=== PATIENT | female | born 1955 | race Caucasian/White ===

== ENCOUNTER 2022-08-21 14:33 | Outpatient (CLI) | payer MEDICARE, MEDICAID, SELFPAY ==
--- NOTE | 2022-08-21 | ECHO_ITS ---
Patient Info Name: Roya Mandujano Age: 67 years : 1955 Gender: Female Ht: 69 in Wt: 206 lbs BSA: 2.16 m2 HR: 78 bpm BP: 128 / 72 mmHg Technical Quality: Fair Exam Date: 08/21/2022 3:13 PM Exam Location: [facility] Pulmonary Patient Status: Outpatient Admit Date: 08/21/2022 Staff Ordering Physician: TannerTasneem MD Staff Home Therapy Rn: Nakita Dean RDCS Attending Provider: Tasneem Simeon MD Referring Physician: Lemuel GARAY; Exam Type: CA echo doppler color flow Study Info Indications - PERIPHERAL EDEMA Complete two-dimensional, color flow and Doppler transthoracic echocardiogram is performed. Summary 1. Complete two-dimensional, color flow and Doppler transthoracic echocardiogram is performed. 2. Left ventricular chamber dimension is normal. 3. Left ventricular systolic function is normal, estimated at 65-70%. 4. The left ventricular diastolic function is grade I diastolic dysfunction. 5. E/e' 6 is not elevated. 6. There is mild aortic valve sclerosis. 7. Mild pulmonary hypertension, estimated pulmonary arterial systolic pressure is 45 mmHg. Left Ventricle E/e' 6 is not elevated. Left ventricular chamber dimension is normal. Left ventricular systolic function is normal, estimated at 65-70%. The left ventricular diastolic function is grade I diastolic dysfunction. Right Ventricle Right ventricular chamber dimension is normal. Right ventricular systolic function is normal. Left Atria Left atrial chamber dimension is normal. Right Atria Right atrial chamber dimension is normal. Aortic Valve The aortic valve is trileaflet. There is mild aortic valve sclerosis. There is no aortic valve stenosis. There is no aortic valve regurgitation. Pulmonic Valve There is no pulmonic regurgitation. Mitral Valve There is no mitral valve stenosis. There is no mitral valve regurgitation. Tricuspid Valve There is no tricuspid valve regurgitation. Mild pulmonary hypertension, estimated pulmonary arterial systolic pressure is 45 mmHg. Pericardium/Pleural There is no pericardial effusion. Inferior Vena Cava Normal inferior vena cava with >50% collapse upon inspiration consistent with normal right atrial pressure, 5 mmHg. Aorta The aortic root size at the sinus of Valsalva is normal. Left Ventricular Outflow Tract Name Value Normal LVOT 2D LVOT Diameter 2.0 cm LVOT Doppler LVOT Peak Gradient 5 mmHg LVOT Mean Gradient 3 mmHg LVOT VTI 21 cm LVOT VTI/AV VTI Ratio 0.7 LVOT Stroke Volume 66 ml LVOT CO 15.9 l/min LVOT CI 7.4 l/min/m2 Pulmonic Valve Name Value Normal PV Doppler PV Peak Gradient
== END 2022-08-21 14:34 | disposition home or self-care (01) ==
LOC: ANHCARD 14:35
PROVIDERS: Visit Provider Family Medicine
DX: R60.9 Edema, unspecified (principal); R01.1 Cardiac murmur, unspecified; I27.20 Pulmonary hypertension, unspecified
CPT/HCPCS: 93306

== ENCOUNTER 2022-10-20 13:00 | Outpatient (CLI) | payer MEDICARE, MEDICAID, SELFPAY ==
[2022-10-20 13:59] LABS: Anion Gap 7 mmol/L (8-16); Blood Urea Nitrogen 26 mg/dL (7-17); Calcium 8.8 mg/dL (8.4-10.2); Carbon Dioxide 28 mmol/L (22-30); Chloride 101 mmol/L (98-107); Estimated Glomerular Filt Rate > 60; Glucose 98 mg/dL (65-110); Potassium 3.5 mmol/L (3.4-5.0); Sodium 136 mmol/L (137-145)
== END 2022-10-20 13:01 | disposition home or self-care (01) ==
PROVIDERS: Anesthesiology; PCP Family Medicine; Visit Provider Urology
DX: Z51.81 Encounter for therapeutic drug level monitoring (principal); Z01.818 Encounter for other preprocedural examination
CPT/HCPCS: 36415; 80048

== ENCOUNTER 2022-10-23 00:28 | Day surgery (SDC) | payer MEDICARE, MEDICAID, SELFPAY ==
--- NOTE | 2022-10-19 12:56 | PC.NURSE ---
Report to the Outpatient Waiting Room, entrance under the green pavilion located off [facility], at time __10:00am on date __10/23/22 . Planned Procedure Time: __12:00pm . Time changes happen often and if your time is changed the preop area will call you the afternoon before. - You and your visitor will be asked to self-screen and do not enter if you have any COVID symptoms. - Only one visitor is requested with a max of two and NO children visitors are allowed at this time. - The patient visitor may be requested to leave or wait in car when not with patient due to distancing restrictions. - A mask is optional within the hospital. Patients may have clear liquids (water, carbonated beverages, clear teas, apple juice) until 3 hours prior to surgery with a maximum of 20 ounces. - No food from midnight until time of surgery Take the following medications with a SIP of water the morning of surgery: ___AMLODIPINE, NASAL SPRAYS, BUPROPION, DULOXETINE, LEVOTHYROXINE Medications to discontinue per physician ___HOLD DICLOFENAC AND ALL VITAMINS/SUPPLEMENTS 7 DAYS PRE-OP PER DR SOARES( PER PATIENT) _ Date to take last dose 10/15/22 (PATIENT ALREADY HOLDING) Please no make-up, nail latvian, hairspray, perfume, deodorant, or body powder the day of surgery. No jewelry (including any body piercings) or valuables the day of surgery, leave them at home. Please take a shower or bath the night before, or the morning of, surgery with an antibacterial soap. Wear comfortable, loose fitting clothing. Children are encouraged to wear pajamas. - Jewelry must be removed prior to entering the operating room. Rings and piercings that are not removed may be cut off. - The hospital will not accept responsibility for valuables. - Please leave all valuables, including medications, at home the day of surgery. If you are going home after surgery, a licensed home delivery driver must drive you home. - NO public transportation without another adult if you receive anesthesia. - We recommend that an adult stay with you for 24 hours following discharge. - We also recommend that you do not drive, make important decision, drink alcoholic beverages, or take any drugs that were not prescribed by your health care provider for at least 24 hours after your discharge time. Follow any additional instructions given to you from your surgeon. If you or anyone in your household have experienced Covid symptoms in the past week, please notify your surgeon or the nurse liaison at the phone number below for possible testing. Telephone instructions given to __PATIENT and asked if any additional questions and then verbalized understanding. Patient advised to call surgeon office or pre surgery nurse liaison [phone] if any additional questions.
[2022-10-19 13:00] VITALS: BMI 32.4
--- NOTE | 2022-10-20 09:19 | PM.IMHP ---
H&P: HPI History of Present Illness Date/Time: 10/20/22 09:19 Chief Complaint: Urge incontinence Narrative: A woman with refractory urge incontinence. She has undergone a trial of sacral nerve stimulation with greater than 50% improvement in symptoms. She will proceed towards full device implantation Review of Systems Review of Systems: All systems reviewed & are unremarkable except as noted in HPI and below PMFSH Social History Social History Smoking packs per day: 0.2 Smoking cigarettes per day: 4.0 Years smoked: 1.5 Smoking pack-years: 0.30 Smoking status: Former smoker Tobacco type: cigarettes Smoking end date: 04/07/90 Substance use: never Additional living arrangements comments: WITH MOTHER Spiritual care concerns: No Meds Home Medications and Allergies Home Medications Medication Instructions Recorded Confirmed Type acetaminophen 650 mg 1,300 mg PO Q8H PRN Pain 10/19/22 10/19/22 History tablet,extended release amlodipine 10 mg tablet 10 mg PO QAM 10/19/22 10/19/22 History apple cider vinegar 500 mg tablet 500 mg PO BID 10/19/22 10/19/22 History aripiprazole 30 mg tablet 30 mg PO HS 10/19/22 10/19/22 History ascorbate calcium (vitamin C) 500 500 mg PO DAILY 10/19/22 10/19/22 History mg capsule atorvastatin 20 mg tablet 20 mg PO HS 10/19/22 10/19/22 History azelastine 137 mcg (0.1 %) nasal 2 spray intranasal BID 10/19/22 10/19/22 History spray aerosol biotin 10,000 mcg capsule 10,000 mcg PO DAILY 10/19/22 10/19/22 History bupropion HCl 150 mg tablet,12 hr 150 mg PO BID 10/19/22 10/19/22 History sustained-release calcium carbonate 600 mg-vitamin 1 tablet PO BID 10/19/22 10/19/22 History D3 5 mcg (200 unit) tablet coenzyme Q10 100 mg capsule 100 mg PO DAILY 10/19/22 10/19/22 History (CoQ-10) diclofenac sodium 75 mg 75 mg PO BID 10/19/22 10/19/22 History tablet,delayed release duloxetine 60 mg capsule,delayed 60 mg PO HS 10/19/22 10/19/22 History release fish, borage, flaxseed oils-omega 1 cap PO TID 10/19/22 10/19/22 History 3,6,9 comb no.1 1,200 mg capsule ([place] 3-6-9) fluticasone propionate 50 2 spray intranasal QAM 10/19/22 10/19/22 History mcg/actuation nasal spray,suspension furosemide 20 mg tablet 20 mg PO DAILY PRN Edema 10/19/22 10/19/22 History glucosamine-chondroitin 250 mg-200 1 tablet PO BID 10/19/22 10/19/22 History mg tablet (Osteo Bi-Flex) ipratropium bromide 21 mcg (0.03 2 spray intranasal TID 10/19/22 10/19/22 History %) nasal spray levothyroxine 50 mcg tablet See Rx Instructions .Route .COMPLEX 10/19/22 10/19/22 History magnesium 500 mg tablet 15 mg PO DAILY 10/19/22 10/19/22 History mirabegron 50 mg tablet,extended 50 mg PO DAILY 10/19/22 10/19/22 History release 24 hr (Myrbetriq) multivitamin 1 tablet PO DAILY 10/19/22 10/19/22 History pantoprazole 40 mg tablet,delayed 40 mg PO QAM 10/19/22 10/19/22 History release telmisartan 80 mg tablet 80 mg PO HS 10/19/22 10/19/22 History topiramate 50 mg tablet See Rx Instructions .Route .COMPLEX 10/19/22 10/19/22 History valacyclovir 500 mg tablet 500 mg PO DAILY 10/19/22 10/19/22 History vitamin E 600 unit capsule 600 unit PO DAILY 10/19/22 10/19/22 History zolpidem 6.25 mg tablet,extended 6.25 mg PO HS 10/19/22 10/19/22 History release,multiphase Allergies Allergy/AdvReac Type Severity Reaction Status Date / Time tetracycline AdvReac Severe YEAST Unverified 10/19/22 12:34 INFECTION Exam Narrative: No acute distress Normal breathing Alert oriented x3 Assessment and Plan Assessment and plan (1) Urge incontinence: Code(s): N39.41 - Urge incontinence Status: Acute Assessment and Plan: Placement of sacral neurostimulator. Understands risks of bleeding, infection, lack of efficacy, need for revision and battery changes, agrees to proceed
--- NOTE | ~2022-10-23 | XR_ITS ---
EXAMINATION: XR fluoroscopy no charge DATE: 10/23/2022 11:00 [employer]PERVISOR OVENS INDICATION: NEUROSTIMULATOR INSERT PHASE 2 . TECHNIQUE: 3 fluoroscopic images of the sacrum were obtained during neurostimulator insertion perform ed by the surgeon. I was not present in the operating room. Fluoroscopy exposure time was 44 seconds. Air Kerma 25.91 mGy. DAP 0.03536 mGym2. COMPARISON: None FINDINGS: Neurostimulator pad overlying the right sacrum at the level of S3. IMPRESSION: Fluoroscopic documentation of neurostimulator insertion. Please refer to the operative note for compl ete procedural details . Reviewed, dictated and finalized at location K. [facility]ISOR OVENS IMPRESSION: Fluoroscopic documentation of neurostimulator insertion. Please refer to the op erative note for complete procedural details .
--- NOTE | 2022-10-23 07:38 | WPDHPUPDATE1 ---
History and Physical Update Update Date/Time: 10/23/22 07:38 History and Physical has been reviewed, including an updated exam of the patient. There are NO changes in the patient's condition. Risks, benefits, and alternatives have been discussed and questions answered. Patient agrees to proceed with procedure.
--- NOTE | 2022-10-23 08:34 | WPDANESEPPF ---
Anes - Initial Pre Proc Eval Procedure: Operation Date: 10/23/22 10:30 Proposed Procedures p Neurostimulator Insertion Phase 2 - Ian Dsouza MD Date/Time: 10/23/22 08:34 Surgeon: Ian Dsouza MD Pre Op Diagnosis: urgency incontinence Patient Data Age: 67 Gender: F Height: 1.7 m Weight: 94 kg Allergies Allergy/AdvReac Type Severity Reaction Status Date / Time tetracycline AdvReac Severe YEAST Unverified 10/23/22 08:52 INFECTION Home Medications Medication Instructions Recorded Confirmed Type acetaminophen 650 mg 1,300 mg PO Q8H PRN Pain 10/19/22 10/23/22 History tablet,extended release amlodipine 10 mg tablet 10 mg PO QAM 10/19/22 10/23/22 History apple cider vinegar 500 mg tablet 500 mg PO BID 10/19/22 10/23/22 History aripiprazole 30 mg tablet 30 mg PO HS 10/19/22 10/23/22 History ascorbate calcium (vitamin C) 500 500 mg PO DAILY 10/19/22 10/23/22 History mg capsule atorvastatin 20 mg tablet 20 mg PO HS 10/19/22 10/23/22 History azelastine 137 mcg (0.1 %) nasal 2 spray intranasal BID 10/19/22 10/23/22 History spray aerosol biotin 10,000 mcg capsule 10,000 mcg PO DAILY 10/19/22 10/23/22 History bupropion HCl 150 mg tablet,12 hr 150 mg PO BID 10/19/22 10/23/22 History sustained-release calcium carbonate 600 mg-vitamin 1 tablet PO BID 10/19/22 10/23/22 History D3 5 mcg (200 unit) tablet coenzyme Q10 100 mg capsule 100 mg PO DAILY 10/19/22 10/23/22 History (CoQ-10) diclofenac sodium 75 mg 75 mg PO BID 10/19/22 10/23/22 History tablet,delayed release duloxetine 60 mg capsule,delayed 60 mg PO HS 10/19/22 10/23/22 History release fish, borage, flaxseed oils-omega 1 cap PO TID 10/19/22 10/23/22 History 3,6,9 comb no.1 1,200 mg capsule ([place] 3-6-9) fluticasone propionate 50 2 spray intranasal QAM 10/19/22 10/23/22 History mcg/actuation nasal spray,suspension furosemide 20 mg tablet 20 mg PO DAILY PRN Edema 10/19/22 10/23/22 History glucosamine-chondroitin 250 mg-200 1 tablet PO BID 10/19/22 10/23/22 History mg tablet (Osteo Bi-Flex) ipratropium bromide 21 mcg (0.03 2 spray intranasal TID 10/19/22 10/23/22 History %) nasal spray levothyroxine 50 mcg tablet See Rx Instructions .Route .COMPLEX 10/19/22 10/23/22 History magnesium 500 mg tablet 15 mg PO DAILY 10/19/22 10/23/22 History mirabegron 50 mg tablet,extended 50 mg PO DAILY 10/19/22 10/23/22 History release 24 hr (Myrbetriq) multivitamin 1 tablet PO DAILY 10/19/22 10/23/22 History pantoprazole 40 mg tablet,delayed 40 mg PO QAM 10/19/22 10/23/22 History release telmisartan 80 mg tablet 80 mg PO HS 10/19/22 10/23/22 History topiramate 50 mg tablet See Rx Instructions .Route .COMPLEX 10/19/22 10/23/22 History valacyclovir 500 mg tablet 500 mg PO DAILY 10/19/22 10/23/22 History vitamin E 600 unit capsule 600 unit PO DAILY 10/19/22 10/23/22 History zolpidem 6.25 mg tablet,extended 6.25 mg PO HS 10/19/22 10/23/22 History release,multiphase Patient hx anesthesia problems: none Family hx anesthesia problems: none Results Review: All pre-operative results and documents have been reviewed as part of the pre-operative evaluation. [facility] Past Medical History Medical History (Updated 10/23/22 @ 08:35 by Ha San DO) Bipolar disorder Hyperlipidemia Hypertension Hypothyroidism JOHN (obstructive sleep apnea) mild - no cpap Surgical History Surgical History (Updated 10/23/22 @ 08:35 by Ha San DO) History of appendectomy History of hysterectomy Social History Social History Smoking packs per day: 0.2 Smoking cigarettes per day: 4.0 Years smoked: 1.5 Smoking pack-years: 0.30 Smoking status: Former smoker Tobacco type: cigarettes Smoking end date: 04/07/90 Substance use: never Living arrangements: with family Additional living arrangements comments: WITH MOTHER Spiritual
[2022-10-23 08:43] VITALS: BP 118/59; PULSE 82; RESP 18; TEMP 36.6; O2SAT 99
[2022-10-23] MEDS: LACTATED RINGERS 1,000 ML 30 ML IV CONT (09:05)
[2022-10-23] MEDS: ceFAZolin 2 GM/D5W 50 ML 2 GM/50 ML BAG IVPB (11:00)
[2022-10-23] MEDS: BUPIVACAINE/EPINEPHRINE 0.5% 30 ML VIAL 20 ML INFILTRATE (11:00)
--- NOTE | 2022-10-23 11:50 | W.PM.PROC2 ---
Procedure Note - Detailed Date of Procedure 10/23/22 Pre-op Diagnosis urgency incontinence Post-op Diagnosis Same Procedure Performed Implantation of sacral lead 33820 Placement of implantable pulse generator 54340 Complex neurostimulator programming impedance check 26458 Surgeon Ian Dsouza MD Anesthesia MAC and Local Indications This is a patient with refractory urge urinary incontinence. They have undergone a successful trial of sacral nerve stimulation. They present today for permanent implantation. They understand the risks of bleeding, infection, decreased efficacy, need for revision and battery changes. They agree to proceed Findings See dictated Description of Procedure They were correctly identified and informed consent was obtained. There brought to the operating room. There placed in the prone position. There given appropriate perioperative antibiotics. A time-out performed. I used fluoroscopy to mimi out my sacral landmarks in the AP and the lateral orientation. I anesthetized the skin. I entered the S3 foramen. I monitored the needle with fluoroscopy. I got appropriate Ileana and toe response at a low threshold. I made a skin lizyz. I placed a stylet. I placed the lead introducer sheath. I thinned placed and deployed to my lead. I got appropriate responses again at a low threshold. I marked out the site of the pulse generator. I anesthetized the skin and made that incision. I created a subcutaneous pocket to house the pulse generator. I tunneled the lead towards this pocket. Appropriate connections were made between the lead and the battery. It was placed in the pocket. It was programmed and impedances were checked and found to be normal. I irrigated out all wounds. I ensured hemostasis. I closed the subcutaneous tissues with 2 Vicryl. I closed the skin with 4 0 Vicryl. Glue was applied. There then awakened and transferred to the PACU in stable condition. Implants Sacral neurostimulator Estimated Blood Loss 5 Drains No Packing No Pathology None sent Condition Stable Disposition PACU
[2022-10-23 11:55] VITALS: BP 132/58; PULSE 80; RESP 20; O2SAT 96
[2022-10-23] MEDS: KETOROLAC 15 MG/ML VIAL (*BKC) IV PUSH (12:09)
[2022-10-23 12:25] VITALS: BP 117/56; PULSE 82; RESP 16
[2022-10-23 13:00] VITALS: BP 117/48; PULSE 75; RESP 16
== END 2022-10-23 13:20 | disposition home or self-care (01) ==
PROVIDERS: PCP Family Medicine; Visit Provider Urology
PROC: (CPT 64561; principal; 2022-10-23 10:30)
DX: N39.41 Urge incontinence (principal); I10 Essential (primary) hypertension; E78.5 Hyperlipidemia, unspecified; E03.9 Hypothyroidism, unspecified; G47.33 Obstructive sleep apnea (adult) (pediatric); F31.9 Bipolar disorder, unspecified; Z87.891 Personal history of nicotine dependence; E66.9 Obesity, unspecified; Z68.32 Body mass index [BMI] 32.0-32.9, adult
CPT/HCPCS: 64561; 64590; 99199; C1767; C1778; C1787; J0690; J1885; J2704; J3010; J7120

== ENCOUNTER 2022-11-08 11:51 | Outpatient (CLI) | payer MEDICARE, MEDICAID, SELFPAY ==
--- NOTE | 2022-11-08 12:56 | ECG_ITS ---
Measurements Intervals [place] Rate: 84 P: 44 NJ: 157 QRS: 29 QRSD: 89 T: 36 QT: 370 QTc: 439 Interpretive Statements SINUS RHYTHM NO PREVIOUS ECG AVAILABLE FOR COMPARISON Electronically Signed On 11-08-2022 15:07:05 CRATE MAKER by Yair Masterson M.D.
[2022-11-08 13:36] LABS: Basophils Absolute Auto 0.1 K/mm3 (0.0-0.1); Basophils Percent Auto 0.8 % (0.2-1.2); Eosinophils Absolute Auto 0.2 K/mm3 (0-0.3); Hematocrit 44.2 % (37.0-47.0); Hemoglobin 13.9 g/dL (12.0-15.0); Immature Granulocyte Absolute 0.01 K/mm3 (0.00-0.031); Immature Granulocyte Percent A 0.2 % (0-0.5); Lymphocytes Absolute Auto 1.66 K/mm3 (0.9-3.2); Lymphocytes Percent Auto 25.8 % (18.3-44.2); Mean Corpuscular HGB Conc 31.4 g/dl (32-36); Mean Corpuscular Hemoglobin 31.4 pg (26-34); Mean Platelet Volume 9.4 fl (7.4-10.4); Monocytes Absolute Auto 0.5 K/mm3 (0.1-0.6); Monocytes Percent Auto 7.9 % (2.6-8.5); Neutrophils Percent Auto 62.3 % (45.5-73.1); Platelet Count Result 224 k/mm3 (150-375); Red Blood Count 4.42 M/mm3 (4.2-5.4); Red Cell Distribution Width 13.2 % (11.5-14.5); White Blood Count 6.4 K/mm3 (4.5-10.0)
[2022-11-08 13:43] LABS: Albumin Level 4.7 g/dL (3.5-5.1)
[2022-11-08 13:51] LABS: Hemoglobin A1C 4.9 % (<5.7)
[2022-11-08 16:03] LABS: Urine Cotinine NEGATIVE
== END 2022-11-08 11:52 | disposition home or self-care (01) ==
PROVIDERS: PCP Family Medicine; Visit Provider Orthopaedic Surgery
DX: Z01.812 Encounter for preprocedural laboratory examination (principal); Z01.810 Encounter for preprocedural cardiovascular examination; M17.12 Unilateral primary osteoarthritis, left knee
CPT/HCPCS: 80307; 82040; 83036; 85025; 86850; 86900; 86901; 87081; 93005

== ENCOUNTER 2023-01-18 12:12 | Outpatient (CLI) | payer MEDICARE, MEDICAID, SELFPAY ==
[2023-01-18 16:07] LABS: Basophils Percent Auto 0.6 % (0.2-1.2); Eosinophils Absolute Auto 0.1 K/mm3 (0-0.3); Eosinophils Percent Auto 2.3 % (0-4.4); Hematocrit 40.7 % (37.0-47.0); Hemoglobin 13.4 g/dL (12.0-15.0); Immature Granulocyte Absolute 0.01 K/mm3 (0.00-0.031); Immature Granulocyte Percent A 0.2 % (0-0.5); Lymphocytes Absolute Auto 1.15 K/mm3 (0.9-3.2); Lymphocytes Percent Auto 21.9 % (18.3-44.2); Mean Corpuscular HGB Conc 32.9 g/dl (32-36); Mean Corpuscular Hemoglobin 31.6 pg (26-34); Mean Platelet Volume 9.7 fl (7.4-10.4); Monocytes Absolute Auto 0.5 K/mm3 (0.1-0.6); Monocytes Percent Auto 9.3 % (2.6-8.5); Neutrophils Absolute Auto 3.5 K/mm3 (1.3-6.7); Neutrophils Percent Auto 65.7 % (45.5-73.1); Platelet Count Result 196 k/mm3 (150-375); Red Blood Count 4.24 M/mm3 (4.2-5.4); Red Cell Distribution Width 12.5 % (11.5-14.5); White Blood Count 5.3 K/mm3 (4.5-10.0)
[2023-01-18 17:10] LABS: Albumin Level 4.7 g/dL (3.5-5.1); Anion Gap 8 mmol/L (8-16); Blood Urea Nitrogen 25 mg/dL (7-17); Calcium 9.2 mg/dL (8.4-10.2); Carbon Dioxide 29 mmol/L (22-30); Chloride 102 mmol/L (98-107); Estimated Glomerular Filt Rate 55; Glucose 95 mg/dL (65-110); Potassium 3.8 mmol/L (3.4-5.0); Sodium 139 mmol/L (137-145)
[2023-01-18 18:13] LABS: Urine Cotinine NEGATIVE
== END 2023-01-18 12:13 | disposition home or self-care (01) ==
PROVIDERS: PCP Family Medicine; Visit Provider Orthopaedic Surgery
DX: Z01.812 Encounter for preprocedural laboratory examination (principal); M17.12 Unilateral primary osteoarthritis, left knee
CPT/HCPCS: 80048; 80307; 82040; 85025; 86850; 86900; 86901; 87081

== ENCOUNTER 2023-01-25 16:13 | Observation (INO) | payer MEDICARE, MEDICAID, SELFPAY ==
[2022-11-08 11:45] VITALS: BP 128/68; PULSE 82; RESP 20; TEMP 36.9; O2SAT 98; BMI 33.7
--- NOTE | 2022-11-08 11:46 | PC.NURSE ---
PRE-OP INSTRUCTIONS, PLEASE READ CAREFULLY Report to the Outpatient Waiting Room, entrance under the green pavilion located off [facility], at time _0600_ on date _11/15/22_. Planned Procedure Time: _0730_. PACK A SMALL OVERNIGHT BAG AND LEAVE IN THE CAR ALONG WITH YOUR WALKER Time changes happen often and if your time is changed the preop area will call you the afternoon before. - You and your visitor will be asked to self-screen and do not enter if you have any COVID symptoms. - Only one visitor is requested with a max of two and NO children visitors are allowed at this time. - The patient visitor may be requested to leave or wait in car when not with patient due to distancing restrictions. - A mask is optional within the hospital at this time. -VISITING HOURS 8AM-8PM Patients may have clear liquids (water, carbonated beverages, clear teas, apple juice) until 3 hours prior to surgery (0430 AM) with a maximum of 20 ounces. - No food from midnight until time of surgery Take the following medications with a SIP of water the morning of surgery: _AMLODIPINE, LEVOTHYROXINE, NASAL SPRAYS, BUPROPION, & TYLENOL IF NEEDED_ DO NOT STOP ANY OF YOUR OTHER PRESCRIPTION MEDICATIONS PRIOR TO SURGERY ?EXCEPT THE FOLLOWING Medications to discontinue per DR. PAGE'S INSTRUCTIONS -_DICLOFENAC__ Medications to discontinue per ANESTHESIA - _MULTIVITAMIN AND SUPPLEMENTS 3 DAYS PRIOR TO SURGERY, Date to take last dose 11/11/22_ Please no make-up, nail bolivian, hairspray, perfume, deodorant, or body powder the day of surgery. No jewelry (including any body piercings) or valuables the day of surgery, leave them at home. Please take a shower or bath the night before, or the morning of, surgery with an antibacterial soap. Wear comfortable, loose fitting clothing. - Jewelry must be removed prior to entering the operating room. Rings and piercings that are not removed may be cut off. - The hospital will not accept responsibility for valuables. - Please leave all valuables, including medications, at home the day of surgery. If you are going home after surgery, a licensed delivery driver must drive you home. - NO public transportation without another adult if you receive anesthesia. - We recommend that an adult stay with you for 24 hours following discharge. - We also recommend that you do not drive, make important decision, drink alcoholic beverages, or take any drugs that were not prescribed by your health care provider for at least 24 hours after your discharge time. Follow any additional instructions given to you from your surgeon. If you or anyone in your household have experienced Covid symptoms in the past week, please notify your surgeon or the nurse liaison at the phone number below for possible testing. Instructions given to _PATIENT_and asked if any additional questions and then verbalized understanding. Patient advised to call surgeon office or pre surgery nurse liaison [phone] if any additional questions.
--- NOTE | 2022-11-09 13:12 | PM.IMHP ---
H&P: HPI History of Present Illness Date/Time: 11/09/22 13:12 Chief Complaint: The patient is a 67-year-old female who sees Dr. Mchugh regarding her left knee. The patient has a chronic ongoing history of pain localized left knee this due to advanced primary osteoarthritis. The patient has tried a long course of conservative measures including cortisone gel shots on prednisone and activity modification without significant relief. She has aching pain with almost any activity she has startup pain rest pain and night pain she cannot stand or walk for long. She has trouble squatting kneeling going up and down stairs. X-rays at this time do show advanced primary osteoarthritis in left knee, the patient has discussed further treatment options in detail Dr. Mchugh she would now like to proceed with left total knee arthroplasty. Review of Systems Review of Systems: Ten point review of systems otherwise negative [facility] Past Medical History Medical History Bipolar disorder Hyperlipidemia Hypertension Hypothyroidism JOHN (obstructive sleep apnea) mild - no cpap Surgical History Surgical History History of appendectomy History of hysterectomy Social History Social History Smoking packs per day: 0.2 Smoking cigarettes per day: 4.0 Years smoked: 1.5 Smoking pack-years: 0.30 Smoking status: Former smoker Tobacco type: cigarettes Second hand tobacco smoke exposure: No Smoking end date: 04/07/90 Additional smoking assessment comments: STATES QUIT SMOKING 1999-DENIES ALL FORMS OF TOBACCO USE Alcohol intake: never Substance use: never Substance use type: does not use Living arrangements: with family Additional living arrangements comments: LIVES WITH 90YR OLD MOTHER Spiritual care concerns: No Meds Home Medications and Allergies Home Medications Medication Instructions Recorded Confirmed Type acetaminophen 650 mg 1,300 mg PO Q8H PRN Pain 10/19/22 11/08/22 History tablet,extended release amlodipine 10 mg tablet 10 mg PO QAM 10/19/22 11/08/22 History apple cider vinegar 500 mg tablet 500 mg PO TID 10/19/22 11/08/22 History aripiprazole 30 mg tablet 30 mg PO HS 10/19/22 11/08/22 History ascorbate calcium (vitamin C) 500 500 mg PO DAILY 10/19/22 11/08/22 History mg capsule atorvastatin 20 mg tablet 20 mg PO HS 10/19/22 11/08/22 History azelastine 137 mcg (0.1 %) nasal 2 spray intranasal BID 10/19/22 11/08/22 History spray aerosol biotin 10,000 mcg capsule 10,000 mcg PO DAILY 10/19/22 11/08/22 History bupropion HCl 150 mg tablet,12 hr 150 mg PO BID 10/19/22 11/08/22 History sustained-release calcium carbonate 600 mg-vitamin 1 tablet PO BID 10/19/22 11/08/22 History D3 5 mcg (200 unit) tablet coenzyme Q10 100 mg capsule 100 mg PO DAILY 10/19/22 11/08/22 History (CoQ-10) diclofenac sodium 75 mg 75 mg PO BID 10/19/22 11/08/22 History tablet,delayed release duloxetine 60 mg capsule,delayed 60 mg PO HS 10/19/22 11/08/22 History release fish, borage, flaxseed oils-omega 1 cap PO TID 10/19/22 11/08/22 History 3,6,9 comb no.1 1,200 mg capsule ([place] 3-6-9) fluticasone propionate 50 2 spray intranasal QAM 10/19/22 11/08/22 History mcg/actuation nasal spray,suspension furosemide 20 mg tablet 20 mg PO DAILY PRN Edema 10/19/22 11/08/22 History glucosamine-chondroitin 250 mg-200 1 tablet PO BID 10/19/22 11/08/22 History mg tablet (Osteo Bi-Flex) ipratropium bromide 21 mcg (0.03 2 spray intranasal TID 10/19/22 11/08/22 History %) nasal spray levothyroxine 50 mcg tablet See Rx Instructions .Route .COMPLEX 10/19/22 11/08/22 History magnesium 500 mg tablet 500 mg PO DAILY 10/19/22 11/08/22 History mirabegron 50 mg tablet,extended 50 mg PO DAILY 10/19/22 11/08/22 History release 24 hr (Myrbetriq) multivit
[2023-01-15 09:50] VITALS: BMI 34.0
--- NOTE | 2023-01-15 09:54 | PC.NURSE ---
PRE-OP INSTRUCTIONS, PLEASE READ CAREFULLY Report to the Outpatient Waiting Room, entrance under the green pavilion located off [facility], at time _0800_ on date _01/24/23_. Planned Procedure Time: _1000_. PACK A SMALL OVERNIGHT BAG AND LEAVE IN THE CAR ALONG WITH YOUR WALKER Time changes happen often and if your time is changed the preop area will call you the afternoon before. - You and your visitor will be asked to self-screen and do not enter if you have any COVID symptoms. - A mask is optional within the hospital at this time. -VISITING HOURS 8AM-8PM Patients may have clear liquids (water, carbonated beverages, clear teas, apple juice) until 3 hours prior to surgery (0700 AM) with a maximum of 20 ounces. - No food from midnight until time of surgery Take the following medications with a SIP of water the morning of surgery: _AMLODIPINE, LEVOTHYROXINE, NASAL SPRAYS, BUPROPION & TYLENOL IF NEEDED_ DO NOT STOP ANY OF YOUR OTHER PRESCRIPTION MEDICATIONS PRIOR TO SURGERY ?EXCEPT THE FOLLOWING Medications to discontinue per DR. PAGE - _DICLOFENAC_ Medications to discontinue per ANESTHESIA - _MULTIVITAMIN & SUPPLEMENTS 3 DAYS PRIOR TO SURGERY, Date to take last dose 01/20/23_ Please no make-up, nail upper sorbian, hairspray, perfume, deodorant, or body powder the day of surgery. No jewelry (including any body piercings) or valuables the day of surgery, leave them at home. Please take a shower or bath the night before, or the morning of, surgery with an antibacterial soap. Wear comfortable, loose fitting clothing. - Jewelry must be removed prior to entering the operating room. Rings and piercings that are not removed may be cut off. - The hospital will not accept responsibility for valuables. - Please leave all valuables, including medications, at home the day of surgery. If you are going home after surgery, a licensed driver/merchandiser must drive you home. - NO public transportation without another adult if you receive anesthesia. - We recommend that an adult stay with you for 24 hours following discharge. - We also recommend that you do not drive, make important decision, drink alcoholic beverages, or take any drugs that were not prescribed by your health care provider for at least 24 hours after your discharge time. Follow any additional instructions given to you from your surgeon. If you or anyone in your household have experienced Covid symptoms in the past week, please notify your surgeon or the nurse liaison at the phone number below for possible testing. Telephone instructions given to _PATIENT__and asked if any additional questions and then verbalized understanding. Patient advised to call surgeon office or pre surgery nurse liaison [phone] if any additional questions.
--- NOTE | 2023-01-19 13:00 | WPDHPUPDATE1 ---
History and Physical Update Update Date/Time: 01/19/23 13:00 History and Physical has been reviewed, including an updated exam of the patient. There are NO changes in the patient's condition. Risks, benefits, and alternatives have been discussed and questions answered. Patient agrees to proceed with procedure. the patient had previously been scheduled to undergo a left total knee arthroplasty 2 months ago but the surgery was delayed. The patient is now ready to proceed with left total knee arthroplasty she has a diagnosis of severe primary osteoarthritis left knee joint. The patient has discussed risks benefits limitations and alternatives of surgery in great detail Dr. Mchugh she is now ready to undergo the procedure 01/24/2023 at [facility] Dr. Mchugh. An addendum has been entered on the previous history and physical there have been no changes to any portion of the previous dictation, exam findings past medical history current medications previous surgical history 10 point review of systems or physical exam. The patient voiced understanding agrees above plan.
[2023-01-24] VITALS (14 sets, daily range): BP systolic 84–126; BP diastolic 32–60; PULSE 81–91; RESP 14–18; TEMP 36.3–36.8; O2SAT 90–96
[2023-01-24] MEDS: TRANEXAMIC ACID 1,000MG/ISO100 1,000 MG/100 ML BAG 200 MG IVPB (06:40)
--- NOTE | 2023-01-24 06:42 | WPDHPUPDATE1 ---
History and Physical Update Update Date/Time: 01/24/23 06:42 History and Physical has been reviewed, including an updated exam of the patient. There are NO changes in the patient's condition. Risks, benefits, and alternatives have been discussed and questions answered. Patient agrees to proceed with procedure.
--- NOTE | 2023-01-24 06:44 | PM.IMHP ---
H&P: HPI History of Present Illness Date/Time: 01/24/23 06:44 Chief Complaint: H&P: HPI History of Present Illness Date/Time: 01/24/23? 6:50 Chief Complaint: ? The patient is a 67-year-old female who sees me regarding her left knee.? The patient has a chronic ongoing history of pain localized left knee this due to advanced primary osteoarthritis.? The patient has tried a long course of conservative measures including cortisone gel shots on prednisone and activity modification without significant relief.? She has aching pain with almost any activity she has startup pain rest pain and night pain she cannot stand or walk for long.? She has trouble squatting kneeling going up and down stairs.? X-rays at this time do show advanced primary osteoarthritis in left knee, the patient has discussed further treatment options in detail. She would now like to proceed with left total knee arthroplasty. Review of Systems Review of Systems:?? ? Ten point review of systems otherwise negative [facility] Past Medical History Medical History? Bipolar disorder Hyperlipidemia Hypertension Hypothyroidism JOHN (obstructive sleep apnea) mild - no cpap Surgical History Surgical History? History of appendectomy History of hysterectomy Social History Social History? Smoking packs per day:? 0.2 Smoking cigarettes per day:? 4.0 Years smoked:? 1.5 Smoking pack-years:? 0.30 Smoking status:? Former smoker Tobacco type:? cigarettes Second hand tobacco smoke exposure:? No Smoking end date:? 04/07/90 Additional smoking assessment comments:? STATES QUIT SMOKING 1999-DENIES ALL FORMS OF TOBACCO USE Alcohol intake:? never Substance use:? never Substance use type:? does not use Living arrangements:? with family Additional living arrangements comments:? LIVES WITH 90YR OLD MOTHER Spiritual care concerns:? No Meds Home Medications and Allergies Home Medications ?Medication ?Instructions ?Recorded ?Confirmed ?Type acetaminophen 650 mg 1,300 mg PO Q8H PRN Pain 10/19/22 11/08/22 History tablet,extended release ? amlodipine 10 mg tablet 10 mg PO QAM 10/19/22 11/08/22 History apple cider vinegar 500 mg tablet 500 mg PO TID 10/19/22 11/08/22 History aripiprazole 30 mg tablet 30 mg PO HS 10/19/22 11/08/22 History ascorbate calcium (vitamin C) 500 500 mg PO DAILY 10/19/22 11/08/22 History mg capsule ? atorvastatin 20 mg tablet 20 mg PO HS 10/19/22 11/08/22 History azelastine 137 mcg (0.1 %) nasal 2 spray intranasal BID 10/19/22 11/08/22 History spray aerosol ? biotin 10,000 mcg capsule 10,000 mcg PO DAILY 10/19/22 11/08/22 History bupropion HCl 150 mg tablet,12 hr 150 mg PO BID 10/19/22 11/08/22 History sustained-release ? calcium carbonate 600 mg-vitamin 1 tablet PO BID 10/19/22 11/08/22 History D3 5 mcg (200 unit) tablet ? coenzyme Q10 100 mg capsule 100 mg PO DAILY 10/19/22 11/08/22 History (CoQ-10) ? diclofenac sodium 75 mg 75 mg PO BID 10/19/22 11/08/22 History tablet,delayed release ? duloxetine 60 mg capsule,delayed 60 mg PO HS 10/19/22 11/08/22 History release ? fish, borage, flaxseed oils-omega 1 cap PO TID 10/19/22 11/08/22 History 3,6,9 comb no.1 1,200 mg capsule ? ([place] 3-6-9) ? fluticasone propionate 50 2 spray intranasal QAM 10/19/22 11/08/22 History mcg/actuation nasal ? spray,suspension ? furosemide 20 mg tablet 20 mg PO DAILY PRN Edema 10/19/22 11/08/22 History glucosamine-chondroitin 250 mg-200 1 tablet PO BID 10/19/22 11/08/22 History mg tablet (Osteo Bi-Flex) ? ipratropium bromide 21 mcg (0.03 2 spray intranasal TID 10/19/22 11/08/22 History %) nasal spray ? levothyroxine 50 mcg tablet See Rx Instructions .Route .COMPLEX 10/19/22 11/08/22 History magnesium 500 mg tablet 500 mg PO DAILY 10/19/22 11/08/22 History mirabegr
--- NOTE | 2023-01-24 06:52 | P.HP_ITS ---
H&P: HPI History of Present Illness Date/Time: 01/24/23 06:52 Chief Complaint: [place] [address] Living arrangements:? with family Additional living arrangements comments:? LIVES WITH 90YR OLD MOTHER Spiritual care concerns:? No Meds Home Medications and Allergies Home Medications ?Medication ?Instructions ?Recorded ?Confirmed ?Type acetaminophen 650 mg 1,300 mg PO Q8H PRN Pain 10/19/22 11/08/22 Histo ry tablet,extended release ? amlodipine 10 mg tablet 10 mg PO QAM 10/19/22 11/08/22 History apple cider vinegar 500 mg tablet 500 mg PO TID 10/19/22 History aripiprazole 30 mg tablet 30 mg PO HS 10/19/22 11/08/22 Histo ry ascorbate calcium (vitamin C) 500 500 mg PO DAILY 10/19/22 History mg capsule ? atorvastatin 20 mg tablet 20 mg PO HS 10/19/22 11/08/22 Histo ry azelastine 137 mcg (0.1 %) nasal 2 spray intranasal BID 10/19/2210/30 History spray aerosol ? biotin 10,000 mcg capsule 10,000 mcg PO DAILY 10/19/22 11/08/22 Histo ry bupropion HCl 150 mg tablet,12 hr 150 mg PO BID 10/19/22 History sustained-release ? calcium carbonate 600 mg-vitamin 1 tablet PO BID 10/19/22 3 History D3 5 mcg (200 unit) tablet ? coenzyme Q10 100 mg capsule 100 mg PO DAILY 10/19/22 11/08/22 His tory (CoQ-10) ? diclofenac sodium 75 mg 75 mg PO BID 10/19/22 11/08/22 History tablet,delayed release ? duloxetine 60 mg capsule,delayed 60 mg PO HS 10/19/22 3 History release ? fish, borage, flaxseed oils-omega 1 cap PO TID 10/19/22 History 3,6,9 comb no.1 1,200 mg capsule ? ([place] 3-6-9) ? fluticasone propionate 50 2 spray intranasal QAM 10/19/22 11/08/22 Hi story mcg/actuation nasal ? spray,suspension ? furosemide 20 mg tablet 20 mg PO DAILY PRN Edema 10/19/22 11/08/22 Hi story glucosamine-chondroitin 250 mg-200 1 tablet PO BID 10/19/2211/08 History mg tablet (Osteo Bi-Flex) ? ipratropium bromide 21 mcg (0.03 2 spray intranasal TID 10/19/22 02/0 10/30 History %) nasal spray ? levothyroxine 50 mcg tablet See Rx Instructions .Route .COMPLEX 10/19/22 11/08/22 History magnesium 500 mg tablet 500 mg PO DAILY 10/19/22 11/08/22 History mirabegron 50 mg tablet,extended 50 mg PO DAILY 10/19/22 3 History release 24 hr (Myrbetriq) ? multivitamin 1 tablet PO DAILY 10/19/22 11/08/22 History pantoprazole 40 mg tablet,delayed 40 mg PO QAM 10/19/22 History release ? telmisartan 80 mg tablet 80 mg PO HS 10/19/22A 11/08/22 Histor y topiramate 50 mg tablet See Rx Instructions .Route .COMPLEX 10/19/22 11/08/22 History valacyclovir 500 mg tablet 500 mg PO DAILY 10/19/22
--- NOTE | 2023-01-24 06:52 | WPDANESEPPF ---
Anes - Initial Pre Proc Eval Procedure: Operation Date: 01/24/23 10:00 Proposed Procedures p Left Total Knee Arthroplasty - eGrald Mchugh MD Date/Time: 01/24/23 06:52 Surgeon: Gerald Mchugh MD Pre Op Diagnosis: O.A. Left Knee Patient Data Age: 67 Gender: F Height: 1.68 m Weight: 94.2 kg Last Vital Signs Temp 36.9 C 11/08/22 11:45 Pulse 82 11/08/22 11:45 Resp 20 11/08/22 11:45 BP 128/68 11/08/22 11:45 Pulse Ox 98 11/08/22 11:45 O2 Del Method Room Air 11/08/22 11:45 Allergies Allergy/AdvReac Type Severity Reaction Status Date / Time tetracycline AdvReac Severe YEAST Unverified 01/24/23 06:19 INFECTION Home Medications Medication Instructions Recorded Confirmed Type acetaminophen 650 mg 1,300 mg PO Q8H PRN Pain 10/19/22 01/24/23 History tablet,extended release amlodipine 10 mg tablet 10 mg PO QAM 10/19/22 01/24/23 History apple cider vinegar 500 mg tablet 500 mg PO TID 10/19/22 01/24/23 History aripiprazole 30 mg tablet 30 mg PO HS 10/19/22 01/24/23 History ascorbate calcium (vitamin C) 500 500 mg PO DAILY 10/19/22 01/24/23 History mg capsule atorvastatin 20 mg tablet 20 mg PO HS 10/19/22 01/24/23 History azelastine 137 mcg (0.1 %) nasal 2 spray intranasal BID 10/19/22 01/24/23 History spray aerosol biotin 10,000 mcg capsule 10,000 mcg PO DAILY 10/19/22 01/24/23 History bupropion HCl 150 mg tablet,12 hr 150 mg PO BID 10/19/22 01/24/23 History sustained-release calcium carbonate 600 mg-vitamin 1 tablet PO BID 10/19/22 01/24/23 History D3 5 mcg (200 unit) tablet coenzyme Q10 100 mg capsule 100 mg PO DAILY 10/19/22 01/24/23 History (CoQ-10) diclofenac sodium 75 mg 75 mg PO BID 10/19/22 01/24/23 History tablet,delayed release duloxetine 60 mg capsule,delayed 60 mg PO HS 10/19/22 01/24/23 History release fish, borage, flaxseed oils-omega 1 cap PO TID 10/19/22 01/24/23 History 3,6,9 comb no.1 1,200 mg capsule ([place] 3-6-9) fluticasone propionate 50 2 spray intranasal QAM 10/19/22 01/24/23 History mcg/actuation nasal spray,suspension furosemide 20 mg tablet 20 mg PO DAILY PRN Edema 10/19/22 01/15/23 History glucosamine-chondroitin 250 mg-200 1 tablet PO BID 10/19/22 01/24/23 History mg tablet (Osteo Bi-Flex) ipratropium bromide 21 mcg (0.03 2 spray intranasal TID 10/19/22 01/15/23 History %) nasal spray levothyroxine 50 mcg tablet See Rx Instructions .Route .COMPLEX 10/19/22 01/24/23 History magnesium 500 mg tablet 500 mg PO DAILY 10/19/22 01/24/23 History mirabegron 50 mg tablet,extended 50 mg PO DAILY 10/19/22 01/24/23 History release 24 hr (Myrbetriq) multivitamin 1 tablet PO DAILY 10/19/22 01/24/23 History pantoprazole 40 mg tablet,delayed 40 mg PO QAM 10/19/22 01/24/23 History release telmisartan 80 mg tablet 80 mg PO HS 10/19/22 01/24/23 History topiramate 50 mg tablet See Rx Instructions .Route .COMPLEX 10/19/22 01/24/23 History valacyclovir 500 mg tablet 500 mg PO DAILY 10/19/22 01/24/23 History zolpidem 6.25 mg tablet,extended 6.25 mg PO HS 10/19/22 01/24/23 History release,multiphase vitamin E (dl, acetate) 400 unit 400 unit PO DAILY 11/08/22 01/24/23 History chewable tablet Patient hx anesthesia problems: none Family hx anesthesia problems: none Results Review: All pre-operative results and documents have been reviewed as part of the pre-operative evaluation. [facility] Past Medical History Medical History Bipolar disorder Hyperlipidemia Hypertension Hypothyroidism JOHN (obstructive sleep apnea) mild - no cpap Surgical History Surgical History History of appendectomy History of hysterectomy Social History Social History Smoking packs per day: 0.2 Smoking cigarettes per day: 4.0 Years smoked: 1.5 Smoking pack-years: 0.30 S
--- NOTE | 2023-01-24 06:52 | PM.IMHP ---
H&P: HPI History of Present Illness Date/Time: 01/24/23 06:52 Chief Complaint: [place] [address] Living arrangements:? with family Additional living arrangements comments:? LIVES WITH 90YR OLD MOTHER Spiritual care concerns:? No Meds Home Medications and Allergies Home Medications ?Medication ?Instructions ?Recorded ?Confirmed ?Type acetaminophen 650 mg 1,300 mg PO Q8H PRN Pain 10/19/22 11/08/22 History tablet,extended release ? amlodipine 10 mg tablet 10 mg PO QAM 10/19/22 11/08/22 History apple cider vinegar 500 mg tablet 500 mg PO TID 10/19/22 11/08/22 History aripiprazole 30 mg tablet 30 mg PO HS 10/19/22 11/08/22 History ascorbate calcium (vitamin C) 500 500 mg PO DAILY 10/19/22 11/08/22 History mg capsule ? atorvastatin 20 mg tablet 20 mg PO HS 10/19/22 11/08/22 History azelastine 137 mcg (0.1 %) nasal 2 spray intranasal BID 10/19/22 11/08/22 History spray aerosol ? biotin 10,000 mcg capsule 10,000 mcg PO DAILY 10/19/22 11/08/22 History bupropion HCl 150 mg tablet,12 hr 150 mg PO BID 10/19/22 11/08/22 History sustained-release ? calcium carbonate 600 mg-vitamin 1 tablet PO BID 10/19/22 11/08/22 History D3 5 mcg (200 unit) tablet ? coenzyme Q10 100 mg capsule 100 mg PO DAILY 10/19/22 11/08/22 History (CoQ-10) ? diclofenac sodium 75 mg 75 mg PO BID 10/19/22 11/08/22 History tablet,delayed release ? duloxetine 60 mg capsule,delayed 60 mg PO HS 10/19/22 11/08/22 History release ? fish, borage, flaxseed oils-omega 1 cap PO TID 10/19/22 11/08/22 History 3,6,9 comb no.1 1,200 mg capsule ? ([place] 3-6-9) ? fluticasone propionate 50 2 spray intranasal QAM 10/19/22 11/08/22 History mcg/actuation nasal ? spray,suspension ? furosemide 20 mg tablet 20 mg PO DAILY PRN Edema 10/19/22 11/08/22 History glucosamine-chondroitin 250 mg-200 1 tablet PO BID 10/19/22 11/08/22 History mg tablet (Osteo Bi-Flex) ? ipratropium bromide 21 mcg (0.03 2 spray intranasal TID 10/19/22 11/08/22 History %) nasal spray ? levothyroxine 50 mcg tablet See Rx Instructions .Route .COMPLEX 10/19/22 11/08/22 History magnesium 500 mg tablet 500 mg PO DAILY 10/19/22 11/08/22 History mirabegron 50 mg tablet,extended 50 mg PO DAILY 10/19/22 11/08/22 History release 24 hr (Myrbetriq) ? multivitamin 1 tablet PO DAILY 10/19/22 11/08/22 History pantoprazole 40 mg tablet,delayed 40 mg PO QAM 10/19/22 11/08/22 History release ? telmisartan 80 mg tablet 80 mg PO HS 10/19/22 11/08/22 History topiramate 50 mg tablet See Rx Instructions .Route .COMPLEX 10/19/22 11/08/22 History valacyclovir 500 mg tablet 500 mg PO DAILY 10/19/22 11/08/22 History zolpidem 6.25 mg tablet,extended 6.25 mg PO HS 10/19/22 11/08/22 History release,multiphase ? vitamin E (dl, acetate) 400 unit 400 unit PO DAILY 11/08/22 11/08/22 History chewable tablet ? Allergies Allergy/AdvReac Type Severity Reaction Status Date / Time tetracycline AdvReac Severe YEAST Unverified 11/08/22 12:18 ? ? ? INFECTION ? ? Exam Narrative:?? ?on exam today the patient is noted be a well-developed well-nourished female no acute distress alert oriented x3.? Normal mood and affect.? She has noted be 5 ft 7 in tall 206 lb with BMI 32.3.? Hearing and vision intact respiratory is good no distress.? Pulse regular rate rhythm.? Abdomen benign.? Extremities show the patient's left knee to be painful with manipulation and range of motion.? She has tenderness on the joint lines with crepitation mild effusion swelling knee joint is otherwise stable strength is 5 5.? Range of motion fairly well maintained.? Neurovascularly she is intact skin is intact central nervous system within normal limits. Assessment and Plan Assessment and plan (1) Primary osteoarthritis of left knee: ?Code(s): M17.12 - Unilateral primary osteoarthritis, left knee ?Status:?Acute Plan ? By x-ray exam the patient is noted to have advanced primary
--- NOTE | 2023-01-24 06:59 | P.HP_ITS ---
H&P: HPI History of Present Illness Date/Time: 01/24/23 06:59 Chief Complaint: [facility] [address] [place] [id number] History & Physical Report Signed Patient: Roya Mandujano MR#: [id number] : 1955 Acct:[id number] Age/Sex: 67 / F ADM Date: 01/24/23 Loc: [facility] Attending Dr: Gerald Mchugh MD cc: Gerald Mchugh MD; Lemuel, Tasneem Headley MD~ H&P: HPI History of Present Illness Date/Time: 01/24/23? 06:44 Chief Complaint: H&P: HPI History of Present Illness Date/Time: 01/24/23? 6:50 Chief Complaint: ? The patient is a 67-year-old female who sees me regarding her left knee.? The patient has a chronic ongoing history of pain localized left knee this due to advanced primary osteoarthritis.? The patient has tried a long course of conservative measures including cortisone gel shots on prednisone and activity modification without significant relief.? She has aching pain with almost any activity she has startup pain rest pain and night pain she cannot stand or walk for long.? She has trouble squatting kneeling going up and down stairs.? X-rays at this time do show advanced primary osteoarthritis in left knee, the patient has discussed further treatment options in detail. She would now like to proceed with left total knee arthroplasty. Review of Systems Review of Systems:? Ten point review of systems otherwise negative [facility] Past Medical History Medical History?(Reviewed 01/24/[address] Mchugh) Bipolar disorder Hyperlipidemia Hypertension Hypothyroidism JOHN (obstructive sleep apnea) mild - no cpap Surgical History Surgical History?(Reviewed 01/24/[address] Mchugh) History of appendectomy History of hysterectomy Social History Social History?(Reviewed 01/24/[address] Mchugh) Smoking packs per day:? 0.2 Smoking cigarettes per day:? 4.0 Years smoked:? 1.5 Smoking pack-years:? 0.30 Smoking status:? Former smoker Tobacco type:? cigarettes Second hand tobacco smoke exposure:? No Smoking end date:? 04/07/90 Additional smoking assessment comments:? STATES QUIT SMOKING 1999-DENIES ALL FORMS OF TOBACCO USE Alcohol intake:? never Substance use:? never Substance use type:? does not use Living arrangements:? with family Additional living arrangements comments:? LIVES WITH 90YR OLD MOTHER Spiritual care concerns:? No Meds Home Medications and Allergies Home Medications ?Medication? ?Instructions? ?Recorded? ?Confirmed ?Type acetaminophen 650 mg? 1,300 mg PO Q8H PRN Pain? 10/19/22? 11/08/22 His tory tablet,extended release? amlodipine 10 mg tablet? 10 mg PO QAM? 10/19/22? 11/08/22 Histor y apple cider vinegar 500 mg tablet? 500 mg PO TID? 10/19/22? 11/08 History aripiprazole 30 mg tablet? 30 mg PO HS? 10/19/22? 11/08/22 Hist ory ascorbate calcium (vitamin C) 500? 500 mg PO DAILY? 10/19/22? 11/08 History mg capsule? atorvastatin 20 mg tablet?F 20 mg PO HS? 10/19/22? 11/08/22 His tory azelastine 137 mcg (0.1 %) nasal? 2 spray intranasal BID? 10/19/22? History spray aerosol? ??
--- NOTE | 2023-01-24 06:59 | PM.IMHP ---
H&P: HPI History of Present Illness Date/Time: 01/24/23 06:59 Chief Complaint: [facility] [address] [place] [id number] History & Physical Report Signed Patient: Roya Mandujano MR#: [id number] : 1955 Acct:[id number] Age/Sex: 67 / F ADM Date: 01/24/23 Loc: ANHSURGERY Attending Dr: Gerald Mchugh MD cc: Gerald Mchugh MD; Lemuel, Tasneem Headley MD~ H&P: HPI History of Present Illness Date/Time: 01/24/23? 06:44 Chief Complaint: H&P: HPI History of Present Illness Date/Time: 01/24/23? 6:50 Chief Complaint: ? The patient is a 67-year-old female who sees me regarding her left knee.? The patient has a chronic ongoing history of pain localized left knee this due to advanced primary osteoarthritis.? The patient has tried a long course of conservative measures including cortisone gel shots on prednisone and activity modification without significant relief.? She has aching pain with almost any activity she has startup pain rest pain and night pain she cannot stand or walk for long.? She has trouble squatting kneeling going up and down stairs.? X-rays at this time do show advanced primary osteoarthritis in left knee, the patient has discussed further treatment options in detail. She would now like to proceed with left total knee arthroplasty. Review of Systems Review of Systems:? Ten point review of systems otherwise negative [facility] Past Medical History Medical History?(Reviewed 01/24/[address] Mchugh) Bipolar disorder Hyperlipidemia Hypertension Hypothyroidism JOHN (obstructive sleep apnea) mild - no cpap Surgical History Surgical History?(Reviewed 01/24/[address] Mchugh) History of appendectomy History of hysterectomy Social History Social History?(Reviewed 01/24/[address] Mchugh) Smoking packs per day:? 0.2 Smoking cigarettes per day:? 4.0 Years smoked:? 1.5 Smoking pack-years:? 0.30 Smoking status:? Former smoker Tobacco type:? cigarettes Second hand tobacco smoke exposure:? No Smoking end date:? 04/07/90 Additional smoking assessment comments:? STATES QUIT SMOKING 1999-DENIES ALL FORMS OF TOBACCO USE Alcohol intake:? never Substance use:? never Substance use type:? does not use Living arrangements:? with family Additional living arrangements comments:? LIVES WITH 90YR OLD MOTHER Spiritual care concerns:? No Meds Home Medications and Allergies Home Medications ?Medication? ?Instructions? ?Recorded? ?Confirmed ?Type acetaminophen 650 mg? 1,300 mg PO Q8H PRN Pain? 10/19/22? 11/08/22 History tablet,extended release? amlodipine 10 mg tablet? 10 mg PO QAM? 10/19/22? 11/08/22 History apple cider vinegar 500 mg tablet? 500 mg PO TID? 10/19/22? 11/08/22 History aripiprazole 30 mg tablet? 30 mg PO HS? 10/19/22? 11/08/22 History ascorbate calcium (vitamin C) 500? 500 mg PO DAILY? 10/19/22? 11/08/22 History mg capsule? atorvastatin 20 mg tablet? 20 mg PO HS? 10/19/22? 11/08/22 History azelastine 137 mcg (0.1 %) nasal? 2 spray intranasal BID? 10/19/22? 11/08/22 History spray aerosol? biotin 10,000 mcg capsule? 10,000 mcg PO DAILY? 10/19/22? 11/08/22 History bupropion HCl 150 mg tablet,12 hr? 150 mg PO BID? 10/19/22? 11/08/22 History sustained-release? calcium carbonate 600 mg-vitamin? 1 tablet PO BID? 10/19/22? 11/08/22 History D3 5 mcg (200 unit) tablet? coenzyme Q10 100 mg capsule? 100 mg PO DAILY? 10/19/22? 11/08/22 History (CoQ-10)? diclofenac sodium 75 mg? 75 mg PO BID? 10/19/22? 11/08/22 History tablet,delayed release? duloxetine 60 mg capsule,delayed? 60 mg PO HS? 10/19/22? 11/08/22 History release? fish, borage, flaxseed oils-omega? 1 cap PO TID? 10/19/22? 11/08/22 History 3,6,9 comb no.1 1,200 mg capsule? (Sullivan 3-6-9)? fluticasone propionate 50? 2 spray intranasal QAM? 10/19/22? 11/08/22 History mcg/actuation nasal? spray,garduno
[2023-01-24] MEDS: ceFAZolin 2 GM/D5W 50 ML 2 GM/50 ML BAG IVPB (07:27)
--- NOTE | 2023-01-24 07:36 | WPDANESPNB ---
Anes - Peripheral Nerve Block Date/Time: 01/24/23 07:36 I have discussed with the patient/family/POA the placement of a peripheral nerve block for post-operative pain management, including associated risks, benefits, complications, and side effects. Alternative methods of post-operative analgesia were detailed. Questions were solicited and answers provided to the satisfaction of the patient/family/POA. Time-Out: A pre-procedural Time-Out was completed immediately before starting the procedure and confirmed: Patient Identification, Site, Procedure, Patient Position and the Availability of Requisite Equipment. Clinical Indications: Acute post-operative pain management requested by the operative surgeon. Nerve Block Insertion Note Anes-nerve block: adductor canal left Patient position: supine Skin prep: chlorhexidine Needle: 22 gauge, stimulating, insulated echogenic needle. Needle length: 80 mm Technique: ultrasound Injectate: bupivacaine 0.5% with epi 5 mcg/ml (30cc - no epi) Observations: tolerated well Complications: none Procedure start time:: 714 Procedure end time:: 719
--- NOTE | 2023-01-24 08:49 | W.PM.PROC2 ---
Procedure Note - Detailed Date of Procedure 01/24/23 Pre-op Diagnosis O.A. Left Knee Post-op Diagnosis Same Procedure Performed Left total knee arthroplasty Surgeon Gerald Mchugh MD Clinical Nutritionist Ervin Ramirez Anesthesia General Description of Procedure The patient was brought to the operating room. General anesthetic was administered. Placed on the operating table and sterilely prepped and draped in usual manner. A longitudinal incision was made. Tourniquet inflated to 300 mmHg for a total of [10] minutes during the cementing. Dissection carried down to the fascia. Medial parapatellar incision was made and the patella subluxated laterally. Patella cut from 22 to 15 mm and sized for a 34 mm button. The tibia cut perpendicular to the long axis and femur cut in 5 degrees of valgus, a 65 femur trialed. 71 tibia was felt to fit the best. The soft tissue balanced, hemostasis obtained. All [address], 71 tibia, 65 femur, 34 mm patella, and 13AS mm poly. Motion was 0-125 degrees with good stablility and flexion and extension. The wound was closed with #2 vicryl, 2-0 Vicryl and bean. [employer] Estimated Blood Loss 300 Drains No Packing No Pathology None sent Complications No immediate complications Condition Stable Disposition PACU
[2023-01-24] MEDS: LACTATED RINGERS 1,000 ML 30 ML IV CONT ×2 (09:22)
[2023-01-24] MEDS: fentaNYL CITRATE INJ (*CRX) 100 MCG/2 ML VIAL 25 MCG IV PUSH ×2 (09:36→09:55)
--- NOTE | 2023-01-24 09:40 | PM.OP ---
Procedure Note - Brief Procedure Note - Brief Date of procedure: 01/24/23 Preop diagnosis-O.A. Left Knee Postop diagnosis-osteoarthritis left knee status post left total knee arthroplasty Procedure performed: Left total knee arthroplasty Surgeon: Surgeon Gerald Mchugh MD 1st insurance assistant-Ervin Ramirez PA-C Description of procedure: Patient was taken to the operating room on January 24, 2023. I entered the room at 7:15 a.m. at that point I assisted with positioning the patient on the operating table placement of a tourniquet a sterile prep and drape of the left lower extremity. Dr. Mchugh then entered the room and proceeded with the left total knee arthroplasty. Throughout the procedure I assisted with hemostasis with suction cautery wound retraction, positioning of the leg, positioning of the implant and excess cement removal once the implant was placed and the cement was dry. Dr. Mchugh at that point had completed his portion of the procedure I then irrigated the wound thoroughly, who major hemostasis was obtained with cauterization and placement of Surgicel powder. I then proceeded to close the deep capsule of the joint with 2. Vicryl, 2. Quill. Once this was completed I irrigated the wound once again placed more Surgicel powder use cautery for further hemostasis I then closed the skin layer with 2-0 Vicryl and surgical bean. I then placed a sterile dressing with Xeroform gauze 4 x 4 gauze soft roll and along 6 in Gato wrap from the toes to the thigh. I then assisted with transfer the patient from the operating table to the stretcher for transport to recovery room. The patient was in good condition total blood loss was approximately 300 cc. No complications were noted. Patient was expected to spend the night be discharged home tomorrow if in stable condition. I then exited the room at 9:25 a.m..
--- NOTE | 2023-01-24 10:54 | ADMGEN ---
This patient, Roya Mandujano, was admitted to Medical Room 244-. Patient/family oriented to hospital policies and general routines including ID bracelet, bed and alarms, visiting hours, pain management, procedures, bathroom and other care routines, personal items, smoking policy, room service/diet, and visiting hours. Information on how to activate the Rapid Response Team has been discussed. Patient/Family are encouraged to report perceived risks to care and to ask questions if they do not understand what they are told or what they should do.
[2023-01-24] MEDS: SENNA/DOCUSATE SODIUM TABLET 2 TAB PO ×2 (12:48→17:15)
[2023-01-24] MEDS: valACYclovir HCL 500 MG TABLET PO (12:49)
[2023-01-24] MEDS: polyethylene glycoL 3350 17 GM POWD.PACK PO (12:49)
[2023-01-24] MEDS: MULTIVITAMINS THERAPEUTIC TAB (*BKC) 1 TABLET PO (12:49)
[2023-01-24] MEDS: PANTOPRAZOLE 40 MG TABLET PO (12:49)
[2023-01-24] MEDS: MIRABEGRON 50 MG ER TABLET PO (12:49)
[2023-01-24] MEDS: HYDROcodone/acetaminophen (*CRX) 5-325 MG TABLET 1 TAB PO ×2 (12:59→23:27)
--- NOTE | 2023-01-24 13:15 | WPDCN ---
Assessment and Plan Assessment and plan (1) Primary osteoarthritis of left knee: Code(s): M17.12 - Unilateral primary osteoarthritis, left knee Status: Acute Assessment and Plan: Postoperative day 0 status post left knee arthroplasty. Wound care, pain control, DVT prophylaxis deferred to primary service. (2) Hypertension: Code(s): I10 - Essential (primary) hypertension Status: Chronic Assessment and Plan: Blood pressures have been a bit soft postoperatively. Hold antihypertensives for now and monitor closely. Check H&H. (3) Hyperlipidemia: Code(s): E78.5 - Hyperlipidemia, unspecified Status: Chronic Assessment and Plan: Continue statin and check LFTs. (4) Hypothyroidism: Code(s): E03.9 - Hypothyroidism, unspecified Status: Chronic Assessment and Plan: Continue levothyroxine and check TSH. (5) Bipolar disorder: Code(s): F31.9 - Bipolar disorder, unspecified Status: Chronic Assessment and Plan: Continue aripiprazole and topiramate. (6) Gastroesophageal reflux disease: Code(s): K21.9 - Gastro-esophageal reflux disease without esophagitis Status: Acute Assessment and Plan: No acute issues. Continue pantoprazole. (7) Urge incontinence: Code(s): N39.41 - Urge incontinence Status: Acute Assessment and Plan: Status post sacral neurostimulator implantation. Continue Myrbetriq. Plan Thank you for allowing us to participate in this patient's care. Please do not hesitate to contact us with any questions. HPI Data of Consult Date/Time: 01/24/23 13:15 Requesting Physician: Gerald Mchugh MD Consult Narrative Reason for consult: Medical management. Narrative: This is a 67-year-old female status post elective left total knee arthroplasty per Dr. Mchugh whom the hospitalist service has been consulted for help managing her medical conditions postoperatively. Patient provides the following history. She has had longstanding pain in the left knee which has not been amenable to conservative outpatient treatment and she elected for surgical repair today. Her surgery was performed under general anesthesia with no immediate complications documented an estimated blood loss of 300 mL. Postoperatively she has been doing okay and has been up with physical therapy twice. Her pain is reasonable. She denies fever, chills, sweats, chest pain, shortness a breath, nausea, and vomiting. She also denies paresthesias, skin color, and temperature changes distal to the surgical site. Blood pressures have been running a bit soft postoperatively and repeat H&H this afternoon showed that her hemoglobin dropped nearly 2.5 g when compared to labs obtained 6 days ago. She is not feeling lightheaded or dizzy. She is a bit worried about being discharged home as she is not certain how she is going to do. Other than that she has no complaints. Review of Systems Review of Systems: Twelve systems were reviewed. No fever, chills, or sweats. No recent cold or flu symptoms. No chest or pleuritic pain. No history of venous thromboembolism. She has arthritis in her right knee as well but it is not nearly as significant as her left knee. She also reports bone on bone arthritis in both shoulders and think she may end up having to have those replaced eventually. Except as documented, all other systems were reviewed and are negative. [facility] Past Medical History Medical History (Updated 01/24/23 @ 13:21 by Alysia Martinez PA-C) Arthritis Bipolar disorder Gastroesophageal reflux disease Hyperlipidemia Hypertension Hypothyroidism Mild obstructive sleep apnea Patient does not use CPAP. Urge incontinence Status post sacral neurostimulator implantation. Surgical History Surgical History (Updated 01/24/23 @ 13:21 by Alysia Martinez PA-C) History of appendectomy History of arthroplasty of left kne
[2023-01-24] MEDS: ceFAZolin 1 GM/NS 50 ML 1 GM/50 ML BAG IVPB ×2 (15:30→22:45)
[2023-01-24 16:12] LABS: Hematocrit 34.3 % (37.0-47.0)
[2023-01-24] MEDS: CELECOXIB 200 MG CAPSULE PO (17:14)
[2023-01-24] MEDS: RIVAROXABAN 10 MG TABLET PO (17:16)
[2023-01-24] MEDS: HYDROcodone/acetaminophen (*CRX) 7.5-325 MG TABLET 1 TAB PO (20:58)
[2023-01-24] MEDS: DULoxetine HCL 60 MG CAPSULE.DR PO (20:59)
[2023-01-24] MEDS: TOPIRAMATE 100 MG TABLET PO (20:59)
[2023-01-24] MEDS: ATORVASTATIN 20 MG TABLET PO (21:00)
[2023-01-24] MEDS: buPROPion HCL SR (12 HR) 150 MG TAB PO (21:00)
[2023-01-24] MEDS: ARIPiprazole 10 MG TABLET 30 MG PO (21:01)
[2023-01-24] MEDS: AZELASTINE HCL NASAL 0.1% 137 MCG/SPR 30 ML BTL 2 SPRAY NASAL (21:02)
[2023-01-24] MEDS: ZOLPIDEM TARTRATE (*CRX) 5 MG TABLET PO (22:45)
--- NOTE | ~2023-01-25 | XR_ITS ---
EXAMINATION: [id number] DATE: 01/24/2023 09:41 INDICATION: Postoperative evaluation following left total knee arthroplasty. TECHNIQUE: Anteroposterior and lateral views of the left knee were obtained. COMPARISON: None. FINDINGS: Left total knee arthroplasty with patellar resurfacing appears well seated and in near anatomic align ment. No fractures identified. Soft tissue swelling with expected postoperative subcutaneous, intram edullary and intra-articular gas. IMPRESSION: 1. Left total knee arthroplasty, negative for postoperative purposes. Reviewed, dictated and finalized at location A.
--- NOTE | ~2023-01-25 | US_ITS ---
EXAMINATION: US venous doppler [facility] DATE: 01/27/2023 12:00 INDICATION: Left lower limb pain and swelling TECHNIQUE: Arreola scale images without and with compression and Doppler images of the left lower extrem ity veins were obtained. COMPARISON: 02/26/2009 FINDINGS: The left common femoral vein, profunda femoral vein, femoral vein, popliteal vein, posterio r tibial veins, and greater saphenous vein are patent. The peroneal vein is not visualized due to ove rlying edema. IMPRESSION: 1. Patent left lower extremity veins. No evidence of deep venous thrombosis. Peroneal vein not evalua zoey due to overlying edema. Reviewed, dictated and finalized at location A. IMPRESSION: 1. Patent left lower extremity veins. No evidence of deep venous thrombosis. Pe roneal vein not evaluated due to overlying edema.
[2023-01-25 00:28] VITALS: BP 117/64; PULSE 92; RESP 18; TEMP 36.5; O2SAT 95
[2023-01-25 04:28] VITALS: BP 116/45; PULSE 93; RESP 20; TEMP 36.7; O2SAT 98
[2023-01-25 05:48] LABS: Basophils Percent Auto 0.3 % (0.2-1.2); Eosinophils Percent Auto 0.4 % (0-4.4); Hematocrit 32.6 % (37.0-47.0); Hemoglobin 10.3 g/dL (12.0-15.0); Immature Granulocyte Absolute 0.03 K/mm3 (0.00-0.031); Immature Granulocyte Percent A 0.4 % (0-0.5); Lymphocytes Percent Auto 15.8 % (18.3-44.2); Mean Corpuscular HGB Conc 31.6 g/dl (32-36); Mean Corpuscular Volume 98.2 fl (80-100); Mean Platelet Volume 9.8 fl (7.4-10.4); Monocytes Absolute Auto 0.8 K/mm3 (0.1-0.6); Monocytes Percent Auto 10.9 % (2.6-8.5); Neutrophils Percent Auto 72.2 % (45.5-73.1); Platelet Count Result 155 k/mm3 (150-375); Red Blood Count 3.32 M/mm3 (4.2-5.4); Red Cell Distribution Width 12.4 % (11.5-14.5)
[2023-01-25 06:02] LABS: Alanine Aminotransferase 202 U/L (6-35); Albumin Level 3.5 g/dL (3.5-5.1); Alkaline Phosphatase 81 U/L (38-126); Anion Gap 2 mmol/L (8-16); Aspartate Amino Transferase 115 U/L (14-36); Bilirubin,Total 0.4 mg/dL (0.2-1.3); Blood Urea Nitrogen 18 mg/dL (7-17); Calcium 8.4 mg/dL (8.4-10.2); Carbon Dioxide 35 mmol/L (22-30); Chloride 104 mmol/L (98-107); Estimated CRCL calculation 60 ml/min; Estimated Glomerular Filt Rate > 60; Glucose 118 mg/dL (65-110); Magnesium 2.3 mg/dL (1.6-2.3); Potassium 3.7 mmol/L (3.4-5.0); Sodium 141 mmol/L (137-145)
[2023-01-25] MEDS: ceFAZolin 1 GM/NS 50 ML 1 GM/50 ML BAG IVPB (06:24)
[2023-01-25 06:32] LABS: Thyroid Stimulating Hormone Reflex 0.251 uIU/mL (0.465-4.68)
[2023-01-25] MEDS: LEVOTHYROXINE SODIUM 50 MCG TABLET PO (06:43)
[2023-01-25 07:26] LABS: Free T4 Free Thyroxine Reflex 2.15 ng/dL (0.78-2.19)
[2023-01-25] MEDS: HYDROcodone/acetaminophen (*CRX) 7.5-325 MG TABLET 1 TAB PO ×2 (08:28→22:48)
--- NOTE | 2023-01-25 08:41 | PM.IMPN ---
Progress Note: A&P Assessment and Plan (1) Primary osteoarthritis of left knee: Code(s): M17.12 - Unilateral primary osteoarthritis, left knee Status: Acute Assessment and Plan: Postoperative day 1 status post left knee arthroplasty Wound care, pain control, DVT prophylaxis deferred to primary service, on xarelto Incentive spirometry ordered (2) Hypertension: Code(s): I10 - Essential (primary) hypertension Status: Chronic Assessment and Plan: Blood pressure reviewed 01/25 (3) Hyperlipidemia: Code(s): E78.5 - Hyperlipidemia, unspecified Status: Chronic Assessment and Plan: Continue statin and check LFTs. (4) Hypothyroidism: Code(s): E03.9 - Hypothyroidism, unspecified Status: Chronic Assessment and Plan: Continue levothyroxine, TSH slightly low, will lower dose from 100 to 75 mcg (5) Bipolar disorder: Code(s): F31.9 - Bipolar disorder, unspecified Status: Chronic Assessment and Plan: Continue aripiprazole and topiramate. (6) Gastroesophageal reflux disease: Code(s): K21.9 - Gastro-esophageal reflux disease without esophagitis Status: Acute Assessment and Plan: No acute issues. Continue pantoprazole. (7) Urge incontinence: Code(s): N39.41 - Urge incontinence Status: Acute Assessment and Plan: Status post sacral neurostimulator implantation. Continue Myrbetriq. Plan DVT prophylaxis with xarelto GI prophylaxis with PPI Code status full code Subjective Date/time seen: 01/25/23 08:41 Interval history: 67-year-old female with history of bipolar, hypothyroid, sleep apnea, hypertension is presenting for elective total knee arthroplasty on the left. No overnight events noted. No chest pain or shortness of breath. No nausea, vomiting or diarrhea. No fevers or chills. No BM yet, passing flatus, good po intake. Pain uncontrolled. Review of Systems Review of Systems: 12 point review of systems was assessed and was negative except as noted in the HPI Exam Narrative: General: No acute distress, alert and oriented per baseline HEENT: Atraumatic, normocephalic, mucous membranes moist CV: Regular rate and rhythm, S1, S2 Lungs: Clear to auscultation bilaterally, fine bibasilar crackles Abdomen: Soft, nontender, nondistended Extremities: Normal to inspection Skin: No rashes noted, no lesions or wounds seen Psych: Flattened affect Objective Data Vital Signs Vital Signs: Vital Signs - 24 hr 01/24/23 09:22 01/24/23 09:35 01/24/23 09:50 Temperature 97.7 F Pulse Rate 81 82 85 Respiratory Rate 14 14 14 Blood Pressure 84/32 L 124/56 L Pulse Oximetry 94 93 94 Oxygen Delivery Simple Face Mask Simple Face Mask Nasal Cannula Oxygen Flow Rate 8 8 2 01/24/23 10:05 01/24/23 10:20 01/24/23 10:35 Temperature Pulse Rate 88 88 89 Respiratory Rate 14 14 14 Blood Pressure 120/60 124/54 L 126/55 L Pulse Oximetry 94 94 95 Oxygen Delivery Nasal Cannula Nasal Cannula Nasal Cannula Oxygen Flow Rate 2 2 2 01/24/23 11:40 01/24/23 11:55 01/24/23 11:28 Temperature 98.3 F 97.9 F 97.8 F Pulse Rate 90 87 88 Respiratory Rate 14 16 16 Blood Pressure 108/38 L 108/41 L 94/43 L Pulse Oximetry 95 90 92 Oxygen Delivery Oxygen Flow Rate 01/24/23 12:55 01/24/23 13:20 01/24/23 14:51 Temperature Pulse Rate Respiratory Rate Blood Pressure 100/44 L Pulse Oximetry 93 Oxygen Delivery Room Air Room Air Oxygen Flow Rate 01/24/23 16:28 01/24/23 20:00 01/24/23 20:28 Temperature 98.1 F 97.6 F Pulse Rate 91 89 Respiratory Rate 16 18 Blood Pressure 92/44 L 103/41 L Pulse Oximetry 91 96 Oxygen Delivery Room Air Oxygen Flow Rate 01/25/23 00:28 01/25/23 04:28 Temperature 97.7 F 98.0 F Pulse Rate 92 93 Respiratory Rate 18 20 Blood Pressure 117/64 116/45 L Pulse Oximetry 95 98 Oxygen Delivery
[2023-01-25 08:50] LABS: Total Triiodothyronine (T3) 0.94 NG/ML (0.97-1.69)
[2023-01-25] MEDS: CELECOXIB 200 MG CAPSULE PO ×2 (08:55→17:39)
[2023-01-25] MEDS: PANTOPRAZOLE 40 MG TABLET PO (08:55)
[2023-01-25] MEDS: buPROPion HCL SR (12 HR) 150 MG TAB PO ×2 (08:55→22:48)
[2023-01-25] MEDS: MULTIVITAMINS THERAPEUTIC TAB (*BKC) 1 TABLET PO (08:56)
[2023-01-25] MEDS: SENNA/DOCUSATE SODIUM TABLET 2 TAB PO ×2 (08:56→17:39)
[2023-01-25] MEDS: TOPIRAMATE 25 MG TABLET 50 MG PO (08:56)
[2023-01-25] MEDS: polyethylene glycoL 3350 17 GM POWD.PACK PO (08:56)
[2023-01-25] MEDS: MIRABEGRON 50 MG ER TABLET PO (08:56)
[2023-01-25] MEDS: valACYclovir HCL 500 MG TABLET PO (08:56)
[2023-01-25] MEDS: AZELASTINE HCL NASAL 0.1% 137 MCG/SPR 30 ML BTL 2 SPRAY NASAL ×2 (09:02→22:50)
[2023-01-25] MEDS: FLUTICASONE PROPIONATE 0.05% NA SPR 16 GM BTL (*BKC) 2 SPRAY NASAL (09:02)
[2023-01-25 10:00] VITALS: BP 96/39; PULSE 112; RESP 16; TEMP 36.8; O2SAT 93
--- NOTE | 2023-01-25 11:12 | WPDANESPN ---
Anes - Prog Note Post-Op Date/Time: 01/25/23 11:12 Cardiovascular status: normal Respiratory status: normal Airway patency: baseline Mental status: baseline Post-Op hydration status: normal Vital Signs: Last Vital Signs Temp 98.2 F 01/25/23 10:00 Pulse 112 H 01/25/23 10:00 Resp 16 01/25/23 10:00 BP 96/39 L 01/25/23 10:00 Pulse Ox 93 01/25/23 10:00 O2 Del Method Room Air 01/25/23 08:28 O2 Flow Rate 2 01/24/23 10:35 Pain Score (VAS): 4 I/O: Intake & Output 01/24/23 01/25/23 01/25/23 23:59 07:59 15:59 Intake Total 890 800 490 Output Total 400 1300 Balance 490 -500 490 Laboratory Tests 01/25/23 05:09 01/25/23 05:09 01/24/23 01/25/23 01/25/23 16:03 05:09 05:09 WBC 7.0 RBC 3.32 L Hgb 11.0 L 10.3 L Hct 34.3 L 32.6 L MCV 98.2 MCH 31.0 MCHC 31.6 L RDW 12.4 Plt Count 155 MPV 9.8 Immature Gran % (Auto) 0.4 Neut % (Auto) 72.2 Lymph % (Auto) 15.8 L [place] % (Auto) 10.9 H Eos % (Auto) 0.4 Baso % (Auto) 0.3 Lymph # (Auto) 1.10 [place] # (Auto) 0.8 H Eos # (Auto) 0.0 Baso # (Auto) 0.0 Abs Immat Gran (auto) 0.03 Absolute Neuts (auto) 5.0 Absolute Nucleated RBC 0.0 Nucleated RBC % 0.0 Sodium 141 Potassium 3.7 Chloride 104 Carbon Dioxide 35 H Anion Gap 2 L BUN 18 H Creatinine 0.90 Estim Creat Clear Calc 60 Estimated GFR > 60 Glucose 118 H Calcium 8.4 Magnesium 2.3 Total Bilirubin 0.4 Direct Bilirubin 0.0 AST 115 H ALT 202 H Alkaline Phosphatase 81 Total Protein 6.0 L Albumin 3.5 TSH (Reflex) Free T4 Total T3 01/25/23 01/25/23 01/25/23 05:09 05:09 05:09 WBC RBC Hgb Hct MCV MCH MCHC RDW Plt Count MPV Immature Gran % (Auto) Neut % (Auto) Lymph % (Auto) [place] % (Auto) Eos % (Auto) Baso % (Auto) Lymph # (Auto) [place] # (Auto) Eos # (Auto) Baso # (Auto) Abs Immat Gran (auto) Absolute Neuts (auto) Absolute Nucleated RBC Nucleated RBC % Sodium Potassium Chloride Carbon Dioxide Anion Gap BUN Creatinine Estim Creat Clear Calc Estimated GFR Glucose Calcium Magnesium Total Bilirubin Direct Bilirubin AST ALT Alkaline Phosphatase Total Protein Albumin TSH (Reflex) 0.251 L Free T4 2.15 Total T3 0.94 L Patient Feedback: Patient satisfied with anesthetic care.
--- NOTE | 2023-01-25 12:16 | PC.NURSE ---
On 01/25/23, the student, [Ganga Iverson], provided care and completed [facility] documentation on this patient. I have reviewed the student's documentation and agree with the findings.
[2023-01-25 14:00] VITALS: BP 89/45; PULSE 106; RESP 16; TEMP 36.8; O2SAT 95
--- NOTE | 2023-01-25 14:30 | PM.PNORT ---
Progress Note: A&P Assessment and Plan (1) History of total knee arthroplasty: Code(s): Z96.659 - Presence of unspecified artificial knee joint Status: Acute Plan Patient is postop day 1 status post left total knee arthroplasty. Having some postop pain control issues. This should settle down over time the patient otherwise is doing well without complaints her main issue is the fact that she has to take care of herself for the most part on her own at home. We will keep her overnight for further physical therapy and pain control measures. Will discharge to home tomorrow as long she is stable, she voiced understanding and agrees above plan. Today I answered multiple questions about the postop course and what to expect at home, we talked about wound care dressing changes outpatient physical therapy and follow-up with Dr. Mchugh. The patient voiced understanding and agrees with the above plan. Subjective Subjective Date/Time Seen: 01/25/23 14:30 Patient is going slow in physical therapy today having some postoperative pain and felt a little faint due to the pain in physical therapy this afternoon. Otherwise feeling well no other complaints no shortness of breath chest pain nausea vomiting she states she is eating well. Sitting up in a chair now feeling good otherwise. The patient does have a stair lift at home that she has to be able to transfer on her own and get her knee flexed to at least 90? to get up and down the stairs. She was unable to do this effectively in therapy today due to postoperative pain. We will give her 1 more night in the hospital for pain control measures and make sure that she is safe to go home tomorrow. The patient agrees with the plan. The patient and I discussed the above in detail with the physical therapist today. Review of Systems Review of Systems: Ten point review of systems otherwise negative Exam Narrative: Vital signs stable afebrile neurovascular patient is intact wound dressing is clean and dry calves are benign. Patient is sitting up in a chair alert oriented x3. In no acute distress. Easily does straight leg raise actively bend her knee from 5 to 80? in the chair. Some difficulty with postop pain in physical therapy limiting her activity today. Otherwise no complaints. Objective Data Vital Signs Vital Signs: Vital Signs - 24 hr 01/24/23 14:51 01/24/23 16:28 01/24/23 20:00 Temperature 36.7 C Pulse Rate 91 Respiratory Rate 16 Blood Pressure 92/44 L Pulse Oximetry 93 91 Oxygen Delivery Room Air Room Air 01/24/23 20:28 01/25/23 00:28 01/25/23 04:28 Temperature 36.4 C 36.5 C 36.7 C Pulse Rate 89 92 93 Respiratory Rate 18 18 20 Blood Pressure 103/41 L 117/64 116/45 L Pulse Oximetry 96 95 98 Oxygen Delivery 01/25/23 08:28 01/25/23 10:00 Temperature 36.8 C Pulse Rate 112 H Respiratory Rate 16 Blood Pressure 96/39 L Pulse Oximetry 93 Oxygen Delivery Room Air Intake/Output Intake/Output: Intake & Output 01/22/23 01/23/23 01/24/23 01/25/23 23:59 23:59 23:59 23:59 Intake Total 1530 1770 Output Total 400 1300 Balance 1130 470 Meds/Results Medications: Active Medications Generic Name Dose Route Start Last Admin Trade Name Freq PRN Reason Stop Dose Admin Acetaminophen 1,300 mg 01/24/23 10:43 Acetaminophen 325 Mg Tablet PO Q8H PRN MILD Pain Hydrocodone Bitart/Acetaminophen 1 tab 01/24/23 10:43 01/24/23 23:27 Hydrocodone/Acetaminophen (*Crx) 5-325 Mg Tablet PO 1 tab Q4H PRN Administration Pain Rated 4-6 Hydrocodone Bitart/Acetaminophen 1 tab 01/24/23 10:43 01/25/23 08:28 Hydrocodone/Acetaminophen (*Crx) 7.5-325 Mg Tablet PO 1 tab Q6H PRN Administration Pain Rated 7-10 Amlodipine Besylate 10 mg 01/24/23 11:00 01/24/23 12:51 Amlodipine Besylate 5 Mg Tablet PO Not Given QAM [facility] Aripiprazole 30 mg 01/24/23 21:00 01/24/23 21:01 Aripiprazole 10 Mg Tablet PO
[2023-01-25] MEDS: BISACODYL 5 MG TABLET EC PO (14:41)
[2023-01-25] MEDS: ACETAMINOPHEN 325 MG TABLET 1300 MG PO (15:23)
[2023-01-25] MEDS: RIVAROXABAN 10 MG TABLET PO (17:39)
[2023-01-25 19:38] VITALS: BP 105/38; PULSE 92; RESP 18; TEMP 36.2; O2SAT 96
[2023-01-25] MEDS: ARIPiprazole 10 MG TABLET 30 MG PO (22:47)
[2023-01-25] MEDS: ATORVASTATIN 20 MG TABLET PO (22:48)
[2023-01-25] MEDS: TOPIRAMATE 100 MG TABLET PO (22:48)
[2023-01-25] MEDS: DULoxetine HCL 60 MG CAPSULE.DR PO (22:48)
[2023-01-25] MEDS: ZOLPIDEM TARTRATE (*CRX) 5 MG TABLET PO (22:51)
[2023-01-26] VITALS (7 sets, daily range): BP systolic 94–127; BP diastolic 43–62; PULSE 94–102; RESP 16–20; TEMP 36.1–36.6; O2SAT 91–97
[2023-01-26 06:25] LABS: Basophils Percent Auto 0.3 % (0.2-1.2); Eosinophils Absolute Auto 0.1 K/mm3 (0-0.3); Eosinophils Percent Auto 1.7 % (0-4.4); Hematocrit 28.8 % (37.0-47.0); Hemoglobin 9.2 g/dL (12.0-15.0); Immature Granulocyte Absolute 0.01 K/mm3 (0.00-0.031); Immature Granulocyte Percent A 0.2 % (0-0.5); Lymphocytes Absolute Auto 1.03 K/mm3 (0.9-3.2); Lymphocytes Percent Auto 17.4 % (18.3-44.2); Mean Corpuscular HGB Conc 31.9 g/dl (32-36); Mean Corpuscular Hemoglobin 31.7 pg (26-34); Mean Corpuscular Volume 99.3 fl (80-100); Mean Platelet Volume 9.5 fl (7.4-10.4); Monocytes Absolute Auto 0.7 K/mm3 (0.1-0.6); Neutrophils Absolute Auto 4.1 K/mm3 (1.3-6.7); Neutrophils Percent Auto 68.4 % (45.5-73.1); Platelet Count Result 129 k/mm3 (150-375); Red Cell Distribution Width 12.8 % (11.5-14.5); White Blood Count 5.9 K/mm3 (4.5-10.0)
[2023-01-26 06:45] LABS: Alanine Aminotransferase 105 U/L (6-35); Albumin Level 3.3 g/dL (3.5-5.1); Alkaline Phosphatase 74 U/L (38-126); Anion Gap 1 mmol/L (8-16); Aspartate Amino Transferase 43 U/L (14-36); Bilirubin,Total 0.4 mg/dL (0.2-1.3); Blood Urea Nitrogen 18 mg/dL (7-17); Calcium 8.5 mg/dL (8.4-10.2); Carbon Dioxide 34 mmol/L (22-30); Chloride 104 mmol/L (98-107); Estimated CRCL calculation 64 ml/min; Estimated Glomerular Filt Rate > 60; Glucose 136 mg/dL (65-110); Potassium 3.9 mmol/L (3.4-5.0); Sodium 139 mmol/L (137-145)
[2023-01-26] MEDS: LEVOTHYROXINE SODIUM 75 MCG TABLET PO (07:14)
--- NOTE | 2023-01-26 08:26 | PCPTNOTE ---
Attempted to see patient for PT, however patient was eating breakfast.
[2023-01-26] MEDS: polyethylene glycoL 3350 17 GM POWD.PACK PO (08:56)
[2023-01-26] MEDS: HYDROcodone/acetaminophen (*CRX) 5-325 MG TABLET 1 TAB PO ×2 (08:56→21:01)
[2023-01-26] MEDS: BISACODYL 5 MG TABLET EC PO (08:56)
[2023-01-26] MEDS: TOPIRAMATE 25 MG TABLET 50 MG PO (08:56)
[2023-01-26] MEDS: MULTIVITAMINS THERAPEUTIC TAB (*BKC) 1 TABLET PO (08:56)
[2023-01-26] MEDS: CELECOXIB 200 MG CAPSULE PO ×2 (08:56→17:28)
[2023-01-26] MEDS: valACYclovir HCL 500 MG TABLET PO (08:56)
[2023-01-26] MEDS: buPROPion HCL SR (12 HR) 150 MG TAB PO ×2 (08:56→21:04)
[2023-01-26] MEDS: PANTOPRAZOLE 40 MG TABLET PO (08:56)
[2023-01-26] MEDS: MIRABEGRON 50 MG ER TABLET PO (08:56)
[2023-01-26] MEDS: AZELASTINE HCL NASAL 0.1% 137 MCG/SPR 30 ML BTL 2 SPRAY NASAL ×2 (08:56→21:03)
[2023-01-26] MEDS: SENNA/DOCUSATE SODIUM TABLET 2 TAB PO (09:01)
[2023-01-26] MEDS: FLUTICASONE PROPIONATE 0.05% NA SPR 16 GM BTL (*BKC) 2 SPRAY NASAL (09:05)
[2023-01-26] MEDS: HYDROcodone/acetaminophen (*CRX) 7.5-325 MG TABLET 1 TAB PO (13:09)
--- NOTE | 2023-01-26 16:57 | PC.NURSE ---
Called TONYA Ramirez twice in regards to patient discharge. RN has no discharge instructions put in for patient.
--- NOTE | 2023-01-26 17:26 | PM.IMPN ---
Progress Note: A&P Assessment and Plan (1) Primary osteoarthritis of left knee: Code(s): M17.12 - Unilateral primary osteoarthritis, left knee Status: Acute Assessment and Plan: Postoperative day 2 status post left knee arthroplasty Wound care, pain control, DVT prophylaxis deferred to primary service, on xarelto Incentive spirometry ordered. order doppler to the left LE (2) Hypertension: Code(s): I10 - Essential (primary) hypertension Status: Chronic Assessment and Plan: Patient's blood pressure was reviewed on 01/26 Blood pressure low-normal range Home anti-HTN medications on hold (3) Hyperlipidemia: Code(s): E78.5 - Hyperlipidemia, unspecified Status: Chronic Assessment and Plan: LFTs mildly elevated and are trending down. Will hold Lipitor. Monitor LFTs (4) Hypothyroidism: Code(s): E03.9 - Hypothyroidism, unspecified Status: Chronic Assessment and Plan: TSH slightly low with FT4 upper limits of normal. Continue levothyroxine at lower dose (5) Bipolar disorder: Code(s): F31.9 - Bipolar disorder, unspecified Status: Chronic Assessment and Plan: Mood stable. Continue aripiprazole and topiramate. (6) Gastroesophageal reflux disease: Code(s): K21.9 - Gastro-esophageal reflux disease without esophagitis Status: Acute Assessment and Plan: No acute issues. Continue pantoprazole. (7) Urge incontinence: Code(s): N39.41 - Urge incontinence Status: Acute Assessment and Plan: Stable. Status post sacral neurostimulator implantation. Continue Myrbetriq. Plan DVT prophylaxis with xarelto GI prophylaxis with PPI Code status full code Subjective Date/time seen: 01/26/23 17:26 Interval history: 67-year-old female with history of bipolar, hypothyroid, sleep apnea, hypertension is presenting for elective total knee arthroplasty on the left. Assuming care. Chart reviewed. No BMs yet. No n/v. No CP or SOB. Pain worse today. Exam Narrative: AF 97.7 94/62 102 16 96% ra General: No acute distress lying flat in bed HEENT: Atraumatic, normocephalic, mucous membranes moist CV: Regular rate and rhythm, S1, S2 Lungs: bibasilar crackles Abdomen: Soft, nontender, nondistended Extremities: trace left pedal edema. +Umm's on the left Skin: No rashes noted Psych: Flat affect Objective Data Vital Signs Vital Signs: Vital Signs - 24 hr 01/25/23 19:38 01/25/23 20:00 01/26/23 00:00 Temperature 97.1 F L 97.7 F Pulse Rate 92 99 Respiratory Rate 18 20 Blood Pressure 105/38 L 127/43 L Pulse Oximetry 96 95 Oxygen Delivery Room Air 01/26/23 05:16 01/26/23 08:56 01/26/23 13:10 Temperature 96.9 F L Pulse Rate 100 Respiratory Rate 20 Blood Pressure 112/46 L 111/52 L Pulse Oximetry 91 Oxygen Delivery Room Air 01/26/23 14:25 01/26/23 14:51 Temperature 97.7 F Pulse Rate 102 H Respiratory Rate 16 Blood Pressure 94/62 L Pulse Oximetry 96 96 Oxygen Delivery Room Air Intake/Output Intake/Output: Intake & Output 01/23/23 01/24/23 01/25/23 01/26/23 23:59 23:59 23:59 23:59 Intake Total 1530 2460 1180 Output Total 400 2150 2000 Balance 1130 310 -820 Meds/Results Medications: Active Medications Generic Name Dose Route Start Last Admin Trade Name Freq PRN Reason Stop Dose Admin Acetaminophen 1,300 mg 01/24/23 10:43 01/25/23 15:23 Acetaminophen 325 Mg Tablet PO 1,300 mg Q8H PRN Administration MILD Pain Hydrocodone Bitart/Acetaminophen 1 tab 01/24/23 10:43 01/26/23 08:56 Hydrocodone/Acetaminophen (*Crx) 5-325 Mg Tablet PO 1 tab Q4H PRN Administration Pain Rated 4-6 Hydrocodone Bitart/Acetaminophen 1 tab 01/24/23 10:43 01/26/23 13:09 Hydrocodone/Acetaminophen (*Crx) 7.5-325 Mg Tablet PO 1 tab Q6H PRN Administration Pain Rated 7-10 Amlodipine Besylate 10 mg 04
[2023-01-26] MEDS: RIVAROXABAN 10 MG TABLET PO (17:28)
--- NOTE | 2023-01-26 18:29 | PM.PNORT ---
Progress Note: A&P Assessment and Plan (1) History of total knee arthroplasty: Code(s): Z96.659 - Presence of unspecified artificial knee joint Status: Acute Plan Continue postop care per the medical service, continue pain control physical therapy and management of mild hypertension. If the patient is stable she will go home tomorrow. Orthopedics will follow. Subjective Subjective Date/Time Seen: 01/26/23 18:29 the patient was going slow in physical therapy today still having some pain control issues and also some hypotension. The medical service has determined the patient should stay 1 more night, the patient will need home health when ready for discharge to home as she has stairs to climb and may not be safe to do this on her own at home. Otherwise the patient is doing well without other significant postoperative complaints. Review of Systems Review of Systems: Ten point review of systems otherwise negative Exam Narrative: vital signs stable afebrile neurovascular the patient is intact wound dressing clean and dry calves benign going slow in physical therapy. The patient is alert oriented x3. Normal mood and affect. Objective Data Vital Signs Vital Signs: Vital Signs - 24 hr 01/25/23 19:38 01/25/23 20:00 01/26/23 00:00 Temperature 36.2 C L 36.5 C Pulse Rate 92 99 Respiratory Rate 18 20 Blood Pressure 105/38 L 127/43 L Pulse Oximetry 96 95 Oxygen Delivery Room Air 01/26/23 05:16 01/26/23 08:56 01/26/23 13:10 Temperature 36.1 C L Pulse Rate 100 Respiratory Rate 20 Blood Pressure 112/46 L 111/52 L Pulse Oximetry 91 Oxygen Delivery Room Air 01/26/23 14:25 01/26/23 14:51 Temperature 36.5 C Pulse Rate 102 H Respiratory Rate 16 Blood Pressure 94/62 L Pulse Oximetry 96 96 Oxygen Delivery Room Air Intake/Output Intake/Output: Intake & Output 01/23/23 01/24/23 01/25/23 01/26/23 23:59 23:59 23:59 23:59 Intake Total 1530 2460 1670 Output Total 400 2150 3100 Balance 1130 310 -1430 Meds/Results Medications: Active Medications Generic Name Dose Route Start Last Admin Trade Name Freq PRN Reason Stop Dose Admin Acetaminophen 1,300 mg 01/24/23 10:43 01/25/23 15:23 Acetaminophen 325 Mg Tablet PO 1,300 mg Q8H PRN Administration MILD Pain Hydrocodone Bitart/Acetaminophen 1 tab 01/24/23 10:43 01/26/23 08:56 Hydrocodone/Acetaminophen (*Crx) 5-325 Mg Tablet PO 1 tab Q4H PRN Administration Pain Rated 4-6 Hydrocodone Bitart/Acetaminophen 1 tab 01/24/23 10:43 01/26/23 13:09 Hydrocodone/Acetaminophen (*Crx) 7.5-325 Mg Tablet PO 1 tab Q6H PRN Administration Pain Rated 7-10 Amlodipine Besylate 10 mg 01/24/23 11:00 01/24/23 12:51 Amlodipine Besylate 5 Mg Tablet PO Not Given QAM PARAG Aripiprazole 30 mg 01/24/23 21:00 01/25/23 22:47 Aripiprazole 10 Mg Tablet PO 30 mg HS PARAG Administration Atorvastatin Calcium 20 mg 01/24/23 21:00 01/25/23 22:48 Atorvastatin 20 Mg Tablet PO 20 mg HS PARAG Administration Azelastine HCl 2 spray 01/24/23 11:00 01/26/23 08:56 Azelastine Hcl Nasal 0.1% 137 Mcg/Spr 30 Ml Btl NASAL 2 spray Q12HR PARAG Administration Bisacodyl 5 mg 01/25/23 13:20 01/26/23 08:56 Bisacodyl 5 Mg Tablet Ec PO 5 mg QAM PARAG Administration Bupropion HCl 150 mg 01/24/23 11:00 01/26/23 08:56 Bupropion Hcl Sr (12 Hr) 150 Mg Tab PO 150 mg Q12HR PARAG Administration Calcium Carbonate 500 mg 01/24/23 17:00 01/26/23 17:28 Calcium/Vitamin D 500 Mg Tablet PO 500 mg BID PARAG Administration Celecoxib 200 mg 01/24/23 17:00 01/26/23 17:28 Celecoxib 200 Mg Capsule PO 200 mg BIDWM PARAG Administration Duloxetine HCl 60 mg 01/24/23 21:00 01/25/23 22:48 Duloxetine Hcl 60 Mg Capsule.Dr PO 60 mg HS PARAG Administration Fluticasone Propionate 2 spray 01/24/23 12:00 01/26/23 09:05 Fluticasone Propionate 0.05% Na Spr 16 Gm Btl (*
[2023-01-26] MEDS: ARIPiprazole 10 MG TABLET 30 MG PO (21:02)
[2023-01-26] MEDS: ATORVASTATIN 20 MG TABLET PO (21:03)
[2023-01-26] MEDS: DULoxetine HCL 60 MG CAPSULE.DR PO (21:04)
[2023-01-26] MEDS: TOPIRAMATE 100 MG TABLET PO (21:05)
[2023-01-26] MEDS: ZOLPIDEM TARTRATE (*CRX) 5 MG TABLET PO (21:09)
[2023-01-27] MEDS: HYDROcodone/acetaminophen (*CRX) 7.5-325 MG TABLET 1 TAB PO ×2 (01:44→09:46)
[2023-01-27 03:45] VITALS: BP 103/43; PULSE 98; RESP 19; TEMP 36.2; O2SAT 92
[2023-01-27 05:32] LABS: Basophils Percent Auto 0.4 % (0.2-1.2); Eosinophils Absolute Auto 0.1 K/mm3 (0-0.3); Eosinophils Percent Auto 2.6 % (0-4.4); Hematocrit 28.2 % (37.0-47.0); Immature Granulocyte Absolute 0.01 K/mm3 (0.00-0.031); Immature Granulocyte Percent A 0.2 % (0-0.5); Lymphocytes Absolute Auto 0.98 K/mm3 (0.9-3.2); Lymphocytes Percent Auto 17.9 % (18.3-44.2); Mean Corpuscular HGB Conc 31.9 g/dl (32-36); Mean Corpuscular Hemoglobin 31.6 pg (26-34); Mean Corpuscular Volume 98.9 fl (80-100); Mean Platelet Volume 9.4 fl (7.4-10.4); Monocytes Absolute Auto 0.5 K/mm3 (0.1-0.6); Monocytes Percent Auto 8.8 % (2.6-8.5); Neutrophils Absolute Auto 3.9 K/mm3 (1.3-6.7); Neutrophils Percent Auto 70.1 % (45.5-73.1); Platelet Count Result 149 k/mm3 (150-375); Red Blood Count 2.85 M/mm3 (4.2-5.4); Red Cell Distribution Width 12.6 % (11.5-14.5); White Blood Count 5.5 K/mm3 (4.5-10.0)
[2023-01-27 05:45] LABS: Alanine Aminotransferase 74 U/L (6-35); Albumin Level 3.2 g/dL (3.5-5.1); Alkaline Phosphatase 75 U/L (38-126); Anion Gap 4 mmol/L (8-16); Aspartate Amino Transferase 33 U/L (14-36); Bilirubin,Total 0.5 mg/dL (0.2-1.3); Blood Urea Nitrogen 16 mg/dL (7-17); Calcium 8.2 mg/dL (8.4-10.2); Carbon Dioxide 33 mmol/L (22-30); Chloride 103 mmol/L (98-107); Estimated CRCL calculation 72 ml/min; Estimated Glomerular Filt Rate > 60; Glucose 135 mg/dL (65-110); Potassium 3.7 mmol/L (3.4-5.0); Sodium 140 mmol/L (137-145)
[2023-01-27] MEDS: LEVOTHYROXINE SODIUM 50 MCG TABLET PO (06:00)
[2023-01-27] MEDS: traMADol HCL (*CRX) 50 MG TABLET PO (06:00)
--- NOTE | 2023-01-27 08:01 | PM.IMPN ---
Progress Note: A&P Assessment and Plan (1) Primary osteoarthritis of left knee: Code(s): M17.12 - Unilateral primary osteoarthritis, left knee Status: Acute Assessment and Plan: Postoperative day 3 status post left knee arthroplasty Wound care, pain control, DVT prophylaxis deferred to primary service, on xarelto Incentive spirometry ordered. doppler to the left LE pending (2) Hypertension: Code(s): I10 - Essential (primary) hypertension Status: Chronic Assessment and Plan: Patient's blood pressure was reviewed on 01/27 Blood pressure low-normal range Home anti-HTN medications remain on hold (3) Hyperlipidemia: Code(s): E78.5 - Hyperlipidemia, unspecified Status: Chronic Assessment and Plan: LFTs mildly elevated and are trending down. Will resume Lipitor. Monitor LFTs (4) Hypothyroidism: Code(s): E03.9 - Hypothyroidism, unspecified Status: Chronic Assessment and Plan: TSH slightly low with FT4 upper limits of normal. Continue levothyroxine at lower dose (5) Bipolar disorder: Code(s): F31.9 - Bipolar disorder, unspecified Status: Chronic Assessment and Plan: Mood stable. Continue aripiprazole and topiramate. (6) Gastroesophageal reflux disease: Code(s): K21.9 - Gastro-esophageal reflux disease without esophagitis Status: Acute Assessment and Plan: No acute issues. Continue pantoprazole. (7) Urge incontinence: Code(s): N39.41 - Urge incontinence Status: Acute Assessment and Plan: Stable. Status post sacral neurostimulator implantation. Continue Myrbetriq. Plan DVT prophylaxis with xarelto GI prophylaxis with PPI Code status full code Subjective Date/time seen: 01/27/23 08:01 Interval history: 67-year-old female with history of bipolar, hypothyroid, sleep apnea, hypertension is presenting for elective total knee arthroplasty on the left. Slept well. Pain 6/10. Exam Narrative: AF 97.2 103/43 98 19 92% RA General: No acute distress lying flat in bed HEENT: Atraumatic, normocephalic, mucous membranes moist CV: Regular rate and rhythm, S1, S2 Lungs: few basilar crackles in the flanks. Abdomen: Soft, nontender, nondistended Extremities: trace left pedal edema. +Umm's on the left Skin: warm and dry Psych: Flat affect Objective Data Vital Signs Vital Signs: Vital Signs - 24 hr 01/26/23 08:56 01/26/23 13:10 01/26/23 14:25 Temperature 97.7 F Pulse Rate 102 H Respiratory Rate 16 Blood Pressure 111/52 L 94/62 L Pulse Oximetry 96 Oxygen Delivery Room Air 01/26/23 14:51 01/26/23 19:42 01/26/23 20:00 Temperature 98 F Pulse Rate 94 94 Respiratory Rate 19 19 Blood Pressure 106/49 L Pulse Oximetry 96 97 97 Oxygen Delivery Room Air Room Air 01/27/23 03:45 Temperature 97.2 F L Pulse Rate 98 Respiratory Rate 19 Blood Pressure 103/43 L Pulse Oximetry 92 Oxygen Delivery Intake/Output Intake/Output: Intake & Output 01/24/23 01/25/23 01/26/23 01/27/23 23:59 23:59 23:59 23:59 Intake Total 1530 2460 1670 500 Output Total 400 2150 3450 800 Balance 1130 310 -7380 -300 Meds/Results Medications: Active Medications Generic Name Dose Route Start Last Admin Trade Name Freq PRN Reason Stop Dose Admin Acetaminophen 1,300 mg 01/24/23 10:43 01/25/23 15:23 Acetaminophen 325 Mg Tablet PO 1,300 mg Q8H PRN Administration MILD Pain Hydrocodone Bitart/Acetaminophen 1 tab 01/24/23 10:43 01/26/23 21:01 Hydrocodone/Acetaminophen (*Crx) 5-325 Mg Tablet PO 1 tab Q4H PRN Administration Pain Rated 4-6 Hydrocodone Bitart/Acetaminophen 1 tab 01/24/23 10:43 01/27/23 01:44 Hydrocodone/Acetaminophen (*Crx) 7.5-325 Mg Tablet PO 1 tab Q6H PRN Administration Pain Rated 7-10 Amlodipine Besylate 10 mg 01/24/23 11:00 01/24/23 12:51 Amlodipine Besylate 5 Mg Tablet PO
[2023-01-27] MEDS: SENNA/DOCUSATE SODIUM TABLET 2 TAB PO (09:45)
[2023-01-27] MEDS: CELECOXIB 200 MG CAPSULE PO (09:46)
[2023-01-27] MEDS: buPROPion HCL SR (12 HR) 150 MG TAB PO (09:46)
[2023-01-27] MEDS: MULTIVITAMINS THERAPEUTIC TAB (*BKC) 1 TABLET PO (09:46)
[2023-01-27] MEDS: MIRABEGRON 50 MG ER TABLET PO (09:46)
[2023-01-27] MEDS: PANTOPRAZOLE 40 MG TABLET PO (09:46)
[2023-01-27] MEDS: valACYclovir HCL 500 MG TABLET PO (09:46)
[2023-01-27] MEDS: TOPIRAMATE 25 MG TABLET 50 MG PO (09:47)
[2023-01-27] MEDS: FLUTICASONE PROPIONATE 0.05% NA SPR 16 GM BTL (*BKC) 2 SPRAY NASAL (09:47)
[2023-01-27] MEDS: AZELASTINE HCL NASAL 0.1% 137 MCG/SPR 30 ML BTL 2 SPRAY NASAL (09:47)
[2023-01-27] MEDS: polyethylene glycoL 3350 17 GM POWD.PACK PO (09:50)
[2023-01-27] MEDS: BISACODYL 5 MG TABLET EC PO (09:50)
[2023-01-27 10:15] VITALS: BP 110/70; PULSE 94; RESP 14; O2SAT 97
[2023-01-27] MEDS: HYDROcodone/acetaminophen (*CRX) 5-325 MG TABLET 1 TAB PO (12:48)
--- NOTE | 2023-01-27 13:50 | PM.DS ---
DS: Admitting Diagnosis Discharge Date January 27, 2023 Admitting Diagnosis admitting diagnosis advanced primary osteoarthritis left knee, discharge diagnosis same status post left total knee arthroplasty DS: Summary Hospital Course Hospital Course: patient was admitted initially for overnight observation status post left total knee arthroplasty surgery was performed with by Dr. Mchugh on January 24, 2022. The patient was having some postoperative pain having trouble participating physical therapy also had issues with mild hypotension this was addressed by the primary care physician. The patient lives alone except for her very elderly mother she cares for, she also has a stair lift, therapy did not think she initially was safe to go home, by her discharge was delayed until home health could get set up and she was medically stable. The patient now looks good is ready for discharge home and she agrees. Patient is to be discharged in stable condition follow-up with Dr. Mchugh 2 weeks postop staple wound recheck will continue outpatient physical therapy with home health as well. Time Spent with Patient Time attestation: Total time spent providing and/or coordinating discharge services: Exam Narrative: Vital signs stable afebrile Neurovascularly the patient is intact wound clean basically dry Except for 2 very small dots of serous drainage noted from the mid to distal portion of the wound on the dressing. patient is alert oriented x3. Normal mood and affect. tolerated physical therapy better today. DS: Data Data Completed and Pending Labs on day of discharge: Labs from last 24 hours 01/27/23 01/27/23 05:24 05:24 WBC 5.5 RBC 2.85 L Hgb 9.0 L Hct 28.2 L MCV 98.9 MCH 31.6 MCHC 31.9 L RDW 12.6 Plt Count 149 L MPV 9.4 Immature Gran % (Auto) 0.2 Neut % (Auto) 70.1 Lymph % (Auto) 17.9 L [place] % (Auto) 8.8 H Eos % (Auto) 2.6 Baso % (Auto) 0.4 Lymph # (Auto) 0.98 [place] # (Auto) 0.5 Eos # (Auto) 0.1 Baso # (Auto) 0.0 Abs Immat Gran (auto) 0.01 Absolute Neuts (auto) 3.9 Absolute Nucleated RBC 0.0 Nucleated RBC % 0.0 Sodium 140 Potassium 3.7 Chloride 103 Carbon Dioxide 33 H Anion Gap 4 L BUN 16 Creatinine 0.80 Estim Creat Clear Calc 72 Estimated GFR > 60 Glucose 135 H Calcium 8.2 L Total Bilirubin 0.5 AST 33 ALT 74 H Alkaline Phosphatase 75 Total Protein 6.0 L Albumin 3.2 L Procedures/Treatments: Left total knee arthroplasty Discharge Plan Discharge Attending physician on discharge: Gerald Mchugh Consulting providers: Kiera Mcduffie Discharging Clinician: Ervin Ramirez Anticipated Discharge Date/Time: 01/27/23 13:48 Patient Disposition: Home Health Service Activity: may shower Diet: as tolerated Wound Care Instructions: other - see discharge instructions Discharge Instructions: Per Care Coordination, pt. will discharge home with [facility] for continued therapy. [facility] will contact pt. at time of D/C. Check blood pressure 1 to 2 times a day. Record and bring into your doctor for review. Call your doctor if your blood pressure is greater than 180/110. Take precautions to avoid falls. Rise slowly from a lying or sitting position. Pause before standing or walking. Follow-up with your primary care provider in 1-2 weeks. Please call for appointment. Thank you for using [facility] for your health care needs. Discharge home general diet activity as tolerated weightbearing as tolerated with walker. Work on outpatient physical therapy for total knee protocol elevate legs for swelling control. Change dressing as needed watch for evidence of drainage or infection call the office immediately at [phone] for any problems difficulties or questions. Follow-up with Dr. Mchugh at the prescheduled appointment 2 weeks postop for staple removal and wound recheck
[2023-01-27 14:00] VITALS: BP 96/58; PULSE 101; RESP 16; TEMP 36.4; O2SAT 97
== END 2023-01-27 17:00 | disposition home health service (06) ==
LOC: ANHSURGERY 16:29 → ANH2MED 16:29
PROVIDERS: Physician Assistant; Student in an Organized Health Care Education/Training Program; Admitting Provider Orthopaedic Surgery; PCP Family Medicine; Visit Provider Orthopaedic Surgery
PROC: (CPT 27447; principal; 2023-01-24 10:00)
DX: M17.12 Unilateral primary osteoarthritis, left knee (principal); G89.18 Other acute postprocedural pain; I10 Essential (primary) hypertension; F31.9 Bipolar disorder, unspecified; E78.5 Hyperlipidemia, unspecified; E03.9 Hypothyroidism, unspecified; G47.33 Obstructive sleep apnea (adult) (pediatric); K21.9 Gastro-esophageal reflux disease without esophagitis; N39.41 Urge incontinence; E66.9 Obesity, unspecified; R60.0 Localized edema; Z68.38 Body mass index [BMI] 38.0-38.9, adult; Z87.891 Personal history of nicotine dependence; Z79.1 Long term (current) use of non-steroidal anti-inflammatories (NSAID); Z79.899 Other long term (current) drug therapy; Z82.49 Family history of ischemic heart disease and other diseases of the circulatory system
CPT/HCPCS: 27447; 64447; 36415; 73560; 80048; 80053; 80076; 83735; 84439; 84443; 84480; 85014; 85018; 85025; 93971; 97110; 97116; 97161; 97165; 97530; 97535; A9270; C1713; C1776; G0378; J0171; J0690; J1100; J1170; J1885; J2250; J2270; J2405; J2704; J2795; J3010; J3370; J7120

== ENCOUNTER 2023-06-18 15:43 | Emergency (ER) | payer MEDICARE, MEDICAID, SELFPAY ==
--- NOTE | ~2023-06-18 | CT_ITS ---
CT angiogram of the left lower extremity Clinical history: Concern for active extravasation after injury TECHNIQUE: Axial imaging of the left lower extremity was performed following intravenous administrati on of 150 cc of Omnipaque 350 contrast material. Dose reduction technique was used on this scan by nh ilizing automated exposure control and iterative reconstruction technique. The dose-length product (D LP) was 1038.28 mGy-cm. Findings: Common iliac artery, external iliac artery, common femoral artery, profunda femoral artery, and super ficial femoral artery are all widely patent. Visualized left popliteal artery is also widely patent, though most of it is obscured due to streak artifact from left knee arthroscopy hardware. Left supervisor metal placing ior tibial, peroneal, and anterior tibial arteries are all widely patent. Left dorsalis pedis artery is patent. No large vessel occlusion. No significant stenosis. There is a large hematoma involving the anterior subcutaneous soft tissues of the calf. There is a sm all collection of contrast within the hematoma, compatible with focal active extravasation (axial femi ge 296). There is extensive subcutaneous soft tissue edema in the calf. Visualized musculature is ess entially unremarkable. Subcutaneous soft tissues in the thigh are unremarkable. Musculature of the thigh is unremarkable. IMPRESSION: Large hematoma at the anterior aspect of the calf with focal area of active extravasation. Please see details above. Left knee arthroplasty hardware. Reviewed, dictated and finalized at [facility] [place]. IMPRESSION: Large hematoma at the anterior aspect of the calf with focal area of active ext ravasation. Please see details above. Left knee arthroplasty hardware.
--- NOTE | ~2023-06-18 | XR_ITS ---
EXAM: XR tibia fibula LT 2V DATE: 06/18/2023 17:28 HISTORY: injury prox Lt tib/fib;fell out of bed hitting side of bed . COMPARISON: None available. FINDINGS: Uncomplicated appearing left total knee arthroplasty. Decreased mineralization. No fractur e or dislocation. No lytic or blastic lesion. Mild degenerative change at the ankle joint. No erosion or periosteal change. Anterior soft tissue swelling. IMPRESSION: No acute osseous finding in the left tibia/fibula. Reviewed, dictated and finalized at location [facility].
[2023-06-18 16:49] VITALS: BP 117/50; PULSE 81; RESP 18; TEMP 36.8; O2SAT 98
[2023-06-18] MEDS: HYDROcodone/acetaminophen (*CRX) 5-325 MG TABLET 1 TAB PO (19:55)
[2023-06-18 19:57] VITALS: BP 122/47; PULSE 86; RESP 16; O2SAT 100
--- NOTE | 2023-06-18 20:35 | PC.NURSE ---
Pt able to ambulate with minimal assistance from staff to restroom
--- NOTE | 2023-06-18 20:54 | ED.LOWEXIN ---
HPI - Extremity Injury (Lower) General Chief Complaint: Extremity Injury, Lower Stated Complaint: fall, left lower leg injury Time Seen by Provider: 06/18/23 19:16 History of Present Illness HPI Narrative: Patient presents to the emergency department by EMS from home after a fall. Patient tripped landing on her hands and knees especially her left lower leg. Swelling to left lower extremity. Patient is concerned because the swelling has worsened since she has been here. EMS placed a posterior splint. Neurovascularly intact distal to injury. No other signs of trauma on exam. She states she hit her head but denies loss of consciousness headache dizziness and is currently asymptomatic Related Data Home Medications Medication Instructions Recorded Confirmed acetaminophen 650 mg 1,300 mg PO Q8H PRN Pain 10/19/22 01/24/23 tablet,extended release amlodipine 10 mg tablet 10 mg PO QAM 10/19/22 01/24/23 apple cider vinegar 500 mg tablet 500 mg PO TID 10/19/22 01/24/23 aripiprazole 30 mg tablet 30 mg PO HS 10/19/22 01/24/23 ascorbate calcium (vitamin C) 500 500 mg PO DAILY 10/19/22 01/24/23 mg capsule atorvastatin 20 mg tablet 20 mg PO HS 10/19/22 01/24/23 azelastine 137 mcg (0.1 %) nasal 2 spray intranasal BID 10/19/22 01/24/23 spray aerosol biotin 10,000 mcg capsule 10,000 mcg PO DAILY 10/19/22 01/24/23 bupropion HCl 150 mg tablet,12 hr 150 mg PO BID 10/19/22 01/24/23 sustained-release calcium carbonate 600 mg-vitamin 1 tablet PO BID 10/19/22 01/24/23 D3 5 mcg (200 unit) tablet coenzyme Q10 100 mg capsule 100 mg PO DAILY 10/19/22 01/24/23 (CoQ-10) diclofenac sodium 75 mg 75 mg PO BID 10/19/22 01/24/23 tablet,delayed release duloxetine 60 mg capsule,delayed 60 mg PO HS 10/19/22 01/24/23 release fish, borage, flaxseed oils-omega 1 cap PO TID 10/19/22 01/24/23 3,6,9 comb no.1 1,200 mg capsule ([place] 3-6-9) fluticasone propionate 50 2 spray intranasal QAM 10/19/22 01/24/23 mcg/actuation nasal spray,suspension furosemide 20 mg tablet 20 mg PO DAILY PRN Edema 10/19/22 01/15/23 glucosamine-chondroitin 250 mg-200 1 tablet PO BID 10/19/22 01/24/23 mg tablet (Osteo Bi-Flex) ipratropium bromide 21 mcg (0.03 2 spray intranasal TID 10/19/22 01/15/23 %) nasal spray magnesium 500 mg tablet 500 mg PO DAILY 10/19/22 01/24/23 mirabegron 50 mg tablet,extended 50 mg PO DAILY 10/19/22 01/24/23 release 24 hr (Myrbetriq) multivitamin 1 tablet PO DAILY 10/19/22 01/24/23 pantoprazole 40 mg tablet,delayed 40 mg PO QAM 10/19/22 01/24/23 release telmisartan 80 mg tablet 80 mg PO HS 10/19/22 01/24/23 topiramate 50 mg tablet See Rx Instructions .Route .COMPLEX 10/19/22 01/24/23 valacyclovir 500 mg tablet 500 mg PO DAILY 10/19/22 01/24/23 zolpidem 6.25 mg tablet,extended 6.25 mg PO HS 10/19/22 01/24/23 release,multiphase vitamin E (dl, acetate) 400 unit 400 unit PO DAILY 11/08/22 01/24/23 chewable tablet Allergies Allergy/AdvReac Type Severity Reaction Status Date / Time tetracycline AdvReac Severe YEAST Verified 06/18/23 16:48 INFECTION Review of Systems Review of Systems: ROS negative except for what is documented in the HPI [facility], [facility] Past Medical History Medical History (Updated 06/19/23 @ 01:17 by Rita Sow MD) Arthritis Bipolar disorder Gastroesophageal reflux disease History of bruising easily Hyperlipidemia Hypertension Hypothyroidism Mild obstructive sleep apnea Patient does not use CPAP. Urge incontinence Status post sacral neurostimulator implantation. Surgical History Surgical History (Updated 06/15/23 @ 13:05 by Paola Joshua) History of appendectomy (~1967) History of arthroplasty of left knee (01/24/23) History of arthroplasty of right hip (02/22/09) History of hysterectomy (~1999) History of tonsillectomy (~1957) History of tooth extraction History of tubal ligation (~1979) Sacral neurostimulator in situ (10/2022) Family History Family History (U
[2023-06-18] MEDS: MORPHINE SULFATE (*CRX) 4 MG/ML INJ IV PUSH (21:29)
[2023-06-18 21:42] LABS: Eosinophils Absolute Auto 0.1 K/mm3 (0-0.3); Eosinophils Percent Auto 2.9 % (0-4.4); Hematocrit 37.8 % (37.0-47.0); Hemoglobin 12.1 g/dL (12.0-15.0); Immature Granulocyte Absolute 0.01 K/mm3 (0.00-0.031); Immature Granulocyte Percent A 0.2 % (0-0.5); Lymphocytes Absolute Auto 0.97 K/mm3 (0.9-3.2); Lymphocytes Percent Auto 23.7 % (18.3-44.2); Mean Corpuscular Hemoglobin 30.6 pg (26-34); Mean Corpuscular Volume 95.7 fl (80-100); Mean Platelet Volume 9.4 fl (7.4-10.4); Monocytes Absolute Auto 0.4 K/mm3 (0.1-0.6); Monocytes Percent Auto 8.6 % (2.6-8.5); Neutrophils Absolute Auto 2.6 K/mm3 (1.3-6.7); Neutrophils Percent Auto 63.6 % (45.5-73.1); Platelet Count Result 234 k/mm3 (150-375); Red Blood Count 3.95 M/mm3 (4.2-5.4); Red Cell Distribution Width 15.2 % (11.5-14.5); White Blood Count 4.1 K/mm3 (4.5-10.0)
[2023-06-18 21:52] LABS: Alanine Aminotransferase 53 U/L (6-35); Albumin Level 4.2 g/dL (3.5-5.1); Alkaline Phosphatase 95 U/L (38-126); Anion Gap 9 mmol/L (8-16); Aspartate Amino Transferase 30 U/L (14-36); Bilirubin,Total 0.4 mg/dL (0.2-1.3); Blood Urea Nitrogen 21 mg/dL (7-17); Calcium 8.6 mg/dL (8.4-10.2); Carbon Dioxide 26 mmol/L (22-30); Chloride 103 mmol/L (98-107); Estimated CRCL calculation 49 ml/min; Estimated Glomerular Filt Rate 49; Glucose 85 mg/dL (65-110); Potassium 4.2 mmol/L (3.4-5.0); Sodium 138 mmol/L (137-145)
[2023-06-18 21:56] LABS: Partial Thromboplastin Time 30.1 SECONDS (22.3-36.8); Prothrombin Time 13.9 Seconds (11.1-14.7)
[2023-06-18 22:39] VITALS: BP 144/51; PULSE 83; RESP 18; O2SAT 97
[2023-06-19 00:51] VITALS: BP 133/51; PULSE 88; O2SAT 98
[2023-06-19 01:11] VITALS: BP 133/64; PULSE 96; RESP 14; O2SAT 99
== END 2023-06-19 01:40 | disposition short-term general hospital (02) ==
PROVIDERS: Emergency Provider Emergency Medicine; PCP Family Medicine
DX: T79.A22A Traumatic compartment syndrome of left lower extremity, initial encounter (principal); S80.12XA Contusion of left lower leg, initial encounter; W01.0XXA Fall on same level from slipping, tripping and stumbling without subsequent striking against object, initial encounter; I10 Essential (primary) hypertension; E78.5 Hyperlipidemia, unspecified; E03.9 Hypothyroidism, unspecified; G47.33 Obstructive sleep apnea (adult) (pediatric); K21.9 Gastro-esophageal reflux disease without esophagitis; F31.9 Bipolar disorder, unspecified; N39.41 Urge incontinence; Z96.82 Presence of neurostimulator; Z87.891 Personal history of nicotine dependence; M79.89 Other specified soft tissue disorders; Z79.891 Long term (current) use of opiate analgesic
CPT/HCPCS: 36415; 73590; 73706; 80053; 85025; 85610; 85730; 96374; 99285; A9270; J2270; Q9967

== ENCOUNTER 2023-10-17 09:33 | Outpatient (CLI) | payer MEDICARE, MEDICAID, SELFPAY ==
--- NOTE | ~2023-10-17 | CT_ITS ---
Noncontrast CT scan of the left shoulder CLINICAL HISTORY: Preoperative planning TECHNIQUE: Axial noncontrast imaging of the left shoulder was performed. Sagittal and coronal reforma tted images were constructed. Dose reduction technique was used on this scan by utilizing automated e xposure control and iterative reconstruction technique. The dose-length product (DLP) was 482.61 mGy- cm. FINDINGS: No fracture or dislocation seen. There is severe glenohumeral joint osteoarthritis. There i s marked joint space narrowing with prominent inferomedial humeral osteophyte formation. There is mil d remodeling of the glenoid with extensive subchondral cystic change involving the humeral head and g lenoid. There is mild AC joint degenerative change. No gross soft tissue abnormality seen. No definite joint effusion. IMPRESSION: Severe glenohumeral joint osteoarthritis, as detailed above. Reviewed, dictated and finalized at location . [facility]
== END 2023-10-17 09:34 | disposition home or self-care (01) ==
LOC: ANHIMG 09:36
PROVIDERS: PCP Family Medicine; Visit Provider Orthopaedic Surgery
DX: Z01.818 Encounter for other preprocedural examination (principal); M19.012 Primary osteoarthritis, left shoulder
CPT/HCPCS: 73200

== ENCOUNTER 2023-12-21 10:09 | Outpatient (CLI) | payer MEDICARE, MEDICAID, SELFPAY ==
--- NOTE | 2023-12-21 11:31 | ECG_ITS ---
Measurements Intervals [place] Rate: 79 P: 17 CT: 164 QRS: 24 QRSD: 89 T: 50 QT: 376 QTc: 432 Interpretive Statements SINUS RHYTHM BASELINE ARTIFACT- II, III, AVL, AVF, V3 NORMAL ECG COMPARED TO ECG 11/08/2022 13:15:29 NO SIGNIFICANT CHANGES Electronically Signed On 12-21-2023 13:16:01 CDT by Adi Farooq D.O.
[2023-12-21 12:08] LABS: Basophils Percent Auto 0.3 % (0.2-1.2); Eosinophils Absolute Auto 0.2 K/mm3 (0-0.3); Eosinophils Percent Auto 2.5 % (0-4.4); Hematocrit 42.7 % (37.0-47.0); Hemoglobin 13.8 g/dL (12.0-15.0); Immature Granulocyte Absolute 0.01 K/mm3 (0.00-0.031); Immature Granulocyte Percent A 0.1 % (0-0.5); Lymphocytes Absolute Auto 0.97 K/mm3 (0.9-3.2); Lymphocytes Percent Auto 14.5 % (18.3-44.2); Mean Corpuscular HGB Conc 32.3 g/dl (32-36); Mean Corpuscular Hemoglobin 31.2 pg (26-34); Mean Corpuscular Volume 96.4 fl (80-100); Mean Platelet Volume 9.4 fl (7.4-10.4); Monocytes Absolute Auto 0.4 K/mm3 (0.1-0.6); Monocytes Percent Auto 5.7 % (2.6-8.5); Neutrophils Absolute Auto 5.1 K/mm3 (1.3-6.7); Neutrophils Percent Auto 76.9 % (45.5-73.1); Platelet Count Result 179 k/mm3 (150-375); Red Blood Count 4.43 M/mm3 (4.2-5.4); Red Cell Distribution Width 13.2 % (11.5-14.5); White Blood Count 6.7 K/mm3 (4.5-10.0)
[2023-12-21 12:19] LABS: Anion Gap 10 mmol/L (8-16); Blood Urea Nitrogen 36 mg/dL (7-17); Calcium 9.5 mg/dL (8.4-10.2); Carbon Dioxide 27 mmol/L (22-30); Chloride 99 mmol/L (98-107); Estimated Glomerular Filt Rate 55; Glucose 109 mg/dL (65-110); Potassium 3.8 mmol/L (3.4-5.0); Sodium 136 mmol/L (137-145)
[2023-12-21 13:18] LABS: MRSA (PCR) NOT DETECTED (NOT DETECTE)
== END 2023-12-21 10:10 | disposition home or self-care (01) ==
LOC: ANHSURGERY 10:20
PROVIDERS: Anesthesiology; PCP Family Medicine; Visit Provider Orthopaedic Surgery
DX: Z01.818 Encounter for other preprocedural examination (principal); M19.012 Primary osteoarthritis, left shoulder; Z51.81 Encounter for therapeutic drug level monitoring; I10 Essential (primary) hypertension
CPT/HCPCS: 36415; 80048; 85025; 87641; 93005

== ENCOUNTER 2024-01-16 15:52 | Inpatient (IN) | payer MEDICARE, MEDICAID, SELFPAY ==
[2023-12-21 10:47] VITALS: BP 154/87; PULSE 80; RESP 16; TEMP 36.2; O2SAT 97; BMI 35.5
--- NOTE | 2023-12-21 11:06 | PC.NURSE ---
Report to the Outpatient Waiting Room, entrance under the green pavilion located off [facility], at time __6:00AM on date ___01/15/24____. Planned Procedure Time: ___7:30AM . Time changes happen often and if your time is changed the preop area will call you the afternoon before. - You and your visitor will be asked to self-screen and do not enter if you have any COVID symptoms. - A mask is optional within the hospital at this time. Patients may have clear liquids (water, carbonated beverages, clear teas, apple juice) until 3 hours prior to surgery with a maximum of 20 ounces. - No food from midnight until time of surgery. Take the following medications with a SIP of water the morning of surgery: _BUPROPION, LEVOTHYROXINE, TOPRIMATE, VALACYCLOVIR DO NOT STOP ANY OF YOUR OTHER PRESCRIPTION MEDICATIONS PRIOR TO SURGERY ?EXCEPT THE FOLLOWING Medications to discontinue per physician ___HOLD DICLOFENAC AND ALL VITAMINS/SUPPLEMENTS 7 DAYS PRE-OP PER DR MG Date to take last dose 01/07/24 Please no make-up, nail uzbek, hairspray, perfume, deodorant, or body powder the day of surgery. No jewelry (including any body piercings) or valuables the day of surgery, leave them at home. Please take a shower or bath the night before, or the morning of, surgery with an antibacterial soap. Wear comfortable, loose fitting clothing. - Jewelry must be removed prior to entering the operating room. Rings and piercings that are not removed may be cut off. - The hospital will not accept responsibility for valuables. - Please leave all valuables, including medications, at home the day of surgery. If you are going home after surgery, a licensed auto driver must drive you home. - NO public transportation without another adult if you receive anesthesia. - We recommend that an adult stay with you for 24 hours following discharge. - We also recommend that you do not drive, make important decision, drink alcoholic beverages, or take any drugs that were not prescribed by your health care provider for at least 24 hours after your discharge time. Follow any additional instructions given to you from your surgeon. If you or anyone in your household have experienced Covid symptoms in the past week, please notify your surgeon or the nurse liaison at the phone number below for possible testing. Telephone instructions given to ____PATIENT and asked if any additional questions and then verbalized understanding. Patient advised to call surgeon office or pre surgery nurse liaison [phone] if any additional questions.
[2024-01-15] VITALS (11 sets, daily range): BP systolic 103–145; BP diastolic 27–92; PULSE 89–103; RESP 14–20; TEMP 35.9–37.1; O2SAT 92–100
--- NOTE | 2024-01-15 06:38 | WPDANESEPPF ---
Anes - Initial Pre Proc Eval Procedure: Operation Date: 01/15/24 07:30 Proposed Procedures p Left Reverse Total Shoulder Arthroplasty - Franco Harman MD Date/Time: 01/15/24 06:38 Surgeon: Franco Harman MD Pre Op Diagnosis: primary oa left shoulder Patient Data Age: 68 Gender: F Height: 1.68 m Weight: 99.8 kg Last Vital Signs Temp 97.2 F L 12/21/23 10:47 Pulse 80 12/21/23 10:47 Resp 16 12/21/23 10:47 BP 154/87 H 12/21/23 10:47 Pulse Ox 97 12/21/23 10:47 O2 Del Method Room Air 12/21/23 10:47 Allergies Allergy/AdvReac Type Severity Reaction Status Date / Time tetracycline AdvReac Severe YEAST Verified 12/21/23 10:28 INFECTION Home Medications Medication Instructions Recorded Confirmed Type acetaminophen 650 mg 1,300 mg PO Q8H PRN Pain 10/19/22 12/21/23 History tablet,extended release aripiprazole 30 mg tablet 30 mg PO HS 10/19/22 12/21/23 History ascorbate calcium (vitamin C) 500 500 mg PO DAILY 10/19/22 12/21/23 History mg capsule atorvastatin 20 mg tablet 20 mg PO HS 10/19/22 12/21/23 History azelastine 137 mcg (0.1 %) nasal 2 spray intranasal BID 10/19/22 12/21/23 History spray aerosol biotin 10,000 mcg capsule 10,000 mcg PO DAILY 10/19/22 12/21/23 History bupropion HCl 150 mg tablet,12 hr 150 mg PO BID 10/19/22 12/21/23 History sustained-release coenzyme Q10 100 mg capsule 100 mg PO DAILY 10/19/22 12/21/23 History (CoQ-10) diclofenac sodium 75 mg 75 mg PO BID 10/19/22 12/21/23 History tablet,delayed release duloxetine 60 mg capsule,delayed 60 mg PO HS 10/19/22 12/21/23 History release fish, borage, flaxseed oils-omega 1 cap PO TID 10/19/22 12/21/23 History 3,6,9 comb no.1 1,200 mg capsule ([place] 3-6-9) fluticasone propionate 50 2 spray intranasal QAM 10/19/22 12/21/23 History mcg/actuation nasal spray,suspension furosemide 20 mg tablet 20 mg PO DAILY PRN Edema 10/19/22 12/21/23 History magnesium 500 mg tablet 500 mg PO DAILY 10/19/22 12/21/23 History multivitamin 1 tablet PO DAILY 10/19/22 12/21/23 History pantoprazole 40 mg tablet,delayed 40 mg PO QAM 10/19/22 12/21/23 History release telmisartan 80 mg tablet 80 mg PO HS 10/19/22 12/21/23 History topiramate 50 mg tablet See Rx Instructions .Route .COMPLEX 10/19/22 12/21/23 History valacyclovir 500 mg tablet 500 mg PO QAM 10/19/22 12/21/23 History zolpidem 6.25 mg tablet,extended 6.25 mg PO HS PRN Insomnia 10/19/22 12/21/23 History release,multiphase vitamin E (dl, acetate) 400 unit 400 unit PO DAILY 11/08/22 12/21/23 History chewable tablet levothyroxine 50 mcg tablet 50 mcg PO TuThSa@0630 #15 tabs 01/27/23 12/21/23 Rx (Synthroid) levothyroxine 75 mcg tablet 75 mcg PO SuMoWeFr@0630 #15 tabs 01/27/23 12/21/23 Rx (Synthroid) vibegron 75 mg tablet (Gemtesa) 75 mg PO HS 10/05/23 12/21/23 History calcium carb-ergocalciferol (vit 1 tablet PO BID 12/21/23 12/21/23 History D2) 600 mg calcium-200 unit tablet carboxymethylcellulose 0.5 1 drp EACH EYE Q4-5H PRN Dry Eyes 12/21/23 12/21/23 History %-glycerin 0.9 % eye drops (Refresh Optive) cetirizine 10 mg tablet (Zyrtec) 10 mg PO HS 12/21/23 12/21/23 History glucosamine-chondroitin 250 mg-200 1 tablet PO BID 12/21/23 12/21/23 History mg tablet (Osteo Bi-Flex) lysine 1,000 mg tablet 1,000 mg PO DAILY 12/21/23 12/21/23 History vit A 1000 unit-C 300 mg-E 100 1 tablet PO DAILY 12/21/23 12/21/23 History lggs-R1-S7-lutn 2 xs-hqdk-musnre tablet Patient hx anesthesia problems: none Family hx anesthesia problems: none Results Review: All pre-operative results and documents have been reviewed as part of the pre-operative evaluation. [facility] Past Medical History Medical History Arthritis Arthritis of shoulder region, left Arthritis of shoulder region, right Bipolar disorder Gastroesophageal reflux disease History of bruising easily Hyp
[2024-01-15] MEDS: ACETAMINOPHEN 500 MG TABLET 1000 MG PO ×4 (06:40→23:54)
[2024-01-15] MEDS: LACTATED RINGERS 1,000 ML 30 ML IV CONT ×2 (07:10→10:37)
[2024-01-15] MEDS: TRANEXAMIC ACID 1,000MG/ISO100 1,000 MG/100 ML BAG 200 MG IVPB (07:15)
--- NOTE | 2024-01-15 07:15 | WPDHPUPDATE1 ---
History and Physical Update Update Date/Time: 01/15/24 07:15 History and Physical has been reviewed, including an updated exam of the patient. There are NO changes in the patient's condition. Risks, benefits, and alternatives have been discussed and questions answered. Patient agrees to proceed with procedure.
[2024-01-15] MEDS: ceFAZolin 2 GM/D5W 50 ML 2 GM/50 ML BAG IVPB ×3 (07:55→23:54)
[2024-01-15] MEDS: VANCOMYCIN HCL 1,000 MG VIAL 1000 MG TOPICAL (08:21)
[2024-01-15] MEDS: SODIUM CHLORIDE 0.9% IV 37.7 ML, MORPHINE SULFATE INJ (*CRX) 2 MG, ROPivacaine HCL 1% 2... INFILTRATE (08:21)
--- NOTE | 2024-01-15 08:50 | WPDANESPNB ---
Anes - Peripheral Nerve Block Date/Time: 01/15/24 08:50 I have discussed with the patient/family/POA the placement of a peripheral nerve block for post-operative pain management, including associated risks, benefits, complications, and side effects. Alternative methods of post-operative analgesia were detailed. Questions were solicited and answers provided to the satisfaction of the patient/family/POA. Time-Out: A pre-procedural Time-Out was completed immediately before starting the procedure and confirmed: Patient Identification, Site, Procedure, Patient Position and the Availability of Requisite Equipment. Clinical Indications: Acute post-operative pain management requested by the operative surgeon. Nerve Block Insertion Note Anes-nerve block: interscalene left Patient position: supine Skin prep: chlorhexidine Needle: 22 gauge, stimulating, insulated echogenic needle. Needle length: 80 mm Technique: ultrasound Injectate: other (Bupiv 0.5%, 15 mls. ) Observations: tolerated well Complications: none Procedure start time:: 723 Procedure end time:: 3
--- NOTE | 2024-01-15 10:46 | W.PM.PROC2 ---
Procedure Note - Detailed Date of Procedure 01/15/24 Pre-op Diagnosis Primary oa left shoulder Post-op Diagnosis Same Procedure Performed Reverse total shoulder arthroplasty, left Surgeon Franco Harman MD Steam Shovel Engineer Yasmine Ríos PA-C Anesthesia General and Regional (Interscalene block.) Findings Osteoporosis. Moderate glenoid erosion without significant deformity. Standard base plate placed without significant alignment correction based on 3D preoperative planning. Incomplete fracture through the greater trochanter and proximal humerus during glenosphere implantation. Two 5. FiberWire cerclage sutures reduced the bony envelope nicely. It was elected to cement the short stem distal to the fracture for enhanced stability. The proximal Press-Fit remained very good. Description of Procedure The patient was given an interscalene block in the preoperative area. Preoperative antibiotics were given. The patient was transferred to the operating room and a general anesthetic was administered. The beach chair position was used at 45 degrees. All bony prominences were padded. The head was carefully stabilized on the [facility] head of [facility]. A sterile prep and drape was performed in the usual manner with ChloraPrep. A longitudinal incision was created at the anterior shoulder just lateral to the deltopectoral interval. Hydrogen peroxide was placed on the incision and then rinsed after one minute. Careful dissection was performed to expose the interval and protect the cephalic vein. The vein was retracted medially. The upper border of the pectoralis was released. Anterior circumflex vessel branches were suture ligated. The proximal biceps was excised. A subscapularis tenotomy was performed. The inferior capsule was released, exposing the humeral head. Osteophytes were removed. Care was taken to stay on bone to protect the axillary nerve. The anatomic head cut was taken with the oscillating saw. The guide pin was placed, central drilling performed, and the broach trial inserted. The neck anteversion and inclination were carefully assessed. The cut protector was placed, and attention was turned to the glenoid. Retractors were placed. Releases were carried out for exposure. The subscapularis was mobilized, the inferior capsule and long head of triceps released, and the superior and middle glenohumeral ligaments released as well. Labral tissue was resected as needed. The sizing template was used to assess the baseplate position low on the glenoid. A guide pin was placed. Minimal reaming was used to accomplish a flat surface without violating the subchondral bone. Version did not require significant correction according to preoperative templating. The boss was drilled, and the real component was impacted into position. Supplemental locking screws were placed centrally, superiorly, and inferiorly. The glenosphere was impacted into the taper. During retraction against the proximal femur, the tuberosity and proximal femur developing incomplete fracture lines. Cerclage sutures were placed proximally staying directly on bone through the posterior rotator cuff. One supplemental clamp was also applied. The proximal humerus was reamed for the inset component. The humeral components were trialed. The real humeral stem, tray, and insert were cemented into position. The proximal ingrowth surface was left free of cement. Dilute Betadine wash for 3 minutes was performed. The shoulder was copiously irrigated periodically with pulsatile lavage. The shoulder was reduced and stability confirmed. 1 gram of Vancomycin powder was placed in the joint. The subscapularis was repaired with multiple 2. Ethibond suture. The upper border of the pectoralis tendon was similarly repaired with 5. Ethibond suture. The deltopectoral space was reapproximated with number 2-0 Vicryl. The remaining tissue was closed with 2-0 Stratafix and 3-0 Stratafix running suture and steri-strips. A sterile silver occlu
--- NOTE | 2024-01-15 11:35 | PC.NURSE ---
This patient, Ryoa Mandujano, was admitted to [facility] Surg Room 305-01. Patient/family oriented to hospital policies and general routines including ID bracelet, bed and alarms, visiting hours, pain management, procedures, bathroom and other care routines, personal items, smoking policy, room service/diet, and visiting hours. Information on how to activate the Rapid Response Team has been discussed. Patient/Family are encouraged to report perceived risks to care and to ask questions if they do not understand what they are told or what they should do.
[2024-01-15] MEDS: SODIUM CHLORIDE 0.9% IV 1,000 ML 125 ML IV CONT (12:26)
[2024-01-15] MEDS: SENNA/DOCUSATE SODIUM TABLET 2 TAB PO (16:20)
[2024-01-15] MEDS: DICLOFENAC SOD 75 MG TABLET.EC PO (16:20)
[2024-01-15] MEDS: ASPIRIN 81 MG ENTERIC TABLET PO (16:20)
[2024-01-15] MEDS: buPROPion HCL SR (12 HR) 150 MG TAB PO (16:20)
[2024-01-15] MEDS: DULoxetine HCL 60 MG CAPSULE.DR PO (20:27)
[2024-01-15] MEDS: TELMISARTAN 40 MG TABLET 80 MG PO (20:27)
[2024-01-15] MEDS: TOPIRAMATE 100 MG TABLET PO (20:27)
[2024-01-15] MEDS: oxyCODONE HCL (*CRX) 5 MG TAB IR 10 MG PO (20:28)
[2024-01-15] MEDS: ARIPiprazole 10 MG TABLET 30 MG PO (20:28)
[2024-01-15] MEDS: ATORVASTATIN 20 MG TABLET PO (20:28)
--- NOTE | ~2024-01-16 | XR_ITS ---
EXAMINATION: XR shoulder LT min 2V DATE: 01/15/2024 10:49 INDICATION: Left shoulder arthroplasty. Postop. TECHNIQUE: 2 views of left shoulder were obtained. COMPARISON: Left shoulder radiographs 06/15/2023 FINDINGS: There is a reverse [id number] total left shoulder arthroplasty in near-anatomic alignm ent. There is heterotopic ossification at the lateral aspect of humeral head. There is gas in the sof t tissues, consistent with recent surgery. IMPRESSION: 1. Reverse [id number] total shoulder arthroplasty in near-anatomic alignment. 2. Heterotopic ossification at the lateral aspect of humeral head, which may be a fracture. Reviewed, dictated and finalized at location A. IMPRESSION: 1. Reverse [id number] total shoulder arthroplasty in near-anatomic alignme nt. 2. Heterotopic ossification at the lateral aspect of humeral head, which may be a fracture.
[2024-01-16] MEDS: oxyCODONE HCL (*CRX) 5 MG TAB IR 10 MG PO ×2 (00:29→06:06)
[2024-01-16 04:55] VITALS: BP 123/49; PULSE 96; RESP 18; TEMP 35.9; O2SAT 93
[2024-01-16] MEDS: LEVOTHYROXINE SODIUM 75 MCG TABLET PO (06:06)
[2024-01-16] MEDS: ACETAMINOPHEN 500 MG TABLET 1000 MG PO ×3 (06:06→18:10)
[2024-01-16 06:09] LABS: Basophils Percent Auto 0.3 % (0.2-1.2); Eosinophils Percent Auto 0.7 % (0-4.4); Hematocrit 33.9 % (37.0-47.0); Hemoglobin 10.8 g/dL (12.0-15.0); Immature Granulocyte Absolute 0.02 K/mm3 (0.00-0.031); Immature Granulocyte Percent A 0.3 % (0-0.5); Lymphocytes Absolute Auto 0.79 K/mm3 (0.9-3.2); Mean Corpuscular HGB Conc 31.9 g/dl (32-36); Mean Corpuscular Volume 100.3 fl (80-100); Mean Platelet Volume 9.6 fl (7.4-10.4); Monocytes Absolute Auto 0.7 K/mm3 (0.1-0.6); Monocytes Percent Auto 10.8 % (2.6-8.5); Neutrophils Absolute Auto 4.6 K/mm3 (1.3-6.7); Neutrophils Percent Auto 74.9 % (45.5-73.1); Platelet Count Result 138 k/mm3 (150-375); Red Blood Count 3.38 M/mm3 (4.2-5.4); Red Cell Distribution Width 12.9 % (11.5-14.5); White Blood Count 6.1 K/mm3 (4.5-10.0)
[2024-01-16 06:19] LABS: Anion Gap 6 mmol/L (4-12); Blood Urea Nitrogen 17 mg/dL (7-17); Calcium 8.7 mg/dL (8.4-10.2); Carbon Dioxide 28 mmol/L (22-30); Chloride 106 mmol/L (98-107); Estimated CRCL calculation 61 ml/min; Estimated Glomerular Filt Rate > 60; Glucose 135 mg/dL (65-110); Potassium 3.7 mmol/L (3.4-5.0); Sodium 140 mmol/L (137-145)
--- NOTE | 2024-01-16 07:55 | WPDANESPN ---
Anes - Prog Note Post-Op Date/Time: 01/16/24 07:55 Cardiovascular status: normal Respiratory status: normal Airway patency: baseline Mental status: baseline Post-Op hydration status: normal Vital Signs: Last Vital Signs Temp 35.9 C L 01/16/24 04:55 Pulse 96 01/16/24 04:55 Resp 18 01/16/24 04:55 BP 123/49 L 01/16/24 04:55 Pulse Ox 93 01/16/24 04:55 O2 Del Method Room Air 01/15/24 20:00 O2 Flow Rate 2 01/15/24 11:35 Pain Score (VAS): 11/17 I/O: Intake & Output 01/15/24 01/15/24 01/16/24 15:59 23:59 07:59 Intake Total 590 1237 200 Balance 590 1237 200 Laboratory Tests 01/16/24 05:30 01/16/24 05:30 01/15/24 01/16/24 06:36 05:30 WBC 6.1 RBC 3.38 L Hgb 10.8 L D Hct 33.9 L MCV 100.3 H MCH 32.0 MCHC 31.9 L RDW 12.9 Plt Count 138 L MPV 9.6 Immature Gran % (Auto) 0.3 Neut % (Auto) 74.9 H Lymph % (Auto) 13.0 L [place] % (Auto) 10.8 H Eos % (Auto) 0.7 Baso % (Auto) 0.3 Lymph # (Auto) 0.79 L [place] # (Auto) 0.7 H Eos # (Auto) 0.0 Baso # (Auto) 0.0 Abs Immat Gran (auto) 0.02 Absolute Neuts (auto) 4.6 Absolute Nucleated RBC 0.000 Nucleated RBC % 0.0 Sodium 140 Potassium 3.7 Chloride 106 Carbon Dioxide 28 Anion Gap 6 BUN 17 D Creatinine 0.90 Estim Creat Clear Calc 61 Estimated GFR > 60 Glucose 135 H Calcium 8.7 Antibody Screen Negative Post-procedural complaints: none Patient Feedback: Patient satisfied with anesthetic care. Other Findings: resting quietly in bed
--- NOTE | 2024-01-16 07:58 | PCPTNOTE ---
The patient treatment was not able to be completed at this time due to patient out of room for testing following code stroke called this A.M. for patient.
[2024-01-16 08:00] VITALS: BP 110/65; PULSE 87; RESP 20; TEMP 36.6; O2SAT 95
--- NOTE | 2024-01-16 09:03 | PM.PNORT ---
Progress Note: A&P Assessment and Plan (1) Status post reverse total arthroplasty of left shoulder: Code(s): Z96.612 - Presence of left artificial shoulder joint Status: Acute (2) Fracture of proximal end of left humerus: Code(s): S42.202A - Unspecified fracture of upper end of left humerus, initial encounter for closed fracture Status: Acute Plan Postop day 1: Left reverse total shoulder arthroplasty. Incomplete fracture through the greater trochanter and proximal humerus during glenosphere implantation. Stem was cemented in place and extended past the fracture site. I recommend 6 weeks of immobilization with a sling. Patient is very deconditioned and will require SNF or Rehab placement. No use of the left shoulder. She is in a very difficult situation. I discussed the importance of not using the arm to allow the fracture and replacement to heal. She may do basic finger, elbow and wrist range of motion exercises. No numbness or tingling. Pain severe. Manageable with pain medications. Discharge planning in progress. Spoke with care coordination. She does not qualify for SNF/Rehab per her insurance. Patient is very high risk. Spoke with Dr. Harman who agrees it is unsafe for her to return home at this time. She takes care of her 90 year old mother and does not have a good support system. Subjective Subjective Date/Time Seen: 01/16/24 09:03 Interval history: Patient resting comfortably in bed. Notes significant pain in her shoulder. No other complaints. She states she has not been out of bed yet. Review of Systems Review of Systems: All systems reviewed & are unremarkable except as noted in HPI and below Constitutional: Constitutional: Denies difficulty sleeping, Denies fatigue, Denies fever(s), Denies headache(s) and Denies night sweats Eyes: Eyes: Denies loss of vision ENT: Denies dizziness, Denies headache(s) and Denies hearing loss Cardiovascular: Cardiovascular: Denies irregular heart rhythm and Denies dyspnea Respiratory: Respiratory: Denies cough and Denies dyspnea Gastrointestinal: Gastrointestinal: Denies change in bowel habits, Denies diarrhea, Denies nausea and Denies vomiting Genitourinary: Genitourinary: Denies nocturia, Denies dysuria and Denies urinary incontinence Musculoskeletal: Musculoskeletal: Denies abnormal gait Neurologic: Denies abnormal gait, Denies dizziness, Denies headache(s) and Denies loss of vision Psychiatric: Psychiatric: Denies anxiety and Denies depression Endocrine: Endocrine: Denies cold intolerance, Denies fatigue and Denies heat intolerance Exam Narrative: Overweight 68 y/o Female. Very deconditioned. Resting comfortably in bed. Wearing sling. Dressing dry and intact with no drainage. Moderate swelling. Moderate ecchymosis. No erythema. No hematoma. Normal finger and wrist range of motion. Calf nontender. Neurologic status intact. No varicosities. Distal pulses palpable. Objective Data Vital Signs Vital Signs: Vital Signs - 24 hr 01/15/24 10:37 01/15/24 10:45 01/15/24 11:00 Temperature 97.3 F L Pulse Rate 95 97 97 Respiratory Rate 15 17 16 Blood Pressure 119/27 L 118/35 L 109/37 L Pulse Oximetry 93 95 98 Oxygen Delivery Simple Face Mask Simple Face Mask Nasal Cannula Oxygen Flow Rate 10 10 3 01/15/24 11:15 01/15/24 11:35 01/15/24 11:50 Temperature 98.1 F 98.7 F Pulse Rate 96 103 H 95 Respiratory Rate 16 14 16 Blood Pressure 103/43 L 133/92 H 115/46 L Pulse Oximetry 100 96 96 Oxygen Delivery Nasal Cannula Oxygen Flow Rate 2 01/15/24 12:20 01/15/24 11:35 01/15/24 13:25 Temperature 98.2 F 98.3 F Pulse Rate 94 98 Respiratory Rate 18 18 Blood Pressure 118/77 121/39 L Pulse Oximetry 98 94 99 Oxygen Delivery Nasal Cannula Oxygen Flow Rate 2 01/15/24 13:45 01/15/24 20:00 01/15/24 21:05 Temperature 97.4 F L Pulse Rate 92 Respiratory Rate 20 Blood Pressure 122/57 L Pulse Oximetry 95 Oxyg
[2024-01-16] MEDS: valACYclovir HCL 500 MG TABLET PO (09:42)
[2024-01-16] MEDS: TOPIRAMATE 25 MG TABLET 50 MG PO (09:42)
[2024-01-16] MEDS: polyethylene glycoL 3350 17 GM POWD.PACK PO (09:42)
[2024-01-16] MEDS: PANTOPRAZOLE 40 MG TABLET PO (09:43)
[2024-01-16] MEDS: DICLOFENAC SOD 75 MG TABLET.EC PO ×2 (09:43→16:04)
[2024-01-16] MEDS: SENNA/DOCUSATE SODIUM TABLET 2 TAB PO ×2 (09:43→16:05)
[2024-01-16] MEDS: ASPIRIN 81 MG ENTERIC TABLET PO ×2 (09:44→16:04)
[2024-01-16] MEDS: ceFAZolin 2 GM/D5W 50 ML 2 GM/50 ML BAG IVPB (09:44)
[2024-01-16] MEDS: buPROPion HCL SR (12 HR) 150 MG TAB PO ×2 (09:44→16:04)
--- NOTE | 2024-01-16 09:51 | WPDCN ---
Assessment and Plan Assessment and plan (1) Status post reverse total arthroplasty of left shoulder: Code(s): Z96.612 - Presence of left artificial shoulder joint Status: Acute Assessment and Plan: 01/16/2024: Postop day 1 left total shoulder replacement Continue pain control Continue PT and OT Incentive spirometer q.2 hours Ortho following Deconditioning likely will require SNF for placement Case management consulted (2) Hypothyroidism: Code(s): E03.9 - Hypothyroidism, unspecified Status: Chronic Assessment and Plan: 01/16/2024: Continue Synthroid (3) Bipolar disorder: Code(s): F31.9 - Bipolar disorder, unspecified Status: Chronic Assessment and Plan: 01/16/2024: Continue Abilify Wellbutrin, Cymbalta, Topamax (4) Hyperlipidemia: Code(s): E78.5 - Hyperlipidemia, unspecified Status: Chronic Assessment and Plan: 01/16/2024: Continue Co Q10 Continue atorvastatin (5) Hypertension: Code(s): I10 - Essential (primary) hypertension Status: Chronic Assessment and Plan: 01/16/2024: Blood pressure ranging 122/57 to 134/74 Continue Lasix and telmisartan (6) Gastroesophageal reflux disease: Code(s): K21.9 - Gastro-esophageal reflux disease without esophagitis Status: Acute Assessment and Plan: 01/16/2024: Continue Protonix HPI Data of Consult Date/Time: 01/16/24 09:51 Requesting Physician: Franco Harman MD Primary Care Provider: Tasneem HedzMD Consult Narrative Narrative: Roya Mandujano is a 68 year old female a significant past medical history of arthritis, bipolar disorder, GERD, hyperlipidemia, hypertension, hypothyroidism, JOHN who had an elective left reverse total arthroplasty done on 01/15/2024 with orthopedic services. Patient denies and fever, chills, nausea, vomiting, diarrhea, abdominal pain, chest pain, shortness a breath. She rates her pain right now at a 5/10. Labs today reveal normal white blood cell count of 6.1, hemoglobin 10.8, platelet count 138. Vital signs are stable, she is afebrile, currently on room air. Case management following for outpatient rehab needs. Patient could benefit from SNF placement as she has her left arm in a shoulder immobilizer and her right shoulder also needs to be replaced at a future time. She states she does not have any support at home and cannot reach her arm behind her. We were consulted for medical management. Review of Systems Review of Systems: All systems reviewed & are unremarkable except as noted in HPI and below Constitutional: Constitutional: Reports as per HPI and Reports no additional constitutional complaints Eyes: Eyes: Reports as per HPI and Reports no additional eye complaints ENT: Reports system reviewed and no additional complaints, except as documented and Reports as per HPI Cardiovascular: Cardiovascular: Reports as per HPI and Reports no additional cardiovascular complaints Respiratory: Respiratory: Reports as per HPI and Reports no additional respiratory complaints Gastrointestinal: Gastrointestinal: Reports as per HPI and Reports no additional gastrointestinal complaints Genitourinary: Genitourinary: Reports no additional female genitourinary complaints and Reports as per HPI Musculoskeletal: Musculoskeletal: Reports no additional musculoskeletal complaints and Reports as per HPI Integumentary/Breasts: Skin/Breast: Reports system reviewed and no additional complaints, except as docu and Reports as per HPI Neurologic: Reports system reviewed and no additional complaints, except as documented and Reports as per HPI Psychiatric: Psychiatric: Reports no additional psychiatric complaints and Reports as per HPI [facility] Past Medical History Medical History Arthritis Arthritis of shoulder region, left Arthritis of shoulder region, right [place]
[2024-01-16] MEDS: MULTIVITAMINS THERAPEUTIC TAB (*BKC) 1 TABLET PO (10:24)
[2024-01-16 12:00] VITALS: BP 125/70; PULSE 87; RESP 20; TEMP 36.5; O2SAT 95
--- NOTE | 2024-01-16 15:40 | PM.PNORT ---
Progress Note: A&P Assessment and Plan (1) Status post reverse total arthroplasty of left shoulder: Code(s): Z96.612 - Presence of left artificial shoulder joint Status: Acute (2) Fracture of proximal end of left humerus: Code(s): S42.202A - Unspecified fracture of upper end of left humerus, initial encounter for closed fracture Status: Acute Plan Discussed care plan with the care partner. I have great concern about the patient's safety going home. She is severely deconditioned and weak. The shoulder is especially vulnerable due to severe osteoporsis, and the proximal humeral fracture sustained at the time of surgery. If she were to put any excessive force on the shoulder, she could have a failure of the implant and further fracture of the humerus. Given these risks, I recommend she move to inpatient status, and plan on a stay at [facility]. Subjective Subjective Date/Time Seen: 01/16/24 15:40 Objective Data Vital Signs Vital Signs: Vital Signs - 24 hr 01/15/24 20:00 01/15/24 21:05 01/15/24 23:42 Temperature 36.3 C L 35.9 C L Pulse Rate 92 89 Respiratory Rate 20 18 Blood Pressure 122/57 L 134/74 Pulse Oximetry 95 92 Oxygen Delivery Room Air 01/16/24 04:55 01/16/24 08:00 01/16/24 12:00 Temperature 35.9 C L 36.6 C 36.5 C Pulse Rate 96 87 87 Respiratory Rate 18 20 20 Blood Pressure 123/49 L 110/65 125/70 Pulse Oximetry 93 95 95 Oxygen Delivery Intake/Output Intake/Output: Intake & Output 01/13/24 01/14/24 01/15/24 01/16/24 23:59 23:59 23:59 23:59 Intake Total 1827 438 Balance 1827 438 Meds/Results Medications: Active Medications Generic Name Dose Route Start Last Admin Trade Name Freq PRN Reason Stop Dose Admin Acetaminophen 1,000 mg 01/15/24 11:18 01/16/24 13:04 Acetaminophen 500 Mg Tablet PO 1,000 mg Q6H PARAG Administration Aripiprazole 30 mg 01/15/24 21:00 01/15/24 20:28 Aripiprazole 10 Mg Tablet PO 30 mg HS PARAG Administration Artificial Tears 1 drop 01/15/24 11:18 Artificial Tears Ophth Soln 15 Ml Bottle EACH EYE Q4H PRN Dry Eyes Aspirin 81 mg 01/15/24 17:00 01/16/24 09:44 Aspirin 81 Mg Enteric Tablet PO 81 mg BID PARAG Administration Atorvastatin Calcium 20 mg 01/15/24 21:00 01/15/24 20:28 Atorvastatin 20 Mg Tablet PO 20 mg HS PARAG Administration Bupropion HCl 150 mg 01/15/24 17:00 01/16/24 09:44 Bupropion Hcl Sr (12 Hr) 150 Mg Tab PO 150 mg BID PARAG Administration Cyclobenzaprine HCl 10 mg 01/15/24 11:18 Cyclobenzaprine Hcl 10 Mg Tablet PO Q8H PRN Spasms Diclofenac Sodium 75 mg 01/15/24 17:00 01/16/24 09:43 Diclofenac Sod 75 Mg Tablet.Ec PO 75 mg BID PARAG Administration Diphenhydramine HCl 25 mg 01/15/24 11:18 Diphenhydramine Hcl Inj 50 Mg/Ml Vial IV PUSH Q6H PRN Itching Duloxetine HCl 60 mg 01/15/24 21:00 01/15/24 20:27 Duloxetine Hcl 60 Mg Capsule.Dr PO 60 mg HS [facility] Administration Fluticasone Propionate 2 spray 01/16/24 09:00 Fluticasone Propionate 0.05% Na Spr 16 Gm Btl (*Bkc) NASAL QAM [facility] Furosemide 20 mg 01/15/24 11:18 Furosemide 20 Mg Tablet PO DAILY PRN Edema Levothyroxine Sodium 50 mcg 01/17/24 06:30 Levothyroxine Sodium 50 Mcg Tablet PO [id number] [facility] Levothyroxine Sodium 75 mcg 01/16/24 06:30 01/16/24 06:06 Levothyroxine Sodium 75 Mcg Tablet PO 75 mcg [id number]@0630 [facility] Administration Loratadine 10 mg 01/15/24 21:00 01/15/24 20:31 Loratadine 10 Mg Tablet PO 02/14/24 20:59 Not Given HS [facility] Multivitamins Therapeutic 1 tablet 01/16/24 09:00 01/16/24 10:24 Multivitamins Therapeutic Tab (*Bkc) PO 1 tablet DAILY [facility] Administration Naloxone HCl 0.1 mg 01/15/24 11:18 Naloxone Hcl 0.4 Mg/Ml Vial IV PUSH Q2M PRN Opiate Reversal Non-Formulary Medication 75 mg 01/15/24 21:00 Vibegron [Gemtesa] PO
[2024-01-16 16:00] VITALS: BP 100/45; PULSE 84; RESP 20; TEMP 36.4; O2SAT 91
[2024-01-16] MEDS: oxyCODONE HCL (*CRX) 5 MG TAB IR PO ×2 (16:04→20:26)
[2024-01-16] MEDS: FLUTICASONE PROPIONATE 0.05% NA SPR 16 GM BTL (*BKC) 2 SPRAY NASAL (16:06)
[2024-01-16 20:00] VITALS: PULSE 84; RESP 20; O2SAT 91
[2024-01-16] MEDS: LORATADINE 10 MG TABLET PO (20:13)
[2024-01-16] MEDS: TOPIRAMATE 100 MG TABLET PO (20:13)
[2024-01-16] MEDS: ATORVASTATIN 20 MG TABLET PO (20:13)
[2024-01-16] MEDS: DULoxetine HCL 60 MG CAPSULE.DR PO (20:14)
[2024-01-16] MEDS: ARIPiprazole 10 MG TABLET 30 MG PO (20:14)
[2024-01-16] MEDS: TELMISARTAN 40 MG TABLET 80 MG PO (20:14)
[2024-01-16 21:51] VITALS: BP 124/48; PULSE 86; RESP 18; TEMP 36.2; O2SAT 90
[2024-01-17] MEDS: ACETAMINOPHEN 500 MG TABLET 1000 MG PO ×5 (00:57→22:12)
[2024-01-17 06:25] VITALS: BP 126/55; PULSE 92; RESP 20; TEMP 35.7; O2SAT 92
[2024-01-17] MEDS: LEVOTHYROXINE SODIUM 50 MCG TABLET PO (06:27)
[2024-01-17] MEDS: buPROPion HCL SR (12 HR) 150 MG TAB PO ×2 (08:53→17:08)
[2024-01-17] MEDS: DICLOFENAC SOD 75 MG TABLET.EC PO ×2 (08:53→17:08)
[2024-01-17] MEDS: ASPIRIN 81 MG ENTERIC TABLET PO ×2 (08:53→17:09)
[2024-01-17] MEDS: SENNA/DOCUSATE SODIUM TABLET 2 TAB PO ×2 (08:53→17:08)
[2024-01-17] MEDS: PANTOPRAZOLE 40 MG TABLET PO (08:54)
[2024-01-17] MEDS: MULTIVITAMINS THERAPEUTIC TAB (*BKC) 1 TABLET PO (08:54)
[2024-01-17] MEDS: FLUTICASONE PROPIONATE 0.05% NA SPR 16 GM BTL (*BKC) 2 SPRAY NASAL (08:54)
[2024-01-17] MEDS: valACYclovir HCL 500 MG TABLET PO (08:54)
[2024-01-17] MEDS: polyethylene glycoL 3350 17 GM POWD.PACK PO (08:54)
[2024-01-17] MEDS: TOPIRAMATE 25 MG TABLET 50 MG PO (08:54)
--- NOTE | 2024-01-17 09:15 | PM.IMPN ---
Progress Note: A&P Assessment and Plan (1) Status post reverse total arthroplasty of left shoulder: Code(s): Z96.612 - Presence of left artificial shoulder joint Status: Acute Assessment and Plan: 01/16/2024: Postop day 1 left total shoulder replacement Continue pain control Continue PT and OT Incentive spirometer q.2 hours Ortho following Deconditioning likely will require SNF for placement Case management consulted 01/17/24: Continue PT and OT Ortho following Would benefit from SNF placement as she is not able to move either shoulder very well. She is awaiting a right total shoulder replacement after she recovers from her left total shoulder replacement. 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 We will go ahead and sign off as she is medically stable at this point. If he need further assistance please re-consult us. (2) Hypothyroidism: Code(s): E03.9 - Hypothyroidism, unspecified Status: Chronic Assessment and Plan: 01/16/2024: Continue Synthroid 01/17/24: No change to current treatment plan (3) Bipolar disorder: Code(s): F31.9 - Bipolar disorder, unspecified Status: Chronic Assessment and Plan: 01/16/2024: Continue Abilify Wellbutrin, Cymbalta, Topamax 01/17/24: No change to current treatment plan (4) Hyperlipidemia: Code(s): E78.5 - Hyperlipidemia, unspecified Status: Chronic Assessment and Plan: 01/16/2024: Continue Co Q10 Continue atorvastatin 01/17/24: No change to current treatment plan (5) Hypertension: Code(s): I10 - Essential (primary) hypertension Status: Chronic Assessment and Plan: 01/16/2024: Blood pressure ranging 122/57 to 134/74 Continue Lasix and telmisartan 01/17/24: Blood pressure stable No change to current treatment plan (6) Gastroesophageal reflux disease: Code(s): K21.9 - Gastro-esophageal reflux disease without esophagitis Status: Acute Assessment and Plan: 01/16/2024: Continue Protonix 01/17/24: No change to current treatment plan Time Spent With Patient Time with patient: 15 - 25 minutes Subjective Date/time seen: 01/17/24 09:15 Interval history: 01/16/24: Roya Mandujano is a 68 year old female a significant past medical history of arthritis, bipolar disorder, GERD, hyperlipidemia, hypertension, hypothyroidism, JOHN who had an elective left reverse total arthroplasty done on 01/15/2024 with orthopedic services.? Patient denies and fever, chills, nausea, vomiting, diarrhea, abdominal pain, chest pain, shortness a breath.? She rates her pain right now at a 5/10.? Labs today reveal normal white blood cell count of 6.1, hemoglobin 10.8, platelet count 138.? Vital signs are stable, she is afebrile, currently on room air.? Case management following for outpatient rehab needs.? Patient could benefit from SNF placement as she has her left arm in a shoulder immobilizer and her right shoulder also needs to be replaced at a future time.? She states she does not have any support at home and cannot reach her arm behind her.? We were consulted for medical management. 01/17/24: Patient denies any new today. She states that her pain is well controlled. Case coordination working on outpatient rehab needs. We will defer to surgical services at this time. Patient is on all of her home medications. If you need further assistance please re-consult. Review of Systems Review of Systems: All systems reviewed & are unremarkable except as noted in HPI and below Constitutional: Constitutional: Reports as per HPI and Reports no additional constitutional complaints Eyes: Eyes: Reports as per HPI and Reports no additional eye complaints ENT: Reports system reviewed and no additional complaints, except as documented and Reports as per HPI Cardiovascular: Cardiovascular: Reports as per HPI and Reports no additional cardiovascular complai
[2024-01-17] MEDS: oxyCODONE HCL (*CRX) 5 MG TAB IR PO ×2 (10:41→23:23)
--- NOTE | 2024-01-17 11:46 | PCPTNOTE ---
Patient refused PT at this time. Patient states she is constipated and does not feel comfortable walking. PT will continue to follow per plan of care.
[2024-01-17 14:00] VITALS: BP 145/73; PULSE 75; RESP 18; TEMP 36.4; O2SAT 97
--- NOTE | 2024-01-17 14:33 | PM.PNORT ---
Progress Note: A&P Assessment and Plan (1) Status post reverse total arthroplasty of left shoulder: Code(s): Z96.612 - Presence of left artificial shoulder joint Status: Acute (2) Fracture of proximal end of left humerus: Code(s): S42.202A - Unspecified fracture of upper end of left humerus, initial encounter for closed fracture Status: Acute Plan POD #2 Reverse total shoulder arthroplasty. Patient tolerating PT/OT. She has severe arthritis and pain in the contralateral shoulder as well. She is very high risk given the per-prosthetic fracture. Discussed care with physical therapist, occupational therapist, and nursing staff. It is agreed that she will benefit from SNF placement. She is non-weightbearing with the left arm for 6 weeks. She will need to wear the sling. Concern for the patient's safety. The shoulder is especially vulnerable due to severe osteoporosis, and the proximal humeral fracture sustained at the time of surgery. If she were to put any excessive force on the shoulder, she could have a failure of the implant and further fracture of the humerus. Discussed with patient. She shows good understanding. Discharge planning in progress. Patient may have a suppository for constipation. Hospitalist service has signed off. Subjective Subjective Date/Time Seen: 01/17/24 14:33 Interval history: Patient resting comfortably in bed. Complains of bilateral shoulder pain. Also has significant constipation and asking for a suppository. No numbness or tingling distal to the shoulder. Wearing sling. Review of Systems Review of Systems: All systems reviewed & are unremarkable except as noted in HPI and below Exam Narrative: Overweight 68 y/o Female. Very deconditioned. Resting comfortably in bed. Wearing sling. Dressing dry and intact with no drainage. Moderate swelling. Moderate ecchymosis. No erythema. No hematoma. Normal finger and wrist range of motion. Fires deltoid. Calf nontender. Neurologic status intact. No varicosities. Distal pulses palpable. Contralateral shoulder with decreased range of motion and pain. Objective Data Vital Signs Vital Signs: Vital Signs - 24 hr 01/16/24 16:00 01/16/24 20:00 01/16/24 21:51 Temperature 97.6 F 97.1 F L Pulse Rate 84 84 86 Respiratory Rate 20 20 18 Blood Pressure 100/45 L 124/48 L Pulse Oximetry 91 91 90 Oxygen Delivery Room Air 01/17/24 06:25 01/17/24 10:30 Temperature 96.3 F L Pulse Rate 92 Respiratory Rate 20 Blood Pressure 126/55 L Pulse Oximetry 92 Oxygen Delivery Room Air Intake/Output Intake/Output: Intake & Output 01/14/24 01/15/24 01/16/24 01/17/24 23:59 23:59 23:59 23:59 Intake Total 1827 2249 200 Balance 1827 2249 200 Meds/Results Medications: Active Medications Generic Name Dose Route Start Last Admin Trade Name Freq PRN Reason Stop Dose Admin Acetaminophen 1,000 mg 01/15/24 11:18 01/17/24 10:43 Acetaminophen 500 Mg Tablet PO 1,000 mg Q6H PARAG Administration Aripiprazole 30 mg 01/15/24 21:00 01/16/24 20:14 Aripiprazole 10 Mg Tablet PO 30 mg HS PARAG Administration Artificial Tears 1 drop 01/15/24 11:18 Artificial Tears Ophth Soln 15 Ml Bottle EACH EYE Q4H PRN Dry Eyes Aspirin 81 mg 01/15/24 17:00 01/17/24 08:53 Aspirin 81 Mg Enteric Tablet PO 81 mg BID PARAG Administration Atorvastatin Calcium 20 mg 01/15/24 21:00 01/16/24 20:13 Atorvastatin 20 Mg Tablet PO 20 mg HS PARAG Administration Bupropion HCl 150 mg 01/15/24 17:00 01/17/24 08:53 Bupropion Hcl Sr (12 Hr) 150 Mg Tab PO 150 mg BID PARAG Administration Cyclobenzaprine HCl 10 mg 01/15/24 11:18 Cyclobenzaprine Hcl 10 Mg Tablet PO Q8H PRN Spasms Diclofenac Sodium 75 mg 01/15/24 17:00 01/17/24 08:53 Diclofenac Sod 75 Mg Tablet.Ec PO 75 mg BID PARAG Administration Diphenhydramine HCl 25 mg 01/15/24 11:18 Diphenhydramine Hcl Inj 50 Mg/Ml Via
--- NOTE | 2024-01-17 16:42 | PHAR ---
PHARMACY VERIFIED HOME MED: * HOME MED * GEMTESA 75 MG TABLET TAKE 1 TABLET BY MOUTH AT BEDTIME
[2024-01-17 20:00] VITALS: O2SAT 97
[2024-01-17 21:15] VITALS: BP 120/46; PULSE 96; RESP 16; TEMP 36; O2SAT 91
[2024-01-17] MEDS: TELMISARTAN 40 MG TABLET 80 MG PO (22:09)
[2024-01-17] MEDS: ARIPiprazole 10 MG TABLET 30 MG PO (22:09)
[2024-01-17] MEDS: TOPIRAMATE 100 MG TABLET PO (22:11)
[2024-01-17] MEDS: LORATADINE 10 MG TABLET PO (22:11)
[2024-01-17] MEDS: ATORVASTATIN 20 MG TABLET PO (22:11)
[2024-01-17] MEDS: DULoxetine HCL 60 MG CAPSULE.DR PO (22:11)
[2024-01-18 05:35] VITALS: BP 116/67; PULSE 95; RESP 18; TEMP 35.6; O2SAT 94
[2024-01-18] MEDS: ACETAMINOPHEN 500 MG TABLET 1000 MG PO ×4 (05:42→22:11)
[2024-01-18] MEDS: LEVOTHYROXINE SODIUM 75 MCG TABLET PO (05:42)
[2024-01-18] MEDS: oxyCODONE HCL (*CRX) 5 MG TAB IR 10 MG PO (05:44)
[2024-01-18] MEDS: CYCLOBENZAPRINE HCL 10 MG TABLET PO (05:44)
[2024-01-18] MEDS: valACYclovir HCL 500 MG TABLET PO (08:12)
[2024-01-18] MEDS: DICLOFENAC SOD 75 MG TABLET.EC PO ×2 (08:13→16:51)
[2024-01-18] MEDS: TOPIRAMATE 25 MG TABLET 50 MG PO (08:13)
[2024-01-18] MEDS: ASPIRIN 81 MG ENTERIC TABLET PO ×2 (08:13→17:01)
[2024-01-18] MEDS: SENNA/DOCUSATE SODIUM TABLET 2 TAB PO ×2 (08:13→16:50)
[2024-01-18] MEDS: buPROPion HCL SR (12 HR) 150 MG TAB PO ×2 (08:14→16:50)
[2024-01-18] MEDS: FLUTICASONE PROPIONATE 0.05% NA SPR 16 GM BTL (*BKC) 2 SPRAY NASAL (08:14)
[2024-01-18] MEDS: FUROSEMIDE 20 MG TABLET PO (08:14)
[2024-01-18] MEDS: MULTIVITAMINS THERAPEUTIC TAB (*BKC) 1 TABLET PO (08:14)
[2024-01-18] MEDS: PANTOPRAZOLE 40 MG TABLET PO (08:20)
--- NOTE | 2024-01-18 10:44 | PM.PNORT ---
Progress Note: A&P Assessment and Plan (1) Status post reverse total arthroplasty of left shoulder: Code(s): Z96.612 - Presence of left artificial shoulder joint Status: Acute (2) Fracture of proximal end of left humerus: Code(s): S42.202A - Unspecified fracture of upper end of left humerus, initial encounter for closed fracture Status: Acute Plan POD #3 Reverse total shoulder arthroplasty. No changes in condition. We discussed post operative instructions. She shows good understanding. Awaiting SNF placement. Patient tolerating PT/OT. She has severe arthritis and pain in the contralateral shoulder as well. She is very high risk given the per-prosthetic fracture. Discussed care with physical therapist, occupational therapist, and nursing staff. It is agreed that she will benefit from SNF placement. She is non-weightbearing with the left arm for 6 weeks. She will need to wear the sling. Concern for the patient's safety. The shoulder is especially vulnerable due to severe osteoporosis, and the proximal humeral fracture sustained at the time of surgery. If she were to put any excessive force on the shoulder, she could have a failure of the implant and further fracture of the humerus. Discussed with patient. She shows good understanding. Discharge planning in progress. Hospitalist service has signed off. Subjective Subjective Date/Time Seen: 01/18/24 10:44 Interval history: Patient resting comfortably. Notes pain in bilateral shoulders. No other complaints. Review of Systems Review of Systems: All systems reviewed & are unremarkable except as noted in HPI and below Exam Narrative: Overweight 68 y/o Female. Very deconditioned. Resting comfortably in bed. Wearing sling. Dressing dry and intact with no drainage. Moderate swelling. Moderate ecchymosis. No erythema. No hematoma. Normal finger and wrist range of motion. Fires deltoid. Calf nontender. Neurologic status intact. No varicosities. Distal pulses palpable. Contralateral shoulder with decreased range of motion and pain. Objective Data Vital Signs Vital Signs: Vital Signs - 24 hr 01/17/24 14:00 01/17/24 20:00 01/17/24 21:15 Temperature 97.5 F L 96.8 F L Pulse Rate 75 96 Respiratory Rate 18 16 Blood Pressure 145/73 H 120/46 L Pulse Oximetry 97 97 91 Oxygen Delivery Room Air 01/18/24 05:35 01/18/24 08:00 Temperature 96.1 F L Pulse Rate 95 Respiratory Rate 18 Blood Pressure 116/67 Pulse Oximetry 94 Oxygen Delivery Room Air Intake/Output Intake/Output: Intake & Output 01/15/24 01/16/24 01/17/24 01/18/24 23:59 23:59 23:59 23:59 Intake Total 1827 2249 1300 700 Output Total 1 Balance 1827 2249 1299 700 Meds/Results Medications: Active Medications Generic Name Dose Route Start Last Admin Trade Name Freq PRN Reason Stop Dose Admin Acetaminophen 1,000 mg 01/15/24 11:18 01/18/24 05:42 Acetaminophen 500 Mg Tablet PO 1,000 mg Q6H PARAG Administration Aripiprazole 30 mg 01/15/24 21:00 01/17/24 22:09 Aripiprazole 10 Mg Tablet PO 30 mg HS PARAG Administration Artificial Tears 1 drop 01/15/24 11:18 Artificial Tears Ophth Soln 15 Ml Bottle EACH EYE Q4H PRN Dry Eyes Aspirin 81 mg 01/15/24 17:00 01/18/24 08:13 Aspirin 81 Mg Enteric Tablet PO 81 mg BID PARAG Administration Atorvastatin Calcium 20 mg 01/15/24 21:00 01/17/24 22:11 Atorvastatin 20 Mg Tablet PO 20 mg HS PARAG Administration Bupropion HCl 150 mg 01/15/24 17:00 01/18/24 08:14 Bupropion Hcl Sr (12 Hr) 150 Mg Tab PO 150 mg BID PARAG Administration Cyclobenzaprine HCl 10 mg 01/15/24 11:18 01/18/24 05:44 Cyclobenzaprine Hcl 10 Mg Tablet PO 10 mg Q8H PRN Administration Spasms Diclofenac Sodium 75 mg 01/15/24 17:00 01/18/24 08:13 Diclofenac Sod 75 Mg Tablet.Ec PO 75 mg BID PARAG Administration Diphenhydramine HCl 25 mg 01/15/24 11:18 Diphenhydramine H
[2024-01-18 14:00] VITALS: BP 112/43; PULSE 95; RESP 18; TEMP 35.7; O2SAT 96
--- NOTE | 2024-01-18 14:22 | PM.DS ---
DS: Admitting Diagnosis Discharge Date 01/19/24 Admitting Diagnosis Glenohumeral joint arthrits. DS: Discharge Diagnosis Discharge Diagnosis (1) Status post reverse total arthroplasty of left shoulder: Code(s): Z96.612 - Presence of left artificial shoulder joint Status: Acute (2) Fracture of proximal end of left humerus: Code(s): S42.202A - Unspecified fracture of upper end of left humerus, initial encounter for closed fracture Status: Acute Plan Post op Reverse total shoulder arthroplasty. We had a lengthy discussion regarding postoperative wound care, limitations, expectations, and exercises. Patient shows good understanding. She has had initial physical therapy and is tolerating it well. Patient understands that she is very high risk given the per-prosthetic fracture. She is non-weightbearing with the left arm for 6 weeks. She will need to wear the sling. Concern for the patient's safety.? The shoulder is especially vulnerable due to severe osteoporosis and the proximal humeral fracture sustained at the time of surgery.? If she were to put any excessive force on the shoulder, she could have a failure of the implant and further fracture of the humerus.? Discussed with patient. She shows good understanding. Non weight bearing left arm. Wear sling all the time. PT: finger, wrist, elbow range of motion only. Do not use left shoulder. Remove Mepilex dressing in 1 week from surgery date. (01/22/24). Remove steri strips at 2 weeks. (01/29/24) May shower. No soaking. She will be discharged to SNF. Follow up in office in 3 weeks with xrays. Apt already made. DS: Summary Hospital Course Hospital Course: Patient suffered a proximal humerus fracture at the time of surgery. She is very high risk for complications given her overall condition and poor bone quality. She will benefit from SNF placement. Status at Discharge Functional status at discharge: independent ambulation Overall status at discharge: patient is progressing back to baseline Time Spent with Patient Time attestation: Total time spent providing and/or coordinating discharge services: Exam Narrative: Overweight 68 y/o Female. Resting comfortably in chair. Wearing sling. Dressing dry and intact with no drainage. Moderate swelling. Moderate ecchymosis. No erythema. No hematoma. Range of motion limited due to pain. Calf nontender. Neurologic status intact. No varicosities. Distal pulses palpable. Deltoid fires. Discharge Plan Discharge Attending physician on discharge: Franco Harman Discharging Clinician: Yasmine Ríos Anticipated Discharge Date/Time: 01/19/24 14:21 Patient Disposition: SNF Activity: may shower Diet: as tolerated Wound Care Instructions: follow printed instructions Discharge Instructions: See green instructions. Non weight bearing left arm. Wear sling all the time. PT: finger, wrist, elbow range of motion only. Do not use left shoulder. Remove Mepilex dressing in 1 week from surgery date. (01/22/24). Remove steri strips at 2 weeks. (01/29/24) May shower. No soaking. Stand Alone Forms: General Discharge Information, General Discharge Instructions Follow-up/Referrals: Yasmine Ríos PA [Physician [employer] Team Lead] - Discharge Medications: New oxycodone-acetaminophen 5-325 mg tablet 1 - 2 tablet PO Q4-6H MDD 6 PRN (Reason: pain) Qty: 30 0RF aspirin 81 mg tablet,delayed release (DR/EC) 81 mg PO BID 14 Days Qty: 28 0RF Continued Gemtesa 75 mg tablet 75 mg PO HS atorvastatin 20 mg tablet 20 mg PO HS valacyclovir 500 mg tablet 500 mg PO QAM acetaminophen 650 mg Tablet Extended Release 1,300 mg PO Q8H PRN (Reason: Pain) pantoprazole 40 mg tablet,delayed release (DR/EC) 40 mg PO QAM diclofenac sodium 75 mg tablet,delayed release (DR/EC) 75 mg PO BID Hold Instructions: Resume on 10/25/22. furosemide 20 mg tablet 20 mg PO
[2024-01-18 20:00] VITALS: O2SAT 91
[2024-01-18 21:35] VITALS: BP 103/30; PULSE 86; RESP 20; TEMP 35.8; O2SAT 91
[2024-01-18] MEDS: ARIPiprazole 10 MG TABLET 30 MG PO (22:10)
[2024-01-18] MEDS: TOPIRAMATE 100 MG TABLET PO (22:11)
[2024-01-18] MEDS: ATORVASTATIN 20 MG TABLET PO (22:11)
[2024-01-18] MEDS: DULoxetine HCL 60 MG CAPSULE.DR PO (22:11)
[2024-01-18] MEDS: LORATADINE 10 MG TABLET PO (22:11)
[2024-01-19 03:06] VITALS: BP 134/97; PULSE 90; RESP 16; O2SAT 94
[2024-01-19 05:45] VITALS: BP 139/79; PULSE 92; RESP 18; TEMP 36.9; O2SAT 97
[2024-01-19] MEDS: ACETAMINOPHEN 500 MG TABLET 1000 MG PO ×2 (05:55→11:13)
[2024-01-19] MEDS: LEVOTHYROXINE SODIUM 50 MCG TABLET PO (05:55)
[2024-01-19] MEDS: ASPIRIN 81 MG ENTERIC TABLET PO (08:19)
[2024-01-19] MEDS: TOPIRAMATE 25 MG TABLET 50 MG PO (08:19)
[2024-01-19] MEDS: valACYclovir HCL 500 MG TABLET PO (08:19)
[2024-01-19] MEDS: DICLOFENAC SOD 75 MG TABLET.EC PO (08:19)
[2024-01-19] MEDS: SENNA/DOCUSATE SODIUM TABLET 2 TAB PO (08:19)
[2024-01-19] MEDS: PANTOPRAZOLE 40 MG TABLET PO (08:19)
[2024-01-19] MEDS: MULTIVITAMINS THERAPEUTIC TAB (*BKC) 1 TABLET PO (08:19)
[2024-01-19] MEDS: FLUTICASONE PROPIONATE 0.05% NA SPR 16 GM BTL (*BKC) 2 SPRAY NASAL (08:19)
[2024-01-19] MEDS: buPROPion HCL SR (12 HR) 150 MG TAB PO (08:19)
[2024-01-19 13:06] LABS: SARS-CoV-2 RNA PCR Negative (Negative)
[2024-01-19] MEDS: CYCLOBENZAPRINE HCL 10 MG TABLET PO (14:08)
[2024-01-19] MEDS: oxyCODONE HCL (*CRX) 5 MG TAB IR PO (14:08)
== END 2024-01-19 14:25 | DRG 483 ==
LOC: ANHSURGERY 16:24 → ANH3MEDSUR 16:24
PROVIDERS: Physician Assistant Surgical; Admitting Provider Orthopaedic Surgery; PCP Family Medicine; Visit Provider Orthopaedic Surgery
PROC: 0RRK00Z Replacement of Left Shoulder Joint with Reverse Ball and Socket Synthetic Substitute, Open Approach (ICD-10-PCS; CPT 23472; principal; 2024-01-15 07:30)
DX: M19.012 Primary osteoarthritis, left shoulder (principal); M96.89 Other intraoperative and postprocedural complications and disorders of the musculoskeletal system; M80.022A Age-related osteoporosis with current pathological fracture, left humerus, initial encounter for fracture; Y83.1 Surgical operation with implant of artificial internal device as the cause of abnormal reaction of the patient, or of later complication, without mention of misadventure at the time of the procedure; F31.9 Bipolar disorder, unspecified; K21.9 Gastro-esophageal reflux disease without esophagitis; E78.5 Hyperlipidemia, unspecified; I10 Essential (primary) hypertension; E03.9 Hypothyroidism, unspecified; G47.33 Obstructive sleep apnea (adult) (pediatric); R32 Unspecified urinary incontinence; Z96.652 Presence of left artificial knee joint; Z96.641 Presence of right artificial hip joint; E66.9 Obesity, unspecified; Z68.35 Body mass index [BMI] 35.0-35.9, adult; Z11.52 Encounter for screening for COVID-19; Z90.49 Acquired absence of other specified parts of digestive tract; Z90.710 Acquired absence of both cervix and uterus; Z87.891 Personal history of nicotine dependence
CPT/HCPCS: 36415; 73030; 80048; 85025; 86850; 86900; 86901; 87635; 97110; 97116; 97161; 97165; 97530; 97535; A4565; A9270; C1713; C1776; J0171; J0690; J1100; J1885; J2250; J2270; J2371; J2405; J2795; J3010; J3370; J7030; J7120

== ENCOUNTER 2024-04-14 09:52 | Outpatient (CLI) | payer MEDICARE, MEDICAID, SELFPAY ==
--- NOTE | ~2024-04-14 | XR_ITS ---
Left Shoulder Technique: AP and scapular Y views were obtained. Clinical History: Injury COMPARISON: 01/15/2024 Findings: Stable possible fracture at the greater tuberosity region. Left shoulder arthroplasty is un changed.. Soft tissues are unremarkable. Impression: Stable possible nondisplaced fracture the greater tuberosity region of the proximal humerus. Left shoulder arthroplasty otherwise is unchanged. Reviewed, dictated and finalized at location . Impression: Stable possible nondisplaced fracture the greater tuberosity region of the prox imal humerus. Left shoulder arthroplasty otherwise is unchanged.
== END 2024-04-14 09:53 | disposition home or self-care (01) ==
LOC: ANHIMG 09:58
PROVIDERS: PCP Family Medicine; Visit Provider Physician Assistant Surgical
DX: M25.512 Pain in left shoulder (principal); Z96.612 Presence of left artificial shoulder joint
CPT/HCPCS: 73030

== ENCOUNTER 2024-05-01 16:04 | Emergency (ER) | payer MEDICARE, MEDICAID, SELFPAY ==
--- NOTE | ~2024-05-01 | CT_ITS ---
EXAMINATION: CT abdomen pelvis w con DATE: 05/01/2024 20:28 INDICATION: hx UC as teen/20s in remission; diarrhea 6d TECHNIQUE: Computed tomography (CT) of the abdomen and pelvis was performed with 100 mL Omnipaque-350 intravenous contrast. Automated exposure control and iterative reconstruction technique were employe d. The dose-length product was 1548.26 mGy-cm. COMPARISON: None. FINDINGS: Lower thorax: Aortic valve calcification. Liver: Normal. Biliary/Gallbladder: Cholelithiasis. No inflammatory change. No bile duct dilation. Pancreas: Moderate atrophy Spleen: Subcentimeter hypodensity, likely cyst or hemangioma. Adrenals:No mass. Kidneys: No obstructing stone or hydronephrosis. Multiple bilateral renal lesions measuring greater t garcia simple cystic density. GI tract: No small or large bowel dilation. Appendix not confidently visualized. Mild sigmoid wall ed jose alejandro. Diverticulosis without diverticulitis. Mesentery/Peritoneum: No ascites, mass, or free air. Retroperitoneum: No mass. Atherosclerotic abdominal aortic and/or arterial calcifications. Pelvis: Pelvic organs are within normal limits. Soft Tissues: Soft tissues and body wall unremarkable. Left posterior stimulator pack terminating ove r the left sacrum. Bones: No acute osseous finding. Incompletely visualized, uncomplicated appearing right hip arthropl asty hardware. IMPRESSION: Mild sigmoid wall edema, may reflect a component of colitis in the appropriate clinical context. Otherwise, no acute abdominopelvic process. Multiple indeterminate density renal lesions, recommend nonemergent but timely MR or CT without and w ith contrast for further evaluation. Reviewed, dictated and finalized at location K. IMPRESSION: Mild sigmoid wall edema, may reflect a component of colitis in the appropriate clinical context. Otherwise, no acute abdominopelvic process. Multiple indeterminate density renal lesions, recommend nonemergent but timely MR or CT without and with contrast for further evaluation.
[2024-05-01 16:06] VITALS: BP 128/59; PULSE 84; RESP 20; TEMP 36.2; O2SAT 98
[2024-05-01 16:45] LABS: Basophils Percent Auto 0.5 % (0.2-1.2); Eosinophils Absolute Auto 0.1 K/mm3 (0-0.3); Eosinophils Percent Auto 2.1 % (0-4.4); Hematocrit 40.3 % (37.0-47.0); Hemoglobin 13.3 g/dL (12.0-15.0); Immature Granulocyte Absolute 0.02 K/mm3 (0.00-0.031); Immature Granulocyte Percent A 0.5 % (0-0.5); Immature Platelet Fraction Pct 2.2 % (0.9-11.2); Lymphocytes Absolute Auto 0.97 K/mm3 (0.9-3.2); Lymphocytes Percent Auto 22.9 % (18.3-44.2); Mean Corpuscular Hemoglobin 30.8 pg (26-34); Mean Corpuscular Volume 93.3 fl (80-100); Mean Platelet Volume 9.9 fl (7.4-10.4); Monocytes Absolute Auto 0.4 K/mm3 (0.1-0.6); Monocytes Percent Auto 8.5 % (2.6-8.5); Neutrophils Absolute Auto 2.8 K/mm3 (1.3-6.7); Neutrophils Percent Auto 65.5 % (45.5-73.1); Platelet Count Result 166 k/mm3 (150-375); Red Blood Count 4.32 M/mm3 (4.2-5.4); Red Cell Distribution Width 13.1 % (11.5-14.5); White Blood Count 4.2 K/mm3 (4.5-10.0)
[2024-05-01 16:54] LABS: Alanine Aminotransferase 42 U/L (6-35); Albumin Level 4.6 g/dL (3.5-5.1); Alkaline Phosphatase 91 U/L (38-126); Anion Gap 11 mmol/L (4-12); Aspartate Amino Transferase 40 U/L (14-36); Bilirubin,Total 0.6 mg/dL (0.2-1.3); Blood Urea Nitrogen 23 mg/dL (7-17); Calcium 9.1 mg/dL (8.4-10.2); Carbon Dioxide 27 mmol/L (22-30); Chloride 99 mmol/L (98-107); Estimated CRCL calculation 54 ml/min; Estimated Glomerular Filt Rate 55; Glucose 94 mg/dL (65-110); Lipase 377 U/L (23-300); Magnesium 2.2 mg/dL (1.6-2.3); Potassium 4.4 mmol/L (3.4-5.0); Sodium 137 mmol/L (137-145)
[2024-05-01 16:55] LABS: Partial Thromboplastin Time 24.9 Seconds (22.3-36.8); Prothrombin Time 13.4 Seconds (11.1-14.7)
[2024-05-01 17:03] LABS: Platelet Estimate Adequate (Adequate); Schistocytes None Seen
--- NOTE | 2024-05-01 19:01 | ED.NAVMDI ---
HPI - Nausea/Vomiting/Diarrhea General Chief complaint: Nausea/Vomiting/Diarrhea Stated complaint: diarrhea X6 days with dark red blood Time Seen by Provider: 05/01/24 18:58 Source: patient Mode of arrival: EMS Limitations: no limitations History of Present Illness HPI Narrative: Patient presents from home with diarrhea of 6 days duration. She notes that she did have some sharp abdominal pain at 1st which is now just become abdominal discomfort rated 1 or 2/10 in severity. She was diagnosed with ulcerative colitis when she was 13 or 14 years old and then had another flare/episode in her 20s but has otherwise been in remission. She states she is supposed to start Reclast/zoledronic acid infusions soon possibly. She has had decreased p.o. intake but denies any nausea or vomiting. She notes that eating and drinking seem to exacerbate her symptoms of diarrhea. Chronic dry mouth. She states this has happened before approximately 1-2 years ago she had 10 days of diarrhea. She previously saw counter tacker but it has been awhile. Her last colonoscopy was 10 or more years ago. Not on chronic anticoagulation other than taking p.o. diclofenac for her arthritis. No recent steroid use in the last 2 months. Subjective fevers with this was for starting. Her last oral intake was today, in which she tried to dry toast and a banana. She has been using Imodium as directed and trying to follow the brat diet when she does eat. She had dark red blood mixed with her stool and noticed in the toilet when she wiped 1-2 days ago and then that resolved and she has had normal non bloody diarrhea since. Related Data Home Medications Medication Instructions Recorded Confirmed aripiprazole 30 mg tablet 30 mg PO HS 10/19/22 04/24/24 atorvastatin 20 mg tablet 20 mg PO 10/19/22 04/24/24 azelastine 137 mcg (0.1 %) nasal 2 spray intranasal BID 10/19/22 04/24/24 spray bupropion HCl 150 mg tablet,12 hr 150 mg PO BID 10/19/22 04/24/24 sustained-release diclofenac sodium 75 mg 75 mg PO BID 10/19/22 04/24/24 tablet,delayed release duloxetine 60 mg capsule,delayed 60 mg PO HS 10/19/22 04/24/24 release fluticasone propionate 50 2 spray intranasal QAM 10/19/22 04/24/24 mcg/actuation nasal spray,suspension furosemide 20 mg tablet 20 mg PO DAILY PRN Edema 10/19/22 04/24/24 pantoprazole 40 mg tablet,delayed 40 mg PO QAM 10/19/22 04/24/24 release telmisartan 80 mg tablet 80 mg PO HS 10/19/22 04/24/24 topiramate 50 mg tablet See Rx Instructions .Route .COMPLEX 10/19/22 04/24/24 valacyclovir 500 mg tablet 500 mg PO QAM 10/19/22 04/24/24 zolpidem 6.25 mg tablet,extended 6.25 mg PO HS PRN Insomnia 10/19/22 04/24/24 release,multiphase vibegron 75 mg tablet (Gemtesa) 75 mg PO HS 10/05/23 04/24/24 cetirizine 10 mg tablet (Zyrtec) 10 mg PO HS 12/21/23 04/24/24 levothyroxine 50 mcg capsule 50 mcg PO DAILY 04/24/24 04/24/24 Allergies Allergy/AdvReac Type Severity Reaction Status Date / Time tetracycline AdvReac Severe YEAST Verified 05/01/24 16:05 INFECTION PMFSH Past Medical History Medical History Arthritis Arthritis of shoulder region, left Arthritis of shoulder region, right Bipolar disorder Dry mouth Gastroesophageal reflux disease History of bruising easily Hyperlipidemia Hypertension Hypothyroidism Mild obstructive sleep apnea Patient does not use CPAP. Ulcerative colitis in remission Dx at 13 or 14 then again in 20s; remission since Urge incontinence Status post sacral neurostimulator implantation. Surgical History Surgical History History of appendectomy (~1967) History of arthroplasty of left knee (01/24/23) History of arthroplasty of right hip (02/22/09) History of hysterectomy (~1999) History of tonsillectomy (~1957) History of tooth extraction History of tubal ligation (~1979) Sacral neuros
--- NOTE | 2024-05-01 19:11 | PC.NURSE ---
Assumed care of pt from FLOYD Norton at this time.
[2024-05-01] MEDS: SODIUM CHLORIDE 0.9% IV 1,000 ML 999 ML IV CONT (19:28)
[2024-05-01 19:34] VITALS: BP 137/55; PULSE 82; RESP 12; O2SAT 95
[2024-05-01 19:45] LABS: Creatine Kinase 113 U/L (30-135)
[2024-05-01 20:10] LABS: Influenza A QL RT-PCR Negative (Negative); Influenza B QL RT-PCR Negative (Negative); SARS-CoV-2 RNA PCR Negative (Negative)
[2024-05-01] MEDS: metroNIDAZOLE 500 MG TABLET PO (21:22)
[2024-05-01 21:25] VITALS: BP 111/90; PULSE 88; RESP 16; O2SAT 97
[2024-05-01 22:43] VITALS: BP 103/84; PULSE 86; RESP 15
[2024-05-01 22:51] LABS: Appearance Urine Clear (Clear); Bilirubin Urine Negative (Negative); Blood Urine Negative (Negative); Color Urine Yellow (Yellow); Glucose Urine UA Negative (Negative); Ketones Urine Trace mg/dL (Negative); Leukocyte Esterase Ur Negative LEU/UL (Negative); Nitrate Urine Negative (Negative); Protein Urine Negative (Negative); Specific Grav Ur 1.024 (1.001-1.035); Urobilinogen Urine 0.2 mg/dL (<2.0); pH Urine 5.5 (5.0-9.0)
[2024-05-01 22:54] LABS: Add Urine Microscopic? NO
[2024-05-01 23:29] VITALS: BP 118/50; PULSE 80; RESP 17; O2SAT 97
== END 2024-05-01 23:49 | disposition home or self-care (01) ==
PROVIDERS: Physician Assistant; Emergency Provider Student in an Organized Health Care Education/Training Program; PCP Family Medicine
DX: K52.9 Noninfective gastroenteritis and colitis, unspecified (principal); D72.819 Decreased white blood cell count, unspecified; R74.01 Elevation of levels of liver transaminase levels; R74.8 Abnormal levels of other serum enzymes; N28.9 Disorder of kidney and ureter, unspecified; E78.5 Hyperlipidemia, unspecified; I10 Essential (primary) hypertension; E03.9 Hypothyroidism, unspecified; Z87.891 Personal history of nicotine dependence; Z20.822 Contact with and (suspected) exposure to COVID-19
CPT/HCPCS: 36415; 74177; 80053; 81003; 82550; 83690; 83735; 85025; 85055; 85610; 85730; 87636; 96360; 99284; A9270; J7030; Q9967

== ENCOUNTER 2024-07-16 12:26 | Outpatient (CLI) | payer MEDICARE, MEDICAID, SELFPAY ==
--- NOTE | ~2024-07-16 | XR_ITS ---
Right Shoulder Technique: AP and scapular Y views were obtained. Clinical History: Osteoarthritis Findings: No fracture or dislocation is seen. There is severe osteoarthritis of the right glenohumera l joint. There is joint space narrowing, sclerosis and subchondral cystic change, and large inferomed ial humeral head osteophyte. AC joint demonstrates minimal degenerative change.. Soft tissues are unr emarkable. Impression: Severe glenohumeral joint degenerative change. Reviewed, dictated and finalized at location M. Impression: Severe glenohumeral joint degenerative change.
== END 2024-07-16 12:27 | disposition home or self-care (01) ==
PROVIDERS: Visit Provider Orthopaedic Surgery
DX: M19.011 Primary osteoarthritis, right shoulder (principal)
CPT/HCPCS: 73030

== ENCOUNTER 2024-09-25 10:03 | Outpatient (CLI) | payer MEDICARE, MEDICAID, SELFPAY ==
--- NOTE | ~2024-09-25 | CT_ITS ---
CT of the Abdomen and Pelvis: Indication: Renal cyst Technique: 2.5 mm axial scans were obtained through the abdomen and pelvis following intravenous adm inistration of 100 cc of Omnipaque 350. Dose reduction technique was used on this scan by utilizing a utomated exposure control and iterative reconstruction technique. The dose-length product (DLP) was 1 507.76 mGy-cm. COMPARISON: 05/01/2024 Findings: Scans through the lung bases are unremarkable. The liver, spleen, pancreas, and adrenal glands are within normal limits. Large gallstone present, un changed. Stable bilateral renal masses, some of which demonstrate greater density than expected for t ypical simple cyst. No evidence of aortic aneurysm. No lymphadenopathy. No bowel obstruction or bowel wall thickening. There is no evidence to suggest acute appendicitis. Images through the pelvis were performed. Urinary bladder unremarkable. No pelvic mass seen. No ascit es. Stable sclerotic lesion in the left side of the L3 vertebral body. Impression: Stable bilateral renal masses, which could reflect simple and hemorrhagic/proteinaceous or otherwise complex cysts. Present and postcontrast MR would be recommended to best exclude solid mass, as clinic ally indicated. Stability since prior exam however is reassuring. Cholelithiasis. Reviewed, dictated and finalized at location M. ACT AND SERVICE CLERKS SUPERVISOR Impression: Stable bilateral renal masses, which could reflect simple and hemorrhagic/prote inaceous or otherwise complex cysts. Present and postcontrast MR would be recom mended to best exclude solid mass, as clinically indicated. Stability since desi or exam however is reassuring. Cholelithiasis.
--- NOTE | ~2024-09-25 | XR_ITS ---
EXAMINATION: XR ribs RT 2V DATE: 09/25/2024 10:42 INDICATION: Right rib pain. Fall. TECHNIQUE: 2 views of the right ribs on 3 radiographs were obtained. COMPARISON: None. FINDINGS: There is no right-sided pneumonia, pleural effusion, or pneumothorax. There is severe osteo arthritis of glenohumeral joint. IMPRESSION: 1. No rib fracture. Reviewed, dictated and finalized at location A. AL ASSISTANT TEACHER IMPRESSION: 1. No rib fracture.
[2024-09-25 10:29] LABS: Estimated Glomerular Filt Rate 40
== END 2024-09-25 10:04 | disposition home or self-care (01) ==
PROVIDERS: Visit Provider Family Medicine
DX: R07.81 Pleurodynia (principal); W19.XXXA Unspecified fall, initial encounter; N28.1 Cyst of kidney, acquired; K80.20 Calculus of gallbladder without cholecystitis without obstruction
CPT/HCPCS: 71100; 74177; Q9967

== ENCOUNTER 2024-12-05 09:17 | Outpatient (CLI) | payer MEDICARE, MEDICAID, SELFPAY | END 2024-12-05 09:18 | disposition home or self-care (01) | PROVIDERS: Visit Provider Orthopaedic Surgery | DX: M25.511 Pain in right shoulder (principal); M25.411 Effusion, right shoulder | CPT/HCPCS: 73200 ==

== ENCOUNTER 2025-01-22 17:12 | Emergency (ER) | payer MEDICARE, MEDICAID, SELFPAY ==
[2025-01-22] VITALS (26 sets, daily range): BP systolic 101–140; BP diastolic 49–88; PULSE 74–99; RESP 12–20; TEMP 36.5; O2SAT 93–100
--- NOTE | ~2025-01-22 | CT_ITS ---
CTA chest PE protocol Ordering provider: Hilaria Oleary History: 69 years Female with . left rib pain, coughing . Comparison: None. Technique: CT angiogram chest was performed following timed intravenous injection of contrast. Thin s lice axial images and reformatted coronal images were obtained. Three dimensional reformatted images of the chest were also obtained using a [employer] workstation. . Automated exposure control and iterati ve reconstruction technique were employed. The dose-length product was 941.05 mGy-cm. 100 mL Omnipaqu e 350 was given IV. Findings: PULMONARY ARTERIES: No pulmonary embolus. VISUALIZED THORACIC INLET: Retropharyngeal position of the carotid arteries. Left thyroid nodule. Ult rasound evaluation advised. MEDIASTINUM: Aorta/coronary arteries: Mild atheromatous disease. Heart/other: The heart is not enlarged. Lymph nodes: No mediastinal or hilar adenopathy. LUNGS: Bilateral upper lobe and lower lobe groundglass appearance suggestive of atelectasis versus pneumonia versus pulmonary edema. Clinical correlation advised. No pulmonary nodules or masses. No effusions. No pneumothorax. VISUALIZED UPPER ABDOMEN: Cholelithiasis with possibility of porcelain gallbladder. Left kidney multi ple cysts. Atrophic pancreas.0 Otherwise, the visualized upper abdomen is normal. MUSCULOSKELETAL: Soft tissues: The superficial soft tissues are normal. Bones: Age appropriate degenerative changes of the spine. IMPRESSION: 1. No pulmonary embolism. 2. Bilateral upper and lower lobe groundglass appearance. Differential include atelectasis versus pn eumonia versus pulmonary edema. Clinical correlation advised. 3. Left thyroid nodule. Ultrasound evaluation advised. 4. Cholelithiasis. Possible porcelain gallbladder although less likely. 5. Multiple left kidney cysts. 6. Atrophic pancreas. Reviewed, dictated and finalized at location A. IMPRESSION: 1. No pulmonary embolism. 2. Bilateral upper and lower lobe groundglass appearance. Differential include atelectasis versus pneumonia versus pulmonary edema. Clinical correlation advi sed. 3. Left thyroid nodule. Ultrasound evaluation advised. 4. Cholelithiasis. Possible porcelain gallbladder although less likely. 5. Multiple left kidney cysts. 6. Atrophic pancreas.
--- NOTE | ~2025-01-22 | CT_ITS ---
CT abdomen pelvis w con Ordering provider: Melani Woods PA-C History: 69 years Female with . L lateral abd bruising . Comparison: April 25, 2024 Technique: CT abdomen and pelvis with IV and without oral contrast. Automated exposure control and it erative reconstruction technique were employed. The dose-length product was 1475.04 mGy-cm. 100 mL Om nipaque 350 was given IV. Findings: VISUALIZED LOWER CHEST: Dependent atelectatic changes. UPPER ABDOMINAL ORGANS: Liver: Normal. Gallbladder: Gallbladder stones. Spleen: Normal. Stomach/duodenum: Normal. Pancreas: Atrophic. Adrenals: Normal. Kidneys: Bilateral renal cysts with the largest in the left kidney upper pole measuring 3 x 2.5 cm. C ontrast is seen in both kidneys. PELVIC ORGANS: The bladder is underfilled with contrast seen in the gallbladder. BOWEL AND MESENTERY: Colon: No evidence of diverticulitis.. Fecal material is loaded in the colon.Appendix is not demonstr ated. Small Bowel: Normal. No obstruction. Peritoneum/mesentery: No free air or free fluid. No mesenteric lymphadenopathy. RETROPERITONEUM: Mild atheromatous disease of the abdominal aorta. No retroperitoneal lymphadenopat hy. MUSCULOSKELETAL: Superficial soft tissues: Fat stranding is seen in the left side of the upper abdomen most likely pos t traumatic. The superficial soft tissues are normal. Bones: Age appropriate degenerative changes of the spine. Right hip arthroplasty. Bilateral sacroilii tis. IMPRESSION: 1. No evidence of appendicitis, diverticulitis or intestinal obstruction. No solid organ injury seen . 2. Cholelithiasis. 3. Bilateral renal cysts. 4. Atrophic pancreas. 5. Constipation Reviewed, dictated and finalized at location A. IMPRESSION: 1. No evidence of appendicitis, diverticulitis or intestinal obstruction. No s olid organ injury seen. 2. Cholelithiasis. 3. Bilateral renal cysts. 4. Atrophic pancreas. 5. Constipation
--- NOTE | ~2025-01-22 | XR_ITS ---
XR chest 1V Ordering provider: Hilaria Oleary PA-C History: 69 years Female with . left sided chest pain with coughing . Comparison: July 26, 2024 FINDINGS: MEDIASTINUM: The cardiac silhouette is not enlarged. LUNGS: No infiltrates, effusions or pneumothorax. Small granuloma seen in the right upper lobe. OTHER: No free air under the diaphragm. Left shoulder arthroplasty. Severe right shoulder osteoarthri tic changes. IMPRESSION: No acute cardiopulmonary pathology. Reviewed, dictated and finalized at location A.
--- OUTSIDE RECORDS SUMMARY | 2025-01-22 17:14 | XMS_ITS | Encounter Summary ---
Author Organization [facility] Healthcare Address [address] [place] [address] Care Team Providers Care Etl Application Developer Name Role Phone Tasneem Hdez MD Primary Care Provider [phone] Reason for Visit * Reason Comments Cough X 2 weeks Muscle Pain Pulled a muscle in h er rib cage on the left side, X 1 week, Encounter Details Date Type Department Care Team (Late st Contact Info) Description 01/22/2025 4:30 PM CDT Office Visit [facility] Medical Group Convenient Care at [address] [address] Maren Moore NP [address] [place] [id number] Acute cough (Primary Dx); Rib pain on right side; Abnormal bruising Social History Tobacco Use Types Packs/Day Years Used Date Smoking Tobacco: Former Cigarettes 0 1 S tarted: 1992 Passive Smoke Exposure: Past Smokeless Tobacco: Never AUDIT-C Answer Date Recorded Q1: How often do you have a drink containing alcohol? Never 01/05/2025 Q2: How many drinks containi ng alcohol do you have on a typical day when you are drinking? Patient does not drink Q3: How often do you have si x or more drinks on one occasion? Never 01/05/2025 PHQ-2 Answer Date Recorded PHQ-2 Total Score (If total score is 3 or more points, staff should administer the PHQ-9) 0 06/20/2023 Personal Safety Answer Date Recorded Have you ever been in or are you currently in a harmful physical or emotional relationship or is someone making you feel afraid or unsafe? Denies 01/05/2025 Comments Unknown Sex and Gender Information Value Date Recorded Sex Assigned at Not on file Legal Sex Female 3:33 AM UROLOGIST Gender Identity Not on file Sexual Orientation Not on file documented as of this encounter Last Filed Vital Signs Vital Sign Reading Time Taken Comments Blood Pressure 117/77 01/22/2025 4:25 PM CDT Pulse 90 01/22/2025 4:25 PM CDT Temperature 36.4 C (97.6 F) 01/22/2025 4:25 PM CDT Respiratory Rate 20 01/22/2025 4:25 PM CDT Oxygen Saturation 97% 01/22/2025 4:25 PM CDT Inhaled Oxygen Concentration - - Weight 105 kg (231 lb 8 oz) 01/22/2025 4:25 PM CDT Height 167.6 cm (5' 5.98 ) 01/22/2025 4:25 PM CD T Body Mass Index 37.38 01/22/2025 4:25 PM CDT documented in this encounter Plan of Treatment Upcoming Encounters Date Type Department Care Team (Latest Contact Info) Description 02/20/2025 10:40 AM CDT Hospital Encounter [facility] Operating Room [address] [place] [phone] Delia Abdul MD [address] [place] [address] 02/20/2025 10:40 AM CDT Anesthesia Event [facility] Operating Room [address] [place] [phone] Aron Butt MD [address] [place] [address] 02/20/2025 10:40 AM CDT - 02/20/2025 1:50 PM CDT Surgery [facility] Operating Room [address] [place] [phone] Delia Abdul MD [address] [facility] [address] [place] [address] Right Reverse Shoulder Arthroplasty Scheduled Procedures Name Priority Associated Diagnoses Date/Ti me ARTHROPLASTY SHOULDER - REVERSE TOTAL Osteoarthritis of right shoulder, unspecified osteoarthritis type Chronic right shoulder pain 02/20/2025 10:40 AM CDT documented as of this encounter Visit Diagnoses Diagnosis Osteoarthritis of right shoulder Chronic right shoulder pain Pain in joint, shoulder region Acute cough- Primary Rib pain on right side Abnormal bruising Other symptoms involving skin and integumentary tissues Osteoarthritis of right shoulder, unspecified osteoarthritis type Chronic right shoulder pain Pain in joint, shoulder region documented in this encounter Care Teams Etl Application Developer Relationship Specialty Start Date End Date Tasneem Hdez MD [address] [facility] [address] [place] [address] PCP - General Family Medicine 06/18/23 documented as of this encounter
--- OUTSIDE RECORDS SUMMARY | 2025-01-22 17:14 | XMS_ITS | Encounter Summary ---
Author Organization [facility] Address Critical access hospital[address] [place] [address] Care Team Providers Care Truck Sales Manager Name Role Phone Tasneem Hdez DO Primary Care Provider [phone] Encounter Details Date Type Department Care Team (Late st Contact Info) Description 03/08/2022 MyChart Message Enc [facility] Medical Group Family Medicine - [place] [address] [place] [address] Tasneem Hdez DO [address] [place], [place] [address] Labwork Social History Tobacco Use Types Packs/Day Years Used Date Smoking Tobacco: Never Smokeless Tobacco: Never PHQ-2 Answer Date Recorded PHQ-2 Score - If the patient scores above 3, please move on to questions 3-9 0 11/22/2021 Comments Unknown Sex and Gender Information Value Date Recorded Sex Assigned at Not on file Legal Sex Female 5:16 PM CDT Gender Identity Not on file Sexual Orientation Not on file documented as of this encounter Plan of Treatment Not on file documented as of this encounter Visit Diagnoses Not on filedocumented in this encounter Additional Health Concerns Assessment Noted Time PHQ-9 Depression Total Score: 0 11/22/19 22 3:02 PM EDUCATIONAL INTERPRETER documented as of this encounter Care Teams Truck Sales Manager Relationship Specialty Start Date End Date Tasneem Hdez DO [address] [place], [place] [address] PCP - General 01/17/17 documented as of this encounter
--- OUTSIDE RECORDS SUMMARY | 2025-01-22 17:14 | XMS_ITS | Encounter Summary ---
Author Organization [facility] Address formerly [facility] [place] [address] Care Team Providers Care Hardware Installer Name Role Phone Tasneem Hdez DO Primary Care Provider [phone] Encounter Details Date Type Department Care Team (Late st Contact Info) Description 11/21/2020 MyChart Message Enc [facility] Medical Group Family Medicine - [place] [address] [place] [address] Tasneem Hdez DO [address] [place] [address] RE: Question Social History Tobacco Use Types Packs/Day Years Used Date Smoking Tobacco: Never Smokeless Tobacco: Never Comments Unknown Sex and Gender Information Value Date Recorded Sex Assigned at Not on file Legal Sex Female 5:16 PM CDT Gender Identity Not on file Sexual Orientation Not on file documented as of this encounter Plan of Treatment Not on file documented as of this encounter Visit Diagnoses Not on filedocumented in this encounter Care Teams Hardware Installer Relationship Specialty Start Date End Date Tasneem Hdez DO [address] [place], [place] [address] PCP - General 01/17/17 documented as of this encounter
--- OUTSIDE RECORDS SUMMARY | 2025-01-22 17:14 | XMS_ITS | Encounter Summary ---
Author Organization [facility] Address [address] [place] [address] Care Team Providers Care Relationship Associate Name Role Phone Tasneem Hdez DO Primary Care Provider [phone] Encounter Details Date Type Department Care Team (Late st Contact Info) Description 01/03/2022 HelpingDoct Message Enc [facility] Medical Group Family Medicine - [place] [address] [place] [address] Tasneem Hdez DO [address] [place] [address] Pneumonia shots Social History Tobacco Use Types Packs/Day Years [...] on file documented as of this encounter Progress Notes * Tasneem Hdez DO - 01/03/2022 5:00 PM CDT Can you check with Manoj. So if her Pneumovax 23 was before she turned 63 (ie 2011) then she needs a booster Pneumovax 23. Her Prevnar 13 was after she turned 63 so that does not need to be boosted. Unless manoj has a later Pneumovax documented in this encounter Plan of Treatment Not on file documented as of this encounter Visit Diagnoses Not on filedocumented in this encounter Additional Health Concerns Assessment Noted Time PHQ-9 Depression Total Score: 0 11/22/19 22 3:02 PM CLUSTER BORE OPERATOR documented as of this encounter Care Teams Relationship Associate Relationship Specialty Start Date End Date Tasneem Hdez DO [address] [place] [address] PCP - General 01/17/17 documented as of this encounter
--- OUTSIDE RECORDS SUMMARY | 2025-01-22 17:14 | XMS_ITS | Patient Health Record ---
Author Organization [facility] Address [address] [place] [address] Care Team Providers Care Hydraulic Spinner Name Role Phone PachecoTasneem luong DO Primary Care Provider Unavailabl Magdalena Topete Unavailable [phone] [employer], Provider Unavailable Unavailab le Allergies Allergen (clinical drug ingredient) Drug/Non Drug Allergy documented on EMR Reaction Allergy Type Onset Date Status Lisinopril cough Drug Allergy Active Reason For Referral No Information Medications Medication SIG (Take, Route, Frequency, Duration) Notes Start Date End Date Status Telmisartan 80 MG 1 tab(s) orally once a day Active buPROPion HCl ER (SR) 150 MG 1 tab(s) orally 2 times a day for 30 day(s) 08/05/2019 Active amLODIPine Besylate 10 MG 1 tab(s) orall y once a day Active DULoxetine HCl 60 MG 1 cap(s) orally onc e a day Active ARIPiprazole 30 MG 1 tab(s) orally once a day Active Atorvastatin Calcium 20 MG 1 tab(s) orally once a day (at bedtime) Active NASAL WASHES N/A as directed intranasally daily Active Flonase Sensimist 27.5 MCG/SPRAY 2 sprays (1 spray in each nostril) Nasally Once a day for 30 days 04/08/2024 Active Cefdinir 300 MG as directed Orally twice a day for 10 days 04/08/2024 Active Azelastine HCl 137 MCG/SPRAY 2 sprays in each nostril Nasally Twice a day for 30 days 04/08/2024 Active ZYRTEC 10 mg 1 tab(s) orally once a day Active Zolpidem Tartrate 10 MG 1 tab(s) orally once a day (at bedtime) for 0 Active Flonase Allergy Relief 50 MCG/ACT 2 sprays each nostril Nasally Once a day for 90 days 05/13/2024 Active PATADAY 0.2% 1 gtt in each affect ed eye once a day Active Topiramate 100 MG 1 tab(s) orally 2 ta bs in am, 1 qhs Active valACYclovir HCl 500 MG 1 tab(s) orally every 12 hours for 0 Active ZyrTEC Allergy 10 MG 1 tab(s) orally onc e a day Active Myrbetriq 50 MG 1 tab(s) orally once a day Active Levothyroxine Sodium 50 MCG 1 tab(s) orally once a day for 30 day(s) Active Premarin 0.45 MG 1 tab(s) orally once a day Not-Taking Diclofenac Sodium 75 MG 1 tab(s) orally BID for 30 day(s) Active Azelastine HCl 137 MCG/SPRAY 2 spray(s) intranasally 2 times a day for 30 day(s) Active Pantoprazole Sodium 40 MG 1 tab(s) orall y once a day Active Fluticasone Propionate 50 MCG/ACT 2 spray(s) intranasally once a day for 90 Active Immunizations Vaccine Route Administration Date Status Comme nts Flucelvax Unknown 07/08/2019 Administered Fluzone Quadrivalent Unknown 08/02/2016 Administered H1N1 Influenza IM Intramuscular 08/26/2009 Administered No local reaction noted Influenza Unknown 06/10/2014 Administered NOC Flucelvax Quadrivalent Unknown 07/09/2017 Administered NOC Flucelvax Quadrivalent Unknown 06/12/2018 Administered NOC Prevnar 13 Unknown 07/10/2018 Administered Shingrix Unknown 07/09/2019 Administered Social History Tobacco Use: Social History Observation Description Date Details (start date - stop date) Never Smoker NA - NA Smoking Smart Form: Question Answer Notes Are you a: never smoker Problems Problem Type SNOMED Code ICD Code Onset Dates Problem Status W/U Status Risk Notes Problem Allergy status t o other antibiotic agents status (Z88.1) Active confirmed Problem Allergic rhinitis caused by pollen (disorder) (55211231) Allergic rhinitis due to pollen (J30.1) Active confirmed Problem Allergic rhinitis caused by animal hair and dander (440437059145057) Allergic rhinitis due to animal (cat) (dog) hair and dander (J30.81) Active confirmed Problem Allergic rhinitis (63573758) Other allergic rhinitis (J30.89) Active confirmed Problem Chronic allergic conjunctivitis (36345308) Other chronic allergic conjunctivitis (H10.45) Active confirmed Problem Essential hypertension (90422475) Essential (primary) hypertension (I10) Active confirmed Problem Adverse effect o f other systemic antibiotics, subsequent encounter (T36.8X5D) Active confirmed Vital Signs Oximetry 96 % 04/08/2024 Blood pressure diastolic 77 mm Hg 04/08/2024 Height 67.5 in 04/08/2024 Blood pressure systolic 153 mm Hg 04/08/2024 Weight 227.8 lbs 04/08/2024 BMI 35.15 kg/m2 04/08/2024 Encounters Encounter Location Date Provider Diagnosis [address] [address] 05/12/2024 Magdalena Cramer [address] [address] 05/20/2024 Magdalena Cramer [place] [address] [facility] [address] [address] 06/24/2024 Magdalena Cramer [address] [address] 06/25/2024 Magdalena Cramer [place] [address] [facility] [address] [place] [phone] 04/08/2024 Magdalena Cramer Allergic rhinitis du e to pollen J30.1 ; Acute upper respiratory infection, unspecified J06.9 ; Allergic rhinitis due to animal (cat) (dog) hair and dander J30.81 ; Other allergic rhinitis J30.89 ; Other chronic allergic conjunctivitis H10.45 and Allergy status to other antibiotic agents status Z88.[address] [address] 03/22/2024 Provider [facility] Allergic rhinitis due to pollen J30.1 and Other chronic allergic conjunctivitis H10.45 Assessments Encounter Date Diagnosis (ICD Code) Assessment Notes Treatment Notes Treatment Clinical Notes Section Notes 03/22/2024 Allergic rhinitis due to pollen (ICD-10 - J30.1) 04/08/2024 Acute upper respiratory infection, unspecified (ICD-10 - J06.9) Appears to have sinusitis. Start cefdinir and instructed to call the office if no improvement. We also discussed using Flonase Sensimist instead of regular Flonase 04/08/2024 Allergic rhinitis due to pollen (ICD-10 - J30.1) Vivi clearly suffers from atopic disease based upon history and our prior testing. She discontinued SCIT in June 2017 after completing 6+ years of monthly maintenance treatment. Some improvement with above medications, but congestion and PND continue. She does not want sinus surgery at this time. No improvement with ipratropium. Switch to Flonase Sensimist and continue Astelin 2 sprays BID. 04/08/2024 Allergic rhinitis due to animal (cat) (dog) hair and dander (ICD-10 - J30.81) Continue allergen avoidance and meds. 03/22/2024 Other chronic allergic conjunctivitis (ICD-10 - H10.45) 04/08/2024 Other allergic rhinitis (ICD-10 - J30.89) Continue allergen avoidance and meds. 04/08/2024 Other chronic allergic conjunctivitis (ICD-10 - H10.45) Continue antihistamines and environmental control. Continue ocular antihistamine/mast cell stabilizer to be used as needed. 04/08/2024 Allergy status to other antibiotic agents status (ICD-10 - Z88.1) Roya's adverse reaction to tetracyclines is not consistent with an IgE-mediated drug hypersensitivity but rather a medication class intolerance. 04/08/2024 Other Plan Of Treatment No Information Insurance Providers Payer Name Payer Address Payer Phone Subscriber Number Group Number Insured Name Patient Relationship to Insured Coverage Start Date Coverage End Date [employer] (Medicare) Attention Claims [address] [place] [address] [id number] Roya Mandujano Self - patient is the insured Medical (General) History Medical History History ICD Code Allergic rhinitis and conjunctivitis Hypothyroidism GERD Hypertension Hyperlipidemia Stress incontinence Bipolar disorder Anxiety disorder Ulcerative colitis - spontaneous remissi on decades ago Surgical History Surgery Date(Month/Year) Right total hip replacement 02/13 Total hysterectomy 1999 Bilateral tubal ligation 1979 Appendectomy 1967 Tonsillectomy 1957 Shoulder Surgery 2010 knee replacement 2022 Shoulder surgery 2023 Hospitalization History Reason Date(Month/Year) See above mentioned surgeries
--- OUTSIDE RECORDS SUMMARY | 2025-01-22 17:14 | XMS_ITS | Encounter Summary ---
Author Organization [facility] Address [address] [place] [address] Care Team Providers Care Cookee Name Role Phone Tasneem Hdez DO Primary Care Provider [phone] Encounter Details Date Type Department Care Team (Late st Contact Info) Description 10/10/2022 [employer]eng[employer] Powert Message Enc [facility] [place] [address], [address] [place] [phone] Tasneem Hdez DO [address] [place], [place] [id number] Echocardiogram results, upcoming procedure & surgery, pharmacy change & vaccination updates Social History Tobacco Use Types Packs/Day Years [...] Total Score: 0 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
--- OUTSIDE RECORDS SUMMARY | 2025-01-22 17:15 | XMS_ITS | Data Portability ---
Author Organization [place] - [facility] [employer], Main Office Address [address] [place] [address] Care Team Providers Care Weapons Specialist Name Role Phone MARTA MENDEZ Primary Care Provider MARTA MENDEZ Referring Provider Assessment Encounter Date Assessment Date Assessment LastModified by Organization Details LastModified Time 09/08/2024 09/08/2024 This note is dictated and transcribed by [employer]. Inspector Rag Sorting variances may occur. Despite proofreading, typographical errors may occur. Occasional wrong-word or 'rqslk-r-oxey' substitutions may have occurred due to the inherent limitations of voice recording. Read the chart carefully and recognize, using context, where substitutions have occurred. Not available 09/08/2024 16:12:57 12/08/2024 12/08/2024 This note is dictated and transcribed by [employer]. Inspector Rag Sorting variances may occur. Despite proofreading, typographical errors may occur. Occasional wrong-word or 'zkogp-j-kgrc' substitutions may have occurred due to the inherent limitations of voice recording. Read the chart carefully and recognize, using context, where substitutions have occurred. Not available 12/09/2024 15:06:12 01/06/2025 01/06/2025 This note is dictated and transcribed by [employer]. Inspector Rag Sorting variances may occur. Despite proofreading, typographical errors may occur. Occasional wrong-word or 'ihigm-q-miap' substitutions may have occurred due to the inherent limitations of voice recording. Read the chart carefully and recognize, using context, where substitutions have occurred. Not available 01/06/2025 12:05:01 01/15/2025 01/15/2025 This note is dictated and transcribed by [employer]. Inspector Rag Sorting variances may occur. Despite proofreading, typographical errors may occur. Occasional wrong-word or 'fmgii-q-euem' substitutions may have occurred due to the inherent limitations of voice recording. Read the chart carefully and recognize, using context, where substitutions have occurred. [email or web address] Not available 01/15/2025 14:20:18 01/22/2025 01/22/2025 This note is dictated and transcribed by [employer]. Inspector Rag Sorting variances may occur. Despite proofreading, typographical errors may occur. Occasional wrong-word or 'aygeu-o-grkq' substitutions may have occurred due to the inherent limitations of voice recording. Read the chart carefully and recognize, using context, where substitutions have occurred. [email or web address] Not available 01/22/2025 16:34:10 Plan of Treatment Reminders Order Date Submit Date Provider Last Modified By Organization Details Last Modified Time Details Appointments Establish ed Patient 15 2024 02:45P M Sam Siddiqi DPM Not available Not available Not available Any 15 2024 02:30P M Sam Siddiqi DPM Not available Not available Not available Lab None recorded. Referral home health: wound care nurse referral 2024 025 [email or web address] Not available 01/07/2025 10:16:52 Procedures None recorded. Surgeries None recorded. Imaging None recorded. Medication Orders cephalexi n 500 mg tablet 2024 025 [facility] #[id number], [address] [place], [place], [id number], 01/06/2025 12:02:07 Silvadene 1 % topical cream 2024 025 [id number], [address] [place], [place], [id number], 01/06/2025 12:03:19 Patient TargetsNo targets recorded. Patient InstructionsNo instructions recorded. Reason for Referral Home Health: Wound Care Nurs e Referral for Open wound of left great toe wound Referring Physician: Sam Siddiqi, Podiatric Surgery, Encounter Date: 01/06/2025 Problems Name Problem SNOMED Code Status Onset Date Resolution Date Notes Provider Name and Address Organization Details Recorded Time Bilateral shoulder joint pain 0195950295183 9104 Active 2022 Not Available [facility] 3 13:52:42 Hammer toe 678596210 Active 2021 Not Available [facility] 3 13:52:42 Disorder of trunk 808548846 Active Not Available [facility] 3 13:52:42 Pain of left shoulder joint 2631544912455 9109 Active 2022 Not Available [facility] 3 13:52:42 Spinal stenosis of lumbar region 92425970 Active Not Available [facility] 3 13:52:42 Callosity on toe 919195707 Active 2022 Not Available [facility] 3 13:52:42 Localized, primary osteoarthr itis of the shoulder region 803697356 Active 2022 Not Available [facility] 3 13:52:43 Osteoarthr itis of knee 952371521 Active 2021 Not Available [facility] 3 13:52:43 Ankle pain 575352191 Active 2022 Not Available [facility] 3 13:52:43 Left Achilles tendinitis 3466622401417 02 Active 2022 Not Available [facility] 3 13:52:43 Acquired pes planus of left foot 4353865220701 08 Active 2022 Not Available [facility] 3 13:52:43 Enthesopat hy of hip region 48322826 Active Not Available [facility] 3 13:52:43 Osteoarthr itis of left knee joint 7045049322194 09 Active 2022 Not Available [facility] 3 13:52:43 Ingrowing toenail 137066292 Active 2021 Not Available [facility] 3 13:52:43 Pain of left knee joint 0604234979334 07 Active 2021 Not Available [facility] 3 13:52:43 Lumbosacra l spondylosi s without myelopathy 75215682 Active Not Available [facility] 3 13:52:43 Hip pain 32100816 Active Not Available [facility] 3 13:52:43 Dystrophia unguium 10194039 Active 2022 Not Available [facility] 3 13:52:44 Bilateral shoulder osteoarthr itis 8546055337462 08 Active 2022 Gerald Mchugh MD [address], [address], [place], [address] , [facility] 3 16:23:15 Hammer toe 438764443 Active 2022 Sam Siddiqi DPM [address], [place], [address] , [employer] [facility] [facility] [employer] 3 15:20:24 Pain in both feet 2196396534151 9102 Active 2023 Sam Siddiqi DPM [address], [place], [address] , [facility] 4 15:44:36 Bunion 866590630 Active 2023 Sam Siddiqi DPM [address], [place], [address] , [facility] 4 11:54:22 Pain in toe 757040494 Active 2023 Sam Siddiqi DPM [address], [place], [address] , [facility] 4 10:01:19 Metatarsal zachery of left foot 9248817405855 06 Active 2023 Sam Siddiqi DPM [address], [place], [address] , [facility] 4 16:12:47 Foot callus 184490126 Active 2024 Sam Siddiqi DPM [address], [place], [address] , [employer] 15:06:23 Open wound of left great toe 8033205689171 9102 Active 2024 Sam Siddiqi DPM [address], [place], [address] , [employer] [facility] [employer] 15:06:48 Cellulitis of toe of left foot Active 2024 Sam Siddiqi DPM [address], [place], [address] , [employer] [facility] [employer] 12:05:17 Tear of skin 041609459 Active 2024 Sam Siddiqi DPM [address], [place], [address] , [employer] 12:12:18 Problem Notes None recorded. Procedures Surgical History Date Name Laterality Status Provider Name and Address Organization Details Recorded Time 01/23/20 25 Wound Care-Podiatry completed Sam Siddiqi DPM [address], [place], [address], [employer] 01/22/2025 16:33:34 01/07/20 25 Wound Care-Podiatry completed Sam Siddiqi DPM [address], [place], [address], [employer] [facility] [employer] 01/06/2025 12:08:05 12/10/19 25 Nail Debridement completed NEEMA [address], [place], [address], [employer] [facility] [employer] 12/09/2024 15:05:09 12/10/19 25 Wound Care-Podiatry completed Sam Siddiqi DPM [address], [place], [address], [employer] [facility] [employer] 12/09/2024 15:06:07 09/08/20 24 Nail Debridement completed Sam Siddiqi DPM [address], [place], [address], [facility] 09/08/2024 16:12:36 09/08/20 24 Callus Debridement 2-4 completed Sam Siddiqi DPM [address], [place], [address], [facility] 09/08/2024 16:12:24 06/19/20 24 Nail Debridement completed Sam Siddiqi DPM [address], [place], [address], [facility] 06/19/2024 14:30:00 06/19/20 24 Callus Debridement 2-4 completed Sam Siddiqi DPM [address], [place], [address], [facility] 06/19/2024 14:29:51 04/03/20 24 Nail Debridement completed Sam Siddiqi DPM [address], [place], [address], [facility] 04/03/2024 11:55:31 04/03/20 24 Toenail avulsion completed Sam Siddiqi DPM [address], [place], [address], [facility] 04/03/2024 11:55:20 12/03/19 24 Nail Debridement completed Sam Siddiqi DPM [address], [place], [address], [facility] 12/03/2023 15:44:13 12/03/19 24 Callus Debridement 2-4 completed Sam Siddiqi DPM [address], [place], [address], [facility] 12/03/2023 15:44:04 09/03/20 23 Nail Debridement completed Sam Siddiqi DPM [address], [place], [address], [facility] 09/03/2023 15:16:58 09/03/20 23 Callus Debridement 2-4 completed Sam Siddiqi DPM [address] [facility] [address], [place], [address], [facility] 09/03/2023 15:16:48 03/06/20 23 Ortho - Cortisone Injection completed Gerald Mchugh MD [address], [place], [address], [facility] 03/06/2023 16:21:34 10/08/19 00 Hysterectomy completed Not Available [facility] 023 13:52:11 10/08/18 68 Appendectomy completed Not Available [facility] 023 13:52:11 10/08/18 58 Removal of tonsils completed Not Available [facility] 12/06/2022 13:52:11 Imaging Results None recorded. Procedure Notes None recorded. Medical Equipment None Reported. Allergies Allergen ID Allergen Name Allergen Category Reaction Reaction Severity Criticality Documentation Date Start Date Code Code System Note Provider Name and Address Organization Details Recorded Time 08710 tetracycl ine medicatio n other Not available Not available 12/06/2022 07192 RxNorm Yeast infec tion Not Available [facility] 13:54:41 Medications Name Sig Start Date Stop Date Status Note LastModified by Organization Details LastModified Time celecoxib 200 mg capsule TAKE 1 CAPSULE BY MOUTH EVERY DAY 12/03 completed Not Available Not Available Not Available cyclobenzap rine 10 mg tablet TAKE 1 TABLET BY MOUTH THREE TIMES DAILY NEEDED 12/03 completed Not Available Not Available Not Available amoxicillin 500 mg capsule TAKE 1 CAPSULE BY MOUTH EVERY 8 HOURS 04/06 completed Not Available Not Available Not Available methocarbam ol 500 mg tablet Take 2 tablets 4 times a day by oral route. 12/03 completed Not Available Not Available Not Available lamotrigine 150 mg tablet TK 1 T PO BID 10/20 completed Not Available Not Available Not Available bupropion HCl SR 150 mg tablet,12 hr sustained-r elease TAKE 1 TABLET BY MOUTH TWICE DAILY 09/08 completed Not Available Not Available Not Available prednisone 10 mg tablet TAKE 1 TAB BY MOUTH 3 TIMES DAILY X3 DAYS, 1 TAB TWICE DAILY X2 DAYS, 1 TAB ONCE DAILY X1 DAY 08/10 completed Not Available Not Available Not Available atorvastati n 20 mg tablet TAKE 1 TABLET BY MOUTH EVERY NIGHT AT BEDTIME active Not Available Not Available No t Available trazodone 50 mg tablet TAKE 1 TABLET BY MOUTH EVERY DAY AT BEDTIME 09/08 completed Not Available Not Available Not Available polyethylen e glycol 3350 17 gram oral powder packet MIX AND TAKE 1 PACKET BY MOUTH EVERY MORNING 12/03 completed Not Available Not Available Not Available fluconazole 150 mg tablet TK 1 T EVERY 3 DAYS 03/23 completed Not Available Not Available Not Available tolterodine ER 4 mg capsule,ext ended release 24 hr 10/20 completed Not Available Not Available Not Available hydrocodone 5 mg-acetamin ophen 325 mg tablet TAKE 1 TABLET BY MOUTH EVERY 6 HOURS NEEDED FOR PAIN 12/03 completed Not Available Not Available Not Available prednisone 20 mg tablet TK 2 TS PO QD FOR 5 DAYS 10/20 completed Not Available Not Available Not Available valsartan 80 mg tablet TK 1 T PO QD 10/20 completed Not Available Not Available Not Available topiramate 25 mg tablet 10/20 completed Not Available Not Available Not Available metronidazo le 500 mg tablet TAKE 1 TABLET BY MOUTH EVERY 12 HOURS FOR 5 DAYS 09/08 completed Not Available Not Available Not Available acetaminoph en 300 mg-codeine 30 mg tablet TAKE 1 TABLET BY MOUTH EVERY 6 HOURS NEEDED FOR PAIN 08/10 completed Not Available Not Available Not Available valacyclovi r 500 mg tablet TAKE 1 TABLET BY MOUTH EVERY DAY active Not Available Not Available No t Available sulfamethox azole 800 mg-trimetho prim 160 mg tablet TAKE 1 TABLET BY MOUTH TWICE DAILY FOR 7 DAYS 12/03 completed Not Available Not Available Not Available aspirin 81 mg tablet,raymond yed release TAKE 1 TABLET BY MOUTH TWICE DAILY FOR 14 DAYS 04/03 completed Not Available Not Available Not Available bupropion HCl SR 100 mg tablet,12 hr sustained-r elease TK 1 T PO QD IN THE MORNING 10/20 completed Not Available Not Available Not Available lamotrigine 25 mg tablet 10/20 completed Not Available Not Available Not Available levothyroxi ne 75 mcg tablet active Not Available Not Available Not Available prednisone 10 mg tablets in a dose pack Take 1 tab by mouth, 3 times a day for 3 daysTake 1 tab by mouth 2 times a day for 2 daysTake 1 tab by mouth once a day for 1 day 08/10 completed Not Available Not Available Not Available oxycodone-a cetaminophe n 5 mg-325 mg tablet TAKE 1 TABLET BY MOUTH EVERY 6 HOURS NEEDED FOR PAIN active Not Available Not Available No t Available prednisolon e acetate 1 % eye drops,suspe nsion INT 1 DROP TID INTO SURGICAL EYE BEGIN AFTER SURGERY 10/20 completed Not Available Not Available Not Available methocarbam ol 750 mg tablet 12/03 completed Not Available Not Available Not Available trazodone 100 mg tablet TK 1 T PO QHS 10/20 completed Not Available Not Available Not Available Kenalog 10 mg/mL suspension for injection Take 40 mg by injection route. 12/03 completed [facility] [place] [phone] Not Available Not Available Not Available baclofen 10 mg tablet TK 1 T PO TID PRN FOR MUSCLE SPASM 10/20 completed Not Available Not Available Not Available amlodipine 10 mg tablet TAKE 1 TABLET BY MOUTH EVERY DAY 04/03 completed Not Available Not Available Not Available levothyroxi ne 50 mcg tablet TAKE 2 TABLETS ON M,W,F, AND SUN AND TAKE 1 TABLET THE REST OF THE DAYS active Not Available Not Available No t Available hydrocodone 7.5 mg-acetamin ophen 325 mg tablet TAKE 1 TABLET BY MOUTH EVERY 4 HOURS NEEDED FOR PAIN 12/03 completed Not Available Not Available Not Available cephalexin 500 mg capsule TAKE 1 CAPSULE BY MOUTH FOUR TIMES DAILY FOR 7 DAYS active Not Available Not Available No t Available pantoprazol e 40 mg tablet,raymond yed release TAKE 1 TABLET BY MOUTH EVERY DAY active Not Available Not Available No t Available diclofenac 0.1 % eye drops INT 1 DROP INTO SURGICAL EYE BID BEGIN 1 DAY PRIOR TO SURGERY 10/20 completed Not Available Not Available Not Available tobramycin 0.3 % eye drops INT 1 DROP QID INTO SURGICAL EYE. BEGIN 1 DAY PRIOR TO SURGERY 10/20 completed Not Available Not Available Not Available telmisartan 80 mg tablet TAKE 1 TABLET BY MOUTH DAILY active Not Available Not Available No t Available diclofenac sodium 75 mg tablet,raymond yed release TAKE 1 TABLET BY MOUTH TWICE DAILY WITH MEALS active Not Available Not Available No t Available cephalexin 500 mg tablet Take 1 tablet 4 times a day by oral route for 7 days. 2024 active Not Available Not Available Not Avai lable hydroxyzine HCl 25 mg tablet TK 1 T PO TID PRN 10/20 completed Not Available Not Available Not Available zolpidem 5 mg tablet TAKE 1 TABLET BY MOUTH EVERY DAY 08/10 completed Not Available Not Available Not Available furosemide 20 mg tablet TAKE 1 TABLET BY MOUTH EVERY DAY active Not Available Not Available No t Available gabapentin 100 mg capsule 12/03 completed Not Available Not Available Not Available azelastine 137 mcg (0.1 %) nasal spray USE 2 SPRAYS IN EACH NOSTRIL TWICE DAILY active Not Available Not Available No t Available zolpidem 10 mg tablet TAKE 1 TABLET BY MOUTH EVERYDAY AT BEDTIME 08/10 completed Not Available Not Available Not Available methylpredn isolone 4 mg tablets in a dose pack TK UTD 10/20 completed Not Available Not Available Not Available SSD 1 % topical cream APPLY A 1/16 INCH THICK LAYER TOPICALLY TO ENTIRE WOUND AREAS TWICE DAILY active Not Available Not Available No t Available cefdinir 300 mg capsule TAKE 1 CAPSULE BY MOUTH TWICE DAILY FOR 10 DAYS 09/08 completed Not Available Not Available Not Available fluticasone propionate 50 mcg/actuati on nasal spray,suspe nsion SHAKE LIQUID AND USE 2 SPRAYS IN EACH NOSTRIL DAILY active Not Available Not Available No t Available lamotrigine 100 mg tablet TK 1 T PO IN THE MORNING 10/20 completed Not Available Not Available Not Available ipratropium bromide 21 mcg (0.03 %) nasal spray 12/03 completed Not Available Not Available Not Available oxycodone 5 mg tablet 12/03 completed Not Available Not Available Not Available Asprin Ec Low Dose 81 mg tablet,raymond yed release as needee 12/03 completed Not Available Not Available Not Available aripiprazol e 20 mg tablet TK 1 T HS 10/20 completed Not Available Not Available Not Available aripiprazol e 30 mg tablet TAKE 1 TABLET BY MOUTH DAILY active Not Available Not Available No t Available Restasis 0.05 % eye drops in a dropperette INSTILL 1 DROP IN BOTH EYES TWICE DAILY active Not Available Not Available No t Available Premarin 0.45 mg tablet TK 1 T PO QD 10/20 completed Not Available Not Available Not Available Premarin 0.625 mg tablet 10/20 completed Not Available Not Available Not Available bupropion HCl XL 300 mg 24 hr tablet, extended release TAKE 1 TABLET BY MOUTH DAILY IN THE MORNING active Not Available Not Available No t Available topiramate 50 mg tablet TAKE 1 TABLET BY MOUTH THREE TIMES DAILY active Not Available Not Available No t Available mirtazapine 7.5 mg tablet TAKE 1 TABLET BY MOUTH EVERY DAY 08/10 completed Not Available Not Available Not Available duloxetine 30 mg capsule,del ayed release TK 1 C PO QAM 10/20 completed Not Available Not Available Not Available duloxetine 60 mg capsule,del ayed release TAKE 1 CAPSULE BY MOUTH DAILY active Not Available Not Available No t Available Vesicare 5 mg tablet TK 1 T PO QD 10/20 completed Not Available Not Available Not Available ibandronate 150 mg tablet 09/08 completed Not Available Not Available Not Available zolpidem ER 6.25 mg tablet,exte nded release,mul tiphase TAKE 1 TABLET BY MOUTH DAILY AT BEDTIME NEEDED active Not Available Not Available No t Available chlorhexidi ne gluconate 0.12 % mouthwash TAKE DIRECTED 2-3 TIMES DAILY 04/03 completed Not Available Not Available Not Available magnesium 12/03 completed Not Available Not Available Not Available Vitamin C 2020 active Not Available Not Available Not Avai lable L-Lysine 2020 active Not Available Not Available Not Avai lable biotin 2020 active Not Available Not Available Not Avai lable Tylenol Arthritis Pain as needed 2020 active Not Available Not Available Not Avai lable aripiprazol e 08/10 completed Not Available Not Available Not Available lidocaine (PF) 10 mg/mL (1 %) injection solution In office injection administe red by the provider 08/10 completed [facility] [place]: [phone]- [phone] Not Available Not Available Not Available lidocaine (PF) 5 mg/mL (0.5 %) injection solution Take 30 mg by injection route. 08/10 completed Not Available Not Available Not Available Zostavax (PF) 19,400 unit/0.65 mL subcutaneou s suspension 10/20 completed Not Available Not Available Not Available olopatadine 0.2 % eye drops active Not Available Not Available Not Available [place] 3-6-9 2020 active Not Available Not Available Not Avai lable olopatadine 0.6 % nasal spray INSTILL 2 SPRAYS IEN BID active Not Available Not Available No t Available Besivance 0.6 % eye drops,suspe nsion SHAKE LQ AND INT 1 GTT IN OD TWICE DAILY. START 1 DAY B SURGERY 10/21 completed Not Available Not Available Not Available WelChol 3.75 gram oral powder packet 10/20 completed Not Available Not Available Not Available Prevnar 13 (PF) 0.5 mL intramuscul ar syringe ADM 0.5ML IM UTD 10/20 completed Not Available Not Available Not Available Xarelto 10 mg tablet TAKE 1 TABLET BY MOUTH DAILY DIRECTED 12/03 completed Not Available Not Available Not Available ropivacaine (PF) 5 mg/mL (0.5 %) injection solution Take 40 mg by injection route. 12/03 completed [facility] [place] [phone] Not Available Not Available Not Available Vitamin D2 12/03 completed Not Available Not Available Not Available Myrbetriq 50 mg tablet,exte nded release TAKE 1 TABLET BY MOUTH EVERY DAY 12/03 completed Not Available Not Available Not Available EpiPen 2-Isaac 0.3 mg/0.3 mL injection, auto-inject or 10/20 completed Not Available Not Available Not Available Lotemax 0.5 % eye gel drops INT 1 GTT IN OS TID UTD 10/21 completed Not Available Not Available Not Available Prolensa 0.07 % eye drops INT 1 GTT IN OS QD 10/21 completed Not Available Not Available Not Available bupropion HCl 150 mg tablet,12 hr sustained-r elease(smok ing deterrent) Take 1 tablet twice a day by oral route. 2023 active Not Available Not Available Not Avai lable Fluvirin 7299-5203 45 mcg (15 mcg x 3)/0.5 mL intramuscul ar suspension ADM 0.5ML IM UTD 10/20 completed Not Available Not Available Not Available azelas-flut icasone-NaC l-NaHCO3 08/10 completed Not Available Not Available Not Available Shingrix (PF) 50 mcg/0.5 mL intramuscul ar suspension, kit 03/23 completed Not Available Not Available Not Available Fluzone High-Dose 1001-1276 (PF) 180 mcg/0.5 mL intramuscul ar syringe ADM 0.5ML IM UTD 10/20 completed Not Available Not Available Not Available TriVisc 10 mg/mL intra-artic ular syringe INJECT ONCE WEEKLY INTO THE KNEE DIRECTED 08/10 completed Not Available Not Available Not Available Fluad 2018- 65yr up(PF)45 mcg(15 mcgx3)/0.5 mL intramuscul ar syringe ADM 0.5ML IM UTD 10/21 completed Not Available Not Available Not Available Gemtesa 75 mg tablet TAKE 1 TABLET BY MOUTH AT BEDTIME active Not Available Not Available No t Available Vitals Date Recorded Body height Body mass index (BMI) Body weight Heart rate Respiratory rate Oxygen saturation Oxygen saturation in Arterial blood by Pulse oximetry Systolic blood pressure Diastolic blood pressure Provider Name and Address Organization Details Last Updated DateTime 4 167.64 cm 33.9 kg/m2 68397.4 g 93 /min 14 /min 98 % 98 % 100 mm[Hg] 65 mm[Hg] Marilyn Meadows [place] [facility] [place] [facility] 4 15:51:56 Date Recorded Oxygen saturation Oxygen saturation in Arterial blood by Pulse oximetry Heart rate Heart rate Respiratory rate Systolic blood pressure Diastolic blood pressure Provider Name and Address Organization Details Last Updated DateTime 5 98 % 98 % 104 /min 104 /min 14 /min 103 mm[Hg] 70 mm[Hg] Marilyn Meadows [employer] [facility] 5 17:20:49 Date Recorded Body height Body mass index (BMI) Body weight Heart rate Respiratory rate Oxygen saturation Oxygen saturation in Arterial blood by Pulse oximetry Systolic blood pressure Diastolic blood pressure Provider Name and Address Organization Details Last Updated DateTime 5 167.64 cm 33.9 kg/m2 48234.4 g 90 /min 14 /min 98 % 98 % 104 mm[Hg] 72 mm[Hg] Marilyn Meadows Exam18 [facility] [place] [facility] 5 11:18:00 Date Recorded Body height Body mass index (BMI) Body weight Heart rate Systolic blood pressure Diastolic blood pressure Provider Name and Address Organization Details Last Updated DateTime 167.64 cm 33.9 kg/m2 56386.4 g 99 /min 117 mm[Hg] 76 mm[Hg] Milvia Joon [facility] [place] [facility] 5 12:35:40 Date Recorded Body height Body mass index (BMI) Body weight Heart rate Respiratory rate Oxygen saturation Oxygen saturation in Arterial blood by Pulse oximetry Systolic blood pressure Diastolic blood pressure Provider Name and Address Organization Details Last Updated DateTime 5 167.64 cm 33.9 kg/m2 55677.4 g 98 /min 14 /min 98 % 98 % 101 mm[Hg] 73 mm[Hg] Marilyn Meadows [place] [facility] [place] [facility] 15:57:20 Social History Question Answer Notes LastModified by Organizat ion Details LastModified Time Tobacco Smoking Status Never Smoker Salina Abdul rom [facility] [employer] [facility] 03/06/2023 15:01:40 What Is Your Level Of Alcohol Consumption? None [id number] Information not available 12/06/2022 What Is Your Level Of Caffeine Consumption? Occasional Information not available 06/19/2024 In The 14 Days Before Symptom Onset, Have You Had Close Contact With A Laboratory-confirm ed COVID-19 While That Case Was Ill? No Information n ot available 06/19/2024 In The 14 Days Before Symptom Onset, Have You Had Close Contact With A Person Who Is Under Investigation For COVID-19 While That Person Was Ill? No Information not available 06/19/2024 Are You Currently Employed? No Information not available 06/19/2024 What Type Of Diet Are You Following? REGULAR Information n ot available 06/19/2024 Are There Any Guns Present In Your Home? No Information not available 06/19/2024 What Was The Date Of Your Most Recent Tobacco Screening? 03/23/2021 [email or web address] Information not available 03/06/2023 Do You Have Smoke And Carbon Monoxide Detectors In Your Home? Yes Information not available 06/19/2024 Are You Passively Exposed To Smoke? [place] [address] Information no t available 06/19/2024 Do You Use Any Illicit Or Recreational Drugs? No [place] [address] Information not available 06/19/2024 Have You Recently Traveled Abroad? [place] [address] Information not available 06/19/2024 Do You Have Any Dietary Restrictions? No [place] [address] Information not available 06/19/2024 Sex: Unknown Functional Status Question Answer Note LastModified by Organizat ion Details LastModified Time What is your exercise level? Occasional [place] [address] Information not available 06/19/2024 Mental Status None recorded. Family History Relationship Description Onset Age of this Age Resolved Age Notes LastModified by Organization Details LastModified Time Father Heart disease [id number] Not available 12/06/2022 13:52:12 Father Hypertensive disorder [id number] Not available 12/06/2022 13:52:12 Father Family history of malignant neoplasm Not available 12/09 14:40:05 Paternal Grandmother Family history of stroke [email or web address] Not available 12/09 14:40:05 Sister Family history of malignant neoplasm Not available 12/09 14:40:05 Paternal Grandfather Family history of malignant neoplasm [email or web address] Not available 12/09 14:40:05 Mother Hypertensive disorder [id number] Not available 12/06/2022 13:52:12 Medical History Condition Response ARTHRITIS Y HEADACHES/MIGRAINES Y DIZZINESS Y SKIN PROBLEMS Y LIVER DISEASE Y HYPERTENSION Y USE OF NSAIDS Y URINARY/BLADDER/KIDNEY PROBLEMS Y DEPRESSION (INCLUDING POST ) Y BOWEL PROBLEMS Y BACK / NECK PROBLEMS Y Gynecological HistoryNo gynecological history recorded. Obstetrics History GPAL:G 0 P 0 0 0 0 Past Encounters Encounter ID Performer Location Encounter Start Date Encounter Closed Date Diagnosis/Indication Diagnosis SNOMED-CT Code Diagnosis ICD10 Code Diagnosis Note [id number] [facility] [address] [place] [address] 03/23/2021 00:00:00 03/23/2021 16:07:34 [id number] [facility] [address] [place] [address] 04/01/2021 00:00:00 04/01/2021 14:25:29 [id number] [facility] [address] [place] [address] 05/24/2021 00:00:00 05/24/2021 15:10:58 [id number] [facility] [address] [place] [address] 06/30/2021 00:00:00 06/30/2021 15:19:05 [id number] [facility] [address] [place] [address] 07/22/2021 00:00:00 07/22/2021 15:26:26 [id number] [facility] [address] [place] [address] 09/15/2021 00:00:00 09/15/2021 15:13:27 [id number] [facility] [address] [place] [address] 09/22/2021 00:00:00 09/22/2021 15:07:24 [id number] [facility] [address] [place] [address] 03/23/2022 00:00:00 03/23/2022 14:51:41 [id number] [facility] [address] [place] [address] 04/06/2022 00:00:00 04/06/2022 17:03:55 [id number] [facility] [address] [place] [address] 07/06/2022 00:00:00 07/06/2022 19:21:02 [id number] [facility] [address] [place] [address] 08/10/2022 00:00:00 08/10/2022 14:58:53 [id number] [facility] [address] [place] [address] 10/12/2022 00:00:00 10/12/2022 15:47:05 [id number] [facility] [address] [place] [address] 10/16/2022 00:00:00 11/05/2022 18:08:09 [id number] TONYA Reddy [facility] [address] [place] [address] 01/08/2023 09:29:03 01/08/2023 10:12:39 Bilateral shoulder joint pain 5940856458 5008480 M25.511 M25.512 Localized, primary osteoarthritis of the shoulder region 024752628 M19.011 M19.012 [id number] Gerald Mchugh MD [facility] [address] [place] [address] 02/05/2023 10:08:14 02/05/2023 11:05:01 Bilateral shoulder joint pain 2704680908 0085031 M25.511 M25.512 Osteoarthr itis of knee 257137332 M17.12 Pain of le ft knee joint 3834328715 55061 M25.562 Postoperative visit 1836 49302 Z09 [id number] Gerald Mchugh MD [facility] [address] [place] [address] 03/06/2023 15:00:07 03/06/2023 16:25:52 Bilateral shoulder joint pain 1765001205 7027377 M25.511 M25.512 Osteoarthr itis of knee 669831263 M17.12 Pain of le ft knee joint 7423847678 37079 M25.562 History of left total knee replacement 2678078002 283802 Z96.652 Bilateral shoulder osteoarthritis 6051129200 36316 M19.011 RIGHT and LEFT [id number] Sam Siddiqi DPM [facility] [address] [place] [address] 09/03/2023 14:49:22 09/04/2023 12:29:59 Callosity on toe 967176281 L84 plantar right 2nd toe and left great toerecomme nd offloading to prevent woundsDebr ided without incidentUs e pumice stone daily to prevent buildupWid e shoe gear with soft toe box recommende dFollow-up in 3 months as needed Hammer toe 336083088 M20 .41 M20.42 bilateral feetrecomm end offloading to prevent wounds infectionR ecommend soft toe box style shoe. Dystrophia unguium 26639 009 L60.3 Nails 1 through 10 were debrided with sharp mechanical debridemen t without incident. Nails were debrided and greater than 50% length and thickness where needed. [id number] Sam Siddiqi DPM [facility] [address] [place] [address] 12/03/2023 14:50:14 12/07/2023 07:25:16 Hammer toe 155207405 M20.41 M20.42 bilateral feetrecomm end offloading to prevent wounds infectionR ecommend soft toe box style shoe. Callosity on toe 0062153 01 L84 plantar right 2nd toe and left great toerecomme nd offloading to prevent woundsDebr ided without incidentUs e pumice stone daily to prevent buildupWid e shoe gear with soft toe box recommende dFollow-up in 3 months as needed Pain in both feet 607331 6746 8848884 M79.671 M79.672 Secondary to toe deformitie s Dystrophia unguium 30980 009 L60.3 Nails 1 through 10 were debrided with sharp mechanical debridemen t without incident. Nails were debrided and greater than 50% length and thickness where needed. [id number] Sam Siddiqi DPM [facility] [address] [place] [address] 04/03/2024 10:41:42 04/03/2024 14:21:47 Ingrowing toenail 781960540 L60.0 M79.676 Z74.1 Right lateral great toepartial nail avulsionwo und care instructio ns givenIf continues to be problemati c we will require partial matrixecto myFollow-u p as needed Hammer toe 347234390 M20 .41 M20.42 bilateral feet- right foot 2nd 3rdtreatme nt options reviewedDe nies surgery recommend surgery secondary to high pressure callusingp atient understand s risksrecom mend silicone offloading sleeves and supportive shoe gearfollow -up as needed Callosity on toe 20100115 01 L84 plantar right 2nd and 3rd, left great toe medialreco mmend offloading to prevent woundsDebr ided without incidentUs e pumice stone daily to prevent buildupWid e shoe gear with soft toe box recommende dFollow-up in 3 months as needed Dystrophia unguium 02478 009 L60.3 Nails 1 through 10 were debrided with sharp mechanical debridemen t without incident. Nails were debrided and greater than 50% length and thickness where needed. Bunion 721441220 M21.61 9 bilaterald iscussed options will likely require Quentin osteotomy bilateral great toesdenies surgeryoff loading recommende d to prevent wounds infection [id number] Sam Siddiqi DPM [facility] [address] [place] [address] 06/19/2024 12:29:06 06/23/2024 10:28:20 Pain in toe 232632936 M79.674 right great toe and 2nd toeoffload ing options reviewedsu rgical options reviewed at this time denies surgery Callosity on toe 20100115 L84 plantar right 2nd and 3rd, left great toe medialreco mmend offloading to prevent woundsDebr ided without incidentUs e pumice stone daily to prevent build-upWi de shoe gear with soft toe box recommende dFollow-up in 3 months as needed Hammer toe 685919549 M20 .41 M20.42 right foot 2nd 3rdtreatme nt options reviewedDe nies surgery recommend surgery secondary to high pressure callusingp atient understand s risks for wounds and possible loss of toerecomme nd silicone offloading sleeves and supportive shoe gearfollow -up as needed Dystrophia unguium 98955 009 L60.3 Nails 1 through 10 were debrided with sharp mechanical debridemen t without incident. Nails were debrided and greater than 50% length and thickness where needed. [id number] Sam Siddiqi DPM [facility] [address] [place] [address] 09/08/2024 15:41:17 10/02/2024 16:34:47 Metatarsalgia of left foot 7792779407 87630 M77.42 sub 1st metatarsal headOffloa ding pad added to the plantar orthotic to increase offloading of the 1st met headTrial orthoticsC ontinue supportive shoe gearFollow -up in 3 months Callosity on toe 20100115 01 L84 plantar right 2nd and 3rd, left great toe medialreco mmend offloading to prevent woundsDebr ided without incidentUs e pumice stone daily to prevent build-upWi de shoe gear with soft toe box recommende dFollow-up in 3 months as needed Dystrophia unguium 82094 009 L60.3 Nails 1 through 10 were debrided with sharp mechanical debridemen t without incident. Nails were debrided and greater than 50% length and thickness where needed. [id number] Sam Siddiqi DPM [facility] [address] [place] [address] 12/09/2024 14:39:51 12/10/2024 08:14:10 Open wound of left great toe 1097472692 9051747 S91.102A daily wound careMonito r for signs of infection if present seek medical attention immediatel yWound debridedOf floading at all timesFollo w-up in 1 week Foot callus 745847823 L8 4 secondary to both Dystrophia unguium 54334 009 L60.3 Nails 1 through 10 were debrided with sharp mechanical debridemen t without incident. Nails were debrided and greater than 50% length and thickness where needed. [id number] Sam Siddiqi DPM [facility] [address] [place] [address] 01/06/2025 10:53:55 01/07/2025 10:16:52 Open wound of left great toe 4714668526 6224029 S91.102A daily wound carewound debrided todayMonit or for signs of infection if present seek medical attention immediatel yWound debridedOf floading at all timesFollo w-up in 1 week Cellulitis of toe of left foot 7089490931 L03.032 resolvedor thopedic requested abx therapy four times daily ceph 500mg dose, 7 days Tear of skin 983524448 T 14.8XXA lateral left great toe- superficia ldaily nursing [id number] Sam Siddiqi DPM [facility] [address] [place] [address] 01/15/2025 12:27:08 01/19/2025 12:46:05 Open wound of left great toe 6875943958 1429678 S91.102A daily wound caredressi ngs reapplied with [facility]- currently going out twice weekMonito r for signs of infection if present seek medical attention immediatel yWound debridedOf floading at all timesFollo w-up in 1 week Tear of skin 422804622 T 14.8XXA lateral left great toe- superficia lresolved [id number] Sam Siddiqi DPM [facility] [address] [place] [address] 01/22/2025 15:37:37 01/22/2025 16:42:00 Open wound of left great toe 4903933967 6311166 S91.102A daily wound caredressi ngs reapplied silver [facility] currently going out twice weekMonito r for signs of infection if present seek medical attention immediatel yWound debridedOf floading at all timesFollo w-up in 1 week surgery was moved to around February 28 Health Concerns Section Related Observation LastModified by Organization Detai ls LastModified Time None Recorded Concern Status LastModified by Organization Details LastModified Time None Recorded Advance Directives Directive None Recorded Payers Encounter Date Sequence Insurance Name Policy Number Policy Armstrong Covered Member ID Armstrong Member ID Guarantor Name 09/08/2024 1 [place] Roya Gonzalez [place] [id number] Roya Gonzaelz Delbert 09/08/2024 2 [place] MED[place]ARE OR MEDICARE REPLACEMENT PRIMARY) Roya A Delbert [id number] Roya A Delbert 12/08/2024 1 [place] Roya A Delbert [id number] Roya A Delbert 12/08/2024 2 [place]PLACEMENT [place]) Roya A Livingston [id number] Roya A Livingston 01/06/2025 1 [place] Roya A Delbert [id number] Roya A Livingston 01/06/2025 2 [place]PLACEMENT [place]) Roya A Delbert [id number] Roya A Livingston 01/15/2025 1 [place] Roya A Livingston [id number] Roya A Livingston 01/15/2025 2 [place] REPLACEMENT PRIMARY) Roya A Livingston [id number] Roya A Livingston 01/22/2025 1 [place] Roya A Delbert [id number] Roya A Delbert 01/22/2025 2 [place] OR MEDIC[place] REPLACEMENT PRIMARY) Roya A Delbert [id number] Roya A Delbert Notes Date Note Type Note Provider Name and Address Organization Details Recorded Time 09/08/2024 text/html . Patient is a 69-year-old female who returns for routine foot care. Patient states she also has pain under the sub 1st metatarsal head left foot. Patient does utilize custom accommodative inserts. Patient states she has no wound or injury to the left foot she states she has pain only when she is barefoot and or standing or walking. Patient states she does not know how old the orthotics are. Patient denies any other complaints. Sam Siddiqi, [facility] [address], [place], [address], [place] [employer] 09/08/2024 16:13:44 12/08/2024 text/html . Patient is a 69-year-old female she presents the office with complaints of a painful callus to the left great toe she states that through walking and pressure she has developed a painful callus she states that every time she walks she has pain she denies any open wounds or signs of infection. Patient denies any fever, chills, nausea vomiting. Patient states if she is at rest is not problematic. Patient denies any treatment for this. Sam Siddqii DPM [address], [place], [address], [employer] 12/09/2024 15:08:23 01/06/2025 text/html . Patient is a 69-year-old female she presents to the office with a wound to the plantar left great toe she called the exchange over the weekend and stated that she developed a wound with redness and streaking. Patient was given cephalexin antibiotics she has been taking those the infection appears to be resolved as she does not have any further redness or streaking she states the toe does feel better. Patient denies any fever, chills, nausea or vomiting. Patient states that she is taking care of her 93-year-old mother she states that it will be difficult to apply gauze dressings to her wound as she barely is able to apply Band-Aids which caused a small skin tear to the lateral border of the great toe, left. Sam Siddiqi DPM [address], [place], [address], [employer] 01/07/2025 09:39:24 01/15/2025 text/html . Patient is a 69-year-old female she returns the office for follow-up on left open wound to the great toe she states she continues to weight bear she does have protective shoe gear with offloading insoles to reduce pressure to the great toe she states that she has to take care of her 91-year-old mother and she is doing as LEs is she can in terms of weight-bearing. I did recommend no weight to the foot to allow healing. Patient understands that pressure may increase the chances of nonhealing she has on oral antibiotics to prevent infection due to history of orthopedic devices. Patient denies any fever, chills, nausea or vomiting. Patient is scheduled to have shoulder surgery on the but at this point it will likely be canceled as she is not completely healed. Sam Siddiqi DPM [address], [place], [address], [employer] [facility] 01/15/2025 14:20:49 01/22/2025 text/html . Patient is a 69-year-old female who returns for follow-up on a wound to the plantar left great toe she states the wound continues to persist she denies any signs of infection. Patient states the toe is improving she has less weight-bearing. Patient denies any redness, swelling. Patient has had some mild drainage she denies any purulence. Patient denies any fever, chills, nausea or vomiting. Sam Siddiqi DPM [address], [place], [address], [employer] 01/22/2025 16:35:30 OBGyn Episode No OBEpisode recorded.
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
--- OUTSIDE RECORDS SUMMARY | 2025-01-22 17:15 | XMS_ITS | Continuity of Care Document ---
Author Organization [place] - [facility] [email or web address] [facility], [facility] Address [address] [place] [address] Care Team Providers Care [place] Adviser Name Role Phone MARTA MENDEZ Primary Care Provider [phone] MARTA MENDEZ Referring Provider Assessment Encounter Date Assessment Date Assessment LastModified by Organization Details LastModified Time 01/22/2025 01/22/2025 This note is dictated and transcribed by [employer] Fluency Direct Software. Electronic Musical Instrument Repairer variances may occur. Despite proofreading, typographical errors may occur. Occasional wrong-word or 'kciww-e-[id number]' substitutions may have occurred due to the [...] available Not available Any 15 2024 02:30P Lawrence Siddiqi DPM Not available Not available Not available Lab None recorded. Referral None recorded. Procedures None recorded. Surgeries None recorded. Imaging None recorded. Medication Orders None recorded. Patient TargetsNo targets recorded. Patient InstructionsNo instructions recorded. Reason for Referral None Reported. Problems Name Problem SNOMED Code Status Onset Date Resolution Date Notes Provider Name and Address Organization Details Recorded Time Bilateral shoulder joint pain 7194654187632 9104 Active 2022 Not Available [facility] 3 13:52:42 Hammer toe 832657388 Active 2021 Not Available [facility] 3 13:52:42 Disorder of trunk 563087037 Active Not Available [facility] 3 13:52:42 Pain of left shoulder joint 3798197057716 9109 Active 2022 Not Available [facility] 3 13:52:42 Spinal stenosis of lumbar region 92300140 Active Not Available [facility] 3 13:52:42 Callosity on toe 716212121 Active 2022 Not Available [facility] 3 13:52:42 Localized, primary osteoarthr itis of the shoulder region 657974163 Active 2022 Not Available [facility] 3 13:52:43 Osteoarthr itis of knee 193190150 Active 2021 Not Available [facility] 3 13:52:43 Ankle pain 450449277 Active 2022 Not Available [facility] 3 13:52:43 Left Achilles tendinitis 8172398783971 02 Active 2022 Not Available [facility] 3 13:52:43 Acquired pes planus of left foot 1644037342953 08 Active 2022 Not Available [facility] 3 13:52:43 Enthesopat hy of hip region 59536333 Active Not Available [facility] 3 13:52:43 Osteoarthr itis of left knee joint 0206917007105 09 Active 2022 Not Available [facility] 3 13:52:43 Ingrowing toenail 724038800 Active 2021 Not Available [facility] 3 13:52:43 Pain of left knee joint 0368458510946 07 Active 2021 Not Available [facility] 3 13:52:43 Lumbosacra l spondylosi s without myelopathy 30382265 Active Not Available [facility] 3 13:52:43 Hip pain 07045385 Active Not Available [facility] 3 13:52:43 Dystrophia unguium 28490115 Active 2022 Not Available [facility] 3 13:52:44 Bilateral shoulder osteoarthr itis 0585979588816 08 Active 2022 Gerald Mchugh MD [address], [address], [place], [address] , [employer] 3 16:23:15 Hammer toe 774507696 Active 2022 Sam Siddiqi DPM [address], [address], [place], [address] , [employer] 3 15:20:24 Pain in both feet 4417286796444 9102 Active 2023 Sam Siddiqi DPM [address], [place], [address] , [employer] 4 15:44:36 Bunion 989434371 Active 2023 Sam Siddiqi DPM [address], [place], [address] , [employer] 4 11:54:22 Pain in toe 807170746 Active 2023 Sam Siddiqi DPM [address], [place], [address] , [facility] 4 10:01:19 Metatarsal zachery of left foot 3107679983810 06 Active 2023 Sam Siddiqi DPM [address], [place], [address] , [facility] 4 16:12:47 Foot callus 098673345 Active 2024 Sam Siddiqi DPM [address], [place], [address] , [employer] 5 15:06:23 Open wound of left great toe 3678014364361 9102 Active 2024 Sam Siddiqi DPM [address], [place], [address] , [employer] 15:06:48 Cellulitis of toe of left foot Active 2024 Sam Siddiqi DPM [address], [place], [address] , [facility] [employer] 12:05:17 Tear of skin 797613190 Active 2024 Sam Siddiqi DPM [address], [place], [address] , [facility] [employer] [facility] 12:12:18 Problem Notes None recorded. Procedures Surgical History Date Name Laterality Status Provider Name and Address Organization Details Recorded Time 01/23/20 25 Wound Care-Podiatry completed Sam Siddiqi DPM [address], [place], [address], [facility] [employer] [facility] 01/22/2025 16:33:34 01/07/20 25 Wound Care-Podiatry completed Sam Siddiqi DPM [address], [place], [address], [facility] [email or web address] 01/06/2025 12:08:05 12/10/19 25 Nail Debridement completed Sam Siddiqi DPM [address], [place], [address], [facility] [employer] [facility] 12/09/2024 15:05:09 12/10/19 25 Wound Care-Podiatry completed Sam Siddiqi DPM [address], [place], [address], [facility] [employer] [facility] 12/09/2024 15:06:07 09/08/20 24 Nail Debridement completed Sam Siddiqi DPM [address], [place], [address], [facility] [employer] [facility] 09/08/2024 16:12:36 09/08/20 24 Callus Debridement 2-4 completed Sam Siddiqi DPM [address], [place], [address], [facility] [employer] [facility] 09/08/2024 16:12:24 06/19/20 24 Nail Debridement completed Sam Siddiqi DPM [address], [place], [address], [facility] - [facility] 06/19/2024 14:30:00 06/19/20 24 Callus Debridement 2-4 completed Sam Siddiqi DPM [address], [place], [address], [facility] - [facility] 06/19/2024 14:29:51 04/03/20 24 Nail Debridement completed Sam Siddiqi DPM [address], [place], [address], [facility] - [facility] 04/03/2024 11:55:31 04/03/20 24 Toenail avulsion completed Sam Siddiqi DPM [address], [place], [address], [facility] - [facility] 04/03/2024 11:55:20 12/03/19 24 Nail Debridement completed Sam Siddiqi DPM [address], [place], [address], [facility] - [facility] 12/03/2023 15:44:13 12/03/19 24 Callus Debridement 2-4 completed Sam Siddiqi DPM [address], [place], [address], [facility] 12/03/2023 15:44:04 09/03/20 23 Nail Debridement completed Sam Siddiqi DPM [address], [place], [address], [facility] - [facility] 09/03/2023 15:16:58 09/03/20 23 Callus Debridement 2-4 completed Sam Siddiqi DPM [address], [place], [address], [facility] 09/03/2023 15:16:48 03/06/20 23 Ortho - Cortisone Injection completed Gerald Mchugh MD [address], [place], [address], [facility] 03/06/2023 16:21:34 10/08/19 00 Hysterectomy completed Not Available [facility] 023 13:52:11 10/08/18 68 Appendectomy completed Not Available [facility] 023 13:52:11 10/08/18 58 Removal of tonsils completed Not Available [facility] 12/06/2022 13:52:11 Imaging Results None recorded. Procedure Notes None recorded. Medical Equipment None Reported. Allergies Allergen ID Allergen Name Allergen Category Reaction Reaction Severity Criticality Documentation Date Start Date Code Code System Note Provider Name and Address Organization Details Recorded Time 43137 tetracycl ine medicatio n other Not available Not available 12/06/2022 81428 RxNorm Yeast infec tion Not Available [facility] 13:54:41 Medications Name Sig Start Date Stop [...] 40 mg by injection route. 12/03 completed [facility]: 0003- 0494- 20 Not Available Not Available [...] TAKE 1 TABLET BY MOUTH EVERY DAY 11/03 /2022 completed Not Available Not Available Not Available [...] administe red by the provider 08/10 completed [facility]: 0409- 4276- 17 Not Available Not Available Not Available lidocaine (PF) 5 mg/mL (0.5 %) injection solution Take 30 mg by injection route. 08/10 completed Not Available Not Available Not Available Zostavax (PF) 19,400 unit/0.65 mL subcutaneou s suspension 10/20 completed Not Available Not Available Not Available olopatadine 0.2 % eye drops active Not Available Not Available Not Available [place] 3-6-9 2020 active Not Available Not Available [...] 40 mg by injection route. 12/03 completed [facility] 46035 -064- 01 Not Available Not Available Not [...] Available Not Available Not Avai lable Fluvirin 9760-2865 45 mcg (15 mcg x 3)/0.5 mL intramuscul ar suspension ADM 0.5ML IM UTD 10/20 completed Not Available Not Available Not Available azelas-flut icasone-NaC l-NaHCO3 08/10 completed Not Available Not Available Not Available Shingrix (PF) 50 mcg/0.5 mL intramuscul ar suspension, kit 03/23 completed Not Available Not Available Not Available Fluzone High-Dose 2244-0001 (PF) 180 mcg/0.5 mL intramuscul ar syringe [...] Updated DateTime 5 167.64 cm 33.9 kg/m2 51464.4 g 98 /min 14 /min 98 % 98 % 101 mm[Hg] 73 mm[Hg] Marilyn Meadows [facility] 5 15:57:20 Social History Question Answer Notes LastModified by Organizat ion Details LastModified Time Tobacco Smoking Status Never Smoker Salina cueto [facility] 03/06/2023 15:01:40 What Is Your Level Of Alcohol Consumption? None [id number] Information not available 12/06/2022 What Is Your [...] Of Your Most Recent Tobacco Screening? 03/23/2021 [email or web address] Information not available 03/06/2023 Do You Have Smoke And Carbon Monoxide Detectors In Your Home? [place] [address] Information not available 06/19/2024 Are You Passively Exposed To Smoke? No [place] [address] Information no t available 06/19/2024 Do You Use Any Illicit Or Recreational Drugs? No [place] [address] Information not available 06/19/2024 Have You Recently Traveled Abroad? No [place] [address] Information not available 06/19/2024 Do You Have Any Dietary Restrictions? No [place] [address] Information not available 06/19/2024 Sex: Unknown Functional Status Question Answer Note LastModified by Organizat ion Details LastModified Time What is your exercise level? Occasional [place] [address] Information not available 06/19/2024 Mental Status None recorded. Family History Relationship Description Onset Age of this Age Resolved Age Notes LastModified by Organization Details LastModified Time Father Heart disease [id number] Not available 12/06/2022 13:52:12 Father Hypertensive disorder [id number] Not available 12/06/2022 13:52:12 Father Family history of malignant neoplasm [email or web address] Not available 12/09 14:40:05 Paternal Grandmother Family history of stroke [email or web address] Not available 12/09 14:40:05 Sister Family history of malignant neoplasm Not available 12/09 14:40:05 Paternal Grandfather Family history of malignant neoplasm Not available 12/09 14:40:05 Mother Hypertensive disorder [id number] Not available 12/06/2022 13:52:12 Medical History Condition [...] SNOMED-CT Code Diagnosis ICD10 Code Diagnosis Note [id number] Sam Siddiqi DPM [facility] [address] [place] [address] 01/06/2025 10:53:55 01/07/2025 10:16:52 Open wound of left great toe 6519854026 9773853 S91.102A daily wound carewound debrided todayMonit or for signs of infection if present seek medical attention immediatel yWound debridedOf floading at all timesFollo w-up in 1 week Cellulitis of toe of left foot 0820037424 L03.032 resolvedor thopedic requested abx therapy four times daily ceph 500mg dose, 7 days Tear of skin 500123451 T 14.8XXA lateral left great toe- superficia ldaily nursing [id number] Sam Siddiqi DPM [facility] [address] [place] [address] 01/15/2025 12:27:08 01/19/2025 12:46:05 Open wound of left great toe 1169500307 0287912 S91.102A daily wound caredressi ngs reapplied with [facility]- currently going out twice weekMonito r for signs of infection if present seek medical attention immediatel yWound debridedOf floading at all timesFollo w-up in 1 week Tear of skin 113000537 T 14.8XXA lateral left great toe- superficia lresolved [id number] Sam Siddiqi DPM [facility] [address] [place] [address] 01/22/2025 15:37:37 01/22/2025 16:42:00 Open wound of left great toe 2953664990 0210899 S91.102A daily wound caredressi ngs reapplied silver nitrate [facility]- currently going out twice weekMonito r for signs of infection if present seek medical attention immediatel yWound debridedOf floading at all timesFollo w-up in 1 week surgery was moved to around February 28 Health Concerns Section Related Observation LastModified by Organization Nora tiwari LastModified Time None Recorded Concern Status LastModified by Organization Details LastModified Time None Recorded Payers Encounter Date Sequence Insurance Name Policy Number Policy Armstrong Covered Member ID Armstrong Member ID Guarantor Name 01/22/2025 1 [place] Roya Mandujano [id number] Roya Gonzalez Delbert 01/22/2025 2 [place] WHEN MEDICARE OR MEDICARE REPLACEMENT PRIMARY) Roya Gonzalez Delbert [id number] Roya Gonzalez Delbert Notes Date Note Type Note Provider Name and Address Organization Details Recorded Time 01/22/2025 text/html . Patient is a 69-year-old [...] chills, nausea or vomiting. Sam Siddiqi DPM [address] [place] [address], [place], [address], [place] [facility] [employer] [facility] [employer] [facility] 01/22/2025 16:35:30 OBGyn Episode No OBEpisode recorded.
--- OUTSIDE RECORDS SUMMARY | 2025-01-22 17:15 | XMS_ITS | Referral Summary ---
Author Organization [facility] Address [address] [place] [address] Care Team Providers Care Breaker Off Name Role Phone Tasneem Hdez MD Primary Care Provider [phone] Encounters Date Type Department Care Team Description 01/22/2025 4:30 PM CDT Office Visit [facility] Medical [facility] Care at [address] [address] Maren Moore NP Acute cough (Primary Dx); Rib pain on right side; Abnormal bruising 01/16/2025 Telephone [facility] Orthopaedic Surgery [address] [place] [address] Advanced Medicine [facility] [place] [address] [place] [address] Delia Abdul MD 01/09/2025 Telephone [facility]opa[facility] Surgery [address] [place] [address] Advanced Medicine 12th [place] [address] [place] [address] Delia Abdul MD 01/05/2025 1:00 PM CDT Pre-Admission Testing [facility] for Preoperative Assessment and Planning [facility] [address] [place] [id number] Preoperative testing (Primary Dx); Osteoarthritis of right shoulder, unspecified osteoarthritis type; Chronic right shoulder pain; Vitamin D deficiency 01/05/2025 2:45 PM CDT Office Visit [facility] Orthopa[facility] Surgery [address] [place] [address] 12th [place] [address] [place] [address] Delia Abdul MD Primary osteoarthritis of right shoulder (Primary Dx) 12/05/2024 12:08 PM SURGERY TEACHER - 12/05/2024 11:59 PM SURGERY TEACHER Hospital Encounter [facility] Radiology [facility] [address] [place] [address] Discharge Disposition: Discharge to home or self care 12/01/2024 Orders Only [facility] Orthopaedic Surgery [address] [facility] 2nd Floor [address] [place] [address] Delia Abdul MD Primary osteoarthritis of right shoulder (Primary Dx) from Last 3 Months Allergies Active Allergy Reactions Criticality Noted Date Comments Lisinopril Cough Low 03/25/2024 Tetracycline Other (See comments) Low 06/19/2023 Medications ARIPiprazole (ABILIFY) 30 mg tabletIndicatio ns:Bipolar Disorder Take 1 tablet (30 mg total) by mouth nightly Active atorvastatin (LIPITOR) 20 mg tablet Take 1 tablet (20 mg total) by mouth nightly Active azelastine (ASTELIN) 137 mcg (0.1 %) nasal spray Administer 2 sprays into each nostril 2 (two) times a day Active diclofenac DR (VOLTAREN) 75 mg EC tabletIndicatio ns:Osteoarthrit is Take 1 tablet (75 mg total) by mouth 2 (two) times a day Active levothyroxine (SYNTHROID) 50 mcg tablet Take 1 tablet (50 mcg total) by mouth senior dentist before breakfast Take 1 tablet by mouth on Sunday, , and Sunday Active DULoxetine DR (CYMBALTA) 60 mg capsule TAKE 1 CAPSULE BY MOUTH EVERY DAY IN THE EVENING 3 Active levothyroxine (SYNTHROID) 75 mcg tablet 1 tablet by mouth on Sunday, Sunday, Sunday, and Sunday. Active pantoprazole DR (PROTONIX) 40 mg EC tablet Take 1 tablet (40 mg total) by mouth senior dentist before breakfast Active fluticasone propionate (FLONASE) 50 mcg/actuation nasal spray Administer 2 sprays into each nostril senior dentist before breakfast Active telmisartan (MICARDIS) 80 mg tabletIndicatio ns:hypertension Take 1 tablet (80 mg total) by mouth nightly Active topiramate (TOPAMAX) 50 mg tabletIndicatio ns:anxity 1 tablet (50 mg total) 2 (two) times a day Active valACYclovir (VALTREX) 500 mg tabletIndicatio ns:Chronic Suppression Take 1 tablet (500 mg total) by mouth senior dentist before breakfast Active zolpidem CR (AMBIEN CR) 6.25 mg CR tablet Take 1 tablet (6.25 mg total) by mouth nightly as needed for sleep Active polyethylene glycol (MIRALAX) 17 gram packetIndicatio ns:constipation Take 1 packet (17 g total) by mouth daily 30 packet 3 Active Additional Information Patient taking differently:17 g oralAs needed, Indications: constipation, Reported on 01/05/2025 acetaminophen ER (Tylenol Arthritis Pain) 650 mg 8 hr tablet Take 2 tablets (1,300 mg total) by mouth every 8 (eight) hours as needed 1 Active zazqwm-ozpq-swr t-ybqffdf-wknxr 10-50-500-0.5 mg capsule Take 1 tablet/capsule by mouth senior dentist before breakfast 1 Active ascorbic acid, vitamin C, 500 mg capsule Take 1 Caplet by mouth senior dentist before breakfast Active Restasis 0.05 % ophthalmic emulsion Administer 1 drop into both eyes 2 (two) times a day Active oxyCODONE-aceta minophen (PERCOCET) 5-325 mg per tablet Take 1 tablet by mouth every 6 (six) hours as needed 5 Active vibegron (Gemtesa) 75 mg tablet Take by mouth nightly Active buPROPion XL (WELLBUTRIN XL) 300 mg 24 hr tablet Take 1 tablet (300 mg total) by mouth senior dentist before breakfast 4 Active L-LYSINE ORAL nightly 1 Active fish oil/borage/flax /om3,6,9 1 (OMEGA 3-6-9 ORAL) 2 (two) times a day 1 Active cetirizine 10 mg tablet,disinteg rating nightly Active calcium carb-magnesium carb,ox 200 mg calcium- 100 mg tablet,chewable Take by mouth senior dentist before breakfast Active UNABLE TO FIND Take 1 each by mouth senior dentist before breakfast Med Name: occuvite Active vitamin E 400 unit capsule Take 1 capsule (400 Units total) by mouth senior dentist before breakfast Active magnesium gluconate 200 mg tabletIndicatio ns:hypomagnesem ia Take 1 tablet (200 mg total) by mouth nightly Active cephalexin (KEFLEX) 500 mg capsule 1 capsule (500 mg total) 2 (two) times a day Active buPROPion SR (WELLBUTRIN SR) 150 mg 12 hr tablet Take 1 tablet (150 mg total) by mouth 2 (two) times a day 025 Discontin ued(Alter akila therapy) acetaminophen 500 mg capsuleIndicati ons:Pain Take 2 capsules (1,000 mg total) by mouth every 6 (six) hours 240 tablet 3 025 Discontin ued(Alter akila therapy) bacitracin 500 unit/gram ointment Apply topically 2 (two) times a day Apply layer of bacitracin over entire left leg wound (approx 76i40eb area) with dressing changes twice daily 425 g 1 3 025 Discontin ued(Thera py completed ) gabapentin (NEURONTIN) 100 mg capsule Take 2 capsules (200 mg total) by mouth 3 (three) times a day 180 capsule 3 025 Discontin ued(Thera py completed ) methocarbamoL (ROBAXIN) 750 mg tablet Take 1 tablet (750 mg total) by mouth 3 (three) times a day as needed for muscle spasms 30 tablet 3 025 Discontin ued(Thera py completed ) senna-docusate (PERICOLACE) 8.6-50 mg Take 2 tablets by mouth 2 (two) times a day 120 tablet 3 025 Discontin ued(Thera py completed ) oxyCODONE (ROXICODONE) 5 mg immediate release tabletIndicatio ns:Pain Take 1 tablet (5 mg total) by mouth every 4 (four) hours as needed for pain 10 tablet 3 025 Discontin ued(Alter akila therapy) Active Problems Problem Noted Date Diagnosed Date Osteoarthritis of right shoulder 10/26/2024 Chronic right shoulder pain 10/26/2024 Compartment syndrome of left lower extremity, initial encounter 06/19/2023 Social History Tobacco Use Types Packs/Day Years Used Date Smoking Tobacco: Former Cigarettes 0 1 S tarted: 1993 Passive Smoke Exposure: Past Smokeless Tobacco: Never Tobacco Cessation:Counseling Given: Not Answered AUDIT-C Answer Date Recorded Q1: How often [...] on file Legal Sex Female 3:33 AM SURGERY TEACHER Gender Identity Not on file Sexual Orientation [...] (231 lb 8 oz) 01/22/2025 4:25 PM C DT Height 167.6 cm (5' 5.98 ) 01/22/2025 4:25 PM CD T Body Mass Index 37.38 01/22/2025 4:25 PM CDT Plan of Treatment Upcoming Encounters Date Type Department Care Team (Latest Contact Info) Description 02/20/2025 10:40 AM CDT Hospital Encounter [facility] Operating Room [address] [place] [address] Delia Abdul MD [address] [facility] [address] [place] [address] 02/20/2025 10:40 AM CDT Anesthesia Event [facility] Operating Room [address] [place] [address] Aron Butt MD [address] [place] [address] 02/20/2025 10:40 AM CDT - 02/20/2025 1:50 PM CDT Surgery [facility] Operating Room [address] [place] [phone] Delia Abdul MD [address] [facility] [address] [place] [address] Right Reverse Shoulder Arthroplasty Scheduled Procedures Name Priority Associated Diagnoses Date/Ti me ARTHROPLASTY SHOULDER - REVERSE TOTAL Osteoarthritis of right shoulder, unspecified osteoarthritis type Chronic right shoulder pain 02/20/2025 10:40 AM CDT Procedures Procedure Name Priority Date/Time Associated Diagnosis Comments EGFR Routine 01/05/2025 2:48 PM CDT Osteoarthritis of right shoulder, unspecified osteoarthritis type Chronic right shoulder pain COMPREHENSIVE METABOLIC PANEL Routine 01/05/2025 2:48 PM CDT Osteoarthritis of right shoulder, unspecified osteoarthritis type Chronic right shoulder pain VITAMIN D 25 HYDROXY Routine 01/05/2025 2:48 PM CDT Osteoarthritis of right shoulder, unspecified osteoarthritis type Chronic right shoulder pain Vitamin D deficiency CBC WITHOUT DIFFERENTIAL Routine 01/05/2025 2:48 PM CDT Preoperative testing MSK CT OUTSIDE REFERENCE Routine 12/05/2024 12:08 PM SURGERY TEACHER from Last 3 Months Results * (ABNORMAL) eGFR (01/05/2025 2:48 PM CDT) [facility] Signature eGFR 44(L) >=60 mL/min/1. 73 m2 Comment: Interpretive Data Reference Interval Normal >/= 90 mL/min/1.73m2 Mildly decreased* 60 - 89 mL/min/1.73m2 Mildly to moderately decreased 45 - 59 mL/min/1.73m2 Moderately to severely decreased 30 - 44 mL/min/1.73m2 Severely decreased 15 - 29 mL/min/1.73m2 Kidney Failure < 15 mL/min/1.73m2 *Relative to young adult level Estimated glomerular filtration rate is determined by the 2020 CKD-EPI equation recommended by the National Kidney Foundation (A Unifying Approach to GFR Estimation: Recommendations of the NKF-ASK Task Force on Reassessing the Inclusion of Race in Diagnosing Kidney Disease, JASN 2020). The CKD-EPI equation should not be used for patients with unstable renal function and has not been validated in children and those over 70. Current interpretive data was last reviewed 2021. Blood 01/05/2025 2:48 PM CDT 01/05/2025 3:22 PM CDT Delia Abdul MD LAB BLOOD ORDERABLES Final Result Performing Organization Address City/[facility]/ZIP Co de Phone Number [facility] [place] [address] * Vitamin D 25 hydroxy (01/05/2025 2:48 PM CDT) Pathologist [facility] Vitamin D 25-OH 49 30 - 80 ng/mL Blood 01/05/2025 2:48 PM CDT 01/05/2025 3:22 PM CDT us Delia Abdul MD LAB BLOOD ORDERABLES Final Result [facility] [place] [address] * CBC without differential (01/05/2025 2:48 PM CDT) [facility] WBC 5.4 3.8 - 9.9 K/cumm Hgb 12.6 11.9 - 15.5 g/dL [facility] Hct 38.1 35.6 - 45.5 % [facility] Plt 176 150 - 400 K/cumm [facility] MPV 9.9 9.1 - 12.3 fL [facility] RBC 3.99 3.90 - 5.20 M/cumm [facility] MCV 95.5 81.3 - 96.4 fL [facility] MCH 31.6 27.1 - 33.3 pg [facility] MCHC 33.1 32.3 - 35.7 g/dL [facility] RDW CV 13.5 11.1 - 14.9 % [facility] RDW SD 46.8 35.7 - 48.1 fL [facility] NRBC abs 0.00 0.00 - 0.01 K/cumm [facility] Blood 01/05/2025 2:48 PM CDT 01/05/2025 3:22 PM CDT Aron Butt MD LAB BLOOD ORDERABLES Final Result [facility] Department [place] [address] * (ABNORMAL) Comprehensive metabolic panel (01/05/2025 2:48 PM CDT) Sodium 145 135 - 145 mmol/L Potassium, pl 3.9 3.3 - 4.9 mmol/L [facility] Chloride 105 97 - 110 mmol/L [facility] CO2 28 22 - 32 mmol/L [facility] Anion gap 12 2 - 15 mmol/L [facility] BUN 28(H) 6 - 25 mg/dL [facility] Creatinine 1.31(H) 0.60 - 1.10 mg/dL [facility] Glucose 100 70 - 199 mg/dL [facility] Comment: Interpretive Data Fasting glucose >/= 126 mg/dl is diagnostic for diabetes. Fasting is defined as no caloric intake for at least 8 hours. Fasting glucose between 100 mg/dl to 125 mg/dl is diagnostic of prediabetes. In a patient with classic symptoms of hyperglycemia or hyperglycemic crisis, a random glucose >/= 200 mg/dl is diagnostic for diabetes. In the absence of unequivocal hyperglycemia, results should be confirmed by repeat testing. The classification and Diagnosis of Diabetes Diabetes Care 2021; 46: S19-S40. Current interpretive data was last revised 2022. Calcium 9.3 8.5 - 10.3 mg/dL [facility] Bilirubin, total 0.3 0.1 - 1.2 mg/dL [facility] Protein, pl 7.1 6.5 - 8.5 g/dL [facility] Albumin 4.0 3.5 - 5.0 g/dL [facility] Alk phos 54 40 - 130 Units/L [facility] ALT 28 7 - 45 Units/L [facility] AST 36 10 - 45 Units/L [facility] Blood 01/05/2025 2:48 PM CDT 01/05/2025 3:22 PM CDT us Delia Abdul MD LAB BLOOD ORDERABLES Final Result Performing Organization Address City/[facility]/ZIP Co de Phone Number [facility] [place] [address] * MSK CT Outside Reference (12/05/2024 12:08 PM SURGERY TEACHER) Impressions [facility]_P[facility] - 12/05/2024 12:08 PM SURGERY TEACHER These images are for Reference purposes only and have not been reviewed by [facility]. There will be no report generated by a [facility] Radiologist. Narrative [facility] - 12/05/2024 12:08 PM SURGERY TEACHER EXAMINATION: Images For Reference Purposes Only us Delia Abdul MD IMG CT PROCEDURES Fin al Result Performing Organization Address City/[facility]/ZIP Co de Phone Number [facility] from Last 3 Months Insurance [employer]PA MEDICARE MEDICARE [facility] Advance Directives For more information, please contact: [phone] * Full Code (Latest Code Status on File) Date Activated Date Inactivated Comments 06/19/2023 5:35 PM 06/26/2023 8:20 PM Care Teams Breaker Off Relationship Specialty Start Date End Date Tasneem Hdez MD [address] [address] PCP - General Family Medicine 06/18/23
--- OUTSIDE RECORDS SUMMARY | 2025-01-22 17:15 | XMS_ITS | Clinical Summary ---
Author Organization [facility] Address [address] [place] [address] Care Team Providers Care Fast Food Worker Name Role Phone Tasneem Hdez MD Primary Care Provider [phone] Allergies Active Allergy Reactions Criticality Noted Date [...] 1 tablet (50 mcg total) by mouth groundskeeping yardman before breakfast Take 1 tablet by mouth on Sunday, , and Sunday Active DULoxetine DR (CYMBALTA) 60 mg capsule TAKE 1 CAPSULE BY MOUTH EVERY DAY IN THE EVENING Active levothyroxine (SYNTHROID) 75 mcg tablet 1 tablet by mouth on Sunday, Sunday, Sunday, and Sunday. Active pantoprazole DR (PROTONIX) 40 mg EC tablet Take 1 tablet (40 mg total) by mouth groundskeeping yardman before breakfast Active fluticasone propionate (FLONASE) 50 mcg/actuation nasal spray Administer 2 sprays into each nostril groundskeeping yardman before breakfast Active telmisartan (MICARDIS) 80 mg tabletIndicatio ns:hypertension Take 1 tablet (80 mg total) by mouth nightly Active topiramate (TOPAMAX) 50 mg tabletIndicatio ns:anxity 1 tablet (50 mg total) 2 (two) times a day Active valACYclovir (VALTREX) 500 mg tabletIndicatio ns:Chronic Suppression Take 1 tablet (500 mg total) by mouth groundskeeping yardman before breakfast Active zolpidem CR (AMBIEN CR) [...] 8 (eight) hours as needed 1 Active rfzggq-pekt-vet u-yjjfkkp-lemda 10-50-500-0.5 mg capsule Take 1 tablet/capsule by mouth groundskeeping yardman before breakfast 1 Active ascorbic acid, vitamin C, 500 mg capsule Take 1 Caplet by mouth groundskeeping yardman before breakfast Active Restasis 0.05 % ophthalmic [...] 1 tablet (300 mg total) by mouth groundskeeping yardman before breakfast 4 Active L-LYSINE ORAL nightly 1 Active fish oil/borage/flax /om3,6,9 1 (OMEGA 3-6-9 ORAL) 2 (two) times a day 1 Active cetirizine 10 mg tablet,disinteg rating nightly Active calcium carb-magnesium carb,ox 200 mg calcium- 100 mg tablet,chewable Take by mouth groundskeeping yardman before breakfast Active UNABLE TO FIND Take 1 each by mouth groundskeeping yardman before breakfast Med Name: occuvite Active vitamin E 400 unit capsule Take 1 capsule (400 Units total) by mouth groundskeeping yardman before breakfast Active magnesium gluconate 200 mg [...] bacitracin over entire left leg wound (approx [id number] area) with dressing changes twice daily 425 [...] of left lower extremity, initial encounter 06/19/2023 Encounters Date Type Department Care Team Description 01/22/2025 4:30 PM CDT Office Visit [facility] at [address] [address] Maren Moore NP Acute cough (Primary Dx); Rib pain on right side; Abnormal bruising 01/16/2025 Telephone [facility] Orthopaedic Surgery [address] [place] [address] Advanced Medicine [address]th [place] [address] [place] [address] Delia Abdul MD 01/09/2025 Telephone [facility] Orthopaedic Surgery [address] [place] [address] 12th [place] [address] [place] [address] Delia Abdul MD 01/05/2025 2:45 PM CDT Office Visit [facility] Orthopaedic Surgery [address] [place] [address] 12th [place] [address] [place] [address] Delia Abdul MD Primary osteoarthritis of right shoulder (Primary Dx) 01/05/2025 1:00 PM CDT Pre-Admission Testing [facility] [address] [place] [id number] Preoperative testing (Primary Dx); Osteoarthritis of right shoulder, unspecified osteoarthritis type; Chronic right shoulder pain; Vitamin D deficiency 12/05/2024 12:08 PM BRIDGE TEACHER - 12/05/2024 11:59 PM BRIDGE TEACHER Hospital Encounter [facility] [address] [place] [address] Discharge Disposition: Discharge to home or self care 12/01/2024 Orders Only [facility] Orthopaedic Surgery [address] [facility] 2nd Floor [address] [place] [phone] Delia Abdul MD Primary osteoarthritis of right shoulder (Primary Dx) from Last 3 Months Medical History Medical History Date Comments Hypertension Bipolar 1 disorder (HCC) GERD (gastroesophageal reflux disease) Social History Tobacco Use Types Packs/Day Years [...] on file Legal Sex 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 [place] [address] 02/20/2025 10:40 AM CDT - 02/20/2025 1:50 PM CDT Surgery [facility] [address] [place] [id number] Delia Abdul MD [address] [facility] [place] [address] Right Reverse Shoulder Arthroplasty Scheduled Procedures Name Priority Associated Diagnoses Date/Ti me ARTHROPLASTY SHOULDER - REVERSE TOTAL Osteoarthritis of right shoulder, unspecified osteoarthritis type Chronic right shoulder pain 02/20/2025 10:40 AM CDT Health Maintenance Due Date Last Done Comments Colon Cancer Screening-Colonoscopy 1955 Hepatitis C Screening 1955 Osteoporosis Screening-Bone Density Scan 1955 Hepatitis B Screening 1971 Well Visit 65+ 2018 Breast Cancer Screening-Mammogram 06/06/2022 06/06/2021, 06/06/2021, 04/03/2019, Additional history exists Pneumococcal vaccine 65+ (3 of 3 - PCV20 or PCV21) 07/10/2023 07/10/2018, 07/09/2018, 06/08/2018, Additional history exists Covid-19 Vaccine (2023-2 5 season) 2024 03/19/2023, 07/28/2022, 01/17/2022, Additional history exists Depression Screening 06/19/2024 06/19/2023 Fall Risk Assessment 01/05/2026 01/05/2025 DTaP/Tdap/Td Vaccine (3 - Td or Tdap) 04/08/2031 04/08/2021, 03/18/2013 Zoster Vaccine Completed 11/03/2019, 10/0 01/2019, 01/29/2014 Influenza Vaccine Completed 07/03/2024, , 06/09/2021, Additional history exists Procedures Procedure Name Priority Date/Time Associated Diagnosis [...] CT OUTSIDE REFERENCE Routine 12/05/2024 12:08 PM BRIDGE TEACHER from Last 3 Months Results * (ABNORMAL) eGFR (01/05/2025 2:48 PM CDT) eGFR 44(L) >=60 mL/min/1. 73 m2 Comment: [...] Abdul MD LAB BLOOD ORDERABLES Final Result [facility] [place] [address] * Vitamin D 25 hydroxy (01/05/2025 2:48 PM CDT) [facility] Vitamin D 25-OH 49 30 - 80 ng/mL Blood 01/05/2025 2:48 PM CDT 01/05/2025 3:22 PM CDT us Delia Abdul MD LAB BLOOD ORDERABLES Final Result Performing Organization Address [facility] Co de Phone Number [facility] [place] [address] * CBC without differential (01/05/2025 2:48 PM CDT) [facility] WBC 5.4 3.8 - 9.9 K/cumm Hgb 12.6 11.9 - 15.5 g/dL [facility] Hct 38.1 35.6 - 45.5 % [facility] Plt 176 150 - 400 K/cumm [facility] MPV 9.9 9.1 - 12.3 fL [facility] RBC 3.99 3.90 - 5.20 M/cumm [facility] MCV 95.5 81.3 - 96.4 fL [facility] MCH 31.6 27.1 - 33.3 pg [facility] MCHC 33.1 32.3 - 35.7 g/dL [facility] RDW CV 13.5 11.1 - 14.9 % [facility] RDW SD 46.8 35.7 - 48.1 fL [facility] NRBC abs 0.00 0.00 - 0.01 K/cumm [facility] Blood 01/05/2025 2:48 PM CDT 01/05/2025 3:22 PM CDT us Aron Butt MD LAB BLOOD ORDERABLES Final Result [facility] Department [place] [address] * (ABNORMAL) Comprehensive metabolic panel (01/05/2025 2:48 PM CDT) Pathologist [facility] Sodium 145 135 - 145 mmol/L Potassium, pl 3.9 3.3 - 4.9 mmol/L [facility] Chloride 105 97 - 110 mmol/L [facility] CO2 28 22 - 32 mmol/L [facility] Anion gap 12 2 - 15 mmol/L [facility] BUN 28(H) 6 - 25 mg/dL [facility] Creatinine 1.31(H) 0.60 - 1.10 mg/dL [facility] Glucose 100 70 - 199 mg/dL [facility] Comment: Interpretive Data Fasting glucose >/= [...] 2022. Calcium 9.3 8.5 - 10.3 mg/dL [facility] Bilirubin, total 0.3 0.1 - 1.2 mg/dL [facility] Protein, pl 7.1 6.5 - 8.5 g/dL [facility] Albumin 4.0 3.5 - 5.0 g/dL [facility] Alk phos 54 40 - 130 Units/L [facility] ALT 28 7 - 45 Units/L [facility] AST 36 10 - 45 Units/L [facility] Blood 01/05/2025 2:48 PM CDT 01/05/2025 3:22 PM CDT us Delia Abdul MD LAB BLOOD ORDERABLES Final Result Performing Organization Address City/[facility]/ZIP Co de Phone Number [facility] Department [place] [address] * MSK CT Outside Reference (12/05/2024 12:08 PM BRIDGE TEACHER) Impressions RAD_PACS[facility] - 12/05/2024 12:08 PM BRIDGE TEACHER These images are for Reference purposes only and have not been reviewed by [facility] Radiology. There will be no report generated by a [facility] Radiologist. Narrative RAD_PACS_[facility] - 12/05/2024 12:08 PM BRIDGE TEACHER EXAMINATION: Images For Reference Purposes Only us Delia Abdul MD IMG CT PROCEDURES Fin al Result Performing Organization Address [facility] Co de Phone Number [facility] from Last 3 Months Insurance [facility] MEDICARE MEDICARE IDPA Advance Directives For more information, please contact: [phone] * Full Code (Latest Code Status on File) Date Activated Date Inactivated Comments 06/19/2023 5:35 PM 06/26/2023 8:20 PM Care Teams Fast Food Worker Relationship Specialty Start Date End Date Tasneem Hdez MD [address] [address] [place] [address] PCP - General Family Medicine 06/18/23
--- OUTSIDE RECORDS SUMMARY | 2025-01-22 17:16 | XMS_ITS ---
Author Organization [facility] Address [address] [place] [address] Care Team Providers Care Mail Rider Name Role Phone Tasneem Hdez DO Primary Care Provider UnavailMagdalena Davey Unavailable [phone] REASON FOR VISIT Message Medications Medication SIG (Take, Route, Frequency, Duration) Notes Start Date End Date Status Flonase Allergy Relief 50 MCG/ACT 1 spray in each nostril Nasally Once a day for 90 days 05/13/2024 Active Encounters Encounter Location Date Provider Diagnosis [facility] [address] [place] [address] 06/24/2024 Magdalena Cramer Plan Of Treatment Medication Medication Name Sig Start Date Stop Date Notes Flonase Allergy Relief 50 MCG/ACT 1 spray in each nostril Nasally Once a day for 90 days 05/13/2024 Progress Notes * Roya MANDUJANODOB: 3 (69 yo F)Acc No.[id number]:06/24/2024 Patient: Delphine POLLARDyl :1955 A ge:69 Y S ex:Female Address:[address] [place] [address] * Refills Refill Flonase Allergy Relief Suspension, 50 MCG/ACT, Nasally, 1, 1 spray in each nostril, Once a day, 90 days, Refills=0 * true * Date: Generated for Nguyen menendez/Fatemeh/Ashley on: 0 01/22/2025 05:15 PM CDT
--- OUTSIDE RECORDS SUMMARY | 2025-01-22 17:16 | XMS_ITS ---
Author Organization [facility] Address [address] [place] [address] Care Team Providers Care Varnish Supervisor Name Role Phone Tasneem Hdez DO Primary Care Provider UnavailMagdalena Davey Unavailable [phone] REASON FOR VISIT RX Encounters Encounter Location Date Provider Diagnosis [facility] [address] [place] [address] 05/20/2024 Magdalena Cramer Plan Of Treatment No Information Progress Notes * Roya MANDUJANODOB: 3 (69 yo F)Acc No.[id number]:05/20/2024 Patient: Delphine POLLARDyl :1955 A ge:69 Y S ex:Female Address:[address] [place] [address] * true * Date: Generated for Jdi ng/Fatellyg/eTransmitting on: 0 01/22/2025 05:15 PM CDT
--- OUTSIDE RECORDS SUMMARY | 2025-01-22 17:16 | XMS_ITS ---
Author Organization [facility] Address [address] [place] [address] Care Team Providers Care Butcher All Round Name Role Phone Tasneem Hdez DO Primary Care Provider Magdalena Bagley Unavailable [phone] REASON FOR VISIT med's Medications Medication SIG (Take, Route, Frequency, Duration) Notes Start Date End Date Status Flonase Allergy Relief 50 MCG/ACT 2 sprays each nostril Nasally Once a day for 90 days 05/13/2024 Active Encounters Encounter Location Date Provider Diagnosis [address] [address] 06/25/2024 Magdalena Cramer Plan Of Treatment Medication Medication Name Sig Start Date Stop Date Notes Flonase Allergy Relief 50 MCG/ACT 2 sprays each nostril Nasally Once a day for 90 days 05/13/2024 Progress Notes * Roya MANDUJANODOB: 3 (69 yo F)Acc No.[id number]:06/25/2024 Patient: Delphine POLLARDyl :1955 A ge:69 Y S ex:Female Address:[address] [address] * Refills Refill Flonase Allergy Relief Suspension, 50 MCG/ACT, Nasally, 3, 2 sprays each nostril, Once a day, 90 days, Refills=3 * true * Date: Generated for Printi ng/Fatemeh/Ashley on: 0 01/22/2025 05:15 PM CDT
--- OUTSIDE RECORDS SUMMARY | 2025-01-22 17:16 | XMS_ITS | Data Portability ---
Author Organization [email or web address], [facility], [facility] Address [address] [address] Assessment No assessment recorded. Plan of Treatment Reminders Order Date Submit Date Provider Last Modified By Organization Details Last Modified Time Details Appointments None record ed. Lab None record ed. Referral None record ed. Procedures None record ed. Surgeries None record ed. Imaging None record ed. Medication Orders None record ed. Patient TargetsNo targets recorded. Patient InstructionsNo instructions recorded. Reason for Referral None Reported. Problems No Known Problems Procedures Surgical History Date Name Laterality Status Provider Name and Address Organization Details Recorded Time 11/14/19 22 Generic Procedure completed TONYA FUCHS [address], [place], [address], [place] [facility], [employer] 11/14/2021 13:48:20 09/19/20 21 Generic Procedure completed TONYA FUCHS [address], [place], [address], [place] [facility], [facility] 09/19/2021 11:27:42 10/08/19 09 Hip Surgery completed [employer] [place] [facility], [facility] 09/19/2021 11:17:40 10/08/19 00 Hysterectomy completed Taylor Cicerelli [place] - [facility] 09/19/2021 11:17:11 10/08/18 80 Tubal Ligation completed Taylor Cicerelli [place] [facility], [facility] 09/19/2021 11:16:58 10/08/18 68 Appendectomy completed [employer] [place] [facility], [facility] 09/19/2021 11:16:44 10/08/18 58 [facility], [facility] 09/19/2021 11:16:32 Imaging Results None recorded. Procedure Notes None recorded. Medical Equipment None Reported. Allergies Allergen ID Allergen Name Allergen Category Reaction Reaction Severity Criticality Documentation Date Start Date Code Code System Note Provider Name and Address Organization Details Recorded Time 38274 Medicinal product containin g tetracycl ine structure and acting as antibacte rial agent (product) medicatio n other Not available Not available 09/19/2021 90158 1004 SNOMED Taylor cueto [facility], [facility] 11:11:45 Medications Name Sig Start Date Stop Date Status Note LastModified by Organization Details LastModified Time Prescriptio n - New active TRIVISC Not Available Not Available Not Available amoxicillin 500 mg capsule TAKE 1 CAPSULE BY MOUTH EVERY 8 HOURS active Not Available Not Available No t Available bupropion HCl SR 150 mg tablet,12 hr sustained-r elease TAKE 1 TABLET BY MOUTH TWICE A DAY active Not Available Not Available No t Available prednisone 10 mg tablet TAKE 1 TAB BY MOUTH 3 TIMES DAILY X3 DAYS, 1 TAB TWICE DAILY X2 DAYS, 1 TAB ONCE DAILY X1 DAY active Not Available Not Available No t Available atorvastati n 20 mg tablet TAKE 1 TABLET BY MOUTH AT BEDTIME active Not Available Not Available No t Available acetaminoph en 300 mg-codeine 30 mg tablet active Not Available Not Available Not Available valacyclovi r 500 mg tablet TAKE 1 TABLET BY MOUTH EVERY DAY active Not Available Not Available No t Available amlodipine 10 mg tablet TAKE 1 TABLET BY MOUTH EVERY DAY active Not Available Not Available No t Available levothyroxi ne 50 mcg tablet TAKE 2 TABLETS ON M,W,F, AND SUN AND TAKE 1 TABLET THE REST OF THE DAYS active Not Available Not Available No t Available cephalexin 500 mg capsule active Not Available Not Available Not Available pantoprazol e 40 mg tablet,raymond yed release TAKE 1 TABLET BY MOUTH EVERY DAY active Not Available Not Available No t Available telmisartan 80 mg tablet TAKE 1 TABLET BY MOUTH EVERY DAY active Not Available Not Available No t Available diclofenac sodium 75 mg tablet,raymond yed release TAKE 1 TABLET (75 MG TOTAL) BY MOUTH 2 (TWO) TIMES DAILY WITH MEALS. active Not Available Not Available No t Available furosemide 20 mg tablet TAKE 1 TABLET BY MOUTH EVERY DAY active Not Available Not Available No t Available azelastine 137 mcg (0.1 %) nasal spray USE 2 SPRAYS IN EACH NOSTRIL TWICE A DAY active Not Available Not Available No t Available zolpidem 10 mg tablet TAKE 1 TABLET BY MOUTH EVERYDAY AT BEDTIME active Not Available Not Available No t Available fluticasone propionate 50 mcg/actuati on nasal spray,suspe nsion USE 2 SPRAYS IN EACH NOSTRIL ONCE DAILY active Not Available Not Available No t Available aripiprazol e 30 mg tablet TAKE 1 TABLET BY MOUTH EVERYDAY AT BEDTIME active Not Available Not Available No t Available topiramate 50 mg tablet TAKE 2 TABLETS BY MOUTH IN THE MORNING AND 1 TABLET AT NIGHT active Not Available Not Available No t Available duloxetine 60 mg capsule,del ayed release TAKE 1 CAPSULE BY MOUTH EVERY DAY IN THE MORNING active Not Available Not Available No t Available chlorhexidi ne gluconate 0.12 % mouthwash TAKE DIRECTED 2-3 TIMES DAILY active Not Available Not Available No t Available prednisone Taking for 5 days per PCP. active Not Available Not Available No t Available Myrbetriq 50 mg tablet,exte nded release TAKE 1 TABLET BY MOUTH EVERY DAY active Not Available Not Available No t Available TriVisc 10 mg/mL intra-artic ular syringe INJECT ONCE WEEKLY INTO THE KNEE DIRECTED active Not Available Not Available No t Available Vitals Date Recorded Body height Body mass index (BMI) Body weight Heart rate Systolic blood pressure Diastolic blood pressure Provider Name and Address Organization Details Last Updated DateTime 1 170.18 cm 33.7 kg/m2 79390.3 6 g 83 /min 113 mm[Hg] 65 mm[Hg] Taylor Mariee [facility] [employer] 1 11:10:14 Date Recorded Body height Body mass index (BMI) Body weight Heart rate Systolic blood pressure Diastolic blood pressure Provider Name and Address Organization Details Last Updated DateTime 2 170.18 cm 33.7 kg/m2 81063.3 6 g 80 /min 113 mm[Hg] 60 mm[Hg] Maximiliano Sanders [facility] [employer] [facility] 2 11:21:50 Date Recorded Body height Heart rate Systolic blood pressure Diastolic blood pressure Provider Name and Address Organization Details Last Updated DateTime 11/23/2021 170.18 cm 93 /min 132 mm[Hg] 68 mm[Hg] Christina Noland [facility], [facility] 11/23/2021 13:39:15 Date Recorded Body height Body mass index (BMI) Body weight Heart rate Systolic blood pressure Diastolic blood pressure Provider Name and Address Organization Details Last Updated DateTime 2 170.18 cm 33.7 kg/m2 21031.3 6 g 100 /min 130 mm[Hg] 60 mm[Hg] Maximiliano Marilyn [facility], [facility] 2 12:11:02 Social History Question Answer Notes LastModified by Organizat ion Details LastModified Time Tobacco Smoking Status Former Smoker Taylor cueto [facility], [facility] 09/19/2021 11:16:15 What Is Your Level Of Alcohol Consumption? None [email or web address] Information not available 11/14/2021 Are You Currently Employed? No Information not available 11/14/2021 How Many Days Of Moderate To Strenuous Exercise, Like A Brisk Walk, Did You Do In The Last 7 Days? 0 Information not available 09/19/2021 What Is Your Relationship Status? [email or web address] Information not available 11/14/2021 How Much Tobacco Do You Smoke? 1 PPW [email or web address] Information not available 11/14/2021 How Many Years Have You Smoked Tobacco? 1 [email or web address] Information not available 11/14/2021 Sex: Unknown Functional Status None recorded. Mental Status None recorded. Family History Relationship Description Onset Age of this Age Resolved Age Notes LastModified by Organization Details LastModified Time Mother Arthritis Not avail able 09/19/2021 11:12:07 Mother Hypercholest erolemia [email or web address] Not available 09/07 11:12:41 Mother Hypertensive disorder [email or web address] Not available 09/07 11:13:19 Father Heart disease [email or web address] Not available 09/07 11:12:22 Father Hypercholest erolemia [email or web address] Not available 09/07 11:12:41 Father Hypertensive disorder [email or web address] Not available 09/07 11:13:19 Father Family history of malignant neoplasm [email or web address] Not available 09/07 11:14:47 Maternal Aunt Diabetes mellitus [email or web address] Not available 09/07 11:14:10 Paternal Grandmother Diabetes mellitus [email or web address] Not available 09/07 11:14:10 Sister Hypothyroidi sm [email or web address] Not available 09/07 11:14:24 Sister Family history of malignant neoplasm [email or web address] Not available 09/07 11:14:47 Medical History Condition Response Other Cancer N HIV or AIDS N Coronary Artery Disease N Gout N Kidney Stones N Hyperthyroidism N Breast Cancer N Hernia Y Head Trauma/Injury N Lung Cancer N Lung Disease N Blood Clots N COPD N Depression N Hypothyroidism Y Pacemaker N Anxiety Disorder N Arthritis Y Alcohol / Substance Abuse N Kidney Cancer N Cancer N Melanoma N Stroke N Leg or Foot Ulcers N Neck Injury N High Cholesterol Y Skin Cancer N Liver Disease N Rheumatoid Arthritis N Fibromyalgia N Headaches N Concussion N Kidney Disease N Heart Problems N Chronic use of Pain Medication N Prostate Cancer N Migraines N Thyroid Problems N Alzheimers N Autoimmune Disorder N Anemia N Multiple Sclerosis N Tendon Tear N Ulcers N Heart Attack ([place]) N Diabetes N Bleeding Disorder N Seizures/Epilepsy N Cardiac Stent N Tuberculosis N Urinary Tract Infection N Back Problems N Diverticulitis N Asthma N Lupus N Peripheral Vascular Disease N Sleep Disorder N GERD/Reflux N Hepatitis N Aneurysm N Thyroid Cancer N Heart Disease N Pulmonary Embolism N Hypertension Y Osteoporosis N Gynecological HistoryNo gynecological history recorded. Obstetrics History GPAL:G 0 P 0 0 0 0 Past Encounters Encounter ID Performer Location Encounter Start Date Encounter Closed Date Diagnosis/Indication Diagnosis SNOMED-CT Code Diagnosis ICD10 Code Diagnosis Note [id number] TONYA FUCHS [facility] [address] [facility] [place] [address] 09/19/2021 10:54:22 09/28/2021 14:31:46 Osteoarthritis of joint of right shoulder region [id number] 05992 M19.011 at today's office visit I discussed with the patient her diagnosis and treatment options. We discussed conservati ve management with physical therapy and nonsteroid al anti-infla mmatories. The patient has underwent a course of physical therapy and continues to do home exercise program. We discussed the utilizatio n of corticoste roid injections which she has been getting from her primary orthopedic surgeon back home. We discussed biological interventi on to the right shoulder and her success rate in regards to biological interventi on. She was referred here to do hyaluronic acid injections in the right shoulder. We going to proceed with purchasing the self pay program with [employer] the patient doing hyaluronic acid injections in the right shoulder to see if she gets any beneficial relief. Greater than 30 minutes face-to-fa ce visit with more than 15 minutes of my time spent counseling the patient about their diagnosis including pathophysi ology and treatment options. [id number] [facility] [address] [place] [address] 11/14/2021 10:56:05 11/14/2021 12:07:58 Shoulder pain 14637668 M25.511 Localized, primary osteoarthritis of the shoulder region 826462011 M19.019 [id number] [facility] [address] [place] [address] 11/23/2021 13:06:23 11/23/2021 15:02:48 Localized, primary osteoarthritis of the shoulder region 058078950 M19.019 [id number] T[facility]S [facility] [address] [facility] [address] [place] [address] 12/05/2021 11:28:06 12/05/2021 13:00:34 Osteoarthritis of joint of right shoulder region 3002464499 93757 M19.011 . Health Concerns Section Related Observation LastModified by Organization Detai ls LastModified Time None Recorded Concern Status LastModified by Organization Details LastModified Time None Recorded Advance Directives Directive None Recorded Payers Encounter Date Sequence Insurance Name Policy Number Policy Armstrong Covered Member ID Armstrong Member ID Guarantor Name 09/19/2021 1 [place] Roya A Rudyard [id number] Roya Delbert 11/14/2021 1 [place] [facility] Roya A Delbert [id number] Roya Rudyard 11/23/2021 1 [place] [facility] Roya A Delbert [id number] Roya Mandujano 12/05/2021 1 [place] [employer] Roya Mandujano [id number] Roya Mandujano Notes Date Note Type Note Provider Name and Address Organization Details Recorded Time 09/19/2021 text/html 66-year-old mignon patrick who comes in today complaining of pain and discomfort in her right shoulder she was referred by another patient to have hyaluronic acid injections into her right shoulder. She states the pain has been ongoing for last 2 years. Pain is progressively getting worse. She describes pain as constant, aching, sharp and stabbing. She describes weakness, stiffness, loss of motion, locking, catching, popping and grinding. She states any movement especially reaching behind herself, getting dressed and lifting something exacerbates her pain. She has had several corticosteroid injections which gave her minimal relief for a couple of weeks. She has also tried rest, ice, physical therapy, nonsteroidal anti-inflammatories and Tylenol. Her last corticosteroid injection was July 22, 2021. She still do does do a home exercise program. She rates her pain as an 05/17. TONYA FUCHS [address], [place], [address], [facility], [facility] 09/19/2021 11:29:12 OBGyn Episode No OBEpisode recorded.
--- OUTSIDE RECORDS SUMMARY | 2025-01-22 17:16 | XMS_ITS | Patient Health Record ---
Author Organization [facility] [employer] [facility] Address [address] [place] [address] Care Team Providers Care Gravel Roofer Name Role Phone Tasneem Hdez DO Primary Care Provider Kala Flores Unavailable [phone] Abebe Campos Unavailable [phone] Allergies Allergen (clinical drug ingredient) Drug/Non Drug Allergy documented on EMR Reaction Allergy Type Onset Date Status dog/cat dander (uncoded) congestion Allergy Active lisinopril (uncoded) cough Allergy Active mold (uncoded) congestion Allergy Acti ve smut (uncoded) congestion Allergy Acti ve some grass/tree pollen (uncoded) congestion Allergy Active Product containing tetracycline structure (product) tetracyclines (uncoded) yeast infection Allergy Active Reason For Referral No Information Medications Medication SIG (Take, Route, Frequency, Duration) Notes Start Date End Date Status buPROPion HCl ER (XL) 300 MG 1 tablet in the morning Orally Once a day for 30 days Active Gemtesa 75 MG 1 tablet Orally Once a day Active Diclofenac 75 mg x2 a day Acti ve Azelastine-Fluticasone 137-50 MCG/ACT 1 spray in each nostril Nasally Twice a day Active ARIPiprazole 30 MG 1 tablet Orally Once a day for 90 days Active Atorvastatin Calcium 20 MG 1 tablet Orally Once a day Active Topiramate 50 MG 1 tablet Orally three times a day for 90 days Active valACYclovir HCl 500 MG 1 tablet Orally Once a day Active Zolpidem Tartrate ER 6.25 MG 1 tablet at bedtime as needed Orally Once a day for 30 days 01/01/2025 Active Telmisartan 80 MG 1 tablet Orally Once a day Active Fluticasone Propionate 50 MCG/ACT 1 spray in each nostril Nasally Twice a day Active Pantoprazole Sodium 40 MG 1 tablet 1/2 to 1 hour before morning meal Orally Once a day Active Levothyroxine Sodium 50 MCG 1 tablet in the morning on an empty stomach Orally Once a day Active Vitamin C 500 MG as directed Orally Active ZyrTEC Allergy Activ e DULoxetine HCl 60 MG 1 capsule Orally Once a day for 90 days Active Social History Tobacco Use: Social History Observation Description Date Details (start date - stop date) Never Smoker NA - NA Sex Assigned At : Social History Observation Description Sex Assigned At Female Tobacco Control (Standard) Question Answer Notes Tobacco use: Nonsmoker AUDIT-C (Standard) Question Answer Notes Did you have a drink containing alcohol in the p ast year? No Problems Problem Type SNOMED Code ICD Code Onset Dates Problem Status W/U Status Risk Notes Problem Bipolar 2 disorder (01773821) Bipolar 2 disorder (F31.81) Active confirmed Problem 281114027 Chronic insomnia (F51.04) Active confirmed Vital Signs Heart Rate 102 /min 01/01/2025 Blood pressure diastolic 69 mm Hg 01/01/2025 Weight-kg 104.78 kg 01/01/2025 Blood pressure systolic 102 mm Hg 01/01/2025 Weight 231 lbs 01/01/2025 Encounters Encounter Location Date Provider Diagnosis [facility] [place] [address] [address] 10/02/2024 Thena Andres Bipolar 2 disorder F31.81 [facility] [place] [address] [address] 01/01/2025 Kala Donna Chronic insomnia F51 .04 ; Encounter for screening for depression Z13.31 ; Bipolar 2 disorder F31.81 and Encounter for screening for cardiovascular disorders Z13.6 [facility] [address] [address] 10/06/2024 Thena Andres Bipolar 2 disorder F31.81 [facility] [place] [address] [address] 12/18/2024 Kala Donna Bipolar 2 disorder F31.81 Assessments Encounter Date Diagnosis (ICD Code) Assessment Notes Treatment Notes Treatment Clinical Notes Section Notes 10/02/2024 Bipolar 2 disorder (ICD-10 - F31.81) 10/06/2024 Bipolar 2 disorder (ICD-10 - F31.81) 12/18/2024 Bipolar 2 disorder (ICD-10 - F31.81) 01/01/2025 Chronic insomnia (ICD-10 - F51.04) MOST RECENT 09/202401/01/2025 Encounter for screening for depression (ICD-10 - Z13.31) MOST RECENT 09/202401/01/2025 Bipolar 2 disorder (ICD-10 - F31.81) SSRI/SNRI side effects discussed including but not limited to, gastric upset, nausea, vomiting, diarrhea and/or constipation, weight changes, sexual side effects including loss of libido, increased suicidal thoughts/behavior s in children and young adults, and serotonin syndrome. Second generation antipsychotics (SGAs) have metabolic syndrome issues with weight gain, increase in prolactin, increased waist circumference, increased lipids, and increased glucose. Thus routine monitoring of weight, metabolic labs, etc. is indicated. A general rank ordering of antipsychotics that have the greatest to the least risk of metabolic effects is olanzapine, quetiapine, risperidone, ziprasidone, and aripiprazole. However, weight gain can occur with all of these drugs and considerable variability exists among patients receiving the same drug regarding the risk of metabolic effects. Anti-psychotic agents not only increase the risk of metabolic disorder, they also increase the risk of CVA, akathisia, and movement disorders including EPS or tardive dyskinesia (more common with first generation antipsychotics) and more. MOST RECENT 09/202401/01/2025 Encounter for screening for cardiovascular disorders (ICD-10 - Z13.6) MOST RECENT 09/202401/01/2025 Other Stable, cont current medications. Refills sent in today. Patient educated on all medications including potential benefits, side effects, risks. Educated on proper dosing schedule and importance of compliance. [place]MP report checked and consistent with prescription history, no controlled substance prescriptions from other providers. SLUMS completed today Previous records reviewed for continuity of care. -Assessment and treatment plan reviewed with patient. -Compliance with treatment plan importance discussed. -Discussed the risks/benefits of this medication -Discussed medication side effects. -Contact office if symptoms worsen. -Discussed that it can take up to 6-8 weeks to see full therapeutic effects of psychotropic medications. -Crisis prevention hotline [phone]. MOST RECENT 09/2024 Plan Of Treatment Next Appt Details Provider Name:Kala Thompson, 04/03/2025 11:00:00 AM, [address] [facility] [address] [facility], [place], [address], Insurance Providers Payer Name Payer Address Payer Phone Subscriber Number Group Number Insured Name Patient Relationship to Insured Coverage Start Date Coverage End Date Medicare-I l Medicare [address] [place] [address] [id number] CLAUDINE CHANEY Self - patient is the insured Medicaid-I l Medicaid [address] [address] [place] [address] [id number] CLAUDINE CHANEY Self - patient is the insured Medical (General) History Medical History History ICD Code abdominal aortic aneurysm: No atrial fibrillation: No chronic fatigue syndrome: No essential tremor: No hyperlipidemia: Yes hypertension: Yes Parkinson's disease: No restless leg syndrome: No stroke: No subdural hematoma: No type 1 diabetes mellitus: No type 2 diabetes mellitus: No vitamin B12 deficiency: No vitamin D deficiency: No Surgical History Surgery Date(Month/Year) tonsilectomy 08/18/1958 appendectomy 08/18/1968 tubal ligation 08/18/1979 hysterectomy 08/18/2000 right hip replacement 02/15/2009 left shoulder correction left knee total replacement 01/14/2023 left shoulder total reverse replacement 01/15/2024 Hospitalization History Reason Date(Month/Year) lithium toxicity fall injuring left leg 06/18/2023
--- NOTE | 2025-01-22 17:21 | ECG_ITS ---
Test Date: 2025-01-22 17:52:33 Measurements Intervals [place] Rate: 89 P: 31 [place]: 151 QRS: 18 QRSD: 92 T: 40 QT: 346 QTc: 422 Interpretive Statements SINUS RHYTHM CONSIDER INFERIOR INFARCT, AGE INDETERMINATE ABNORMAL ECG No previous ECG available for comparison Electronically Signed On 01-23-2025 09:08:20 CDT by Adi Farooq D.O.
--- NOTE | 2025-01-22 17:26 | ED_ITS ---
HPI - URI/Sore Throat General Chief Complaint: Upper Respiratory Infection <Hilaria Oleary PA-C - Last Filed: 01/22/25 17:29> Stated Complaint: cough, muscle soreness to left side rib area <Hilaria Oleary PA-C - Last Filed: 01/22/25 17:29> Time Seen by Provider: 01/22/25 18:56 <Hilaria Oleary PA-C - Last Filed: 01/22/25 17:29> Focused HPI: 69-year-old female with history of JOHN, hyperlipidemia, hypertension, hypothyroidism presents to the ED for left-sided chest pain with coughing for about a week. Patient states she has had a productive cough for the past week to week and a half. She does state the cough is improving however has had pain develop in the left side of her chest that has worsened over the past 4 days. She notes the pain started beneath her left breast and has migrated laterally. She went to urgent care today and was advised to come to the ED after they noticed a bruise and swelling to the left aspect of her chest. She denies fever, lower extremity edema. She reports a mild amount of shortness of breath when she gets ?situated in bed?, however the and shortness of breath immediately resolves. She denies injury or trauma to her chest wall other than repetitive coughing. GENERAL: Well-appearing, well-nourished, and in no acute distress. HEAD: Normocephalic, atraumatic. CHEST: Clear to auscultation. ?No respiratory distress. Ecchymosis to the left lateral chest wall with mild ttp HEART: Regular rate and rhythm.? NEURO: ?Alert and oriented x3. Patient screened in triage and initial orders placed.? ?Additional care and disposition to be based upon?diagnostic testing and treatment. <Hilaria Oleary PA-C - Last Filed: 01/22/25 17:29> Focused HPI: 69-year-old female with history of JOHN, hyperlipidemia, hypertension, hypothyroidism presents to the ED for left-sided chest pain with coughing for about a week. Patient states she has had a productive cough for the past week to week and a half. She does state the cough is improving however has had pain develop in the left side of her chest that has worsened over the past 4 days. She notes the pain started beneath her left breast and has migrated laterally. She went to urgent care today and was advised to come to the ED after they noticed a bruise and swelling to the left aspect of her chest. She denies fever, lower extremity edema. She reports a mild amount of shortness of breath when she gets ?situated in bed?, however the and shortness of breath immediately resolves. She denies injury or trauma to her chest wall other than repetitive coughing. GENERAL: Well-appearing, well-nourished, and in no acute distress. HEAD: Normocephalic, atraumatic. CHEST: Clear to auscultation. ?No respiratory distress. Ecchymosis to the left lateral chest wall with mild ttp HEART: Regular rate and rhythm.? NEURO: ?Alert and oriented x3. Patient screened in triage and initial orders placed.? ?Additional care and disposition to be based upon?diagnostic testing and treatment. <DOUGLAS Ruff Last Filed: 01/24/25 19:21> Source: patient <DOUGLAS Ruff Last Filed: 01/24/25 19:21> Mode of arrival: ambulatory <DOUGLAS Ruff Last Filed: 01/24/25 19:21> Limitations: no limitations <DOUGLAS Ruff Last Filed: 01/24/25 19:21> History of Present Illness HPI Narrative: Agree with above HPI. Patient denies significant shortness of breath upon my evaluation. She is not on any anticoagulation. Denies history of blood clots. Has been on antibiotics over the past couple weeks and states URI symptoms are improving. <DOUGLAS Ruff Last Filed: 01/24/25 19:21> Related Data Home Medications: Home Medications ?Medication ?Instructions ?Recorded ?Confirmed ?Last Taken ?Type aripiprazole 30 mg tablet 30 mg PO HS 10/19/22 01/14/25 01/14/24 History atorvastatin 20 mg tablet 20 mg PO HS 10/19/22 01/14/25 01/14/24 History azelastine 137 mcg (0.1 %) nasal 2 spray intranasal BID 0101/14/25 01/14/24 History spray bupropion HCl 150 mg tablet,12 hr 150 mg PO BID 10/19/22 01/14/25 01/15/24 History sustained-release diclofenac sodium 75 mg 75 mg PO BID 10/19/22 01/14/25 01/08/24 History tablet,delayed release duloxetine 60 mg capsule,delayed 60 mg PO HS 10/19/22 01/14/25 01/15/24 History release fluticasone propionate 50 2 spray intranasal QAM 10/19/22 01/14/25 01/14/24 History mcg/actuation nasal spray,suspension furosemide 20 mg tablet 20 mg PO DAILY PRN Edema 10/19/22 01/14/25 01/13/24 History pantoprazole 40 mg tablet,delayed 40 mg PO QAM 10/19/22 01/14/25 01/14/24 History release telmisartan 80 mg tablet 80 mg PO HS 10/19/22 01/14/25 01/14/24 History topiramate 50 mg tablet See Rx Instructions .Route .COMPLEX 10/19/22 01/14/25 01/15/24 History valacyclovir 500 mg tablet 500 mg PO QAM 10/19/22 01/14/25 01/15/24 History zolpidem 6.25 mg tablet,extended 6.25 mg PO HS PRN Insomnia 10/19/22 01/14/25 01/23/23 History release,multiphase vibegron 75 mg tablet (Gemtesa) 75 mg PO HS 10/05/23 01/14/25 Unknown History cetirizine 10 mg tablet (Zyrtec) 10 mg PO HS 12/21/23 01/14/25 01/14/24 History levothyroxine 50 mcg capsule 50 mcg PO DAILY 04/24/24 01/14/25 Unknown History <Hilaria Oleary PA-C - Last Filed: 01/22/25 17:29> Allergies/Adverse Reactions: Allergies Allergy/AdvReac Type Severity Reaction Status Date / Time tetracycline AdvReac Severe YEAST Verified 01/14/25 13:38 INFECTION <Hilaria Oleary PA-C - Last Filed: 01/22/25 17:29> Review of Systems 2 Review of Systems: All systems reviewed & are unremarkable except as noted in HPI. <Melani Woods PA-C - Last Filed: 01/24/25 19:21> All systems reviewed & are unremarkable except as noted in HPI and below < Melani Woods PA-C - Last Filed: 01/24/25 19:21> [facility] Past Medical History Medical History: Medical History Dry mouth Ulcerative colitis in remission Dx at 13 or 14 then again in 20s; remission since Arthritis of shoulder region, right Arthritis of shoulder region, left History of bruising easily Gastroesophageal reflux disease Arthritis Mild obstructive sleep apnea Patient does not use CPAP. Urge incontinence Status post sacral neurostimulator implantation. Bipolar disorder Hypothyroidism Hypertension Hyperlipidemia <Hilaria Oleary PA-C - Last Filed: 01/22/25 17:29> Surgical History Surgical History: Surgical History Status post reverse total arthroplasty of left shoulder (~01/15/24) History of tooth extraction History of tubal ligation (~1979) History of tonsillectomy (~1957) History of arthroplasty of right hip (02/22/09) Sacral neurostimulator in situ (10/2022) History of arthroplasty of left knee (01/24/23) History of hysterectomy (~1999) History of appendectomy (~1967) <Hilaria Oleary PA-C - Last Filed: 01/22/25 17:29> Family History Family History: Family History Father Hypertension Diabetes mellitus Mother Diabetes mellitus Hypertension Sibling No problems noted. <Hilaria Oleary PA-C - Last Filed: 01/22/25 17:29> Social History Social History: Social History Social History: Surrogate medical decision maker: Gaby Mcgeecy, sibling. Code status: Full code. Smoking packs per day: 0.25 Smoking cigarettes per day: 5.0 Years smoked: 1.5 Smoking pack-years: 0.38 Smoking status: Former smoker Tobacco type: cigarettes Second hand tobacco smoke exposure: Yes Smoking end date: 04/07/00 Additional smoking assessment comments: Quit smoking in 1999. Alcohol intake: never Substance use: never Substance use type: does not use Do You Feel Safe in your Home?: Yes Lack of Transportation: YES Lack of Food: Never True Current Housing: I Have Housing Concerned About Future Housing: No Difficulty Paying Gas/Electric Bills: No Difficulty Paying for Meds: No Currently Unemployed: No Education: High School Diploma/GED Difficulty w/ Childcare or Family Care: No Living arrangements: with family Additional living arrangements comments: WITH MOTHER Occupation/Education: retired Gender identity (if verbalized by the patient): Female Spiritual care concerns: No <Hilaria Oleary PA-C - Last Filed: 01/22/25 17:29> Exam 2 Narrative: GENERAL: Well appearing, obese with BMI of 37.4, non-toxic, in no acute distress. HEAD: Normocephalic, atraumatic. RESPIRATORY: Airway patent, respirations nonlabored. Clear to auscultation bilaterally, no rales, rhonchi, wheezing. Lung sounds clear and equal bilaterally. CARDIOVASCULAR: Regular rate and rhythm without murmurs, rubs, or gallops. ABDOMINAL: Soft, no significant tenderness throughout abdomen, nondistended. Normoactive BS. MUSCULOSKELETAL: Moves all extremities. No gross deformities. Lateral area of bruising along inferior left lateral ribcage, mild focal tenderness to palpation. No palpable bony deformities. No peripheral edema. SKIN: Warm, dry, normal color. NEURO: A&O X3. Speech clear. No ataxic movements. PSYCHIATRIC: Appropriate mood and affect. Normal interaction. <Melani Woods PA-C - Last Filed: 01/24/25 19:21> Course Vital Signs Vital signs: Vital Signs Temperature 97.7 F 01/22/25 17:28 Pulse Rate 99 01/22/25 17:28 Respiratory Rate 17 01/22/25 17:28 Blood Pressure 116/60 01/22/25 17:28 Pulse Oximetry 100 01/22/25 17:28 Oxygen Delivery Room Air 01/22/25 17:28 Temperature 97.7 F 01/22/25 17:28 Pulse Rate 75 01/23/25 00:34 Respiratory Rate 14 01/23/25 00:34 Blood Pressure 136/62 01/23/25 00:34 Pulse Oximetry 100 01/23/25 00:34 Oxygen Delivery Room Air 01/22/25 21:00 <Hilaria Oleary PA-C - Last Filed: 01/22/25 17:29> Vital Signs Temperature 97.7 F 01/22/25 17:28 Pulse Rate 99 01/22/25 17:28 Respiratory Rate 17 01/22/25 17:28 Blood Pressure 116/60 01/22/25 17:28 Pulse Oximetry 100 01/22/25 17:28 Oxygen Delivery Room Air 01/22/25 17:28 Temperature 97.7 F 01/22/25 17:28 Pulse Rate 75 01/23/25 00:34 Respiratory Rate 14 01/23/25 00:34 Blood Pressure 136/62 01/23/25 00:34 Pulse Oximetry 100 01/23/25 00:34 Oxygen Delivery Room Air 01/22/25 21:00 <Melani Woods PA-C - Last Filed: 01/24/25 19:21> MDM - URI/Sore Throat MDM Narrative Medical decision making narrative: Patient presented to ED with recent URI, cough, pleuritic pain past couple of weeks, now with area of bruising along left lateral ribcage. Vital signs are stable upon arrival. Oxygen stable on room air. Patient denies significant shortness of breath. Patient is not on any anticoagulation. Otherwise denies any trauma to left ribs. Cbc without leukocytosis. Stable H&H. CMP unremarkable. Stable kidney function. EKG with normal sinus rhythm, no acute ST changes. Troponin undetectable. BNP within normal range. Viral swabs are negative. Initial chest x-ray was clear. CTA of chest was obtained to rule out PE/rib fracture. This was fairly unremarkable. No PE, rib fracture. Did show ground-glass opacities, atelectasis versus pneumonia versus pulmonary edema. BNP was within normal range here. Patient has been afebrile, no leukocytosis, has felt much improved since being on antibiotic therapy, low suspicion for ongoing pneumonia. Review of images myself shows that the imaging cuts off just before the area of bruising on patient's left lateral abdomen. I discussed this with patient and reviewed images with her. Discussed obtaining CT of the abdomen to further evaluate bruising. Patient would like to proceed with this. CT of the abdomen was also obtained and unremarkable. No intra-abdominal injury, rib fractures, does show subcutaneous fat stranding in area of concern. Discussed my suspicion for hematoma, abdominal wall contusion, costochondritis, pleurisy. Discussed management of such. Will prescribe lidocaine patches and short course of muscle relaxers. Patient was instructed on incentive spirometry use. Advised to have close follow-up with PCP for further evaluation. Given return precautions. Patient in agreement with plan. Discharged in stable condition. CT imaging did show cholelithiasis and renal cysts, both of which patient was already aware of. <Melani Woods PA-C - Last Filed: 01/24/25 19:21> Medical Records Attestation: I reviewed the patient's medical records. <DOUGLAS Ruff Last Filed: 01/24/25 19:21> Lab Data Attestation: I reviewed the patient's lab results. <DOUGLAS Ruff Last Filed: 01/24/25 19:21> Result diagrams: 01/22/25 17:58 01/22/25 17:58 <Hilaria Oleary PA-C - Last Filed: 01/22/25 17:29> Labs: Lab Results 01/22/25 01/22/25 01/22/25 Range/Units 17:57 17:58 20:30 WBC 7.1 (4.5-10.0) K/mm3 RBC 3.98 L (4.2-5.4) M/mm3 Hgb 12.4 (12.0-15.0) g/dL Hct 39.7 (37.0-47.0) % MCV 99.7 (80-100) fl MCH 31.2 (26-34) pg MCHC 31.2 L (32-36) g/dl RDW 13.2 (11.5-14.5) % Plt Count 232 (150-375) k/mm3 MPV 9.3 (7.4-10.4) fl Immature Gran % (Auto) 0.1 (0-0.5) % Neut % (Auto) 69.9 (45.5-73.1) % Lymph % (Auto) 18.6 (18.3-44.2) % [place] % (Auto) 6.9 (2.6-8.5) % Eos % (Auto) 3.9 (0-4.4) % Baso % (Auto) 0.6 (0.2-1.2) % Lymph # (Auto) 1.32 (0.9-3.2) K/mm3 [place] # (Auto) 0.5 (0.1-0.6) K/mm3 Eos # (Auto) 0.3 (0-0.3) K/mm3 Baso # (Auto) 0.0 (0.0-0.1) K/mm3 Abs Immat Gran (auto) 0.01 (0.00-0.031) K/mm3 Absolute Neuts (auto) 5.0 (1.3-6.7) K/mm3 Absolute Nucleated RBC 0.000 (0.0-0.012) K/mm3 Nucleated RBC % 0.0 (0.0-0.2) % PT 13.4 (11.1-14.7) Seconds INR 1.0 APTT 26.9 (22.3-36.8) Seconds Sodium 140 (137-145) mmol/L Potassium 4.0 (3.4-5.0) mmol/L Chloride 103 (98-107) mmol/L Carbon Dioxide 28 (22-30) mmol/L Anion Gap 9 (4-12) mmol/L BUN 22 H (7-17) mg/dL Creatinine 1.12 H (0.7-1.0) mg/dL Estim Creat Clear Calc 50 ml/min Estimated GFR 48 L (59 - ) Glucose 89 (65-110) mg/dL Calcium 9.0 (8.4-10.2) mg/dL Total Bilirubin 0.4 (0.2-1.3) mg/dL AST 35 (14-36) U/L ALT 30 (6-35) U/L Alkaline Phosphatase 67 (38-126) U/L Troponin I < 0.012 < 0.012 (0.000-0.034) ng/mL NT-Pro-B Natriuret Pep 41 (19.9-100) pg/mL Total Protein 7.0 (6.3-8.2) g/dL Albumin 4.3 (3.5-5.1) g/dL Lipase 60 (23-300) U/L Influenza A (RT-PCR) Negative (Negative) Influenza B (RT-PCR) Negative (Negative) RSV (RT-PCR) Negative (Negative) SARS-CoV-2 RNA (RT-PCR) Negative (Negative) 01/22/25 Range/Units 23:52 WBC (4.5-10.0) K/mm3 RBC (4.2-5.4) M/mm3 Hgb (12.0-15.0) g/dL Hct (37.0-47.0) % MCV (80-100) fl MCH (26-34) pg MCHC (32-36) g/dl RDW (11.5-14.5) % Plt Count (150-375) k/mm3 MPV (7.4-10.4) fl Immature Gran % (Auto) (0-0.5) % Neut % (Auto) (45.5-73.1) % Lymph % (Auto) (18.3-44.2) % [place] % (Auto) (2.6-8.5) % Eos % (Auto) (0-4.4) % Baso % (Auto) (0.2-1.2) % Lymph # (Auto) (0.9-3.2) K/mm3 [place] # (Auto) (0.1-0.6) K/mm3 Eos # (Auto) (0-0.3) K/mm3 Baso # (Auto) (0.0-0.1) K/mm3 Abs Immat Gran (auto) (0.00-0.031) K/mm3 Absolute Neuts (auto) (1.3-6.7) K/mm3 Absolute Nucleated RBC (0.0-0.012) K/mm3 Nucleated RBC % (0.0-0.2) % PT (11.1-14.7) Seconds INR APTT (22.3-36.8) Seconds Sodium (137-145) mmol/L Potassium (3.4-5.0) mmol/L Chloride (98-107) mmol/L Carbon Dioxide (22-30) mmol/L Anion Gap (4-12) mmol/L BUN (7-17) mg/dL Creatinine (0.7-1.0) mg/dL Estim Creat Clear Calc ml/min Estimated GFR (59 - ) Glucose (65-110) mg/dL Calcium (8.4-10.2) mg/dL Total Bilirubin (0.2-1.3) mg/dL AST (14-36) U/L ALT (6-35) U/L Alkaline Phosphatase (38-126) U/L Troponin I < 0.012 (0.000-0.034) ng/mL NT-Pro-B Natriuret Pep (19.9-100) pg/mL Total Protein (6.3-8.2) g/dL Albumin (3.5-5.1) g/dL Lipase (23-300) U/L Influenza A (RT-PCR) (Negative) Influenza B (RT-PCR) (Negative) RSV (RT-PCR) (Negative) SARS-CoV-2 RNA (RT-PCR) (Negative) <Hilaria Oleary PA-C - Last Filed: 01/22/25 17:29> Lab Results 01/22/25 01/22/25 01/22/25 Range/Units 17:57 17:58 20:30 WBC 7.1 (4.5-10.0) K/mm3 RBC 3.98 L (4.2-5.4) M/mm3 Hgb 12.4 (12.0-15.0) g/dL Hct 39.7 (37.0-47.0) % MCV 99.7 (80-100) fl MCH 31.2 (26-34) pg MCHC 31.2 L (32-36) g/dl RDW 13.2 (11.5-14.5) % Plt Count 232 (150-375) k/mm3 MPV 9.3 (7.4-10.4) fl Immature Gran % (Auto) 0.1 (0-0.5) % Neut % (Auto) 69.9 (45.5-73.1) % Lymph % (Auto) 18.6 (18.3-44.2) % [place] % (Auto) 6.9 (2.6-8.5) % Eos % (Auto) 3.9 (0-4.4) % Baso % (Auto) 0.6 (0.2-1.2) % Lymph # (Auto) 1.32 (0.9-3.2) K/mm3 [place] # (Auto) 0.5 (0.1-0.6) K/mm3 Eos # (Auto) 0.3 (0-0.3) K/mm3 Baso # (Auto) 0.0 (0.0-0.1) K/mm3 Abs Immat Gran (auto) 0.01 (0.00-0.031) K/mm3 Absolute Neuts (auto) 5.0 (1.3-6.7) K/mm3 Absolute Nucleated RBC 0.000 (0.0-0.012) K/mm3 Nucleated RBC % 0.0 (0.0-0.2) % PT 13.4 (11.1-14.7) Seconds INR 1.0 APTT 26.9 (22.3-36.8) Seconds Sodium 140 (137-145) mmol/L Potassium 4.0 (3.4-5.0) mmol/L Chloride 103 (98-107) mmol/L Carbon Dioxide 28 (22-30) mmol/L Anion Gap 9 (4-12) mmol/L BUN 22 H (7-17) mg/dL Creatinine 1.12 H (0.7-1.0) mg/dL Estim Creat Clear Calc 50 ml/min Estimated GFR 48 L (59 - ) Glucose 89 (65-110) mg/dL Calcium 9.0 (8.4-10.2) mg/dL Total Bilirubin 0.4 (0.2-1.3) mg/dL AST 35 (14-36) U/L ALT 30 (6-35) U/L Alkaline Phosphatase 67 (38-126) U/L Troponin I < 0.012 < 0.012 (0.000-0.034) ng/mL NT-Pro-B Natriuret Pep 41 (19.9-100) pg/mL Total Protein 7.0 (6.3-8.2) g/dL Albumin 4.3 (3.5-5.1) g/dL Lipase 60 (23-300) U/L Influenza A (RT-PCR) Negative (Negative) Influenza B (RT-PCR) Negative (Negative) RSV (RT-PCR) Negative (Negative) SARS-CoV-2 RNA (RT-PCR) Negative (Negative) 01/22/25 Range/Units 23:52 WBC (4.5-10.0) K/mm3 RBC (4.2-5.4) M/mm3 Hgb (12.0-15.0) g/dL Hct (37.0-47.0) % MCV (80-100) fl MCH (26-34) pg MCHC (32-36) g/dl RDW (11.5-14.5) % Plt Count (150-375) k/mm3 MPV (7.4-10.4) fl Immature Gran % (Auto) (0-0.5) % Neut % (Auto) (45.5-73.1) % Lymph % (Auto) (18.3-44.2) % [place] % (Auto) (2.6-8.5) % Eos % (Auto) (0-4.4) % Baso % (Auto) (0.2-1.2) % Lymph # (Auto) (0.9-3.2) K/mm3 [place] # (Auto) (0.1-0.6) K/mm3 Eos # (Auto) (0-0.3) K/mm3 Baso # (Auto) (0.0-0.1) K/mm3 Abs Immat Gran (auto) (0.00-0.031) K/mm3 Absolute Neuts (auto) (1.3-6.7) K/mm3 Absolute Nucleated RBC (0.0-0.012) K/mm3 Nucleated RBC % (0.0-0.2) % PT (11.1-14.7) Seconds INR APTT (22.3-36.8) Seconds Sodium (137-145) mmol/L Potassium (3.4-5.0) mmol/L Chloride (98-107) mmol/L Carbon Dioxide (22-30) mmol/L Anion Gap (4-12) mmol/L BUN (7-17) mg/dL Creatinine (0.7-1.0) mg/dL Estim Creat Clear Calc ml/min Estimated GFR (59 - ) Glucose (65-110) mg/dL Calcium (8.4-10.2) mg/dL Total Bilirubin (0.2-1.3) mg/dL AST (14-36) U/L ALT (6-35) U/L Alkaline Phosphatase (38-126) U/L Troponin I < 0.012 (0.000-0.034) ng/mL NT-Pro-B Natriuret Pep (19.9-100) pg/mL Total Protein (6.3-8.2) g/dL Albumin (3.5-5.1) g/dL Lipase (23-300) U/L Influenza A (RT-PCR) (Negative) Influenza B (RT-PCR) (Negative) RSV (RT-PCR) (Negative) SARS-CoV-2 RNA (RT-PCR) (Negative) <Melani Woods PA-C - Last Filed: 01/24/25 19:21> Imaging Data Attestation: I personally reviewed and interpreted this imaging study as follows: < DOUGLAS Ruff Last Filed: 01/24/25 19:21> Radiologist's impression: ITS Impressions Chest X-Ray 01/22/25 17:52 IMPRESSION: No acute cardiopulmonary pathology. Chest CTA 01/22/25 21:23 IMPRESSION: 1. No pulmonary embolism. 2. Bilateral upper and lower lobe groundglass appearance. Differential include atelectasis versus pneumonia versus pulmonary edema. Clinical correlation advised. 3. Left thyroid nodule. Ultrasound evaluation advised. 4. Cholelithiasis. Possible porcelain gallbladder although less likely. 5. Multiple left kidney cysts. 6. Atrophic pancreas. Abdomen/Pelvis CT 01/22/25 23:47 IMPRESSION: 1. No evidence of appendicitis, diverticulitis or intestinal obstruction. No solid organ injury seen. 2. Cholelithiasis. 3. Bilateral renal cysts. 4. Atrophic pancreas. 5. Constipation <DOUGLAS Ruff Last Filed: 01/24/25 19:21> ECG Data EKG #1: Attestation: I personally reviewed and interpreted this ECG as follows: <DOUGLAS Ruff Last Filed: 01/24/25 19:21> ECG completion date: 01/22/25 <DOUGLAS Ruff Last Filed: 01/24/25 19:21> ECG completion time: 17:52 <Melani Woods PA-C - Last Filed: 01/24/25 19:21> EKG Interpretation: normal rate (89), sinus rhythm and no ST changes <DOUGLAS Ruff Last Filed: 01/24/25 19:21> Discharge Plan Discharge Clinical Impression: Costochondritis Upper respiratory infection Qualifiers: URI type: unspecified URI Qualified Code(s): J06.9 - Acute upper respiratory infection, unspecified Contusion of abdominal wall Qualifiers: Encounter type: initial encounter Qualified Code(s): S30.1XXA - Contusion of abdominal wall, initial encounter <DOUGLAS Turk Last Filed: 01/22/25 17:29> Patient Disposition: Home <DOUGLAS Turk Last Filed: 01/22/25 17:29> Condition: Stable <DOUGLAS Turk Last Filed: 01/22/25 17:29> Instructions: Antibiotic Form, Pleurisy (ED), Costochondritis (ED), Rib Contusion (ED) <DOUGLAS Turk Last Filed: 01/22/25 17:29> Additional Instructions: Your imaging here was reassuring. The bruising should resolve on its own. Continue Tylenol, pain medication as needed. Utilize lidocaine patches to area of pain as needed. Use incentive spirometer frequently throughout the day as directed to encourage deep breathing. Follow-up your primary care doctor for further evaluation. Return to the ED if you experience worsening or severe pain, difficulty breathing, unable to keep down food or drink, recurrent injury, or any other symptoms of concern. <DOUGLAS Turk Last Filed: 01/22/25 17:29> Patient Language: Niuean <DOUGLAS Turk Last Filed: 01/22/25 17:29> Prescriptions: New lidocaine 5 % adhesive patch,medicated 1 patch topical DAILY Qty: 15 0RF Rx Instructions: leave on most painful area for up to 12 hrs benzonatate 200 mg capsule 200 mg PO TID PRN (Reason: cough) Qty: 20 0RF cyclobenzaprine 5 mg tablet 5 mg PO TID PRN (Reason: muscle spasm) Qty: 15 0RF No Action levothyroxine 50 mcg capsule 50 mcg PO DAILY Gemtesa 75 mg tablet 75 mg PO HS atorvastatin 20 mg tablet 20 mg PO HS valacyclovir 500 mg tablet 500 mg PO QAM pantoprazole 40 mg tablet,delayed release (DR/EC) 40 mg PO QAM diclofenac sodium 75 mg tablet,delayed release (DR/EC) 75 mg PO BID furosemide 20 mg tablet 20 mg PO DAILY PRN (Reason: Edema) Rx Instructions: TAKES PRN FOR SWELLING azelastine 137 mcg (0.1 %) aerosol,spray 2 spray INTRANASAL BID fluticasone propionate 50 mcg/actuation spray,suspension 2 spray INTRANASAL QAM aripiprazole 30 mg tablet 30 mg PO HS zolpidem 6.25 mg tablet,ext release multiphase 6.25 mg PO HS PRN (Reason: Insomnia) bupropion HCl 150 mg tablet sustained-release 12 hr 150 mg PO BID telmisartan 80 mg tablet 80 mg PO HS topiramate 50 mg tablet See Rx Instructions .ROUTE .COMPLEX Rx Instructions: 1 TAB IN AM AND 2 TABS PM duloxetine 60 mg capsule,delayed release(DR/EC) 60 mg PO HS levothyroxine [Synthroid] 75 mcg Tablet 75 mcg PO [id number] Qty: 15 0RF cetirizine [Zyrtec] 10 mg Tablet 10 mg PO HS cephalexin 500 mg capsule 500 mg PO Q8H Qty: 30 0RF <Hilaria Oleary PA-C - Last Filed: 01/22/25 17:29> Follow-up/Referrals: PHYSICIAN NOT ON STAFF,NONSTAFF [Primary Care Provider] - <Hilaria Oleary PA-C - Last Filed: 01/22/25 17:29> Time of Disposition: 00:15 <Hilaria Oleary PA-C - Last Filed: 01/22/25 17:29> 00:15 <eMlani Woods PA-C - Last Filed: 01/24/25 19:21>
[2025-01-22 18:05] LABS: Basophils Percent Auto 0.6 % (0.2-1.2); Eosinophils Absolute Auto 0.3 K/mm3 (0-0.3); Eosinophils Percent Auto 3.9 % (0-4.4); Hematocrit 39.7 % (37.0-47.0); Hemoglobin 12.4 g/dL (12.0-15.0); Immature Granulocyte Absolute 0.01 K/mm3 (0.00-0.031); Immature Granulocyte Percent A 0.1 % (0-0.5); Lymphocytes Absolute Auto 1.32 K/mm3 (0.9-3.2); Lymphocytes Percent Auto 18.6 % (18.3-44.2); Mean Corpuscular HGB Conc 31.2 g/dl (32-36); Mean Corpuscular Hemoglobin 31.2 pg (26-34); Mean Corpuscular Volume 99.7 fl (80-100); Mean Platelet Volume 9.3 fl (7.4-10.4); Monocytes Absolute Auto 0.5 K/mm3 (0.1-0.6); Monocytes Percent Auto 6.9 % (2.6-8.5); Neutrophils Percent Auto 69.9 % (45.5-73.1); Platelet Count Result 232 k/mm3 (150-375); Red Blood Count 3.98 M/mm3 (4.2-5.4); Red Cell Distribution Width 13.2 % (11.5-14.5); White Blood Count 7.1 K/mm3 (4.5-10.0)
[2025-01-22 18:14] LABS: Alanine Aminotransferase 30 U/L (6-35); Albumin Level 4.3 g/dL (3.5-5.1); Alkaline Phosphatase 67 U/L (38-126); Anion Gap 9 mmol/L (4-12); Aspartate Amino Transferase 35 U/L (14-36); Bilirubin,Total 0.4 mg/dL (0.2-1.3); Blood Urea Nitrogen 22 mg/dL (7-17); Carbon Dioxide 28 mmol/L (22-30); Chloride 103 mmol/L (98-107); Estimated CRCL calculation 50 ml/min; Estimated Glomerular Filt Rate 48; Glucose 89 mg/dL (65-110); Lipase 60 U/L (23-300); Sodium 140 mmol/L (137-145)
[2025-01-22 18:16] LABS: Partial Thromboplastin Time 26.9 Seconds (22.3-36.8); Prothrombin Time 13.4 Seconds (11.1-14.7)
[2025-01-22 18:26] LABS: NT Pro B Type Natriuretic Pept 41 pg/mL (19.9-100); Troponin I < 0.012 ng/mL (0.000-0.034)
[2025-01-22 18:40] LABS: Influenza A QL RT-PCR Negative (Negative); Influenza B QL RT-PCR Negative (Negative); RSV RNA, RT-PCR Negative (Negative); SARS-CoV-2 RNA PCR Negative (Negative)
--- OUTSIDE RECORDS SUMMARY | 2025-01-22 19:32 | XMS_ITS | Encounter Summary ---
Author Organization [facility] Address [facility] [place] [address] Care Team Providers Care Lever Tender Name Role Phone Tasneem Hdez DO Primary Care Provider [phone] Encounter Details Date Type Department Care Team (Late st Contact Info) Description 03/08/2022 MyChart Message Enc [facility] Family Medicine - [place] [address], [address] [place] [address] Tasneem Hdez DO [address] [place], [place] [id number] Labwork Social History Tobacco Use Types Packs/Day [...] Total Score: 0 11/22/19 22 3:02 PM [employer] documented as of this encounter Care Teams Lever Tender Relationship Specialty Start Date End Date Tasneem Hdez DO [address] [place], [place] [id number] PCP - General 01/17/17 documented as of this encounter
--- OUTSIDE RECORDS SUMMARY | 2025-01-22 19:32 | XMS_ITS | Encounter Summary ---
Author Organization [facility] Healthcare Address [address] [place] [address] Care Team Providers Care Engineering Project Designer Name Role Phone Tasneem Hdez MD Primary Care Provider [phone] Reason for Visit * Reason Comments Cough X 2 weeks Muscle Pain Pulled a muscle in h er rib cage on the left side, X 1 week, Encounter Details Date Type Department Care Team (Late st Contact Info) Description 01/22/2025 4:30 PM CDT Office Visit [facility] Medical Group Convenient Care at [address] [address] Maren Moore NP [address] [place] [address] Acute cough (Primary Dx); Rib pain [...] on file Legal Sex Female 3:33 AM PRESCHOOL PRINCIPAL Gender Identity Not on file Sexual Orientation [...] Description 02/20/2025 10:40 AM CDT Hospital Encounter [facility] Operating Room 1 [place] [address] Delia Abdul MD [address] [employer] [address] [place] [address] 02/20/2025 10:40 AM CDT Anesthesia Event [facility] Operating Room 1 [place] [address] Aron Butt MD [address] [place] [address] 02/20/2025 10:40 AM CDT - 02/20/2025 1:50 PM CDT Surgery [facility] Operating Room 1 [place] [phone] Delia Abdul MD [address] [facility] [address] [place] [address] Right Reverse Shoulder Arthroplasty Scheduled Procedures Name [...] region documented in this encounter Care Teams Engineering Project Designer Relationship Specialty Start Date End Date Tasneem Hdez MD [address] [facility] [address] [place] [address] PCP - General Family Medicine 06/18/23 documented as of this encounter
--- OUTSIDE RECORDS SUMMARY | 2025-01-22 19:32 | XMS_ITS | Encounter Summary ---
Author Organization [facility] Address [address] [place] [address] Care Team Providers Care Die Baker Name Role Phone Tasneem Hdez DO Primary Care Provider [phone] Encounter Details Date Type Department Care Team (Late st Contact Info) Description 10/10/2022 SOMNIUM Technologiest Message Enc [facility] Medical Group Family Medicine - [place] [address] [place] [phone] Tasneem Hdez DO [address] [place], [place] [id number] Echocardiogram results, upcoming procedure & surgery, pharmacy [...] Total Score: 0 11/22/19 22 3:02 PM TUBING ASSEMBLER documented as of this encounter Care Teams Die Baker Relationship Specialty Start Date End Date Tasneem Hdez DO [address] [place], [place] [id number] PCP - General 01/17/17 documented as of this encounter
--- OUTSIDE RECORDS SUMMARY | 2025-01-22 19:32 | XMS_ITS | Referral Summary ---
Author Organization [facility] Address [address] [place] [address] Care Team Providers Care Clinical Informatics Manager Name Role Phone Tasneem Hdez MD Primary Care Provider [phone] Encounters Date Type Department Care Team Description 01/22/2025 4:30 PM CDT Office Visit [facility] Care at [address] [address] Maren Moore NP Acute cough (Primary Dx); Rib pain on right side; Abnormal bruising 01/16/2025 Telephone [facility] Orthopaedic Surgery [address] [place] [address] Advanced Medicine [facility] [place] [address] [place] [address] Delia Abdul MD 01/09/2025 Telephone [facility] Orthopaedic Surgery [address] [place] [address] Advanced Medicine 12th [place] [address] [place] [address] Delia Abdul MD 01/05/2025 1:00 PM CDT Pre-Admission Testing [facility] for Preoperative Assessment and Planning [facility] ([facility]) [address] [place] [address] Preoperative testing (Primary Dx); Osteoarthritis of right shoulder, unspecified osteoarthritis type; Chronic right shoulder pain; Vitamin D deficiency 01/05/2025 2:45 PM CDT Office Visit [facility] Orthopaedic Surgery [address] [place] [address] 12th [place] [address] [place] [address] Delia Abdul MD Primary osteoarthritis of right shoulder (Primary Dx) 12/05/2024 12:08 PM GRAIN WEIGHER - 12/05/2024 11:59 PM GRAIN WEIGHER Hospital Encounter [facility] Radiology [facility] ([facility]) [address] [place] [address] Discharge Disposition: Discharge to home or self care 12/01/2024 Orders Only [facility] Orthopaedic Surgery [address] [facility] 2nd Floor [address] [place] [address] Delia Abdul MD Primary osteoarthritis [...] 1 tablet (50 mcg total) by mouth reinforcing steel worker wire mesh before breakfast Take 1 tablet by mouth on Sunday, , and Sunday Active DULoxetine DR (CYMBALTA) 60 mg capsule TAKE 1 CAPSULE BY MOUTH EVERY DAY IN THE EVENING 3 Active levothyroxine (SYNTHROID) 75 mcg tablet 1 tablet by mouth on Sunday, Sunday, Sunday, and Sunday. Active pantoprazole DR (PROTONIX) 40 mg EC tablet Take 1 tablet (40 mg total) by mouth reinforcing steel worker wire mesh before breakfast Active fluticasone propionate (FLONASE) 50 mcg/actuation nasal spray Administer 2 sprays into each nostril reinforcing steel worker wire mesh before breakfast Active telmisartan (MICARDIS) 80 mg tabletIndicatio ns:hypertension Take 1 tablet (80 mg total) by mouth nightly Active topiramate (TOPAMAX) 50 mg tabletIndicatio ns:anxity 1 tablet (50 mg total) 2 (two) times a day Active valACYclovir (VALTREX) 500 mg tabletIndicatio ns:Chronic Suppression Take 1 tablet (500 mg total) by mouth reinforcing steel worker wire mesh before breakfast Active zolpidem CR (AMBIEN CR) [...] 8 (eight) hours as needed 1 Active lvipbb-ecup-afs t-jxovazm-naogh 10-50-500-0.5 mg capsule Take 1 tablet/capsule by mouth reinforcing steel worker wire mesh before breakfast 1 Active ascorbic acid, vitamin C, 500 mg capsule Take 1 Caplet by mouth reinforcing steel worker wire mesh before breakfast Active Restasis 0.05 % ophthalmic [...] 1 tablet (300 mg total) by mouth reinforcing steel worker wire mesh before breakfast 4 Active L-LYSINE ORAL nightly 1 Active fish oil/borage/flax /om3,6,9 1 (OMEGA 3-6-9 ORAL) 2 (two) times a day 1 Active cetirizine 10 mg tablet,disinteg rating nightly Active calcium carb-magnesium carb,ox 200 mg calcium- 100 mg tablet,chewable Take by mouth reinforcing steel worker wire mesh before breakfast Active UNABLE TO FIND Take 1 each by mouth reinforcing steel worker wire mesh before breakfast Med Name: occuvite Active vitamin E 400 unit capsule Take 1 capsule (400 Units total) by mouth reinforcing steel worker wire mesh before breakfast Active magnesium gluconate 200 mg [...] bacitracin over entire left leg wound (approx [id number] area) with dressing changes twice daily 425 [...] on file Legal Sex Female 3:33 AM GRAIN WEIGHER Gender Identity Not on file Sexual Orientation [...] Hospital Encounter [facility] Operating Room 1 [place] [address] Delia Abdul MD [address] [facility] 6A/6B/12[address] [place] [address] 02/20/2025 10:40 AM CDT Anesthesia Event [facility] Operating Room 1 [place] [address] Aron Butt MD [address] [place] [address] 02/20/2025 10:40 AM CDT - 02/20/2025 1:50 PM CDT Surgery [facility] Operating Room 1 [place] [address] Delia Abdul MD [address] [facility] [address] [place] [address] Right Reverse Shoulder Arthroplasty Scheduled Procedures Name [...] CT OUTSIDE REFERENCE Routine 12/05/2024 12:08 PM GRAIN WEIGHER from Last 3 Months Results * (ABNORMAL) eGFR (01/05/2025 2:48 PM CDT) [facility] Signature eGFR 44(L) >=60 mL/min/1. 73 m2 [...] BLOOD ORDERABLES Final Result Performing Organization Address City/[facility]/ZIP Co de Phone Number [facility] [place] [address] * Vitamin D 25 hydroxy (01/05/2025 2:48 PM CDT) Pathologist [facility] Vitamin D 25-OH 49 30 - 80 ng/mL Blood 01/05/2025 2:48 PM CDT 01/05/2025 3:22 PM CDT us Delia Abdul MD LAB BLOOD ORDERABLES Final Result [facility] [place] [address] * CBC without differential (01/05/2025 2:48 PM CDT) [facility] WBC 5.4 3.8 - 9.9 K/cumm Hgb 12.6 11.9 - 15.5 g/dL [facility] Hct 38.1 35.6 - 45.5 % [facility] Plt 176 150 - 400 K/cumm [facility] MPV 9.9 9.1 - 12.3 fL [facility] RBC 3.99 3.90 - 5.20 M/cumm [facility] MCV 95.5 81.3 - 96.4 fL [facility] MCH 31.6 27.1 - 33.3 pg [facility] MCHC 33.1 32.3 - 35.7 g/dL [facility] RDW CV 13.5 11.1 - 14.9 % [facility] RDW SD 46.8 35.7 - 48.1 fL [facility] NRBC abs 0.00 0.00 - 0.01 K/cumm [facility] Blood 01/05/2025 2:48 PM CDT 01/05/2025 3:22 PM CDT Aron Butt MD LAB BLOOD ORDERABLES Final Result [facility] Department [place] [address] * (ABNORMAL) Comprehensive metabolic panel (01/05/2025 2:48 PM CDT) Sodium 145 135 - 145 mmol/L Potassium, pl 3.9 3.3 - 4.9 mmol/L [facility] Chloride 105 97 - 110 mmol/L [facility] CO2 28 22 - 32 mmol/L [facility] Anion gap 12 2 - 15 mmol/L [facility] BUN 28(H) 6 - 25 mg/dL [facility] Creatinine 1.31(H) 0.60 - 1.10 mg/dL [facility] Glucose 100 70 - 199 mg/dL [facility] Comment: Interpretive Data Fasting glucose >/= 126 [...] BLOOD ORDERABLES Final Result Performing Organization Address City/[facility]/ZIP Co de Phone Number [facility] Department [place] [address] * MSK CT Outside Reference (12/05/2024 12:08 PM GRAIN WEIGHER) Impressions RAD_PACS_[facility] - 12/05/2024 12:08 PM GRAIN WEIGHER These images are for Reference purposes only and have not been reviewed by [facility] Radiology. There will be no report generated by a [facility] Radiologist. Narrative RAD_PACS_[facility] - 12/05/2024 12:08 PM GRAIN WEIGHER EXAMINATION: Images For Reference Purposes Only us Delia Abdul MD IMG CT PROCEDURES Fin al Result Performing Organization Address City/[facility]/ZIP Co de Phone Number RAD_PACS_[facility] from Last 3 Months Insurance IDPA MEDICARE MEDICARE [facility] Advance Directives For more information, please contact: [phone] * Full Code (Latest Code Status on File) Date Activated Date Inactivated Comments 06/19/2023 5:35 PM 06/26/2023 8:20 PM Care Teams Clinical Informatics Manager Relationship Specialty Start Date End Date Tasneem Hdez MD [address] [address] PCP - General Family Medicine 06/18/23
--- OUTSIDE RECORDS SUMMARY | 2025-01-22 19:32 | XMS_ITS | Clinical Summary ---
Author Organization [facility] Address [address] [place] [address] Care Team Providers Care Barrel Filler Head Name Role Phone Tasneem Hdez MD Primary Care Provider [phone] Allergies Active Allergy Reactions Criticality Noted Date [...] 1 tablet (50 mcg total) by mouth regenerator operator before breakfast Take 1 tablet by mouth on Sunday, , and Sunday Active DULoxetine DR (CYMBALTA) 60 mg capsule TAKE 1 CAPSULE BY MOUTH EVERY DAY IN THE EVENING Active levothyroxine (SYNTHROID) 75 mcg tablet 1 tablet by mouth on Sunday, Sunday, Sunday, and Sunday. Active pantoprazole DR (PROTONIX) 40 mg EC tablet Take 1 tablet (40 mg total) by mouth regenerator operator before breakfast Active fluticasone propionate (FLONASE) 50 mcg/actuation nasal spray Administer 2 sprays into each nostril regenerator operator before breakfast Active telmisartan (MICARDIS) 80 mg tabletIndicatio ns:hypertension Take 1 tablet (80 mg total) by mouth nightly Active topiramate (TOPAMAX) 50 mg tabletIndicatio ns:anxity 1 tablet (50 mg total) 2 (two) times a day Active valACYclovir (VALTREX) 500 mg tabletIndicatio ns:Chronic Suppression Take 1 tablet (500 mg total) by mouth regenerator operator before breakfast Active zolpidem CR (AMBIEN CR) [...] 8 (eight) hours as needed 1 Active kpjxwa-rnse-mxc j-varbsmu-xtrqh 10-50-500-0.5 mg capsule Take 1 tablet/capsule by mouth regenerator operator before breakfast 1 Active ascorbic acid, vitamin C, 500 mg capsule Take 1 Caplet by mouth regenerator operator before breakfast Active Restasis 0.05 % ophthalmic [...] 1 tablet (300 mg total) by mouth regenerator operator before breakfast 4 Active L-LYSINE ORAL nightly 1 Active fish oil/borage/flax /om3,6,9 1 (OMEGA 3-6-9 ORAL) 2 (two) times a day 1 Active cetirizine 10 mg tablet,disinteg rating nightly Active calcium carb-magnesium carb,ox 200 mg calcium- 100 mg tablet,chewable Take by mouth regenerator operator before breakfast Active UNABLE TO FIND Take 1 each by mouth regenerator operator before breakfast Med Name: occuvite Active vitamin E 400 unit capsule Take 1 capsule (400 Units total) by mouth regenerator operator before breakfast Active magnesium gluconate 200 mg [...] bacitracin over entire left leg wound (approx [id number] area) with dressing changes twice daily 425 [...] Description 01/22/2025 4:30 PM CDT Office Visit [facility] Medical Group Convenient Care at [address] [address] Maren Moore NP Acute cough (Primary Dx); Rib pain on right side; Abnormal bruising 01/16/2025 Telephone [facility] Orthopaedic Surgery [address] [place] [address] Advanced Medicine 12th [place] [address] [place] [address] Delia Abdul MD 01/09/2025 Telephone [facility] Orthopaedic Surgery [address] [place] [address] 12th [place] [address] [place] [address] Delia Abdul MD 01/05/2025 2:45 PM CDT Office Visit [facility] Orthopaedic Surgery [address] [place] [address] 12th [place] [address] [place] [address] Delia Abdul MD Primary osteoarthritis of right shoulder (Primary Dx) 01/05/2025 1:00 PM CDT Pre-Admission Testing [facility] Center for Preoperative Assessment and Planning [facility] ([facility]) [address] [place] [address] Preoperative testing (Primary Dx); Osteoarthritis of right shoulder, unspecified osteoarthritis type; Chronic right shoulder pain; Vitamin D deficiency 12/05/2024 12:08 PM VENEER SPLICER - 12/05/2024 11:59 PM VENEER SPLICER Hospital Encounter [facility] Radiology [facility] ([facility]) [address] [place] [address] Discharge Disposition: Discharge to home or self care 12/01/2024 Orders Only [facility] Orthopaedic Surgery [address] [facility] 2nd Floor [address] [place] [phone] Delia Abdul MD Primary osteoarthritis of right [...] on file Legal Sex Female 3:33 AM VENEER SPLICER Gender Identity Not on file Sexual Orientation [...] Description 02/20/2025 10:40 AM CDT Hospital Encounter [facility] Operating Room 1 [place] [address] Delia Abdul MD [address] [facility] 6A/6B/12A [place] [address] 02/20/2025 10:40 AM CDT Anesthesia Event [facility] Operating Room 1 [place] [address] Aron Butt MD [address] [place] [address] 02/20/2025 10:40 AM CDT - 02/20/2025 1:50 PM CDT Surgery [facility] Operating Room 1 [place] [address] Delia Abdul MD [address] [place] [address] Right Reverse Shoulder Arthroplasty Scheduled Procedures Name [...] CT OUTSIDE REFERENCE Routine 12/05/2024 12:08 PM VENEER SPLICER from Last 3 Months Results * (ABNORMAL) [...] Abdul MD LAB BLOOD ORDERABLES Final Result [facility] [place] [place] [address] * Vitamin D 25 hydroxy (01/05/2025 2:48 PM CDT) [facility] Vitamin D 25-OH 49 30 - 80 ng/mL Blood 01/05/2025 2:48 PM CDT 01/05/2025 3:22 PM CDT us Delia Abdul MD LAB BLOOD ORDERABLES Final Result Performing Organization Address [facility] Co de Phone Number [facility] [place] [address] * CBC without differential (01/05/2025 2:48 PM CDT) [facility] WBC 5.4 3.8 - 9.9 K/cumm Hgb 12.6 11.9 - 15.5 g/dL [facility] Hct 38.1 35.6 - 45.5 % [facility] Plt 176 150 - 400 K/cumm [facility] MPV 9.9 9.1 - 12.3 fL [facility] RBC 3.99 3.90 - 5.20 M/cumm [facility] MCV 95.5 81.3 - 96.4 fL [facility] MCH 31.6 27.1 - 33.3 pg [facility] MCHC 33.1 32.3 - 35.7 g/dL [facility] RDW CV 13.5 11.1 - 14.9 % [facility] RDW SD 46.8 35.7 - 48.1 fL [facility] NRBC abs 0.00 0.00 - 0.01 K/cumm [facility] Blood 01/05/2025 2:48 PM CDT 01/05/2025 3:22 PM CDT us Aron Butt MD LAB BLOOD ORDERABLES Final Result [facility] Department [place] [address] * (ABNORMAL) Comprehensive metabolic panel (01/05/2025 2:48 PM CDT) Pathologist [facility] Sodium 145 135 - 145 mmol/L Potassium, pl 3.9 3.3 - 4.9 mmol/L [facility] Chloride 105 97 - 110 mmol/L [facility] CO2 28 22 - 32 mmol/L [facility] Anion gap 12 2 - 15 mmol/L [facility] BUN 28(H) 6 - 25 mg/dL [facility] Creatinine 1.31(H) 0.60 - 1.10 mg/dL [facility] Glucose 100 70 - 199 mg/dL [facility] Comment: Interpretive Data Fasting glucose >/= [...] 2022. Calcium 9.3 8.5 - 10.3 mg/dL [facility] Bilirubin, total 0.3 0.1 - 1.2 mg/dL [facility] Protein, pl 7.1 6.5 - 8.5 g/dL [facility] Albumin 4.0 3.5 - 5.0 g/dL [facility] Alk phos 54 40 - 130 Units/L [facility] ALT 28 7 - 45 Units/L [facility] AST 36 10 - 45 Units/L [facility] Blood 01/05/2025 2:48 PM CDT 01/05/2025 3:22 PM CDT us Delia Abdul MD LAB BLOOD ORDERABLES Final Result Performing Organization Address City/[facility]/ZIP Co de Phone Number [facility] [place] [address] * MSK CT Outside Reference (12/05/2024 12:08 PM VENEER SPLICER) Impressions RAD_PACS_[facility] - 12/05/2024 12:08 PM VENEER SPLICER These images are for Reference purposes only and have not been reviewed by [facility] Radiology. There will be no report generated by a [facility] Radiologist. Narrative RAD_PACS_[facility] - 12/05/2024 12:08 PM VENEER SPLICER EXAMINATION: Images For Reference Purposes Only us Delia Abdul MD IMG CT PROCEDURES Fin al Result Performing Organization Address [facility] Co de Phone Number RAD_PACS_[facility] from Last 3 Months Insurance [facility] MEDICARE MEDICARE IDPA Advance Directives For more information, please contact: [phone] * Full Code (Latest Code Status on File) Date Activated Date Inactivated Comments 06/19/2023 5:35 PM 06/26/2023 8:20 PM Care Teams Barrel Filler Head Relationship Specialty Start Date End Date Tasneem Hdez MD [address] [facility] [address] [place] [address] PCP - General Family Medicine 06/18/23
--- OUTSIDE RECORDS SUMMARY | 2025-01-22 19:32 | XMS_ITS | Clinical Summary ---
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 Family Medicine [place] [address] [facility], [address] [place] [address] Marta Hdez DO Refill Pain [...] Shingrix 11/03/2019,07/11/2019 Tdap (Generic) 04/08/2021,03/18/2013 Zoster (Zostavax) [address]457 Unt/0.65Ml 01/29/2014 Family History Medical History Relation [...] 04/03/2019, 02/15/2018, Additional history exists PHQ-2 (Physician [place]) 10/08/2024 03/25/2024 COVID-19 Vaccine ( season) 2024 [...] resultswithin the time period is included. 01/05/2025 [employer] [facility] Scanned SCANNING Final Resu lt * BONE DENSITY GENERIC (SCAN ORDER) (04/21/2024) Anatomical Region Laterality Modality Other 04/21/2024 [employer] [facility] Scanned SCANNING Final Resu lt [...] HEPATITIS C AB NON-REACTIVE [place] [address] NR [facility] TO EPIC CONVERSION 08/08/2017 11:3 5 AM CDT 08/08/2017 11:35 AM CDT Narrative [facility] TO EPIC CONVERSION - 08/09/2017 6:44 PM CDT Result Communication: Call patient with results us Marta Hdez DO LABORATORY Final Result [facility] TO EPIC CONVERSION from Last 3 Months or Most Recently Relevant to Health Maintenance Insurance MEDICARE MEDICAID Care Teams Water Resources Business Segment Leader Relationship Specialty Start Date End Date Marta Hdez DO [address] [place] [address] PCP - General 01/17/17
--- OUTSIDE RECORDS SUMMARY | 2025-01-22 19:32 | XMS_ITS | Encounter Summary ---
Author Organization [facility] Address [address] [place] [address] Care Team Providers Care Supervisor Char House Name Role Phone Tasneem Hdez DO Primary Care Provider [phone] Encounter Details Date Type Department Care Team (Late st Contact Info) Description 01/03/2022 Orationt Message Enc [facility] Medical Group Family Medicine - [place] [address] [place] [address] Tasneem Hdez DO [address] [place] [address] Pneumonia shots Social History Tobacco Use Types [...] Total Score: 0 11/22/19 22 3:02 PM LEGISLATIVE CORRESPONDENT documented as of this encounter Care Teams Supervisor Char House Relationship Specialty Start Date End Date Tasneem Hdez DO [address] [place] [address] PCP - General 01/17/17 documented as of this encounter
--- OUTSIDE RECORDS SUMMARY | 2025-01-22 19:32 | XMS_ITS | Encounter Summary ---
Author Organization [facility] Address [facility] [place] [address] Care Team Providers Care Oracle Soa Consultant Name Role Phone Tasneem Hdez DO Primary Care Provider [phone] Encounter Details Date Type Department Care Team (Late st Contact Info) Description 11/21/2020 MyChart Message Enc [facility] Family Medicine - [place] [address], [address] [place] [address] Tasneem Hdez DO [address] [place] [address] RE: Question Social History Tobacco Use Types [...] on filedocumented in this encounter Care Teams Oracle Soa Consultant Relationship Specialty Start Date End Date Tasneem Hdez DO [address] [place], [place] [address] PCP - General 01/17/17 documented as of this encounter
[2025-01-22 21:06] LABS: Troponin I < 0.012 ng/mL (0.000-0.034)
[2025-01-23 00:18] LABS: Troponin I < 0.012 ng/mL (0.000-0.034)
[2025-01-23 00:34] VITALS: BP 136/62; PULSE 75; RESP 14; O2SAT 100
== END 2025-01-23 00:36 | disposition home or self-care (01) ==
PROVIDERS: Physician Assistant; Emergency Provider Physician Assistant
DX: M94.0 Chondrocostal junction syndrome [Tietze] (principal); J06.9 Acute upper respiratory infection, unspecified; S30.1XXA Contusion of abdominal wall, initial encounter; Z20.822 Contact with and (suspected) exposure to COVID-19; G47.33 Obstructive sleep apnea (adult) (pediatric); E78.5 Hyperlipidemia, unspecified; I10 Essential (primary) hypertension; E03.9 Hypothyroidism, unspecified; K21.9 Gastro-esophageal reflux disease without esophagitis; F31.9 Bipolar disorder, unspecified; Z87.891 Personal history of nicotine dependence
CPT/HCPCS: 36415; 71045; 71275; 74177; 80053; 83690; 83880; 84484; 85025; 85610; 85730; 87637; 93005; 99284; Q9967

== ENCOUNTER 2025-02-06 23:18 | Emergency (ER) | payer MEDICARE, MEDICAID, SELFPAY ==
[2025-02-06 23:21] VITALS: BP 146/59; PULSE 92; RESP 16; TEMP 36.7; O2SAT 98
--- NOTE | 2025-02-07 00:39 | ED_ITS ---
HPI - General Adult General Chief complaint: Skin/Abscess/Foreign Body Stated complaint: raw patch on inner thigh Time Seen by Provider: 02/07/25 00:35 History of Present Illness HPI narrative: Patient is a 69-year-old female who presents to the emergency department this evening complaining of a rash to her right inguinal region. Patient states that she has sitting up and spending a lot of time on her recliner which has caused her bilateral inguinal region to perspire a lot and believes that the excess moisture has caused her to develop a yeast infection. Patient admits that it does have a foul order. She denies any additional symptoms or concerns. Related Data Home Medications ?Medication ?Instructions ?Recorded ?Confirmed ?Last Taken ?Type aripiprazole 30 mg tablet 30 mg PO HS 10/19/22 01/14/25 01/14/24 History atorvastatin 20 mg tablet 20 mg PO HS 10/19/22 01/14/25 01/14/24 History azelastine 137 mcg (0.1 %) nasal 2 spray intranasal BID 10/19/22 01/14/25 01/14/24 History spray bupropion HCl 150 mg tablet,12 hr 150 mg PO BID 10/19/22 01/14/25 01/15/24 History sustained-release diclofenac sodium 75 mg 75 mg PO BID 10/19/22 01/14/25 01/08/24 History tablet,delayed release duloxetine 60 mg capsule,delayed 60 mg PO HS 10/19/22 01/14/25 01/15/24 History release fluticasone propionate 50 2 spray intranasal QAM 10/19/22 01/14/25 01/14/24 History mcg/actuation nasal spray,suspension furosemide 20 mg tablet 20 mg PO DAILY PRN Edema 10/19/22 01/14/25 01/13/24 History pantoprazole 40 mg tablet,delayed 40 mg PO QAM 10/19/22 01/14/25 01/14/24 Histo ry release telmisartan 80 mg tablet 80 mg PO HS 10/19/22 01/14/25 01/14/24 History topiramate 50 mg tablet See Rx Instructions .Route .COMPLEX 10/19/22 01/14/25 01/15/24 History valacyclovir 500 mg tablet 500 mg PO QAM 10/19/22 01/14/25 01/15/24 History zolpidem 6.25 mg tablet,extended 6.25 mg PO HS PRN Insomnia 10/19/22 01/14/25 01/23/23 History release,multiphase vibegron 75 mg tablet (Gemtesa) 75 mg PO HS 10/05/23 01/14/25 Unknown History cetirizine 10 mg tablet (Zyrtec) 10 mg PO HS 12/21/23 01/14/25 01/14/24 History levothyroxine 50 mcg capsule 50 mcg PO DAILY 04/24/24 01/14/25 Unknown History Allergies Allergy/AdvReac Type Severity Reaction Status Date / Time tetracycline AdvReac Severe YEAST Verified 02/06/25 23:24 INFECTION lisinopril AdvReac Mild Cough Verified 02/06/25 23:24 Review of Systems Review of Systems: All systems are reviewed and are negative unless stated otherwise in the HPI. [facility] Past Medical History Medical History Dry mouth Ulcerative colitis in remission Dx at 13 or 14 then again in 20s; remission since Arthritis of shoulder region, right Arthritis of shoulder region, left History of bruising easily Gastroesophageal reflux disease Arthritis Mild obstructive sleep apnea Patient does not use CPAP. Urge incontinence Status post sacral neurostimulator implantation. Bipolar disorder Hypothyroidism Hypertension Hyperlipidemia Surgical History Surgical History Status post reverse total arthroplasty of left shoulder (~01/15/24) History of tooth extraction History of tubal ligation (~1979) History of tonsillectomy (~1957) History of arthroplasty of right hip (02/22/09) Sacral neurostimulator in situ (10/2022) History of arthroplasty of left knee (01/24/23) History of hysterectomy (~1999) History of appendectomy (~1967) Family History Family History Father Hypertension Diabetes mellitus Mother Diabetes mellitus Hypertension Sibling No problems noted. Social History Social History Social History: Surrogate medical decision maker: Gaby Garrison, sibling. Code status: Full code. Smoking packs per day: 0.25 Smoking cigarettes per day: 5.0 Years smoked: 1.5 Smoking pack-years: 0.38 Smoking status: Former smoker Tobacco type: cigarettes Second hand tobacco smoke exposure: Yes Smoking end date: 04/07/00 Additional smoking assessment comments: Quit smoking in 1999. Alcohol intake: never Substance use: never Substance use type: does not use Do You Feel Safe in your Home?: Yes Lack of Transportation: YES Lack of Food: Never True Current Housing: I Have Housing Concerned About Future Housing: No Difficulty Paying Gas/Electric Bills: No Difficulty Paying for Meds: No Currently Unemployed: No Education: High School Diploma/GED Difficulty w/ Childcare or Family Care: No Living arrangements: with family Additional living arrangements comments: WITH MOTHER Occupation/Education: retired Gender identity (if verbalized by the patient): Female Spiritual care concerns: No Exam Narrative: General: Alert, awake, afebrile, in no acute distress. HEENT: PERRL, no rhinorrhea, no post nasal drip, oropharynx clear. Neck: Trachea midline, no JVD, no lymphadenopathy. Cardiovascular: Regular rate and rhythm, no murmurs, rubs or gallops, no peripheral edema. Respiratory: Clear to auscultation bilaterally, no tachypnea, no wheezing, no rhonchi, no rubs, no respiratory distress. Abdomen: Soft, nontender, nondistended, no rebound, no guarding, no peritoneal signs. Musculoskeletal: No joint swelling or deformity, normal muscle tone. Skin: Skin yeast infection noted to the right inguinal region. Psychiatric: Alert and oriented, normal behavior and judgment for situation. Neurological: Alert and oriented to person, place, and time. Follows all commands. No focal deficits, speech is clear and fluent. Course Vital Signs Vital signs: Vital Signs Temperature 98.1 F 02/06/25 23:21 Pulse Rate 92 02/06/25 23:21 Respiratory Rate 16 02/06/25 23:21 Blood Pressure 146/59 H 02/06/25 23:21 Pulse Oximetry 98 02/06/25 23:21 Oxygen Delivery Room Air 02/06/25 23:21 Temperature 98.1 F 02/06/25 23:21 Pulse Rate 92 02/06/25 23:21 Respiratory Rate 16 02/06/25 23:21 Blood Pressure 146/59 H 02/06/25 23:21 Pulse Oximetry 98 02/06/25 23:21 Oxygen Delivery Room Air 02/06/25 23:21 Medical Decision Making MDM Narrative Medical decision making narrative: The patient was evaluated by myself in the emergency department. History is obtained from patient who is an independent historian and physical exam was performed. External medical records were reviewed at this time. Differential diagnosis considerations include cellulitis, abscess, yeast infection. Comorbidities impacting this visit include none. I have evaluated and discussed social determinants of health with the patient that could potentially impact subsequent diagnosis and treatment plans. On repeat assessment of the patient, reevaluation revealed that the patient is doing well and is in no acute distress. Patient symptoms have improved since she arrived to our emergency department. Repeat vital signs were all reviewed and noted to be stable. Differential diagnosis and treatment plan were discussed with the patient at bedside. Patient agrees with discussion and after shared medical decision making agrees with discharge. All questions were answered to the patient's satisfaction. Patient will follow up with her PCP in 3-5 days. A script for nystatin powder was sent to patient's pharmacy to use as prescribed for her right inguinal skin yeast infection. Patient was also requesting a refill of her muscle relaxer, cyclobenzaprine 10 mg. Patient was provided with strict return precautions and instructed to return to the emergency department if any new or worsening symptoms develop. The patient was discharged in stable condition. Vital Signs Vital Signs: Vital Signs Temperature 98.1 F 02/06/25 23:21 Pulse Rate 92 02/06/25 23:21 Respiratory Rate 16 02/06/25 23:21 Blood Pressure 146/59 H 02/06/25 23:21 Pulse Oximetry 98 02/06/25 23:21 Oxygen Delivery Room Air 02/06/25 23:21 Temperature 98.1 F 02/06/25 23:21 Pulse Rate 92 02/06/25 23:21 Respiratory Rate 16 02/06/25 23:21 Blood Pressure 146/59 H 02/06/25 23:21 Pulse Oximetry 98 02/06/25 23:21 Oxygen Delivery Room Air 02/06/25 23:21 Discharge Plan Discharge Clinical Impression: Skin yeast infection Patient Disposition: Home Condition: Improved Instructions: Antibiotic Form, Skin Yeast Infection (ED) Additional Instructions: Please use the this time and powder to your right inguinal region as instructed for your skin yeast infection. Follow-up with your family doctor within the next 3-5 days and return to the emergency department if any new or worsening symptoms develop. Patient Language: Congolese Prescriptions: New cyclobenzaprine 10 mg tablet 10 mg PO HS PRN (Reason: muscle spasm) Qty: 14 0RF nystatin 100,000 unit/gram powder 1 applic topical TID Qty: 30 0RF Rx Instructions: Use topical powder 3 times a day until your symptoms improve. No Action levothyroxine 50 mcg capsule 50 mcg PO DAILY Gemtesa 75 mg tablet 75 mg PO HS atorvastatin 20 mg tablet 20 mg PO HS valacyclovir 500 mg tablet 500 mg PO QAM pantoprazole 40 mg tablet,delayed release (DR/EC) 40 mg PO QAM diclofenac sodium 75 mg tablet,delayed release (DR/EC) 75 mg PO BID furosemide 20 mg tablet 20 mg PO DAILY PRN (Reason: Edema) Rx Instructions: TAKES PRN FOR SWELLING azelastine 137 mcg (0.1 %) aerosol,spray 2 spray INTRANASAL BID fluticasone propionate 50 mcg/actuation spray,suspension 2 spray INTRANASAL QAM aripiprazole 30 mg tablet 30 mg PO HS zolpidem 6.25 mg tablet,ext release multiphase 6.25 mg PO HS PRN (Reason: Insomnia) bupropion HCl 150 mg tablet sustained-release 12 hr 150 mg PO BID telmisartan 80 mg tablet 80 mg PO HS topiramate 50 mg tablet See Rx Instructions .ROUTE .COMPLEX Rx Instructions: 1 TAB IN AM AND 2 TABS PM duloxetine 60 mg capsule,delayed release(DR/EC) 60 mg PO HS lidocaine 5 % adhesive patch,medicated 1 patch topical DAILY Qty: 15 0RF Rx Instructions: leave on most painful area for up to 12 hrs benzonatate 200 mg capsule 200 mg PO TID PRN (Reason: cough) Qty: 20 0RF cyclobenzaprine 5 mg tablet 5 mg PO TID PRN (Reason: muscle spasm) Qty: 15 0RF levothyroxine [Synthroid] 75 mcg Tablet 75 mcg PO [id number] Qty: 15 0RF cetirizine [Zyrtec] 10 mg Tablet 10 mg PO HS cephalexin 500 mg capsule 500 mg PO Q8H Qty: 30 0RF Follow-up/Referrals: PHYSICIAN NOT ON STAFF,NONSTAFF [Primary Care Provider] - 3 Days Nba Morin MD [Physician] - 3 Days Time of Disposition: 00:43
[2025-02-07 01:06] VITALS: BP 136/62; PULSE 90; RESP 17; TEMP 36.7; O2SAT 99
--- OUTSIDE RECORDS SUMMARY | 2025-02-07 15:43 | XMS_ITS | Encounter Summary ---
Author Organization [facility] Address [facility] [place] [address] Care Team Providers Care Speeder Hand Name Role Phone Tasneem Hdez DO Primary Care Provider [phone] Encounter Details Date Type Department Care Team (Late st Contact Info) Description 11/21/2020 MyChart Message Enc [facility] Medical [facility] Family Medicine - [place] [address] [place] [address] Tasneem Hdez DO [address] [place] [address] RE: Question Social History Tobacco Use Types [...] on filedocumented in this encounter Care Teams Speeder Hand Relationship Specialty Start Date End Date Tasneem Hdez DO [address] [place], [place] [id number] PCP - General 01/17/17 documented as of this encounter
--- OUTSIDE RECORDS SUMMARY | 2025-02-07 15:43 | XMS_ITS | Encounter Summary ---
Author Organization [facility] Address [address] [place] [address] Care Team Providers Care Statistics Professor Name Role Phone Tasneem Hdez DO Primary Care Provider [phone] Encounter Details Date Type Department Care Team (Late st Contact Info) Description 10/10/2022 OVIAt Message Enc [facility] Medical [facility] Family Medicine - [place] [address], [address] [place] [address] Tasneem Hdez DO [address] [place], [place] [id number] Echocardiogram results, upcoming procedure & surgery, pharmacy [...] Total Score: 0 11/22/19 22 3:02 PM HULLER OPERATOR documented as of this encounter Care Teams Statistics Professor Relationship Specialty Start Date End Date Tasneem Hdez DO [address] [place], [place] [id number] PCP - General 01/17/17 documented as of this encounter
--- OUTSIDE RECORDS SUMMARY | 2025-02-07 15:43 | XMS_ITS | Clinical Summary ---
Author Organization [facility] Address [address] [place] [address] Care Team Providers Care Paid Intern Name Role Phone Marta Hdez DO Primary Care Provider [phone] Allergies Active Allergy Reactions Criticality Noted Date [...] breast tissue 07/08/2014 Left knee pain 06/25/2014 [place] nevus 06/25/2014 Hypothyroidism 08/28/2013 Menopausal symptoms 02/02/2013 Functional murmur 12/24/2012 Allergic rhinitis 07/17/2012 Bipolar disorder ([facility]/HCC) 07/17/2012 Esophageal reflux 07/17/2012 Herpes simplex type II infection 07/17/2012 Hyperlipidemia 07/17/2012 Obesity 07/17/2012 Osteoarthrosis 07/17/2012 Rosacea 07/17/2012 Hypertension 06/13/2012 Lower back pain 06/13/2012 Encounters Date Type Department Care Team Description 01/05/2025 Scan [facility] Scanned, Doc [facility] Lab (SCAN) 11/18/2024 MyChart Message Enc [facility] Family Medicine [place] [address], [address] [place] [address] Marta Hdez, Refill Pain Medication for Shoulder 11/10/2024 Scan [facility] [employer] [facility] Scanned, Doc Med Group from Last [...] Shingrix 11/03/2019,07/11/2019 Tdap (Generic) 04/08/2021,03/18/2013 Zoster (Zostavax) 65647 Unt/0.65Ml 01/29/2014 Family History Medical History Relation [...] 04/03/2019, 02/15/2018, Additional history exists PHQ-2 (Physician [place]) 10/08/2024 03/25/2024 COVID-19 Vaccine ( season) 2024 [...] resultswithin the time period is included. 01/05/2025 [facility] Scanned SCANNING Final Resu lt * BONE DENSITY GENERIC (SCAN ORDER) (04/21/2024) Anatomical Region Laterality Modality Other 04/21/2024 [facility] Scanned SCANNING Final Resu lt [...] Routine Screening Bilateral Comments: Referred By: MARTA Wadeally Signed By: Amarjit Devries MD on 06/06/2021 1:58 PM Interpreted By: Amarjit Devries MD, 06/06/2021 1:57 [...] HEPATITIS C AB NON-REACTIVE TEST[place] [address] NR [facility] TO EPIC CONVERSION 08/08/2017 11:3 5 AM CDT 08/08/2017 11:35 AM CDT Narrative [facility] TO EPIC CONVERSION - 08/09/2017 6:44 PM CDT Result Communication: Call patient with results Marta Hdez DO LABORATORY Final Result [facility] TO EPIC CONVERSION from Last 3 Months or Most Recently Relevant to Health Maintenance Insurance MEDICARE MEDICAID Care Teams Paid Intern Relationship Specialty Start Date End Date Marta Hdez DO [address] [place] [address] PCP - General 01/17/17
--- OUTSIDE RECORDS SUMMARY | 2025-02-07 15:43 | XMS_ITS | Encounter Summary ---
Author Organization [facility] Address [facility] [place] [address] Care Team Providers Care Air Conditioning Insulation Installer Name Role Phone Tasneem Hdez DO Primary Care Provider [phone] Encounter Details Date Type Department Care Team (Late st Contact Info) Description 03/08/2022 MyChart Message Enc [facility] Medical [facility] Family Medicine - [place] [address] [place] [address] Tasneem Hdez DO [address] [place], [place] [address] Labwork Social History Tobacco Use Types Packs/Day [...] Total Score: 0 11/22/19 22 3:02 PM MANAGER RECRUITING documented as of this encounter Care Teams Air Conditioning Insulation Installer Relationship Specialty Start Date End Date Tasneem Hdez DO [address] [place], [place] [id number] PCP - General 01/17/17 documented as of this encounter
--- OUTSIDE RECORDS SUMMARY | 2025-02-07 15:43 | XMS_ITS | Data Portability ---
Author Organization [place] - [facility] [employer], Main Office Address [address] [place] [address] Care Team Providers Care Bladder Changer Name Role Phone MARTA MENDEZ Primary Care Provider MARTA MENDEZ Referring Provider [phone] Assessment Encounter Date Assessment Date Assessment LastModified by Organization Details LastModified Time 12/08/2024 12/08/2024 This note is dictated and transcribed by [employer]. Production Associate variances may occur. Despite proofreading, typographical errors may occur. Occasional wrong-word or 'znplq-x-mnuv' substitutions may have occurred due to the inherent limitations of voice recording. Read the chart carefully and recognize, using context, where substitutions have occurred. Not available 12/09/2024 15:06:12 01/06/2025 01/06/2025 This note is dictated and transcribed by [employer]. Production Associate variances may occur. Despite proofreading, typographical errors may occur. Occasional wrong-word or 'mcfrk-m-dasq' substitutions may have occurred due to the inherent limitations of voice recording. Read the chart carefully and recognize, using context, where substitutions have occurred. Not available 01/06/2025 12:05:01 01/15/2025 01/15/2025 This note is dictated and transcribed by [employer]. Production Associate variances may occur. Despite proofreading, typographical errors may occur. Occasional wrong-word or 'otgzx-k-ohsz' substitutions may have occurred due to the inherent limitations of voice recording. Read the chart carefully and recognize, using context, where substitutions have occurred. Not available 01/15/2025 14:20:18 01/22/2025 01/22/2025 This note is dictated and transcribed by [employer]. Production Associate variances may occur. Despite proofreading, typographical errors may occur. Occasional wrong-word or 'rqqlb-z-aeho' substitutions may have occurred due to the inherent limitations of voice recording. Read the chart carefully and recognize, using context, where substitutions have occurred. Not available 01/22/2025 16:34:10 02/02/2025 02/02/2025 This note is dictated and transcribed by [employer]. Production Associate variances may occur. Despite proofreading, typographical errors may occur. Occasional wrong-word or 'smkyr-w-lhbf' substitutions may have occurred due to the inherent limitations of voice recording. Read the chart carefully and recognize, using context, where substitutions have occurred. [email or web address] Not available 02/02/2025 14:39:42 Plan of Treatment Reminders Order Date Submit Date Provider Last Modified By Organization Details Last Modified Time Details Appointments Establish ed Patient 15 2024 03:45P Lawrence Siddiqi DPM Not available Not available Not available Lab None recorded. Referral home health: wound care nurse referral [address] [facility], 7 [facility], [place], [address], 02/04/2025 10:48:24 Procedures None recorded. Surgeries None recorded. Imaging None recorded. Medication Orders cephalexi n 500 mg tablet 2024 025 [facility] #[id number], [address] [place], [place], [id number], 01/06/2025 12:02:07 Silvadene 1 % topical cream 2024 025 [facility] #[id number], [address] [place], [place], [id number], 01/06/2025 12:03:19 Patient TargetsNo targets recorded. Patient InstructionsNo instructions recorded. Reason for Referral Home Health: Wound Care Nurs e Referral for Open wound of left great toe wound Referring Physician: Sam Siddiqi, Podiatric Surgery, Encounter Date: 01/06/2025 Problems Name Problem SNOMED Code Status Onset Date Resolution Date Notes Provider Name and Address Organization Details Recorded Time Bilateral shoulder joint pain 6272063317667 9104 Active 2022 Not Available [facility] 3 13:52:42 Hammer toe 541381358 Active 2021 Not Available [facility] 3 13:52:42 Disorder of trunk 690554281 Active Not Available [facility] 3 13:52:42 Pain of left shoulder joint 9824300487259 9109 Active 2022 Not Available [facility] 3 13:52:42 Spinal stenosis of lumbar region 18406834 Active Not Available [facility] 3 13:52:42 Callosity on toe 419597276 Active 2022 Not Available [facility] 3 13:52:42 Localized, primary osteoarthr itis of the shoulder region 389221880 Active 2022 Not Available [facility] 3 13:52:43 Osteoarthr itis of knee 227771333 Active 2021 Not Available [facility] 3 13:52:43 Ankle pain 052312114 Active 2022 Not Available [facility] 3 13:52:43 Left Achilles tendinitis 4310531198068 02 Active 2022 Not Available [facility] 3 13:52:43 Acquired pes planus of left foot 3705549804195 08 Active 2022 Not Available [facility] 3 13:52:43 Enthesopat hy of hip region 17870777 Active Not Available [facility] 3 13:52:43 Osteoarthr itis of left knee joint 5257856833714 09 Active 2022 Not Available [facility] 3 13:52:43 Ingrowing toenail 558835745 Active 2021 Not Available [facility] 3 13:52:43 Pain of left knee joint 4026849200155 07 Active 2021 Not Available [facility] 3 13:52:43 Lumbosacra l spondylosi s without myelopathy 88385914 Active Not Available [facility] 3 13:52:43 Pain of hip region 14947248 Active Not Available [facility] 3 13:52:43 Dystrophia unguium 88375489 Active 2022 Not Available [facility] 3 13:52:44 Bilateral shoulder osteoarthr itis 5049863537446 08 Active 2022 Gerald Mchugh MD [address], [address], [place], [address] , [facility] 3 16:23:15 Hammer toe 528084925 Active 2022 Sam Siddiqi DPM [address], [place], [address] , [facility] 3 15:20:24 Pain in both feet 9753483619720 9102 Active 2023 Sam Siddiqi DPM [address], [place], [address] , [facility] 4 15:44:36 Bunion 602547929 Active 2023 Sam Siddiqi DPM [address], [place], [address] , [facility] 4 11:54:22 Pain in toe 263198560 Active 2023 Sam Siddiqi DPM [address], [place], [address] , [facility] 4 10:01:19 Metatarsal zachery of left foot 3138027069469 06 Active 2023 Sam Siddiqi DPM [address], [place], [address] , [facility] 4 16:12:47 Foot callus 349667428 Active 2024 Sam Siddiqi DPM [address], [place], [address] , [facility] 15:06:23 Open wound of left great toe 7097168460728 9102 Active 2024 Sam Siddiqi DPM [address], [place], [address] , [facility] 15:06:48 Cellulitis of toe of left foot Active 2024 Sam Siddiqi DPM [address], [place], [address] , [facility] 12:05:17 Tear of skin 878719965 Active 2024 Sam Siddiqi DPM [address], [place], [address] , [facility] [employer] [facility] 12:12:18 Problem Notes None recorded. Procedures Surgical History Date Name Laterality Status Provider Name and Address Organization Details Recorded Time 01/23/20 25 Wound Care-Podiatry completed Sam Siddiqi DPM [address], [place], [address], [facility] [employer] [facility] 01/22/2025 16:33:34 01/07/20 25 Wound Care-Podiatry completed Sam Siddiqi DPM [address], [place], [address], [facility] 01/06/2025 12:08:05 12/10/19 25 Nail Debridement completed Sam Siddiqi DPM [address], [place], [address], [facility] 12/09/2024 15:05:09 12/10/19 25 Wound Care-Podiatry completed Sam Siddiqi DPM [address], [place], [address], [facility] 12/09/2024 15:06:07 09/08/20 24 Nail Debridement completed Sam Siddiqi DPM [address], [place], [address], [facility] 09/08/2024 16:12:36 09/08/20 24 Callus Debridement 2-4 completed Sam Siddiqi DPM [address], [place], [address], [facility] 09/08/2024 16:12:24 06/19/20 24 Nail Debridement completed Sam Siddiqi DPM [address], [place], [address], [facility] 06/19/2024 14:30:00 06/19/20 24 Callus Debridement 2-4 completed Sam Siddiqi DPM [address], [place], [address], [facility] 06/19/2024 14:29:51 04/03/20 24 Nail Debridement completed Sam Siddiqi DPM [address], [place], [address], [facility] 04/03/2024 11:55:31 04/03/20 24 Toenail avulsion completed Sam Siddiqi DPM [address], [place], [address], [facility] 04/03/2024 11:55:20 12/03/19 24 Nail Debridement completed Sam Siddiqi DPM [address], [place], [address], [facility] 12/03/2023 15:44:13 12/03/19 24 Callus Debridement 2-[address], [place], [address], [facility] 12/03/2023 15:44:04 09/03/20 23 Nail Debridement completed Sma Siddiqi DPM [address], [place], [address], [facility] 09/03/2023 15:16:58 09/03/20 23 Callus Debridement 2-4 completed Sam Siddiqi DPM [address] [facility] [address], [place], [address], [facility] [place] [facility] 09/03/2023 15:16:48 03/06/20 23 Ortho - Cortisone Injection completed Gerald Mchugh MD [address], [place], [address], [facility] [place] [facility] 03/06/2023 16:21:34 10/08/19 00 Hysterectomy completed Not Available [facility] 023 13:52:11 10/08/18 68 Appendectomy completed Not Available [facility] 023 13:52:11 10/08/18 58 Removal of tonsils completed Not Available [facility] 12/06/2022 13:52:11 Imaging Results None recorded. Procedure Notes None recorded. Medical Equipment None Reported. Allergies Allergen ID Allergen Name Allergen Category Reaction Reaction Severity Criticality Documentation Date Start Date Code Code System Note Provider Name and Address Organization Details Recorded Time 11123 tetracycl ine medicatio n other Not available Not available 12/06/2022 41345 RxNorm Yeast infec tion Not Available [facility] 13:54:41 Medications Name Sig Start Date [...] completed Not Available Not Available Not Available benzonatate 200 mg capsule TAKE 1 CAPSULE BY MOUTH THREE TIMES DAILY NEEDED FOR COUGH active Not Available Not Available No t Available tolterodine ER 4 mg capsule,ext ended [...] 40 mg by injection route. 12/03 completed [facility]: 0003- 0494- 20 Not Available Not Available [...] Not Available Not Available No t Available cyclobenzap rine 5 mg tablet TAKE 1 TABLET BY MOUTH THREE TIMES DAILY NEEDED FOR MUSCLE SPASM active Not Available Not Available No t [...] administe red by the provider 08/10 completed [facility]: 0409- 4276- 17 Not Available Not Available Not Available lidocaine (PF) 5 mg/mL (0.5 %) injection solution Take 30 mg by injection route. 08/10 completed Not Available Not Available Not Available Zostavax (PF) 19,400 unit/0.65 mL subcutaneou s suspension 10/20 completed Not Available Not Available Not Available olopatadine 0.2 % eye drops active Not Available Not Available Not Available [place] 3-6-9 2020 active Not Available Not Available [...] 40 mg by injection route. 12/03 completed [facility] 28526 -064- 01 Not Available Not Available Not [...] Available Not Available Not Avai lable Fluvirin 1030-9898 45 mcg (15 mcg x 3)/0.5 mL intramuscul ar suspension ADM 0.5ML IM UTD 10/20 completed Not Available Not Available Not Available azelas-flut icasone-NaC l-NaHCO3 08/10 completed Not Available Not Available Not Available Shingrix (PF) 50 mcg/0.5 mL intramuscul ar suspension, kit 03/23 completed Not Available Not Available Not Available Fluzone High-Dose 8852-8397 (PF) 180 mcg/0.5 mL intramuscul ar syringe [...] Available No t Available Vitals Date Recorded Oxygen saturation Oxygen saturation in Arterial blood by Pulse oximetry Heart rate Heart rate Respiratory rate Systolic blood pressure Diastolic blood pressure Provider Name and Address Organization Details Last Updated DateTime 5 98 % 98 % 104 /min 104 /min 14 /min 103 mm[Hg] 70 mm[Hg] Marilyn Meadows [employer] 5 17:20:49 Date Recorded Body height Body mass index (BMI) Body weight Heart rate Respiratory rate Oxygen saturation Oxygen saturation in Arterial blood by Pulse oximetry Systolic blood pressure Diastolic blood pressure Provider Name and Address Organization Details Last Updated DateTime 5 167.64 cm 33.9 kg/m2 00639.4 g 90 /min 14 /min 98 % 98 % 104 mm[Hg] 72 mm[Hg] Marilyn Meadows [employer] 5 11:18:00 Date Recorded Body height Body mass index (BMI) Body weight Heart rate Systolic blood pressure Diastolic blood pressure Provider Name and Address Organization Details Last Updated DateTime 5 167.64 cm 33.9 kg/m2 29415.4 g 99 /min 117 mm[Hg] 76 mm[Hg] Milvia Dupree [facility] [place] [facility] 5 12:35:40 Date Recorded Body height Body mass index (BMI) Body weight Heart rate Respiratory rate Oxygen saturation Oxygen saturation in Arterial blood by Pulse oximetry Systolic blood pressure Diastolic blood pressure Provider Name and Address Organization Details Last Updated DateTime 5 167.64 cm 33.9 kg/m2 91546.4 g 98 /min 14 /min 98 % 98 % 101 mm[Hg] 73 mm[Hg] Marilyn Meadows [employer] [facility] [place] [facility] 5 15:57:20 Date Recorded Body height Body mass index (BMI) Body weight Heart rate Respiratory rate Oxygen saturation Oxygen saturation in Arterial blood by Pulse oximetry Systolic blood pressure Diastolic blood pressure Provider Name and Address Organization Details Last Updated DateTime 5 167.64 cm 33.9 kg/m2 03923.4 g 102 /min 14 /min 98 % 98 % 99 mm[Hg] 68 mm[Hg] Marilyn Meadows [employer] [facility] [place] [facility] 5 14:13:38 Social History Question Answer Notes LastModified by Organizat ion Details LastModified Time Tobacco Smoking Status Never Smoker Salina Franko cueto, [place] [employer] [facility] [place] [facility] 03/06/2023 15:01:40 What Is Your Level Of Alcohol Consumption? None [id number] Information not available 12/06/2022 What Is Your [...] Any Guns Present In Your Home? [place] [address] Information not available 06/19/2024 What Was The Date Of Your Most Recent Tobacco Screening? 03/23/2021 [email or web address] Information not available 03/06/2023 Do You Have Smoke And Carbon Monoxide Detectors In Your Home? [place] [address] Information not available 06/19/2024 Are You Passively Exposed To Smoke? No [place] [address] Information no t available 06/19/2024 Do You Use Any Illicit Or Recreational Drugs? No [place] [address] Information not available 06/19/2024 Have You Recently Traveled Abroad? No [email or web address] Information not available 06/19/2024 Do You Have Any Dietary Restrictions? No [place] [address] Information not available 06/19/2024 Sex: Unknown Functional Status Question Answer Note LastModified by Organizat ion Details LastModified Time What is your exercise level? Occasional [place] [address] Information not available 06/19/2024 Mental Status None recorded. Family History Relationship Description Onset Age of this Age Resolved Age Notes LastModified by Organization Details LastModified Time Father Heart disease [id number] Not available 12/06/2022 13:52:12 Father Hypertensive disorder [id number] Not available 12/06/2022 13:52:12 Father Family history of malignant neoplasm [email or web address] Not available 12/09 14:40:05 Paternal Grandmother Family history of stroke [email or web address] Not available 12/09 14:40:05 Sister Family history of malignant neoplasm [email or web address] Not available 12/09 14:40:05 Paternal Grandfather Family history of malignant neoplasm Not available 12/09 14:40:05 Mother Hypertensive disorder [id number] Not available 12/06/2022 13:52:12 Medical History Condition Response DEPRESSION (INCLUDING POST ) Y BOWEL PROBLEMS Y BACK / NECK PROBLEMS Y URINARY/BLADDER/KIDNEY PROBLEMS Y ARTHRITIS Y SKIN PROBLEMS Y USE OF NSAIDS Y HEADACHES/MIGRAINES Y DIZZINESS Y LIVER DISEASE Y HYPERTENSION Y Gynecological HistoryNo gynecological history recorded. Obstetrics History GPAL:G 0 P 0 0 0 0 Past Encounters Encounter ID Performer Location Encounter Start Date Encounter Closed Date Diagnosis/Indication Diagnosis SNOMED-CT Code Diagnosis ICD10 Code Diagnosis Note [id number] TONYA Reddy [facility] [address] [place] [address] 03/23/2021 00:00:00 03/23/2021 16:07:34 [id number] TONYA Reddy [facility] [address] [place] [address] 04/01/2021 00:00:00 04/01/2021 14:25:29 [id number] TONYA Reddy [facility] [address] [place] [address] 05/24/2021 00:00:00 05/24/2021 15:10:58 [id number] TONYA Reddy [facility] [address] [place] [address] 06/30/2021 00:00:00 06/30/2021 15:19:05 [id number] Kirk Argueta MD [facility] [address] [place] [address] 07/22/2021 00:00:00 07/22/2021 15:26:26 [id number] Gerald Mchugh MD [facility] [address] [place] [address] 09/15/2021 00:00:00 09/15/2021 15:13:27 [id number] Gerald Mchugh MD [facility] [address] [place] [address] 09/22/2021 00:00:00 09/22/2021 15:07:24 [id number] Gerald Mchugh MD [facility] [address] [place] [address] 03/23/2022 00:00:00 03/23/2022 14:51:41 [id number] [facility] [address] [place] [address] 04/06/2022 00:00:00 04/06/2022 17:03:55 [id number] [facility] [address] [place] [address] 07/06/2022 00:00:00 07/06/2022 19:21:02 [id number] Gerald Mchugh MD [facility] [address] [place] [address] 08/10/2022 00:00:00 08/10/2022 14:58:53 [id number] Gerald Mchugh MD [facility] [address] [place] [address] 10/12/2022 00:00:00 10/12/2022 15:47:05 [id number] Sam Siddiqi, [facility] [address] [place] [address] 10/16/2022 00:00:00 11/05/2022 18:08:09 [id number] Gerald Mchugh MD [facility] [address] [place] [address] 01/08/2023 09:29:03 01/08/2023 10:12:39 Bilateral shoulder joint pain 5446335205 5398770 M25.511 M25.512 Localized, primary osteoarthritis of the shoulder region 749001317 M19.011 M19.012 [id number] Gerald Mchugh MD [facility] [address] [place] [address] 02/05/2023 10:08:14 02/05/2023 11:05:01 Bilateral shoulder joint pain 6928453077 0277199 M25.511 M25.512 Osteoarthr itis of knee 086830927 M17.12 Pain of le ft knee joint 3214406259 85117 M25.562 Postoperative visit 1836 80167 Z09 [id number] Gerald Mchugh MD [facility] [address] [place] [address] 03/06/2023 15:00:07 03/06/2023 16:25:52 Bilateral shoulder joint pain 4742183449 1930510 M25.511 M25.512 Osteoarthr itis of knee 596780525 M17.12 Pain of le ft knee joint 6172471739 34730 M25.562 History of left total knee replacement 0407488005 273664 Z96.652 Bilateral shoulder osteoarthritis 8279120080 35525 M19.011 RIGHT and LEFT [id number] Sam Siddiqi DPM [facility] [address] [facility] [address] [place] [address] 09/03/2023 14:49:22 09/04/2023 12:29:59 Callosity on toe 571124568 L84 plantar right 2nd toe and left great toerecomme nd offloading to prevent woundsDebr ided without incidentUs e pumice stone daily to prevent buildupWid e shoe gear with soft toe box recommende dFollow-up in 3 months as needed Hammer toe 993868171 M20 .41 M20.42 bilateral feetrecomm end offloading to prevent wounds infectionR ecommend soft toe box style shoe. Dystrophia unguium 54246 009 L60.3 Nails 1 through 10 were debrided with sharp mechanical debridemen t without incident. Nails were debrided and greater than 50% length and thickness where needed. [id number] Sam Siddiqi DPM [facility] [place] [address] [facility] [address] [place] [address] 12/03/2023 14:50:14 12/07/2023 07:25:16 Hammer toe 995611697 M20.41 M20.42 bilateral feetrecomm end offloading to prevent wounds infectionR ecommend soft toe box style shoe. Callosity on toe 0073075 01 L84 plantar right 2nd toe and left great toerecomme nd offloading to prevent woundsDebr ided without incidentUs e pumice stone daily to prevent buildupWid e shoe gear with soft toe box recommende dFollow-up in 3 months as needed Pain in both feet 867026 6993 0403996 M79.671 M79.672 Secondary to toe deformitie s Dystrophia unguium 99348 009 L60.3 Nails 1 through 10 were debrided with sharp mechanical debridemen t without incident. Nails were debrided and greater than 50% length and thickness where needed. [id number] Sam Siddiqi DPM [facility] [address] [place] [address] 04/03/2024 10:41:42 04/03/2024 14:21:47 Ingrowing toenail 869663126 L60.0 M79.676 Z74.1 Right lateral great toepartial nail avulsionwo und care instructio ns givenIf continues to be problemati c we will require partial matrixecto myFollow-u p as needed Hammer toe 908424677 M20 .41 M20.42 bilateral feet- right foot 2nd 3rdtreatme nt options reviewedDe nies surgery recommend surgery secondary to high pressure callusingp atient understand s risksrecom mend silicone offloading sleeves and supportive shoe gearfollow -up as needed Callosity on toe 20100115 L84 plantar right 2nd and 3rd, left great toe medialreco mmend offloading to prevent woundsDebr ided without incidentUs e pumice stone daily to prevent buildupWid e shoe gear with soft toe box recommende dFollow-up in 3 months as needed Dystrophia unguium 93479 009 L60.3 Nails 1 through 10 were debrided with sharp mechanical debridemen t without incident. Nails were debrided and greater than 50% length and thickness where needed. Bunion 751939203 M21.61 9 bilaterald iscussed options will likely require Quentin osteotomy bilateral great toesdenies surgeryoff loading recommende d to prevent wounds infection [id number] Sam Siddiqi DPM [facility] [place] [address] [place] [address] 06/19/2024 12:29:06 06/23/2024 10:28:20 Pain in toe 447105136 M79.674 right great toe and 2nd toeoffload ing options reviewedsu rgical options reviewed at this time denies surgery Callosity on toe 20100115 L84 plantar right 2nd and 3rd, left great toe medialreco mmend offloading to prevent woundsDebr ided without incidentUs e pumice stone daily to prevent build-upWi de shoe gear with soft toe box recommende dFollow-up in 3 months as needed Hammer toe 848372977 M20 .41 M20.42 right foot 2nd 3rdtreatme nt options reviewedDe nies surgery recommend surgery secondary to high pressure callusingp atient understand s risks for wounds and possible loss of toerecomme nd silicone offloading sleeves and supportive shoe gearfollow -up as needed Dystrophia unguium 47832 009 L60.3 Nails 1 through 10 were debrided with sharp mechanical debridemen t without incident. Nails were debrided and greater than 50% length and thickness where needed. [id number] Sam Siddiqi DPM [facility] [place] [address] [place] [address] 09/08/2024 15:41:17 10/02/2024 16:34:47 Metatarsalgia of left foot 1346003852 08039 M77.42 sub 1st metatarsal headOffloa ding pad added to the plantar orthotic to increase offloading of the 1st met headTrial orthoticsC ontinue supportive shoe gearFollow -up in 3 months Callosity on toe 2229874 01 L84 plantar right 2nd and 3rd, left great toe medialreco mmend offloading to prevent woundsDebr ided without incidentUs e pumice stone daily to prevent build-upWi de shoe gear with soft toe box recommende dFollow-up in 3 months as needed Dystrophia unguium 80504 009 L60.3 Nails 1 through 10 were debrided with sharp mechanical debridemen t without incident. Nails were debrided and greater than 50% length and thickness where needed. [id number] Sam Siddiqi DPM [facility] [place] [address] [place] [address] 12/09/2024 14:39:51 12/10/2024 08:14:10 Open wound of left great toe 2605321315 5570217 S91.102A daily wound careMonito r for signs of infection if present seek medical attention immediatel yWound debridedOf floading at all timesFollo w-up in 1 week Foot callus 039940404 L8 4 secondary to both Dystrophia unguium 63550 009 L60.3 Nails 1 through 10 were debrided with sharp mechanical debridemen t without incident. Nails were debrided and greater than 50% length and thickness where needed. [id number] Sam Siddiqi DPM [facility] [address] [place] [address] 01/06/2025 10:53:55 01/07/2025 10:16:52 Open wound of left great toe 9202813255 0468948 S91.102A daily wound carewound debrided todayMonit or for signs of infection if present seek medical attention immediatel yWound debridedOf floading at all timesFollo w-up in 1 week Cellulitis of toe of left foot 7495268567 L03.032 resolvedor thopedic requested abx therapy four times daily ceph 500mg dose, 7 days Tear of skin 838409085 T 14.8XXA lateral left great toe- [facility] [id number] Sam Siddiqi DPM [facility] [place] [address] [facility] [address] [place] [address] 01/15/2025 12:27:08 01/19/2025 12:46:05 Open wound of left great toe 9318592594 8711184 S91.102A daily wound caredressi ngs reapplied with [facility]- currently going out twice weekMonito r for signs of infection if present seek medical attention immediatel yWound debridedOf floading at all timesFollo w-up in 1 week Tear of skin 600218970 T 14.8XXA lateral left great toe- superficia esolved [id number] Sam Siddiqi DPM [facility] [address] [place] [address] 01/22/2025 15:37:37 01/22/2025 16:42:00 Open wound of left great toe 9409420735 0161997 S91.102A daily wound caredressi ngs reapplied silver [facility] currently going out twice weekMonito r for signs of infection if present seek medical attention immediatel yWound debridedOf floading at all timesFollo w-up in 1 week surgery was moved to around February 28 [id number] Sam Siddiqi DPM [facility] [place] [address] [place] [address] 02/02/2025 13:58:28 02/03/2025 13:02:20 Open wound of left great toe 7314923124 6517691 S91.102A daily wound caredressi ngs reapplied silver [facility] currently going out twice weekMonito r for [...] Member ID Armstrong Member ID Guarantor Name 12/08/2024 1 [place] Roya A Delbert [id number] Roya A Delbert 12/08/2024 2 [place] WHEN [place] OR MEDICARE REPLACEMENT PRIMARY) Roya A Delbert [id number] Roya A Delbert 01/06/2025 1 [place] Roya A [place] [id number] Roya A [place] 01/06/2025 2 [place]IC[place] REPLACEMENT PRIMARY) Roya A Del[place] [id number] Roya A [place] 01/15/2025 1 [place] Roya A Delbert [id number] Roya A [place] 01/15/2025 2 [place]IC[place] REPLACEMENT PR[place]) Roya A [place] [id number] Roya A Delbert 01/22/2025 1 [place] Roya A [place] [id number] Roya A Delbert 01/22/2025 2 [place] OR MEDIC[place] REPLACEMENT PRIMARY) Roya A [place] [id number] Roya A [place] 02/02/2025 1 [place] Roya A [place] [id number] Roya A [place] 02/02/2025 2 [place] OR MEDICARE REPLACEMENT PRIMARY) Roya A [place] [id number] Roya A Delbert Notes Date Note Type Note Provider Name and Address Organization Details Recorded Time 12/08/2024 text/html . Patient is a 69-year-old [...] Patient denies any treatment for this. Sam Siddiqi DPM [address], [place], [address], [employer] 12/09/2024 15:08:23 01/06/2025 text/html . Patient is [...] toe, left. Sam Siddiqi DPM [address], [address], [place], [address], [employer] 01/07/2025 09:39:24 01/15/2025 text/html . Patient is [...] healed. Sam Siddiqi DPM [address], [employer], [place], [address], [employer] 01/15/2025 14:20:49 01/22/2025 text/html . Patient is [...] chills, nausea or vomiting. Sam Siddiqi DPM [address], [place], [address], [employer] 01/22/2025 16:35:30 02/02/2025 text/html . Patient is a 69-year-old female she returns for open wound to the great toe it is slowly healing is stable which is noninfected she states she continues to weight bear as she is taking care of her mother. Patient states she is doing less. Patient denies any other complaints. Sam Siddiqi DPM [address], [place], [address], [employer] 02/02/2025 14:39:59 OBGyn Episode No OBEpisode recorded.
--- OUTSIDE RECORDS SUMMARY | 2025-02-07 15:43 | XMS_ITS ---
Author Organization [facility] [place] ([address]) Address [address] [place] [address] Care Team Providers Care Sock Turner Name Role Phone Pachecocherise MARY Tasneem Primary Care Provider UnavailMagdalena Davey Unavailable [phone] REASON FOR VISIT med's Medications Medication SIG (Take, Route, Frequency, Duration) Notes Start Date End Date Status Flonase Allergy Relief 50 MCG/ACT 2 sprays each nostril Nasally Once a day for 90 days 05/13/2024 Active Encounters Encounter Location Date Provider Diagnosis [address] [address] 06/25/2024 Magdalena Cramer Plan Of Treatment Medication Medication Name Sig Start Date Stop Date Notes Flonase Allergy Relief 50 MCG/ACT 2 sprays each nostril Nasally Once a day for 90 days 05/13/2024 Progress Notes * Roya MANDUJANODOB: (69 yo F)Acc No.[id number]:06/25/2024 Patient: Roya POLLARD :1955 A ge:69 Y S ex:Female Address:[address] [facility] , [place] [address] * Refills Refill Flonase Allergy Relief Suspension, 50 MCG/ACT, Nasally, 3, 2 sprays each nostril, Once a day, 90 days, Refills=3 * true * Date: Generated for Nguyen menendez/Fatemeh/Ashley on: 0 02/07/2025 03:40 PM CDT
--- OUTSIDE RECORDS SUMMARY | 2025-02-07 15:43 | XMS_ITS | Patient Health Record ---
Author Organization [facility] [employer] [place] ([address]) Address [address] [place] [address] Care Team Providers Care Furnace Attendant Name Role Phone Lemuel Tasneem Primary Care Provider Unavailabl e Magdalena Cramer Unavailable [phone] [employer], Provider Unavailable Unavailab le Allergies Allergen [...] Problem Allergic rhinitis caused by pollen (disorder) (33982778) Allergic rhinitis due to pollen (J30.1) Active confirmed Problem Allergic rhinitis caused by animal hair and dander (453681455547073) Allergic rhinitis due to animal (cat) (dog) hair and dander (J30.81) Active confirmed Problem Allergic rhinitis (33988635) Other allergic rhinitis (J30.89) Active confirmed Problem Chronic allergic conjunctivitis (32893283) Other chronic allergic conjunctivitis (H10.45) Active confirmed Problem Essential hypertension (34118308) Essential (primary) hypertension (I10) Active confirmed Problem Adverse effect o f other systemic antibiotics, subsequent encounter (T36.8X5D) Active confirmed Vital Signs Oximetry 96 % 04/08/2024 Blood pressure diastolic 77 mm Hg 04/08/2024 Height 67.5 in 04/08/2024 Blood pressure systolic 153 mm Hg 04/08/2024 Weight 227.8 lbs 04/08/2024 BMI 35.15 kg/m2 04/08/2024 Encounters Encounter Location Date Provider Diagnosis [address] [address] 03/22/2024 Provider [employer] Allergic rhinitis due to pollen J30.1 and Other chronic allergic conjunctivitis H10.45 [facility] [address] [place] [address] 04/08/2024 Magdalena Cramer Allergic rhinitis du e to pollen J30.1 ; Acute upper respiratory infection, unspecified J06.9 ; Allergic rhinitis due to animal (cat) (dog) hair and dander J30.81 ; Other allergic rhinitis J30.89 ; Other chronic allergic conjunctivitis H10.45 and Allergy status to other antibiotic agents status Z88.[address] [address] 05/12/2024 Magdalena Cramer [address] [address] 05/20/2024 Magdalena Cramer [facility] [employer] [address] [place] [address] 06/24/2024 Magdalena Cramer [address] [address] 06/25/2024 Magdalena Cramer Assessments Encounter Date Diagnosis (ICD Code) Assessment [...] - J30.81) Continue allergen avoidance and meds. 04/08/2024 Other allergic rhinitis (ICD-10 - J30.89) Continue allergen avoidance and meds. 03/22/2024 Other chronic allergic conjunctivitis (ICD-10 - H10.45) 04/08/2024 Other chronic allergic conjunctivitis (ICD-10 - [...] Insured Coverage Start Date Coverage End Date [employer] (Medicare) Attention Claims [address] [place] [address] [id number] Roya Mandujano Self - patient is the [...]
--- OUTSIDE RECORDS SUMMARY | 2025-02-07 15:43 | XMS_ITS | Data Portability ---
Author Organization [email or web address], [facility], [facility] Address [address] [address] Assessment No assessment recorded. Plan of Treatment [...] 11/14/19 22 Generic Procedure completed TONYA FUCHS [address], [place], [address], [place] [facility], [employer] 11/14/2021 13:48:20 09/19/20 21 Generic Procedure completed TONYA FUCHS [address], [place], [address], [place] [facility], [facility] 09/19/2021 11:27:42 10/08/19 09 Hip Surgery completed Taylor AppDynamic[employer]relli [place] [facility], [facility] 09/19/2021 11:17:40 10/08/19 00 Hysterectomy completed Taylor Cicerelli [place] [facility] 09/19/2021 11:17:11 10/08/18 80 Tubal Ligation completed Taylor Cicerelli [place] [facility], [facility] 09/19/2021 11:16:58 10/08/18 68 Appendectomy completed Taylor [employer] [place] [facility], [facility] 09/19/2021 11:16:44 10/08/18 58 [facility], [facility] 09/19/2021 11:16:32 Imaging Results None recorded. Procedure Notes None recorded. Medical Equipment None Reported. Allergies Allergen ID Allergen Name Allergen Category Reaction Reaction Severity Criticality Documentation Date Start Date Code Code System Note Provider Name and Address Organization Details Recorded Time 45890 Medicinal product containin g tetracycl ine structure and acting as antibacte rial agent (product) medicatio n other Not available Not available 09/19/2021 16786 1004 SNOMED Taylor cueto [facility], [facility] 11:11:45 Medications Name Sig Start Date Stop [...] Updated DateTime 1 170.18 cm 33.7 kg/m2 56493.3 6 g 83 /min 113 mm[Hg] 65 mm[Hg] Taylor Mariee [facility] [employer] 1 11:10:14 Date Recorded Body height Body mass index (BMI) Body weight Heart rate Systolic blood pressure Diastolic blood pressure Provider Name and Address Organization Details Last Updated DateTime 2 170.18 cm 33.7 kg/m2 81581.3 6 g 80 /min 113 mm[Hg] 60 mm[Hg] Maximiliano Sanders [facility] [facility] 2 11:21:50 Date Recorded Body height Heart rate Systolic blood pressure Diastolic blood pressure Provider Name and Address Organization Details Last Updated DateTime 11/23/2021 170.18 cm 93 /min 132 mm[Hg] 68 mm[Hg] Christina Noland [facility], [facility] 11/23/2021 13:39:15 Date Recorded Body height Body mass index (BMI) Body weight Heart rate Systolic blood pressure Diastolic blood pressure Provider Name and Address Organization Details Last Updated DateTime 2 170.18 cm 33.7 kg/m2 70648.3 6 g 100 /min 130 mm[Hg] 60 mm[Hg] Maximiliano Marilyn [facility], [facility] 2 12:11:02 Social History Question Answer Notes LastModified by Organizat ion Details LastModified Time Tobacco Smoking Status Former Smoker Taylor cueto [facility], [facility] 09/19/2021 11:16:15 What Is Your Level Of Alcohol Consumption? None [email or web address] Information not available 11/14/2021 Are You Currently Employed? No [email or web address] Information not available 11/14/2021 How Many Days Of Moderate To Strenuous Exercise, Like A Brisk Walk, Did You Do In The Last 7 Days? 0 Information not available 09/19/2021 What Is Your Relationship Status? [email or web address] Information not available 11/14/2021 How Much Tobacco Do You Smoke? 1 PPW [email or web address] Information not available 11/14/2021 How Many Years Have You Smoked Tobacco? 1 [email or web address] Information not available 11/14/2021 Sex: Unknown Functional [...] Stones N Hyperthyroidism N Breast Cancer N Head Trauma/Injury N Hernia Y Lung Cancer N Lung Disease N Blood Clots N COPD N Hypothyroidism Y Depression N Pacemaker N Anxiety Disorder N Arthritis Y Alcohol / Substance Abuse N Kidney Cancer N Cancer N Stroke N Melanoma N Neck Injury N Leg or Foot Ulcers N High Cholesterol Y Skin Cancer N Liver Disease N Rheumatoid Arthritis N Headaches N Fibromyalgia N Concussion N Kidney Disease N Heart Problems N Chronic use of Pain Medication N Prostate Cancer N Migraines N Thyroid Problems N Alzheimers N Autoimmune Disorder N Anemia N Multiple Sclerosis N Tendon Tear N Ulcers N Heart Attack (DC) N Diabetes N Bleeding Disorder N Seizures/Epilepsy [...] SNOMED-CT Code Diagnosis ICD10 Code Diagnosis Note [id number] TONYA FUCHS [facility] [address] [facility] ,[address] [place] [address] 09/19/2021 10:54:22 09/28/2021 14:31:46 Osteoarthritis of joint of right shoulder region 6249581772 16746 M19.011 at today's office visit I discussed [...] with purchasing the self pay program with [employer] the patient doing hyaluronic acid injections in the right shoulder to see if she gets any beneficial relief. Greater than 30 minutes face-to-fa ce visit with more than 15 minutes of my time spent counseling the patient about their diagnosis including pathophysi ology and treatment options. [id number] TONYA FUCHS [facility] [address] [place] [address] 11/14/2021 10:56:05 11/14/2021 12:07:58 Pain of shoulder region 26162401 M25.511 Localized, primary osteoarthritis of the shoulder region 252598288 M19.019 [id number] T[facility] [address] [place] [address] 11/23/2021 13:06:23 11/23/2021 15:02:48 Localized, primary osteoarthritis of the shoulder region 444367063 M19.019 [id number] TONYA FU[facility] [address] [place] [address] 12/05/2021 11:28:06 12/05/2021 13:00:34 Osteoarthritis of joint of right shoulder region 2351574378 20685 M19.011 . Health Concerns Section Related Observation LastModified by Organization Detai ls LastModified Time None Recorded Concern Status LastModified by Organization Details LastModified Time None Recorded Advance Directives Directive None Recorded Payers Encounter Date Sequence Insurance Name Policy Number Policy Armstrong Covered Member ID Armstrong Member ID Guarantor Name 09/19/2021 1 [place] Roya A Delbert [id number] Roya Kimball 11/14/2021 1 [place] [facility] Roya A Kimball [id number] Roya Kimball 11/23/2021 1 [place] Mandujano [id number] Roya Mandujano 12/05/2021 1 [place] Manduj[place] [id number] Roya Mandujano Notes Date Note Type [...] her pain as an 05/17. TONYA FUCHS [address], [place], [address], [facility], [facility] 09/19/2021 11:29:12 OBGyn Episode No OBEpisode recorded.
--- OUTSIDE RECORDS SUMMARY | 2025-02-07 15:43 | XMS_ITS | Clinical Summary ---
Author Organization [facility] Address [address] [place] [address] Care Team Providers Care Gravel Wheeler Name Role Phone Tasneem Hdez MD Primary Care Provider [phone] Allergies Active Allergy Reactions Criticality Noted Date Comments Lisinopril Cough Low 03/25/2024 Tetracycline Other (See comments) Low 06/19/2023 Medications ARIPiprazole (ABILIFY) 30 mg tabletIndication s:Bipolar Disorder Take 1 tablet (30 mg total) by mouth nightly Active atorvastatin (LIPITOR) 20 mg tablet Take 1 tablet (20 mg total) by mouth nightly Active azelastine (ASTELIN) 137 mcg (0.1 %) nasal spray Administer 2 sprays into each nostril 2 (two) times a day Active diclofenac DR (VOLTAREN) 75 mg EC tabletIndication s:Osteoarthritis Take 1 tablet (75 mg total) by mouth 2 (two) times a day Active levothyroxine (SYNTHROID) 50 mcg tablet Take 1 tablet (50 mcg total) by mouth business services vice president before breakfast Take 1 tablet by mouth on Sunday, , and Sunday Active DULoxetine DR (CYMBALTA) 60 mg capsule TAKE 1 CAPSULE BY MOUTH EVERY DAY IN THE EVENING 3 Active levothyroxine (SYNTHROID) 75 mcg tablet 1 tablet by mouth on Sunday, Sunday, Sunday, and Sunday. Active pantoprazole DR (PROTONIX) 40 mg EC tablet Take 1 tablet (40 mg total) by mouth business services vice president before breakfast Active fluticasone propionate (FLONASE) 50 mcg/actuation nasal spray Administer 2 sprays into each nostril business services vice president before breakfast Active telmisartan (MICARDIS) 80 mg tabletIndication s:hypertension Take 1 tablet (80 mg total) by mouth nightly Active topiramate (TOPAMAX) 50 mg tabletIndication s:anxity 1 tablet (50 mg total) 2 (two) times a day Active valACYclovir (VALTREX) 500 mg tabletIndication s:Chronic Suppression Take 1 tablet (500 mg total) by mouth business services vice president before breakfast Active zolpidem CR (AMBIEN CR) 6.25 mg CR tablet Take 1 tablet (6.25 mg total) by mouth nightly as needed for sleep Active polyethylene glycol (MIRALAX) 17 gram packetIndication s:constipation Take 1 packet (17 g total) by mouth daily 30 packet 3 Active Additional Information Patient taking differently:17 g oralAs needed, Indications: constipation, Reported on 01/05/2025 acetaminophen ER (Tylenol Arthritis Pain) 650 mg 8 hr tablet Take 2 tablets (1,300 mg total) by mouth every 8 (eight) hours as needed 1 Active aolpxs-qezt-vonm -levomef-silic 10-50-500-0.5 mg capsule Take 1 tablet/capsule by mouth business services vice president before breakfast 1 Active ascorbic acid, vitamin C, 500 mg capsule Take 1 Caplet by mouth business services vice president before breakfast Active Restasis 0.05 % ophthalmic emulsion Administer 1 drop into both eyes 2 (two) times a day Active oxyCODONE-acetam inophen (PERCOCET) 5-325 mg per tablet Take 1 tablet by mouth every 6 (six) hours as needed 5 Active vibegron (Gemtesa) 75 mg tablet Take by mouth nightly Active buPROPion XL (WELLBUTRIN XL) 300 mg 24 hr tablet Take 1 tablet (300 mg total) by mouth business services vice president before breakfast 4 Active L-LYSINE ORAL nightly 1 Active fish oil/borage/flax/ om3,6,9 1 (OMEGA 3-6-9 ORAL) 2 (two) times a day 1 Active cetirizine 10 mg tablet,disintegr ating nightly Active calcium carb-magnesium carb,ox 200 mg calcium- 100 mg tablet,chewable Take by mouth business services vice president before breakfast Active UNABLE TO FIND Take 1 each by mouth business services vice president before breakfast Med Name: occuvite Active vitamin E 400 unit capsule Take 1 capsule (400 Units total) by mouth business services vice president before breakfast Active magnesium gluconate 200 mg tabletIndication s:hypomagnesemia Take 1 tablet (200 mg total) by mouth nightly Active cephalexin (KEFLEX) 500 mg capsule 1 capsule (500 mg total) 2 (two) times a day Active Active Problems Problem Noted Date Diagnosed Date Osteoarthritis of right shoulder 10/26/2024 Chronic right shoulder pain 10/26/2024 Compartment syndrome of left lower extremity, initial encounter 06/19/2023 Encounters Date Type Department Care Team Description 01/22/2025 4:30 PM CDT Office Visit [facility] Care at [address] [address] Maren Moore NP Acute cough (Primary Dx); Rib pain on right side; Abnormal bruising 01/16/2025 Telephone [facility] Orthopaedic Surgery [address] [place] [address] [address]th [place] [address] [place] [address] Delia Abdul MD 01/09/2025 Telephone [facility] Orthopaedic Surgery [address] [place] [address] 12th [place] [address] [place] [address] Delia Abdul MD 01/05/2025 2:45 PM CDT Office Visit [facility] Orthopaedic Surgery [address] [place] [address] 12th [place] [address] [place] [address] Delia Abdul MD Primary osteoarthritis of right shoulder (Primary Dx) 01/05/2025 1:00 PM CDT Pre-Admission Testing [facility] for Preoperative Assessment and Planning [facility]) [address] [place] [address] Preoperative testing (Primary Dx); Osteoarthritis of right shoulder, unspecified osteoarthritis type; Chronic right shoulder pain; Vitamin D deficiency 12/05/2024 12:08 PM PHOTOENGRAVING RETOUCHER - 12/05/2024 11:59 PM PHOTOENGRAVING RETOUCHER Hospital Encounter [facility]) [address] [place] [address] Discharge Disposition: Discharge to home or self care 12/01/2024 Orders Only [facility] Orthopaedic Surgery [address] [facility] 2nd Floor [address] [place] [address] Delia Abdul MD Primary osteoarthritis [...] on file Legal Sex Female 3:33 AM PHOTOENGRAVING RETOUCHER Gender Identity Not on file Sexual Orientation [...] Description 02/20/2025 10:40 AM CDT Hospital Encounter [facility] Operating Room [address] [place] [phone] Delia Abdul MD [address] [facility] [place] [address] 02/20/2025 10:40 AM CDT Anesthesia Event [facility] Operating Room [address] [place] [address] Aron Butt MD [address] [place] [address] 02/20/2025 10:40 AM CDT - 02/20/2025 1:50 PM CDT Surgery [facility] Operating Room [address] [place] [address] Delia Abdul MD [address] [facility] [place] [address] Right Reverse Shoulder Arthroplasty Scheduled Procedures Name [...] 07/09/2018, 06/08/2018, Additional history exists Covid-19 Vaccine (4-2 5 season) 2024 03/19/2023, 07/28/2022, 01/17/2022, Additional history exists Depression Screening 06/19/2024 06/19/2023 Fall Risk Assessment 01/05/2026 01/05/2025 DTaP/Tdap/Td Vaccine (3 - Td or Tdap) 04/08/2031 04/08/2021, 03/18/2013 Zoster Vaccine Completed 11/03/2019, 01/2019, 01/29/2014 Influenza Vaccine Completed 07/03/2024, , [...] CT OUTSIDE REFERENCE Routine 12/05/2024 12:08 PM PHOTOENGRAVING RETOUCHER from Last 3 Months Results * (ABNORMAL) [...] of Race in Diagnosing Kidney Disease, JASN 202). The CKD-EPI equation should not be used for patients with unstable renal function and has not been validated in children and those over 70. Current interpretive data was last reviewed 2021. Blood 01/05/2025 2:48 PM CDT 01/05/2025 3:22 PM CDT Delia Abdul MD LAB BLOOD ORDERABLES Final Result [facility] [place] [address] * Vitamin D 25 hydroxy (01/05/2025 2:48 PM CDT) [facility] Vitamin D 25-OH 49 30 - 80 ng/mL Blood 01/05/2025 2:48 PM CDT 01/05/2025 3:22 PM CDT us Delia Abdul MD LAB BLOOD ORDERABLES Final Result Performing Organization Address City/[facility]/ZIP Co de Phone Number [facility] [place] [address] * CBC without differential (01/05/2025 2:48 PM CDT) [facility] WBC 5.4 3.8 - 9.9 K/cumm Hgb 12.6 11.9 - 15.5 g/dL [facility] Hct 38.1 35.6 - 45.5 % [facility] Plt 176 150 - 400 K/cumm [facility] MPV 9.9 9.1 - 12.3 fL [facility] RBC 3.99 3.90 - 5.20 M/cumm [facility] MCV 95.5 81.3 - 96.4 fL [facility] MCH 31.6 27.1 - 33.3 pg [facility] MCHC 33.1 32.3 - 35.7 g/dL [facility] RDW CV 13.5 11.1 - 14.9 % [facility] RDW SD 46.8 35.7 - 48.1 fL [facility] NRBC abs 0.00 0.00 - 0.01 K/cumm [facility] Blood 01/05/2025 2:48 PM CDT 01/05/2025 3:22 PM CDT Aron Butt MD LAB BLOOD ORDERABLES Final Result [facility] [place] [address] * (ABNORMAL) Comprehensive metabolic panel (01/05/2025 2:48 PM CDT) Sodium 145 135 - 145 mmol/L Potassium, pl 3.9 3.3 - 4.9 mmol/L [facility] Chloride 105 97 - 110 mmol/L [facility] CO2 28 22 - 32 mmol/L [facility] Anion gap 12 2 - 15 mmol/L [facility] BUN 28(H) 6 - 25 mg/dL [facility] Creatinine 1.31(H) 0.60 - 1.10 mg/dL [facility] Glucose 100 70 - 199 mg/dL [facility] Comment: Interpretive Data Fasting glucose >/= [...] classification and Diagnosis of Diabetes Diabetes Care 202; 46: S19-S40. Current interpretive data was last revised 2022. Calcium 9.3 8.5 - 10.3 mg/dL [facility] Bilirubin, total 0.3 0.1 - 1.2 mg/dL [facility] Protein, pl 7.1 6.5 - 8.5 g/dL [facility] Albumin 4.0 3.5 - 5.0 g/dL [facility] Alk phos 54 40 - 130 Units/L [facility] ALT 28 7 - 45 Units/L [facility] AST 36 10 - 45 Units/L [facility] Blood 01/05/2025 2:48 PM CDT 01/05/2025 3:22 PM CDT us Delia Abdul MD LAB BLOOD ORDERABLES Final Result [facility] [place] [address] * MSK CT Outside Reference (12/05/2024 12:08 PM PHOTOENGRAVING RETOUCHER) Impressions [facility] - 12/05/2024 12:08 PM PHOTOENGRAVING RETOUCHER These images are for Reference purposes only and have not been reviewed by [facility]. There will be no report generated by a [facility] Radiologist. Narrative [facility] - 12/05/2024 12:08 PM PHOTOENGRAVING RETOUCHER EXAMINATION: Images For Reference Purposes Only us Delia Abdul MD IMG CT PROCEDURES Fin al Result Performing Organization Address City/[facility]/ZIP Co de Phone Number [facility] from Last 3 Months Insurance [employer] MEDICARE MEDICARE [facility] Advance Directives For more information, please contact: [phone] * Full Code (Latest Code Status on File) Date Activated Date Inactivated Comments 06/19/2023 5:35 PM 06/26/2023 8:20 PM Care Teams Gravel Wheeler Relationship Specialty Start Date End Date Tasneem Hdez MD [address] [facility] [address] [place] [address] PCP - General Family Medicine 9/11/23
--- OUTSIDE RECORDS SUMMARY | 2025-02-07 15:43 | XMS_ITS ---
Author Organization [facility] [place] ([address]) Address [address] [place] [address] Care Team Providers Care Cafeteria Food Server Name Role Phone Tasneem Hdez DO Primary Care Provider Unavailabl Magdalena Topete Unavailable [phone] REASON FOR VISIT Message Medications Medication SIG (Take, Route, Frequency, Duration) Notes Start Date End Date Status Flonase Allergy Relief 50 MCG/ACT 1 spray in each nostril Nasally Once a day for 90 days 05/13/2024 Active Encounters Encounter Location Date Provider Diagnosis [facility] [address] [place] [address] 06/24/2024 Magdalena Cramer Plan Of Treatment Medication Medication Name Sig Start Date Stop Date Notes Flonase Allergy Relief 50 MCG/ACT 1 spray in each nostril Nasally Once a day for 90 days 05/13/2024 Progress Notes * Roya MANDUJANODOB: 3 (69 yo F)Acc No.[id number]:06/24/2024 Patient: Roya POLLARD :1955 A ge:69 Y S ex:Female Address:[address] , [place] [address] * Refills Refill Flonase Allergy Relief Suspension, 50 MCG/ACT, Nasally, 1, 1 spray in each nostril, Once a day, 90 days, Refills=0 * true * Date: Generated for Nguyen menendez/Fatemeh/Ashley on: 0 02/07/2025 03:41 PM CDT
--- OUTSIDE RECORDS SUMMARY | 2025-02-07 15:43 | XMS_ITS | Patient Health Record ---
Author Organization [facility] Address [address] [place] [address] Care Team Providers Care Bat Boy/Girl Name Role Phone Tasneem Hdez DO Primary Care Provider Kala Flores Unavailable [phone] Abebe Campos Unavailable [phone] Allergies Allergen (clinical drug ingredient) Drug/Non Drug [...] Status Risk Notes Problem Bipolar 2 disorder (48836481) Bipolar 2 disorder (F31.81) Active confirmed Problem 408551295 Chronic insomnia (F51.04) Active confirmed Vital Signs Heart Rate 102 /min 01/01/2025 Blood pressure diastolic 69 mm Hg 01/01/2025 Weight-kg 104.78 kg 01/01/2025 Blood pressure systolic 102 mm Hg 01/01/2025 Weight 231 lbs 01/01/2025 Encounters Encounter Location Date Provider Diagnosis [facility] [place] [address] [address] 10/02/2024 Thena Andres Bipolar 2 disorder F31.81 [facility] [place] [address] [address] 01/01/2025 Kala Donna Chronic insomnia F51 .04 ; Encounter for screening for depression Z13.31 ; Bipolar 2 disorder F31.81 and Encounter for screening for cardiovascular disorders Z13.6 [facility] [employer] [facility] [address] [address] 10/06/2024 Thena Andres Bipolar 2 disorder F31.81 [facility] [place] [address] [address] 12/18/2024 Kala Donna Bipolar 2 disorder F31.81 [...] Provider Name:Kala Thompson, 04/03/2025 11:00:00 AM, [address] [facility] [address] [facility] [address], [place], [address], Insurance Providers Payer Name Payer Address Payer Phone Subscriber Number Group Number Insured Name Patient Relationship to Insured Coverage Start Date Coverage End Date Medicare-I l Medicare [address] [place] [address] [id number] CLAUDINE CHANEY Self - patient is the insured Medicaid-I l Medicaid [address] [address] [place] [address] [id number] CLAUDINE CHANEY Self - patient is the [...]
--- OUTSIDE RECORDS SUMMARY | 2025-02-07 15:43 | XMS_ITS ---
Author Organization [facility] [place] ([address]) Address [address] [place] [address] Care Team Providers Care Smt Machine Operator Name Role Phone Lemuel MARY Tasneem Primary Care Provider Unavailabl Magdalena Topete Unavailable [phone] REASON FOR VISIT RX Encounters Encounter Location Date Provider Diagnosis [address] [address] 05/20/2024 Magdalena Cramer Plan Of Treatment No Information Progress Notes * Roya MANDUJANODOB: 3 (69 yo F)Acc No.[id number]:05/20/2024 Patient: Roya POLLARD :1955 A ge:69 Y S ex:Female Address:[address] [place] [address] [place] [address] * true * Date: Generated for Printi ng/Faxing/eTransmitting on: 0 02/07/2025 03:41 PM CDT
--- OUTSIDE RECORDS SUMMARY | 2025-02-07 15:43 | XMS_ITS | Referral Summary ---
Author Organization [facility] Address [address] [place] [address] Care Team Providers Care Oil Scout Name Role Phone Tasneem Hdez MD Primary Care Provider [phone] Encounters Date Type Department Care Team Description 01/22/2025 4:30 PM CDT Office Visit [facility] Care at [address] [address] Maren Moore NP Acute cough (Primary Dx); Rib pain on right side; Abnormal bruising 01/16/2025 Telephone [facility] Orthopaedic Surgery [address] [place] [address] Advanced Medicine [facility] [place] [address] [place] [address] Delia Abdul MD 01/09/2025 Telephone [facility] Orthopaedic Surgery [address] [place] [address] Advanced Medicine 12th [place] [address] [place] [address] Delia Abdul MD 01/05/2025 1:00 PM CDT Pre-Admission Testing [facility] for Preoperative Assessment and Planning [facility] ([facility]) [address] [place] [address] Preoperative testing (Primary Dx); Osteoarthritis of right shoulder, unspecified osteoarthritis type; Chronic right shoulder pain; Vitamin D deficiency 01/05/2025 2:45 PM CDT Office Visit [facility] Orthopaedic Surgery [address] [place] [address] 12th [place] [address] [place] [address] Delia Abdul MD Primary osteoarthritis of right shoulder (Primary Dx) 12/05/2024 12:08 PM BUNCH MAKER - 12/05/2024 11:59 PM BUNCH MAKER Hospital Encounter [facility]) [address] [place] [address] Discharge Disposition: Discharge to home or self care 12/01/2024 Orders Only [facility] Orthopaedic Surgery [address] [facility] 2nd Floor [address] [place] [address] Delia Abdul MD Primary osteoarthritis [...] 1 tablet (50 mcg total) by mouth early childhood educator aide before breakfast Take 1 tablet by mouth on Sunday, , and Sunday Active DULoxetine DR (CYMBALTA) 60 mg capsule TAKE 1 CAPSULE BY MOUTH EVERY DAY IN THE EVENING 3 Active levothyroxine (SYNTHROID) 75 mcg tablet 1 tablet by mouth on Sunday, Sunday, Sunday, and Sunday. Active pantoprazole DR (PROTONIX) 40 mg EC tablet Take 1 tablet (40 mg total) by mouth early childhood educator aide before breakfast Active fluticasone propionate (FLONASE) 50 mcg/actuation nasal spray Administer 2 sprays into each nostril early childhood educator aide before breakfast Active telmisartan (MICARDIS) 80 mg tabletIndication s:hypertension Take 1 tablet (80 mg total) by mouth nightly Active topiramate (TOPAMAX) 50 mg tabletIndication s:anxity 1 tablet (50 mg total) 2 (two) times a day Active valACYclovir (VALTREX) 500 mg tabletIndication s:Chronic Suppression Take 1 tablet (500 mg total) by mouth early childhood educator aide before breakfast Active zolpidem CR (AMBIEN CR) [...] 8 (eight) hours as needed 1 Active rxngya-bthn-kbfv -levomef-silic 10-50-500-0.5 mg capsule Take 1 tablet/capsule by mouth early childhood educator aide before breakfast 1 Active ascorbic acid, vitamin C, 500 mg capsule Take 1 Caplet by mouth early childhood educator aide before breakfast Active Restasis 0.05 % ophthalmic [...] 1 tablet (300 mg total) by mouth early childhood educator aide before breakfast 4 Active L-LYSINE ORAL nightly 1 Active fish oil/borage/flax/ om3,6,9 1 (OMEGA 3-6-9 ORAL) 2 (two) times a day 1 Active cetirizine 10 mg tablet,disintegr ating nightly Active calcium carb-magnesium carb,ox 200 mg calcium- 100 mg tablet,chewable Take by mouth early childhood educator aide before breakfast Active UNABLE TO FIND Take 1 each by mouth early childhood educator aide before breakfast Med Name: occuvite Active vitamin E 400 unit capsule Take 1 capsule (400 Units total) by mouth early childhood educator aide before breakfast Active magnesium gluconate 200 mg [...] on file Legal Sex Female 3:33 AM BUNCH MAKER Gender Identity Not on file Sexual Orientation [...] Hospital Encounter [facility] Operating Room [address] [place] [address] Delia Abdul MD [address] [facility] [place] [address] 02/20/2025 10:40 AM CDT Anesthesia Event [facility] Operating Room [address] [place] [address] Aron Butt MD [facility] [address] [place] [address] 02/20/2025 10:40 AM CDT - 02/20/2025 1:50 PM CDT Surgery [facility] Operating Room [address] [place] [address] Delia Abdul MD [address] [facility] [place] [address] Right Reverse Shoulder Arthroplasty Scheduled Procedures Name [...] CT OUTSIDE REFERENCE Routine 12/05/2024 12:08 PM BUNCH MAKER from Last 3 Months Results * (ABNORMAL) [...] BLOOD ORDERABLES Final Result Performing Organization Address City/[facility]/ZIP Co de Phone Number [facility] [place] [address] * Vitamin D 25 hydroxy (01/05/2025 2:48 PM CDT) Vitamin D 25-OH 49 30 - 80 ng/mL Blood 01/05/2025 2:48 PM CDT 01/05/2025 3:22 PM CDT Delia Abdul MD LAB BLOOD ORDERABLES Final Result [facility] [place] [facility] [place] [address] * CBC without differential (01/05/2025 2:48 PM CDT) [facility] WBC 5.4 3.8 - 9.9 K/cumm Hgb 12.6 11.9 - 15.5 g/dL [facility] Hct 38.1 35.6 - 45.5 % [facility] Plt 176 150 - 400 K/cumm [facility] MPV 9.9 9.1 - 12.3 fL [facility] RBC 3.99 3.90 - 5.20 M/cumm [facility] MCV 95.5 81.3 - 96.4 fL [facility] MCH 31.6 27.1 - 33.3 pg [facility] MCHC 33.1 32.3 - 35.7 g/dL [facility] RDW CV 13.5 11.1 - 14.9 % [facility] RDW SD 46.8 35.7 - 48.1 fL [facility] NRBC abs 0.00 0.00 - 0.01 K/cumm [facility] Blood 01/05/2025 2:48 PM CDT 01/05/2025 3:22 PM CDT Aron Butt MD LAB BLOOD ORDERABLES Final Result [facility] [place] [address] * (ABNORMAL) Comprehensive metabolic panel (01/05/2025 2:48 PM CDT) [facility] Sodium 145 135 - 145 mmol/L Potassium, pl 3.9 3.3 - 4.9 mmol/L [facility] Chloride 105 97 - 110 mmol/L [facility] CO2 28 22 - 32 mmol/L [facility] Anion gap 12 2 - 15 mmol/L [facility] BUN 28(H) 6 - 25 mg/dL [facility] Creatinine 1.31(H) 0.60 - 1.10 mg/dL [facility] Glucose 100 70 - 199 mg/dL [facility] Comment: Interpretive Data Fasting glucose >/= [...] 2022. Calcium 9.3 8.5 - 10.3 mg/dL [facility] Bilirubin, total 0.3 0.1 - 1.2 mg/dL [facility] Protein, pl 7.1 6.5 - 8.5 g/dL [facility] Albumin 4.0 3.5 - 5.0 g/dL [facility] Alk phos 54 40 - 130 Units/L [facility] ALT 28 7 - 45 Units/L [facility] AST 36 10 - 45 Units/L [facility] Blood 01/05/2025 2:48 PM CDT 01/05/2025 3:22 PM CDT us Delia Abdul MD LAB BLOOD ORDERABLES Final Result Performing Organization Address [facility]/State/ZIP Co de Phone Number [facility] [place] [address] * MSK CT Outside Reference (12/05/2024 12:08 PM BUNCH MAKER) Impressions [facility] - 12/05/2024 12:08 PM BUNCH MAKER These images are for Reference purposes only and have not been reviewed by [facility]. There will be no report generated by a [facility] Radiologist. Narrative [facility] - 12/05/2024 12:08 PM BUNCH MAKER EXAMINATION: Images For Reference Purposes Only us Delia Abdul MD IMG CT PROCEDURES Fin al Result Performing Organization Address City/State/[facility] de Phone Number [facility] from Last 3 Months Insurance [facility] MEDICARE MEDICARE [facility] Advance Directives For more information, please contact: [phone] * Full Code (Latest Code Status on File) Date Activated Date Inactivated Comments 06/19/2023 5:35 PM 06/26/2023 8:20 PM Care Teams Oil Scout Relationship Specialty Start Date End Date Tasneem Hdez MD [address] [facility] [address] [place], [place] [id number] PCP - General Family Medicine 06/18/23
--- OUTSIDE RECORDS SUMMARY | 2025-02-07 15:43 | XMS_ITS | Encounter Summary ---
Author Organization [facility] Address [address] [place] [address] Care Team Providers Care Metal Fabricator Name Role Phone Tasneem Hdez DO Primary Care Provider [phone] Encounter Details Date Type Department Care Team (Late st Contact Info) Description 01/03/2022 DailyPatht Message Enc [facility] Family Medicine - [place] [address] [facility] [place] [address] Tasneem Hdez DO [address] [place] [address] Pneumonia shots Social History Tobacco Use Types [...] Total Score: 0 11/22/19 22 3:02 PM CANE CUTTER documented as of this encounter Care Teams Metal Fabricator Relationship Specialty Start Date End Date Tasneem Hdez DO [address] [place] [address] PCP - General 01/17/17 documented as of this encounter
== END 2025-02-07 01:08 | disposition home or self-care (01) ==
PROVIDERS: Emergency Provider Emergency Medicine
DX: B37.2 Candidiasis of skin and nail (principal); I10 Essential (primary) hypertension; E78.5 Hyperlipidemia, unspecified; E03.9 Hypothyroidism, unspecified; M19.012 Primary osteoarthritis, left shoulder; M19.011 Primary osteoarthritis, right shoulder; K21.9 Gastro-esophageal reflux disease without esophagitis; G47.33 Obstructive sleep apnea (adult) (pediatric); F31.9 Bipolar disorder, unspecified; Z96.612 Presence of left artificial shoulder joint; Z96.652 Presence of left artificial knee joint; Z96.82 Presence of neurostimulator; Z87.891 Personal history of nicotine dependence; Z90.710 Acquired absence of both cervix and uterus; Z79.899 Other long term (current) drug therapy
CPT/HCPCS: 99283